=== PATIENT | male | born 1935 | race Caucasian/White ===

== ENCOUNTER 2016-04-24 09:15 | Inpatient (IN) | payer MEDICARE ==
[~2016-04-24] VITALS: Ht 180.3 cm; Wt 101.6 kg
[2016-04-24] VITALS (13 sets, daily range): BP systolic 121–146; BP diastolic 54–77
[2016-04-24] MEDS ORDERED: VENL150C PO (12:10)
[2016-04-24] MEDS ORDERED: CETI10TA22 PO (12:10)
[2016-04-24] MEDS ORDERED: FAMO-63 PO (12:10)
[2016-04-24] MEDS ORDERED: ASPI-482 PO (12:10)
[2016-04-24] MEDS ORDERED: LEVO25TA2 PO (12:10)
[2016-04-24] MEDS ORDERED: TAMS0.4C97 PO (12:10)
[2016-04-24] MEDS ORDERED: DOCU-27 PO (12:10)
[2016-04-24] MEDS ORDERED: CYAN10005 PO (12:10)
[2016-04-24] MEDS ORDERED: CHOL10003 PO (12:10)
[2016-04-24] MEDS ORDERED: ISOS30TA4 PO (12:10)
--- NOTE | 2016-04-24 13:08 | PDOC2 ---
JAIR WELLER INFORMATICS NURSE SPECIALIST 04/24/16 1308: CARDIAC CONSULT DATE OF CONSULT Date of Consult DATE: 04/24/16 TIME: 13:07 REASON FOR CONSULT Reason for Consult: CHF Hypertension REFERRING PHYSICIAN Referring Physician: Dr. Dotson SOURCE Source: Chart review, Patient HISTORY OF PRESENT ILLNESS HISTORY OF PRESENT ILLNESS This is a 80 yo male, with a history of CHF, COPD, and HTN, who initially presented to [facility] secondary to syncopal episode. Patient does not recall passing out. Per record review, patient resides at [facility], a snf house through the [place], and was last seen standing up drinking coffee. His roommate then found him collapsed on the floor and non-responsive. Patient noted to have CHF with NT Pro BNP 2840, CAYDEN with BUN 38 and Cr 2.8, and significant SOA. I and O reports 300cc UOP despite Bumex 2mg IV and Lasix 40mg IV.Patient transferred to [facility] for further care. Patient normally receives care at the [facility]- reports having an echocardiogram "awhile ago. " Appears to be somewhat of a poor historian. Does not know what medication he takes but reports he is given them several times a day. Denies any CP, palpitations, diaphoresis, or nausea/vomiting. No recent illness or fevers. Does not think he follows with shaft headman. 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 Reports chronic SOA "for the last 20 year" but recently worse. Also reports chronic LE edema and orthopnea. Possible h/o irregular heart rhythm but does not recall the term atrial fibrillation. Is not on a blood thinner to his knowledge. Mg 2.2, K 4.5, TSH 10.4. 10-beat NSVT noted at [facility] and was initiated on Amiodarone. PAST MEDICAL HISTORY Cardiovascular: AFIB (?), CHF, HTN Pulmonary: COPD CENTRAL NERVOUS SYSTEM: Dementia GI: No pertinent hx Heme/Onc: No pertinent hx Hepatobiliary: No pertinent hx Psych: Depression Musculoskeletal: Osteoarthritis Renal/: Chronic renal insuff Endocrine: Hypothyroidism PAST SURGICAL HISTORY Past Surgical History left arm sx FAMILY HISTORY Family History: Heart Disease SOCIAL HISTORY Lives: Roommate (resides at [facility] in [place]) ALLERGIES ALLERGIES: Coded Allergies: piroxicam (Verified Allergy, Intermediate, Rash, 04/24/16) Takes asa at home ROS Review of System 14 point ROS conducted with pertinent positives noted above in HPI. PHYSICAL EXAM General: Alert, Oriented X3, Cooperative, mild distress HEENT: Atraumatic, Mucous membr. moist/pink Lungs: Other (diffuse expiratory wheezes) Heart: Other (IRR, tele: AFIB) Abdomen: Other (distended abdomen) Extremities: Other (significant LE edema up to level of thigh. ) Skin: No significant lesion, Other (bilateral LE erythema ) Neuro: Normal speech, Sensation intact Psych/Mental Status: Mental status NL, Other (flat affect ) MUSCULOSKELETAL: Osteoarthritic changes both hands VITALS VITALS Vital Signs Date Time Temp Pulse Resp B/P Pulse Ox O2 Delivery O2 Flow Rate FiO2 04/24/16 12:00 99 23 140/70 98 Nasal Cannula 5.0 04/24/16 11:00 98.1 98.1 ASSESSMENT/PLAN ASSESSMENT/PLAN 1. Acute on chronic heart failure 2. Acute on chronic respiratory failure with AE COPD secondary to above. 3. CAYDEN wiht CKD 4. Atrial Fibrillation; onset unknown 5. NSVT 6. Hypertension 7. Anemia 8. Hypothyroidism - TSH 10.4 9. Anemia Recommendation Check echo to assess LV function No ZEKE/ ARB with CAYDEN Will need diuresis with close monitoring of renal function. BMP in am Renal optimization per nephrology. Rate intermittently elevated. Add CCB for rate control No BB secondary to wheezing. Pulmonary consulted. [id number] score 4 correlating with a 4.8% risk for stroke. Continue ASA for now. ? candidate for OAC. Thyroid replacement per primary care. Problems: JESS BURT MD 04/25/16 0043: CARDIAC CONSULT ALLERGIES ALLERGIES: Coded Allergies: piroxicam (Verified Allergy, Intermediate, Rash, 04/24/16) Takes asa at home ASSESSMENT/PLAN ASSESSMENT/PLAN Pt. seen and examined. Agree with above AFFIRMATIVE ACTION SPECIALIST note. 80 y.o presenting with acute on chronic heart failure - etiology unclear. On exam he has anasarca Reviewed case with Nephrology. Continue lasix gtt. will obtain echo and further cardiac evaluation likely after renal optimization or on outpt basis. Will follow. Problems: JAIR WELLER APRN Apr 24, 2016 13:08 JESS BURT MD Apr 25, 2016 00:43
[2016-04-24] MEDS ORDERED: FUROSEMIDE 20 MG/2 ML VIAL IVP ONE (14:00)
[2016-04-24] MEDS: ASPIRIN ENTERIC COATED 81 MG TABLET.DR. PO SCH (14:28)
[2016-04-24] MEDS: ISOSORBIDE MONONITRATE ER 30 MG TAB.ER.24H PO SCH (14:29)
--- NOTE | 2016-04-24 16:17 | PDOC2 ---
CONSULT Date of Consult Date of Consult DATE: 04/24/16 TIME: 16:14 Past Medical History Cardiovascular: AFIB (?), CHF, HTN Pulmonary: COPD CENTRAL NERVOUS SYSTEM: Dementia GI: No pertinent hx Heme/Onc: No pertinent hx Hepatobiliary: No pertinent hx Psych: Depression Musculoskeletal: Osteoarthritis Renal/: Chronic renal insuff Endocrine: Hypothyroidism Family History Family History: Heart Disease Social History Lives: Roommate (resides at [facility] in [place]) Current Medications Current Medications Current Medications Aspirin (Ecotrin) 81 mg DAILY PO Last administered on 04/24/16at 14:28; Start 04/24/16 at 14:00 Isosorbide Mononitrate (Imdur) 30 mg DAILY PO Last administered on 04/24/16at 14:29; Start 04/24/16 at 14:00 Furosemide (Lasix) 60 mg 1X ONCE IVP Last administered on 04/24/16at 14:28; Start 04/24/16 at 14:00; Stop 04/24/16 at 14:01; Status DC Active Scripts Active Reported Effexor Xr (Venlafaxine Hcl) 150 Mg Cap.er.24h 1 Cap PO DAILY Flomax (Tamsulosin Hcl) 0.4 Mg Cap.er.24h 1 Cap PO HS Synthroid (Levothyroxine Sodium) 25 Mcg Tablet 1 Tab PO DAILY Isosorbide Mononitrate Er (Isosorbide Mononitrate) 30 Mg Tab.er.24h 1 Tab PO DAILY Pepcid (Famotidine) 20 Mg Tablet 20 Mg PO HS Colace (Docusate Sodium) 100 Mg Capsule 1 Cap PO DAILY Vitamin B-12 (Cyanocobalamin (Vitamin B-12)) 1,000 Mcg Tablet 1 Tab PO DAILY Vitamin D3 (Cholecalciferol (Vitamin D3)) 1,000 Unit Tablet 2 Tab PO DAILY Zyrtec (Cetirizine Hcl) 10 Mg Tablet 1 Tab PO DAILY Aspir 81 (Aspirin) 81 Mg Tablet.dr 1 Tab PO DAILY Allergies Allergies: Coded Allergies: piroxicam (Verified Allergy, Intermediate, Rash, 04/24/16) Takes asa at home Vitals VITALS Vital Signs Date Time Temp Pulse Resp B/P Pulse Ox O2 Delivery O2 Flow Rate FiO2 04/24/16 16:00 Nasal Cannula 5.0 04/24/16 15:00 76 32 140/64 94 04/24/16 11:00 98.1 98.1 Assessment/Plan Assessment/Plan RENAL CONSULT / FELICIA Consult dictated. ARF/CKD CHF EDEMA Diurse Labs STage IV CKD per pt h/o Follows at [place]. Thank you. ISACC DUARTE MD Apr 24, 2016 16:17
[2016-04-24] MEDS: FUROSEMIDE INJ 100 MG in IV NORMAL SALINE 100ML 100 ML IV PRN (17:12)
[2016-04-24] MEDS ORDERED: PROCHLORPERAZINE 10 MG/2 ML VIAL. IV PRN (17:45)
[2016-04-24] MEDS ORDERED: ONDANSETRON PF 4 MG/2 ML VIAL. IV PRN (17:45)
[2016-04-24] MEDS ORDERED: ACETAMINOPHEN 325 MG TABLET. PO PRN (17:45)
--- NOTE | 2016-04-24 18:25 | PDOC1 ---
History and Physical Date of Admission Date of Admission DATE: 04/24/16 TIME: 18:15 Identification/Chief Complaint Chief Complaint transferred from [place] fir further diuresis with nephro on board Source Source: Caregiver, Chart review, Patient History of Present Illness History of Present Illness 80 y.io male, rather poor historian, transferred from [place] after being admitted there on 04/23 for bradycardia and possible syncope. HE carries a dx of CHF, has chronic leg swelling, on lasix at [facility] and CKD per [place] documentation, HE follwos with outside cads but seems to have poor ff up. He was being trated for CHF there, being diuresed in icu but creatinine numbers are inc but pt still soa hence advised tertiary transfer wher cards and nephro are available, Pt up inchair, legs wrapped, have plus 3 pitting edema, on NC (supposed to be on home O2 too). eating dinner, Claims he is not SOA as long as he is sitting still,. Seen by nephro already, started on lasix gtt, No CP. Past Medical History Cardiovascular: AFIB (?), CHF, HTN Pulmonary: COPD CENTRAL NERVOUS SYSTEM: Dementia GI: No pertinent hx Heme/Onc: No pertinent hx Hepatobiliary: No pertinent hx Psych: Depression Musculoskeletal: Osteoarthritis Renal/: Chronic renal insuff Endocrine: Hypothyroidism Past Surgical History Past Surgical History: Other Family History Family History: Heart Disease, Family History Unknown Social History Smoke: No ALCOHOL: none Drugs: None Current Medications Current Medications Current Medications Aspirin (Ecotrin) 81 mg DAILY PO Last administered on 04/24/16at 14:28; Start 04/24/16 at 14:00 Isosorbide Mononitrate (Imdur) 30 mg DAILY PO Last administered on 04/24/16at 14:29; Start 04/24/16 at 14:00 Furosemide 60 mg 60 mg 1X ONCE IVP Last administered on 04/24/16at 14:28; Start 04/24/16 at 14:00; Stop 04/24/16 at 14:01; Status DC Furosemide/Sodium Chloride (Lasix Drip/Iv Sodium Chloride 0.9% 100ml) 100 ml @ 0 mls/hr CONT PRN IV SEE I/O RECORD Last administered on 04/24/16at 17:12; Start 04/24/16 at 16:30 Acetaminophen (Tylenol) 650 mg PRN Q6HRS PRN PO MILD PAIN / TEMP; Start at 17:45 Ondansetron HCl (Zofran) 4 mg PRN Q6HRS PRN IV NAUSEA/VOMITING; Start at 17:45 Diphenhydramine HCl (Benadryl) 25 mg PRN QHS PRN PO INSOMNIA; Start 04/24/16 at 17:45 Prochlorperazine Edisylate (Compazine) 10 mg PRN Q6HRS PRN IV NAUSEA/VOMITING; Start 04/24/16 at 17:45 Famotidine (Pepcid) 20 mg QHS PO ; Start 04/24/16 at 21:00 Cetirizine HCl (Zyrtec) 10 mg DAILY PO ; Start 04/25/16 at 09:00 Vitamin D (Vitamin D3) 1,000 unit DAILY PO ; Start 04/25/16 at 09:00 Cyanocobalamin (Vitamin B-12) 1,000 mcg DAILY PO ; Start 04/25/16 at 09:00 Docusate Sodium (Colace) 100 mg DAILY PO ; Start 04/25/16 at 09:00 Levothyroxine Sodium (Synthroid) 25 mcg DAILY06 PO ; Start 04/25/16 at 06:00 Tamsulosin HCl (Flomax) 0.4 mg HS PO ; Start 04/24/16 at 21:00 Venlafaxine HCl (Effexor) 50 mg TID PO ; Start 04/25/16 at 09:00 Active Scripts Active Reported Effexor Xr (Venlafaxine Hcl) 150 Mg Cap.er.24h 1 Cap PO DAILY Flomax (Tamsulosin Hcl) 0.4 Mg Cap.er.24h 1 Cap PO HS Synthroid (Levothyroxine Sodium) 25 Mcg Tablet 1 Tab PO DAILY Isosorbide Mononitrate Er (Isosorbide Mononitrate) 30 Mg Tab.er.24h 1 Tab PO DAILY Pepcid (Famotidine) 20 Mg Tablet 20 Mg PO HS Colace (Docusate Sodium) 100 Mg Capsule 1 Cap PO DAILY Vitamin B-12 (Cyanocobalamin (Vitamin B-12)) 1,000 Mcg Tablet 1 Tab PO DAILY Vitamin D3 (Cholecalciferol (Vitamin D3)) 1,000 Unit Tablet 2 Tab PO DAILY Zyrtec (Cetirizine Hcl) 10 Mg Tablet 1 Tab PO DAILY Aspir 81 (Aspirin) 81 Mg Tablet. 1 Tab PO DAILY Allergies Allergies: Coded Allergies: piroxicam (Verified Allergy, Intermediate, Rash, 04/24/16) Takes asa at home ROS Review of System limited poor historian Physical Exam General: Alert, Oriented X3, Cooperative HEENT: Atraumatic, PERRLA Lungs: Normal air movement, Other (apr) Heart: S1S2, RRR, no thrills, no rubs, no gallops, no murmurs Cardiovascular: S1, S2 Breasts: Normal Abdomen: Soft Male Genitals Exam: normal genitalia Rectal Exam: mass PELVIC: Nml ext vulva Extremities: Other (plus 3 pitting edema) Neuro: Normal gait, Normal speech, Strength at 5/5 X4 ext, Normal tone, Sensation intact, Cranial nerves 3-12 NL, Reflexes 2+ Psych/Mental Status: Mental status NL, Mood NL Vitals Vitals Vital Signs Date Time Temp Pulse Resp B/P Pulse Ox O2 Delivery O2 Flow Rate FiO2 04/24/16 18:00 92 30 140/70 94 Nasal Cannula 5.0 04/24/16 11:00 98.1 98.1 VTE Prophylaxis Ordered VTE Prophylaxis Devices: Yes VTE Pharmacological Prophylaxi: Yes Assessment/Plan Assessment/Plan 1. Acute on chronic respi failure 2, Acute decompensated CHF 3. Acute on CKD 4. Cognitive Impairment 5. Bilateral pitting edema 6. Mild to mod pCM 7. Overweight 8. HX chronic atrial fib 9. Hypothryoidism 10. Depression NOS 11. Diffuse anasarca PLAn: ICU admit Lasix gtt BMP daily PT/OT Ot for lymphedema Cards, nephro and pulmop consults Supprotive meds Dw CERTIFIED PESTICIDE APPLICATOR and KAR Lange MD Apr 24, 2016 18:25
[2016-04-24] MEDS: TAMSULOSIN 0.4 MG CAP.ER.24H. PO SCH (20:44)
[2016-04-24] MEDS: FAMOTIDINE 20 MG TABLET. PO SCH (20:45)
--- NOTE | 2016-04-24 21:38 | PDOC2 ---
Pulmonary Consultation Re: COPD HPI: Mr Silva is an 80 yo male who [facility]. He was transferred from [place] for continued dsyspnea after being admitted for bradycardia and possible syncope. He has a long hx of COPD, chronic O2 requirement, CHF, CKD, w/ chronic lymph edema. He was initially admitted to [facility] following a syncopal episode. He was started on Lasix gtt, and reports that he is feeling better. He has a 2 lpm O2 requirement at baseline - HTN, Dementia, and hx of ETOH abuse. currently residing in [place]. Denies chest pain, pressure, nor palpitations. Reports 2-3 ppd since the age of 18, and quit several years ago. Problems: Medical History COPD, Chronic Hypoxemic resp failure, HTN, ckd, chf, dementia, CAD. Surgical History non-contributory Medications Current Medications Aspirin (Ecotrin) 81 mg DAILY PO Last administered on 04/24/16at 14:28; Start 04/24/16 at 14:00 Isosorbide Mononitrate (Imdur) 30 mg DAILY PO Last administered on 04/24/16at 14:29; Start 04/24/16 at 14:00 Furosemide 60 mg 60 mg 1X ONCE IVP Last administered on 04/24/16at 14:28; Start 04/24/16 at 14:00; Stop 04/24/16 at 14:01; Status DC Furosemide/Sodium Chloride (Lasix Drip/Iv Sodium Chloride 0.9% 100ml) 100 ml @ 0 mls/hr CONT PRN IV SEE I/O RECORD Last administered on 04/24/16at 17:12; Start 04/24/16 at 16:30 Acetaminophen (Tylenol) 650 mg PRN Q6HRS PRN PO MILD PAIN / TEMP; Start at 17:45 Ondansetron HCl (Zofran) 4 mg PRN Q6HRS PRN IV NAUSEA/VOMITING; Start at 17:45 Diphenhydramine HCl (Benadryl) 25 mg PRN QHS PRN PO INSOMNIA; Start 04/24/16 at 17:45 Prochlorperazine Edisylate (Compazine) 10 mg PRN Q6HRS PRN IV NAUSEA/VOMITING; Start 04/24/16 at 17:45 Famotidine (Pepcid) 20 mg QHS PO Last administered on 04/24/16at 20:45; Start 04/24/16 at 21:00 Cetirizine HCl (Zyrtec) 10 mg DAILY PO ; Start 04/25/16 at 09:00 Vitamin D (Vitamin D3) 1,000 unit DAILY PO ; Start 04/25/16 at 09:00 Cyanocobalamin (Vitamin B-12) 1,000 mcg DAILY PO ; Start 04/25/16 at 09:00 Docusate Sodium (Colace) 100 mg DAILY PO ; Start 04/25/16 at 09:00 Levothyroxine Sodium (Synthroid) 25 mcg DAILY06 PO ; Start 04/25/16 at 06:00 Tamsulosin HCl (Flomax) 0.4 mg HS PO Last administered on 04/24/16at 20:44; Start 04/24/16 at 21:00 Venlafaxine HCl (Effexor) 50 mg TID PO ; Start 04/25/16 at 09:00 Active Scripts Active Reported Effexor Xr (Venlafaxine Hcl) 150 Mg Cap.er.24h 1 Cap PO DAILY Flomax (Tamsulosin Hcl) 0.4 Mg Cap.er.24h 1 Cap PO HS Synthroid (Levothyroxine Sodium) 25 Mcg Tablet 1 Tab PO DAILY Isosorbide Mononitrate Er (Isosorbide Mononitrate) 30 Mg Tab.er.24h 1 Tab PO DAILY Pepcid (Famotidine) 20 Mg Tablet 20 Mg PO HS Colace (Docusate Sodium) 100 Mg Capsule 1 Cap PO DAILY Vitamin B-12 (Cyanocobalamin (Vitamin B-12)) 1,000 Mcg Tablet 1 Tab PO DAILY Vitamin D3 (Cholecalciferol (Vitamin D3)) 1,000 Unit Tablet 2 Tab PO DAILY Zyrtec (Cetirizine Hcl) 10 Mg Tablet 1 Tab PO DAILY Aspir 81 (Aspirin) 81 Mg Tablet. 1 Tab PO DAILY Allergies Allergies Coded Allergies Type Severity Reaction Last Updated Verified piroxicam Allergy Intermediate Rash 04/24/16 Yes Social History Hx of tobacco use - 2-3 ppd for 50+ yrs, hx of etoh dependency, no recreational drugs. Family History Non-contributory System Review + cough, dyspnea, shortness of breath, denies chest pain, pressure, nor palpitation. denies fevers, chills, N, V, D. remainder of ROS negative Vital Signs Vital Signs Date Time Temp Pulse Resp B/P Pulse Ox O2 Delivery O2 Flow Rate FiO2 04/24/16 21:00 64 19 121/70 96 Nasal Cannula 5.0 04/24/16 20:00 98.4 98.4 Exam Comments Constitutional: Well developed, well nourished, no acute distress, non-toxic appearance. HENT: Normocephalic, atraumatic, nose normal. Eyes: PERRLA, EOMI, conjunctiva normal, no discharge. Neck: Normal range of motion, no tenderness, supple, no stridor. Cardiovascular:Heart rate regular rhythm, 2/6SEM murmur Lungs & Thorax: Bilateral breath sounds clear to auscultation Abdomen: Bowel sounds normal, soft, no tenderness, no masses, no pulsatile masses. Skin: Warm, dry, no erythema, no rash. Extremities: No tenderness, no cyanosis, no clubbing, ROM intact,3+ edema. Neurologic: Alert and oriented X 3, normal motor function, normal sensory function, no focal deficits noted Psychologic: Affect normal, judgement normal, mood normal. Assessment 1. Acute on Chronic combined Systolic/Diastolic Heart Failure 2. CAYDEN on CKD 3. Acute on chronic hypoxemic/hypercapnic respiratory failure 4. COPD - severity not quantified 5. Obesity with hypoventilation 6. Syncope per report 7. Lymphedema/ Venous Stasis 8. HTN 9. Hypothyroidism 10. Dementia Plan 1. Continue diuresis per Nephrology 2. Echocardiogram 3. Follow recommendations Cardiology 4. Wean O2 as able 5. Bronchodilator therapy 6. No need for steroids at this time DARLENE WATSON MD Apr 24, 2016 21:38
--- NOTE | 2016-04-24 23:26 | CONS ---
DATE OF CONSULTATION: REASON FOR CONSULTATION: Acute on chronic kidney failure. HISTORY OF PRESENT ILLNESS: The patient is an 80-year-old gentleman. Normally follows with CORINNA Pardo. Initially went to [facility] and then transferred here for further care. He was found unresponsive at home. No clear idea how long he was down. Found to have heart rate in the 40a\s at one point. He a very poor historian, gives a very variable account of what has been happening. He follows with a kidney doctor over at ____ who has told him that his kidney functions were down to 25%. Dialysis has not been discussed. He was seen by the kidney doctor about a week ago and by his lung doctor 2 weeks ago. He denied any obvious chest pains. He has not been eating and drinking well for some days. He lives at ____ [facility]. Denies any vomiting or diarrhea. No palpitations. No diaphoresis. No other acute issues were reported. History is very inconsistent. So far it appears that he has got severe edema. He has been diuresed somewhat. He does not recall what his cardiac status is. He was started on amiodarone for atrial fibrillation over at [facility]. PAST MEDICAL HISTORY: 1. Significant for hypertension. 2. Congestive heart failure, probably both diastolic and systolic. 3. Obesity with hypoventilation. 4. Chronic leg edema, which appears all the way up to his mid thighs and with significant venous stasis and dermatitis. 5. Cellulitis, lower extremities ____due to venous stasis. 6. Recent syncope. 7. 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 8. Hypothyroidism. 9. DJD. 10. Mood disorder. 11. Mild dementia. PAST SURGICAL HISTORY: Significant for left arm surgery. SOCIAL HISTORY: No alcohol or recreational drugs. Quit smoking by estimated about 40 pack years of smoking. No recreational drugs. REVIEW OF SYSTEMS: As above, otherwise negative on a 10-point scale. FAMILY HISTORY: Noncontributory due to age. MEDICATIONS AND ALLERGIES: Reviewed. PHYSICAL EXAMINATION: GENERAL: Middle-aged to elderly gentleman in no distress. VITAL SIGNS: Stable. He is afebrile. HEENT: Pupils reactive. Tongue midline. No facial asymmetry. NECK: Supple. I did not appreciate jugular venous distention. LUNGS: Decreased bases. Few rhonchi. CARDIOVASCULAR: Regular rate and rhythm, no rub, distant heart sounds. ABDOMEN: Portly, soft, nontender, no rebound or masses. Bowel sounds active. No obvious hepatosplenomegaly. EXTREMITIES: 3+ edema with venous stasis and dermatitis and cellulitis. NEUROLOGIC: Otherwise nonfocal. LABORATORY DATA: Only from [facility] were reviewed. Pertinent ones show a white count of 6.5, hemoglobin 9.3, hematocrit 28. Platelets 212. Sodium 139, potassium 5, chloride 102, bicarbonate 32, BUN of 38, creatinine of 2.8, lactic acid 2.4, magnesium 2.2. Liver enzymes unremarkable. Urinalysis shows specific gravity 1.015 with 20 mg/dL of protein but no evidence of blood. IMPRESSION: 1. Acute and chronic renal failure. 2. Syncope. 3. Congestive heart failure and leg edema. 4. Hypertension with chronic kidney disease. PLAN: At this point, we would continue to diuresis. Monitor intake and output. May start him on a Lasix drip. Follow labs. Potassium is elevated, would monitor that. Should improve with diuresis. Discussed with the patient. ISACC DUARTE MD DR: BHARAT/jess JOB#: [id number] / [id number]
[2016-04-25] VITALS (18 sets, daily range): BP systolic 109–156; BP diastolic 58–85
[2016-04-25] MEDS: LEVOTHYROXINE 25 MCG TABLET. PO SCH (05:27)
[2016-04-25] MEDS: FUROSEMIDE INJ 100 MG in IV NORMAL SALINE 100ML 100 ML IV PRN (05:36)
[2016-04-25 07:45] LABS: ALBUMIN 2.9 g/dL (3.4-5.0); ALBUMIN/GLOBULIN RATIO 0.6 (1.0-1.7); CALCIUM 8.3 mg/dL (8.5-10.1); CREATININE 2.9 mg/dL (0.7-1.3); PHOSPHORUS 4.8 mg/dL (2.6-4.7); POTASSIUM 4.2 mmol/L (3.5-5.1); TOTAL BILIRUBIN 0.4 mg/dL (0.2-1.0)
[2016-04-25] MEDS: CYANOCOBALAMIN (VITAMIN B-12) 1,000 MCG TABLET. PO SCH (08:21)
[2016-04-25] MEDS: ASPIRIN ENTERIC COATED 81 MG TABLET.DR. PO SCH (08:21)
[2016-04-25] MEDS: CHOLECALCIFEROL (VITAMIN D3) 1,000 UNIT TABLET PO SCH (08:21)
[2016-04-25] MEDS: DOCUSATE SODIUM 100 MG CAPSULE PO SCH (08:21)
[2016-04-25] MEDS: VENLAFAXINE 50 MG TABLET. PO SCH ×3 (08:21→21:26)
[2016-04-25] MEDS: CETIRIZINE HCL 10 MG TABLET PO SCH (08:22)
[2016-04-25] MEDS: ISOSORBIDE MONONITRATE ER 30 MG TAB.ER.24H PO SCH (08:22)
--- NOTE | 2016-04-25 10:24 | PDOC ---
PULMONARY PROGRESS NOTES Subjective Feeling beter this Am, continues on lasix gtt. diuresing well. No complaints of chest pain, pressure, nor palpitations. SOB improved. Vitals Vital Signs Date Time Temp Pulse Resp B/P Pulse Ox O2 Delivery O2 Flow Rate FiO2 04/25/16 09:00 73 28 149/66 92 Nasal Cannula 5.0 04/25/16 08:00 98.4 98.4 General: Alert, Oriented X4, No acute distress Lungs: Clear Cardiovascular: S1, S2 Abdomen: Soft, Non-tender Neuro Exam: Alert, Oriented Extremities: Other (3+ edema ) Skin: Warm, Dry Labs Laboratory Tests Test 04/24/16 10:50 04/25/16 05:00 Nasal Screen MRSA (PCR) Positive (Negative) Sodium Level 143mmol/L (136-145) Potassium Level 4.2mmol/L (3.5-5.1) Chloride Level 101mmol/L (98-107) Carbon Dioxide Level 32mmol/L (21-32) Anion Gap 10 (6-14) Blood Urea Nitrogen 37mg/dL (8-26) Creatinine 2.9mg/dL (0.7-1.3) Estimated GFR (Cockcroft-Gault) 21.0 BUN/Creatinine Ratio 13 (6-20) Glucose Level 82mg/dL (70-99) Calcium Level 8.3mg/dL (8.5-10.1) Phosphorus Level 4.8mg/dL (2.6-4.7) Magnesium Level 2.2mg/dL (1.8-2.4) Total Bilirubin 0.4mg/dL (0.2-1.0) Aspartate Amino Transf (AST/SGOT) 29U/L (15-37) Alanine Aminotransferase (ALT/SGPT) 22U/L (16-63) Alkaline Phosphatase 94U/L (46-116) Total Protein 8.0g/dL (6.4-8.2) Albumin 2.9g/dL (3.4-5.0) Albumin/Globulin Ratio 0.6 (1.0-1.7) Laboratory Tests Test 04/24/16 10:50 04/25/16 05:00 Nasal Screen MRSA (PCR) Positive (Negative) Sodium Level 143mmol/L (136-145) Potassium Level 4.2mmol/L (3.5-5.1) Chloride Level 101mmol/L (98-107) Carbon Dioxide Level 32mmol/L (21-32) Anion Gap 10 (6-14) Blood Urea Nitrogen 37mg/dL (8-26) Creatinine 2.9mg/dL (0.7-1.3) Estimated GFR (Cockcroft-Gault) 21.0 BUN/Creatinine Ratio 13 (6-20) Glucose Level 82mg/dL (70-99) Calcium Level 8.3mg/dL (8.5-10.1) Phosphorus Level 4.8mg/dL (2.6-4.7) Magnesium Level 2.2mg/dL (1.8-2.4) Total Bilirubin 0.4mg/dL (0.2-1.0) Aspartate Amino Transf (AST/SGOT) 29U/L (15-37) Alanine Aminotransferase (ALT/SGPT) 22U/L (16-63) Alkaline Phosphatase 94U/L (46-116) Total Protein 8.0g/dL (6.4-8.2) Albumin 2.9g/dL (3.4-5.0) Albumin/Globulin Ratio 0.6 (1.0-1.7) Medications Active Scripts Medications Dose Route/Sig Days Date Category Effexor Xr (Venlafaxine Hcl) 150 Mg Cap.er.24h 1 Cap PO DAILY 04/24/16 Reported Flomax (Tamsulosin Hcl) 0.4 Mg Cap.er.24h 1 Cap PO HS 04/24/16 Reported Synthroid (Levothyroxine Sodium) 25 Mcg Tablet 1 Tab PO DAILY 04/24/16 Reported Isosorbide Mononitrate Er (Isosorbide Mononitrate) 30 Mg Tab.er.24h 1 Tab PO DAILY 04/24/16 Reported Pepcid (Famotidine) 20 Mg Tablet 20 Mg PO HS 04/24/16 Reported Colace (Docusate Sodium) 100 Mg Capsule 1 Cap PO DAILY 04/24/16 Reported Vitamin B-12 (Cyanocobalamin (Vitamin B-12)) 1,000 Mcg Tablet 1 Tab PO DAILY 04/24/16 Reported Vitamin D3 (Cholecalciferol (Vitamin D3)) 1,000 Unit Tablet 2 Tab PO DAILY 04/24/16 Reported Zyrtec (Cetirizine Hcl) 10 Mg Tablet 1 Tab PO DAILY 04/24/16 Reported Aspir 81 (Aspirin) 81 Mg Tablet.dr 1 Tab PO DAILY 04/24/16 Reported Impression . Assessment 1. Acute on Chronic combined Systolic/Diastolic Heart Failure 2. CAYDEN on CKD 3. Acute on chronic hypoxemic/hypercapnic respiratory failure 4. COPD - severity not quantified 5. Obesity with hypoventilation 6. Syncope per report 7. Lymphedema/ Venous Stasis 8. HTN 9. Hypothyroidism 10. Dementia Plan . Plan 1. Continue diuresis per Nephrology 2. Follow recommendations Cardiology 3. Wean O2 as able 4. Bronchodilator therapy 5. No need for steroids at this time DARLENE WATSON MD Apr 25, 2016 10:24
[2016-04-25] MEDS: IPRATRPIUM/ALBUTEROL 0.5/2.5MG 3 ML NEBU. NEB SCH ×3 (12:34→19:36)
[2016-04-25] MEDS: BUDESONIDE 0.5 MG/2 ML NEBU NEB SCH ×2 (12:35→19:36)
--- NOTE | 2016-04-25 13:03 | PDOC ---
PROGRESS NOTES Chief Complaint Chief Complaint 1. Acute on Chronic renal failure 2, Acute decompensated CHF 3. Acute on chronic respiratory failure 4. Symptomatic bradycardia 5. Cognitive Impairment 6. Bilateral pitting edema 7. 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 Overweight 9. 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 Depression 12. Diffuse anasarca 13. Hyperkalemia History of Present Illness History of Present Illness Pt is a 80 y/o male sitting in his chair preparing to have blood drawn. Pt states he is doing "ok". Pt was transferred here from [place] where he was admitted for symptomatic bradycardia. Pt was transferred here for cardiology and nephrology input. Plan to continue to diurese and discuss the possibility of dialysis with family - per nephrology. Vitals Vitals Vital Signs Date Time Temp Pulse Resp B/P Pulse Ox O2 Delivery O2 Flow Rate FiO2 04/25/16 12:00 Nasal Cannula 5.0 04/25/16 12:00 98.8 76 18 152/78 98 98.8 Physical Exam General: Alert, Cooperative, mild distress Heart: Regular rate, Normal S1, Normal S2, Other (IRR, tele: AFIB) Lungs: Crackles (diffuse crackles b/l) Abdomen: Normal bowel sounds, Soft, No masses Extremities: No cyanosis, Normal pulses, Other (plus 3 pitting edema) Skin: No significant lesion, Other (bilateral LE erythema ) Labs LABS Laboratory Tests Test 04/25/16 05:00 Sodium Level 143mmol/L (136-145) Potassium Level 4.2mmol/L (3.5-5.1) Chloride Level 101mmol/L (98-107) Carbon Dioxide Level 32mmol/L (21-32) Anion Gap 10 (6-14) Blood Urea Nitrogen 37mg/dL (8-26) Creatinine 2.9mg/dL (0.7-1.3) Estimated GFR (Cockcroft-Gault) 21.0 BUN/Creatinine Ratio 13 (6-20) Glucose Level 82mg/dL (70-99) Calcium Level 8.3mg/dL (8.5-10.1) Phosphorus Level 4.8mg/dL (2.6-4.7) Magnesium Level 2.2mg/dL (1.8-2.4) Total Bilirubin 0.4mg/dL (0.2-1.0) Aspartate Amino Transf (AST/SGOT) 29U/L (15-37) Alanine Aminotransferase (ALT/SGPT) 22U/L (16-63) Alkaline Phosphatase 94U/L (46-116) Total Protein 8.0g/dL (6.4-8.2) Albumin 2.9g/dL (3.4-5.0) Albumin/Globulin Ratio 0.6 (1.0-1.7) Review of Systems Review of Systems Pt is sitting in his chair stating that he is hungry. Assessment and Plan Assessmemt and Plan ASSESSMENT 1. Acute on Chronic renal failure: creatinine 2.9 on 04/25 2, Acute decompensated CHF 3. Acute on chronic respiratory failure 4. Symptomatic bradycardia 5. Cognitive Impairment 6. Bilateral pitting edema 7. 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 Overweight 9. 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 Depression 12. Diffuse anasarca 13. Hyperkalemia PLAN 1. ICU monitoring 2. Continue to diurese - per nephrology 3. Continue to monitor creatinine 4. Daily labs 5. Continue to monitor LE edema 6. Appreciates specialty input Problems: Comment Review of Relevant I have reviewed the following items randee (where applicable) has been applied. Labs Laboratory Tests Test 04/24/16 10:50 04/25/16 05:00 Nasal Screen MRSA (PCR) Positive (Negative) Sodium Level 143mmol/L (136-145) Potassium Level 4.2mmol/L (3.5-5.1) Chloride Level 101mmol/L (98-107) Carbon Dioxide Level 32mmol/L (21-32) Anion Gap 10 (6-14) Blood Urea Nitrogen 37mg/dL (8-26) Creatinine 2.9mg/dL (0.7-1.3) Estimated GFR (Cockcroft-Gault) 21.0 BUN/Creatinine Ratio 13 (6-20) Glucose Level 82mg/dL (70-99) Calcium Level 8.3mg/dL (8.5-10.1) Phosphorus Level 4.8mg/dL (2.6-4.7) Magnesium Level 2.2mg/dL (1.8-2.4) Total Bilirubin 0.4mg/dL (0.2-1.0) Aspartate Amino Transf (AST/SGOT) 29U/L (15-37) Alanine Aminotransferase (ALT/SGPT) 22U/L (16-63) Alkaline Phosphatase 94U/L (46-116) Total Protein 8.0g/dL (6.4-8.2) Albumin 2.9g/dL (3.4-5.0) Albumin/Globulin Ratio 0.6 (1.0-1.7) Laboratory Tests Test 04/25/16 05:00 Sodium Level 143mmol/L (136-145) Potassium Level 4.2mmol/L (3.5-5.1) Chloride Level 101mmol/L (98-107) Carbon Dioxide Level 32mmol/L (21-32) Anion Gap 10 (6-14) Blood Urea Nitrogen 37mg/dL (8-26) Creatinine 2.9mg/dL (0.7-1.3) Estimated GFR (Cockcroft-Gault) 21.0 BUN/Creatinine Ratio 13 (6-20) Glucose Level 82mg/dL (70-99) Calcium Level 8.3mg/dL (8.5-10.1) Phosphorus Level 4.8mg/dL (2.6-4.7) Magnesium Level 2.2mg/dL (1.8-2.4) Total Bilirubin 0.4mg/dL (0.2-1.0) Aspartate Amino Transf (AST/SGOT) 29U/L (15-37) Alanine Aminotransferase (ALT/SGPT) 22U/L (16-63) Alkaline Phosphatase 94U/L (46-116) Total Protein 8.0g/dL (6.4-8.2) Albumin 2.9g/dL (3.4-5.0) Albumin/Globulin Ratio 0.6 (1.0-1.7) Medications Current Medications Aspirin (Ecotrin) 81 mg DAILY PO Last administered on 04/25/16at 08:21; Start 04/24/16 at 14:00 Isosorbide Mononitrate (Imdur) 30 mg DAILY PO Last administered on 04/25/16at 08:22; Start 04/24/16 at 14:00 Furosemide 60 mg 60 mg 1X ONCE IVP Last administered on 04/24/16at 14:28; Start 04/24/16 at 14:00; Stop 04/24/16 at 14:01; Status DC Furosemide/Sodium Chloride (Lasix Drip/Iv Sodium Chloride 0.9% 100ml) 100 ml @ 0 mls/hr CONT PRN IV SEE I/O RECORD Last administered on 04/25/16at 05:36; Start 04/24/16 at 16:30 Acetaminophen (Tylenol) 650 mg PRN Q6HRS PRN PO MILD PAIN / TEMP; Start at 17:45 Ondansetron HCl (Zofran) 4 mg PRN Q6HRS PRN IV NAUSEA/VOMITING; Start at 17:45 Diphenhydramine HCl (Benadryl) 25 mg PRN QHS PRN PO INSOMNIA; Start 04/24/16 at 17:45 Prochlorperazine Edisylate (Compazine) 10 mg PRN Q6HRS PRN IV NAUSEA/VOMITING; Start 04/24/16 at 17:45 Famotidine (Pepcid) 20 mg QHS PO Last administered on 04/24/16at 20:45; Start 04/24/16 at 21:00 Cetirizine HCl (Zyrtec) 10 mg DAILY PO Last administered on 04/25/16at 08:22; Start 04/25/16 at 09:00 Vitamin D (Vitamin D3) 1,000 unit DAILY PO Last administered on 04/25/16at 08: 21; Start 04/25/16 at 09:00 Cyanocobalamin (Vitamin B-12) 1,000 mcg DAILY PO Last administered on at 08:21; Start 04/25/16 at 09:00 Docusate Sodium (Colace) 100 mg DAILY PO Last administered on 04/25/16at 08:21 ; Start 04/25/16 at 09:00 Levothyroxine Sodium (Synthroid) 25 mcg DAILY06 PO Last administered on at 05:27; Start 04/25/16 at 06:00 Tamsulosin HCl (Flomax) 0.4 mg HS PO Last administered on 04/24/16at 20:44; Start 04/24/16 at 21:00 Venlafaxine HCl (Effexor) 50 mg TID PO Last administered on 04/25/16at 08:21; Start 04/25/16 at 09:00 Budesonide (Pulmicort) 0.5 mg RTBID NEB Last administered on 04/25/16at 12:35; Start 04/25/16 at 10:30 Albuterol/ Ipratropium (Duoneb) 3 ml RTQID NEB Last administered on 04/25/16at 12:34; Start 04/25/16 at 12:00 Active Scripts Active Reported Effexor Xr (Venlafaxine Hcl) 150 Mg Cap.er.24h 1 Cap PO DAILY Flomax (Tamsulosin Hcl) 0.4 Mg Cap.er.24h 1 Cap PO HS Synthroid (Levothyroxine Sodium) 25 Mcg Tablet 1 Tab PO DAILY Isosorbide Mononitrate Er (Isosorbide Mononitrate) 30 Mg Tab.er.24h 1 Tab PO DAILY Pepcid (Famotidine) 20 Mg Tablet 20 Mg PO HS Colace (Docusate Sodium) 100 Mg Capsule 1 Cap PO DAILY Vitamin B-12 (Cyanocobalamin (Vitamin B-12)) 1,000 Mcg Tablet 1 Tab PO DAILY Vitamin D3 (Cholecalciferol (Vitamin D3)) 1,000 Unit Tablet 2 Tab PO DAILY Zyrtec (Cetirizine Hcl) 10 Mg Tablet 1 Tab PO DAILY Aspir 81 (Aspirin) 81 Mg Tablet. 1 Tab PO DAILY Vitals/I & O Vital Sign - Last 24 Hours 04/24/16 04/24/16 04/24/16 04/24/16 13:00 14:00 14:29 15:00 Pulse 90 66 77 76 Resp 32 30 32 B/P 128/64 122/54 122/54 140/64 Pulse Ox 97 93 94 O2 Delivery Nasal Cannula Nasal Cannula Nasal Cannula O2 Flow Rate 5.0 5.0 5.0 04/24/16 04/24/16 04/24/16 04/24/16 16:00 16:00 17:00 18:00 Pulse 81 71 92 Resp 33 30 B/P 143/64 137/64 140/70 Pulse Ox 97 97 94 O2 Delivery Nasal Cannula Nasal Cannula Nasal Cannula Nasal Cannula O2 Flow Rate 5.0 5.0 5.0 5.0 04/24/16 04/24/16 04/24/16 04/24/16 19:00 20:00 20:00 20:00 Temp 98.4 98.4 Pulse 72 72 72 Resp 25 18 18 B/P 127/65 144/72 144/72 Pulse Ox 95 96 96 O2 Delivery Nasal Cannula Nasal Cannula Nasal Cannula Nasal Cannula O2 Flow Rate 5.0 5.0 5.0 5.0 04/24/16 04/24/16 04/24/16 04/24/16 21:00 22:00 23:00 23:59 Pulse 64 74 82 Resp 19 18 16 B/P 121/70 142/70 140/64 Pulse Ox 96 97 97 O2 Delivery Nasal Cannula Nasal Cannula Nasal Cannula Nasal Cannula O2 Flow Rate 5.0 5.0 5.0 5.0 04/25/16 04/25/16 04/25/16 04/25/16 00:00 01:04 02:05 03:00 Temp 97.9 97.8 98.6 97.5 97.9 97.8 98.6 97.5 Pulse 68 71 73 69 Resp 21 16 17 16 B/P 140/67 139/69 137/72 128/61 Pulse Ox 98 98 97 97 O2 Delivery Nasal Cannula Nasal Cannula Nasal Cannula Nasal Cannula O2 Flow Rate 5.0 5.0 5.0 5.0 04/25/16 04/25/16 04/25/16 04/25/16 04:01 04:11 05:00 06:04 Temp 97.6 97.9 97.9 97.6 97.9 97.9 Pulse 73 63 67 Resp 21 15 26 B/P 149/72 145/70 136/63 Pulse Ox 92 98 98 O2 Delivery Nasal Cannula Nasal Cannula Nasal Cannula Nasal Cannula O2 Flow Rate 5.0 5.0 5.0 5.0 04/25/16 04/25/16 04/25/16 04/25/16 07:00 08:00 08:00 08:22 Temp 98.4 98.4 Pulse 79 82 74 Resp 28 15 B/P 140/71 146/67 146/74 Pulse Ox 98 99 O2 Delivery Nasal Cannula Nasal Cannula Nasal Cannula O2 Flow Rate 5.0 5.0 5.0 04/25/16 04/25/16 04/25/16 04/25/16 09:00 10:00 11:00 12:00 Temp 98.8 98.8 Pulse 73 71 73 76 Resp 28 24 22 18 B/P 149/66 131/62 128/59 152/78 Pulse Ox 92 97 98 98 O2 Delivery Nasal Cannula Nasal Cannula Room Air Nasal Cannula O2 Flow Rate 5.0 5.0 5.0 5.0 04/25/16 12:00 O2 Delivery Nasal Cannula O2 Flow Rate 5.0 Intake and Output 04/24/16 04/24/16 04/25/16 15:00 23:00 07:00 Intake Total 50 ml 300 ml 300 ml Output Total 200 ml 1600 ml 2625 ml Balance -150 ml -1300 ml -2325 ml REZA WALTON III DO Apr 25, 2016 13:03
--- NOTE | 2016-04-25 15:15 | PDOC ---
CARDIOLOGY PROGRESS NOTE SUBJECTIVE: Reports less dyspnea today. No chest pain. Sitting in chair. OBJECTIVE: Vital SIgns: Vital Signs Date Time Temp Pulse Resp B/P Pulse Ox O2 Delivery O2 Flow Rate FiO2 04/25/16 14:00 81 31 140/64 96 Nasal Cannula 5.0 04/25/16 12:00 98.8 98.8 I & O Negative 3.7 L. Objective: Gen: Mild confusion about current state Significant 3+ pitting edema. Bilateral chronic venous stasis changes Lungs with rales at the bases. RRR. CURRENT MEDICATIONS: Current Medications Medications (Trade) Dose Ordered Sig/Lenny Start Time Stop Time Status Last Admin Dose Admin Acetaminophen (Tylenol) 650 mg PRN Q6HRS PRN 04/24/16 17:45 Albuterol/ Ipratropium (Duoneb) 3 ml RTQID 04/25/16 12:00 04/25/16 12:34 3 ML Aspirin (Ecotrin) 81 mg DAILY 04/24/16 14:00 04/25/16 08:21 81 MG Budesonide (Pulmicort) 0.5 mg RTBID 04/25/16 10:30 04/25/16 12:35 0.5 MG Cetirizine HCl (Zyrtec) 10 mg DAILY 04/25/16 09:00 04/25/16 08:22 10 MG Cyanocobalamin (Vitamin B-12) 1,000 mcg DAILY 04/25/16 09:00 04/25/16 08:21 1,000 MCG Diphenhydramine HCl (Benadryl) 25 mg PRN QHS PRN 04/24/16 17:45 Docusate Sodium (Colace) 100 mg DAILY 04/25/16 09:00 04/25/16 08:21 100 MG Famotidine (Pepcid) 20 mg QHS 04/24/16 21:00 04/24/16 20:45 20 MG Furosemide 60 mg 60 mg 1X ONCE 04/24/16 14:00 04/24/16 14:01 DC 04/24/16 14:28 60 MG Furosemide/Sodium Chloride (Lasix Drip/Iv Sodium Chloride 0.9% 100ml) 100 ml @ 0 mls/hr CONT PRN 04/24/16 16:30 04/25/16 05:36 5 MLS/HR Isosorbide Mononitrate (Imdur) 30 mg DAILY 04/24/16 14:00 04/25/16 08:22 30 MG Levothyroxine Sodium (Synthroid) 25 mcg DAILY06 04/25/16 06:00 04/25/16 05:27 25 MCG Ondansetron HCl (Zofran) 4 mg PRN Q6HRS PRN 04/24/16 17:45 Prochlorperazine Edisylate (Compazine) 10 mg PRN Q6HRS PRN 04/24/16 17:45 Tamsulosin HCl (Flomax) 0.4 mg HS 04/24/16 21:00 04/24/16 20:44 0.4 MG Venlafaxine HCl (Effexor) 50 mg TID 04/25/16 09:00 04/25/16 08:21 50 MG Vitamin D (Vitamin D3) 1,000 unit DAILY 04/25/16 09:00 04/25/16 08:21 1,000 UNIT ASSESSMENT: 1. Acute on chronic heart failure. 2. CKD Problems: PLAN: 1. Will review echo and add meds as needed. 2. IV lost, so lasix gtt stopped. 3. Negative 4L. Can likely do lasix 80mg IVP bid, will await renal input. Will follow. May ultimately need cath depending on echo results. JESS BURT MD Apr 25, 2016 15:15
--- NOTE | 2016-04-25 17:34 | PDOC ---
Provider Note Provider Note RENAL F/U : FELICIA S : No new c/o O : VSS Afebrile No distress. No new issues. Neck : Supple Lungs : Non labored. CVS : RRR Abd : Benign looking. No distention. Ext : 2+ edema Neuro : No new issues Labs reviewed. 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 EDEMA SYNCOPE. Watch Cr, I/Os Diurese. IV got bad. CPM. Isacc Duarte M.D. ISACC DUARTE MD Apr 25, 2016 17:34
[2016-04-25] MEDS ORDERED: FUROSEMIDE 40 MG/4 ML VIAL IVP ONE (20:00)
[2016-04-25] MEDS: FAMOTIDINE 20 MG TABLET. PO SCH (21:26)
[2016-04-25] MEDS: TAMSULOSIN 0.4 MG CAP.ER.24H. PO SCH (21:26)
[2016-04-26] VITALS (7 sets, daily range): BP systolic 121–153; BP diastolic 60–85
[2016-04-26] MEDS ORDERED: ALBUTEROL SULFATE 2.5 MG/3 ML NEBU. NEB PRN (04:15)
[2016-04-26] MEDS: LEVOTHYROXINE 25 MCG TABLET. PO SCH (05:50)
[2016-04-26 07:01] LABS: BASO # 0.1 x10^3/uL (0.0-0.2); BASO % 1 % (0-3); EOS % 3 % (0-3); HEMATOCRIT 29.5 % (39.0-53.0); HEMOGLOBIN 9.4 g/dL (13.0-17.5); LYMPH # 0.9 x10^3/uL (1.0-4.8); LYMPH % 16 % (24-48); MEAN CORPUSCULAR HEMOGLOBIN 26 pg (25-35); MEAN CORPUSCULAR HGB CONC 32 g/dL (31-37); MEAN CORPUSCULAR VOLUME 83 fL (79-100); MONO % 16 % (0-9); NEUT % 64 % (31-73); PLATELET COUNT 211 x10^3/uL (140-400); RED BLOOD COUNT 3.54 x10^6/uL (4.30-5.70); RED CELL DISTRIBUTION WIDTH 15.4 % (11.5-14.5); WHITE BLOOD COUNT 5.5 x10^3/uL (4.0-11.0)
[2016-04-26 07:16] LABS: CALCIUM 8.1 mg/dL (8.5-10.1); CREATININE 2.9 mg/dL (0.7-1.3); POTASSIUM 3.9 mmol/L (3.5-5.1)
[2016-04-26] MEDS: CETIRIZINE HCL 10 MG TABLET PO SCH (08:25)
[2016-04-26] MEDS: CYANOCOBALAMIN (VITAMIN B-12) 1,000 MCG TABLET. PO SCH (08:25)
[2016-04-26] MEDS: VENLAFAXINE 50 MG TABLET. PO SCH ×3 (08:25→20:10)
[2016-04-26] MEDS: ISOSORBIDE MONONITRATE ER 30 MG TAB.ER.24H PO SCH (08:25)
[2016-04-26] MEDS: CHOLECALCIFEROL (VITAMIN D3) 1,000 UNIT TABLET PO SCH (08:25)
[2016-04-26] MEDS: DOCUSATE SODIUM 100 MG CAPSULE PO SCH (08:25)
[2016-04-26] MEDS: ASPIRIN ENTERIC COATED 81 MG TABLET.DR. PO SCH (08:26)
[2016-04-26] MEDS: IPRATRPIUM/ALBUTEROL 0.5/2.5MG 3 ML NEBU. NEB SCH ×4 (08:31→21:13)
[2016-04-26] MEDS: BUDESONIDE 0.5 MG/2 ML NEBU NEB SCH ×2 (08:31→21:13)
--- NOTE | 2016-04-26 11:05 | CARD ---
APPROVED REPORT EXAM: Two-dimensional and M-mode echocardiogram with Doppler and color Doppler. Other Information Quality : Technically Limited Rhythm : Atrial FibrillationTechnically limited study due to positioning. INDICATION Congestive Heart Failure 2D DIMENSIONS RVDd3.1 (2.9-3.5cm)Left Atrium(2D)4.4 (1.6-4.0cm) IVSd1.4 (0.7-1.1cm)Aortic Root(2D)3.6 (2.0-3.7cm) LVDd5.4 (3.9-5.9cm)LVOT Diameter2.3 (1.8-2.4cm) PWd1.4 (0.7-1.1cm)LVDs3.6 (2.5-4.0cm) FS (%) 30.1 %SV88.8 ml LVEF(%)60.5 (>50%) Aortic Valve AoV Peak Kris.115.8cm/sAoV VTI25.9cm AO Peak GR.5.4mmHgLVOT VTI 16.07cm AO Mean GR.3mmHgAVA (VTI)2.57cm2 AI P 1/2 [id number] Mitral Valve MV E Fhdgnapy631.2cm/sMV E Peak Gr.9mmHg MV DECEL [id number] E Mean Gr.2mmHg MV [id number] (PHT)3.33cm2 TDI Lateral E' P. V15.30cm/sMedial E' P. V13.03cm/s E/Lateral E'8.2E/Medial E'9.6 Tricuspid Valve TR P. [id number]/sRAP [id number] TR Peak Gr.[id number] LEFT VENTRICLE The left ventricle is normal size. There is mild concentric left ventricular hypertrophy. Left ventri fernando systolic function is normal. The Ejection Fraction is 55-60%. There is normal LV segmental wall m otion. Tissue Doppler imaging reveals moderate left ventricular diastolic dysfunction. RIGHT VENTRICLE The right ventricle is mildly to moderately dilated. The right ventricular systolic function is boni l. ATRIA The left atrium is borderline dilated. The right atrium is moderately dilated. The interatrial septum is intact with no evidence for an atrial septal defect or patent foramen ovale as noted on 2-D or Do ppler imaging. AORTIC VALVE The aortic valve is normal in structure and function. The aortic valve is trileaflet. Doppler and Col or Flow revealed trace to mild aortic regurgitation. There is no significant aortic valvular stenosis . MITRAL VALVE The mitral valve is normal in structure and function. There is no mitral valve stenosis. Doppler and Color Flow revealed mild mitral regurgitation. TRICUSPID VALVE The tricuspid valve is normal in structure and function. Doppler and Color Flow revealed trace to mil d tricuspid regurgitation. The PA pressure was estimated at 21 mmHg. There is no tricuspid valve sten osis. PULMONIC VALVE Doppler and Color Flow revealed no pulmonic valvular regurgitation. There is no pulmonic valvular pj nosis. GREAT VESSELS The aortic root is normal in size. Pulmonary veins not recorded. The IVC is normal in size and collap ses >50% with inspiration. PERICARDIAL EFFUSION There is no evidence of significant pericardial effusion. Critical Notification Critical Value: No <Conclusion> Left ventricle systolic function is normal. The Ejection Fraction is 55-60%. There is normal LV segmental wall motion. Tissue Doppler imaging reveals moderate left ventricular diastolic dysfunction. The right ventricle is mildly to moderately dilated.
--- NOTE | 2016-04-26 11:10 | PDOC ---
JAIR WELLER HAND STAPLER 04/26/16 1110: CARDIO Progress Notes Date and Time Date of Service 04/26/16 Time of Evaluation 1010 Subjective Subjective: No Chest Pain, No Palpitations, No Dizziness, Other (dyspnea improved. LE swelling better. transferring upstairs. ) Vitals Vitals Vital Signs Date Time Temp Pulse Resp B/P Pulse Ox O2 Delivery O2 Flow Rate FiO2 04/26/16 09:11 Nasal Cannula 5.0 04/26/16 08:33 95 04/26/16 08:25 88 152/67 04/26/16 08:00 24 04/26/16 04:00 98.7 98.7 Weight Weight [ ] Input and Output Intake and Output Intake and Output 04/26/16 07:00 Intake Total 790 ml Output Total 2900 ml Balance -2110 ml Intake Oral 790 ml Output Urine Total 2900 ml Laboratory Labs Laboratory Tests Test 04/26/16 06:25 White Blood Count 5.5x10^3/uL (4.0-11.0) Red Blood Count 3.54x10^6/uL (4.30-5.70) Hemoglobin 9.4g/dL (13.0-17.5) Hematocrit 29.5% (39.0-53.0) Mean Corpuscular Volume 83fL (79-100) Mean Corpuscular Hemoglobin 26pg (25-35) Mean Corpuscular Hemoglobin Concent 32g/dL (31-37) Red Cell Distribution Width 15.4% (11.5-14.5) Platelet Count 211x10^3/uL (140-400) Neutrophils (%) (Auto) 64% (31-73) Lymphocytes (%) (Auto) 16% (24-48) Monocytes (%) (Auto) 16% (0-9) Eosinophils (%) (Auto) 3% (0-3) Basophils (%) (Auto) 1% (0-3) Neutrophils # (Auto) 3.5x10^3uL (1.8-7.7) Lymphocytes # (Auto) 0.9x10^3/uL (1.0-4.8) Monocytes # (Auto) 0.9x10^3/uL (0.0-1.1) Eosinophils # (Auto) 0.1x10^3/uL (0.0-0.7) Basophils # (Auto) 0.1x10^3/uL (0.0-0.2) Sodium Level 143mmol/L (136-145) Potassium Level 3.9mmol/L (3.5-5.1) Chloride Level 102mmol/L (98-107) Carbon Dioxide Level 35mmol/L (21-32) Anion Gap 6 (6-14) Blood Urea Nitrogen 37mg/dL (8-26) Creatinine 2.9mg/dL (0.7-1.3) Estimated GFR (Cockcroft-Gault) 21.0 Glucose Level 117mg/dL (70-99) Calcium Level 8.1mg/dL (8.5-10.1) Physical Exam HEENT: Neck Supple W Full Motion Chest: Symmetric LUNGS: Other (coarse throughout ) Heart: S1S2, irregularly irregular Abdomen: Soft N/T, Other (obese ) Extremities: Other (2-3+ bilateral LE edema. Chronic venous stasis changes bilaterally. ) Neurology: alert, follow commands, other (flat affect ) Assessment Assessment 1. Acute on chronic diastolic heart failure 2. Acute on chronic respiratory failure with AE COPD secondary to above. 3. CAYDEN with CKD 4. Atrial Fibrillation 5. Hypertension 6. Anemia 7. Hypothyroidism 8. Anemia Recommendations Continue with IV Lasix 80mg BID with monitoring of renal function. LVEF 55-60 with no WMA. No cardiac cath warranted at this time. Renal optimization per nephrology. JESS BURT MD 04/26/168: CARDIO Progress Notes Plan Plan Pt. seen and examined. Agree with above ACQUISITION LEAD note. No acute events overnight. Continues to slowly improve. Exam notable for improvement in strength. Ambulating with walker. LE edema persistent. Labs reviewed. Echo with normal wall motion. Continue supportive care and diuresis. Needs placement. Will follow JAIR WELLER APRN Apr 26, 2016 11:10 JESS BURT MD Apr 26, 2016 21:38
--- NOTE | 2016-04-26 12:56 | PDOC ---
Renal-Progress Notes Vitals Vitals Vital Signs Date Time Temp Pulse Resp B/P Pulse Ox O2 Delivery O2 Flow Rate FiO2 04/26/16 12:33 Nasal Cannula 4.0 04/26/16 11:56 98.2 77 18 136/71 95 98.2 Weight Weight [ ] I.O. Intake and Output Intake and Output 04/26/16 07:00 Intake Total 790 ml Output Total 2900 ml Balance -2110 ml Intake Oral 790 ml Output Urine Total 2900 ml Labs Labs Laboratory Tests Test 04/26/16 06:25 White Blood Count 5.5x10^3/uL (4.0-11.0) Red Blood Count 3.54x10^6/uL (4.30-5.70) Hemoglobin 9.4g/dL (13.0-17.5) Hematocrit 29.5% (39.0-53.0) Mean Corpuscular Volume 83fL (79-100) Mean Corpuscular Hemoglobin 26pg (25-35) Mean Corpuscular Hemoglobin Concent 32g/dL (31-37) Red Cell Distribution Width 15.4% (11.5-14.5) Platelet Count 211x10^3/uL (140-400) Neutrophils (%) (Auto) 64% (31-73) Lymphocytes (%) (Auto) 16% (24-48) Monocytes (%) (Auto) 16% (0-9) Eosinophils (%) (Auto) 3% (0-3) Basophils (%) (Auto) 1% (0-3) Neutrophils # (Auto) 3.5x10^3uL (1.8-7.7) Lymphocytes # (Auto) 0.9x10^3/uL (1.0-4.8) Monocytes # (Auto) 0.9x10^3/uL (0.0-1.1) Eosinophils # (Auto) 0.1x10^3/uL (0.0-0.7) Basophils # (Auto) 0.1x10^3/uL (0.0-0.2) Sodium Level 143mmol/L (136-145) Potassium Level 3.9mmol/L (3.5-5.1) Chloride Level 102mmol/L (98-107) Carbon Dioxide Level 35mmol/L (21-32) Anion Gap 6 (6-14) Blood Urea Nitrogen 37mg/dL (8-26) Creatinine 2.9mg/dL (0.7-1.3) Estimated GFR (Cockcroft-Gault) 21.0 Glucose Level 117mg/dL (70-99) Calcium Level 8.1mg/dL (8.5-10.1) Review of Systems Constitutional: yes: alert, oriented Ears/Nose/Throat: Yes: no symptom reported Eyes: Yes: no symptom reported Cardiovascular: Yes no symptom reported Skin: Yes no symptom reported Physical Exam General Appearance: no apparent distress Skin: warm Respiratory: decreased breath sounds Heart: S1S2, RRR Abdomen: soft Neurology: alert Musculoskeletal: Osteoarthritis Assessment Assessment IMP CKD STAGE 4 WITH CR OF 2.9 AND STABLE ANEMIA - STABLE WITH HGB OF 9.4 RESP FAILURE AECOPD PLAN CONT WITH LASIX GTT GOOD NEG FLUID BALANCE WITH STABLE RENAL FXN AT THIS TIME LY ROGERS MD Apr 26, 2016 12:56
--- NOTE | 2016-04-26 14:11 | PDOC ---
PROGRESS NOTES Chief Complaint Chief Complaint 1. Acute on Chronic renal failure 4, vasomotor 2, Acute decompensated diastolic CHF 3. Acute on chronic respiratory failure 4. Symptomatic bradycardia 5. Cognitive Impairment 6. Bilateral pitting edema 7. mod PCM 8. Overweight 9. 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 Depression 12. Diffuse anasarca 13. Hyperkalemia plan: 1. fu with renal and card 2. cont lasix 80mg iv bid monitor in and out, BMP daily 3. cont NC to keep sat >90% echo done dvt ppx History of Present Illness History of Present Illness Pt is a 80 y/o male sitting in his chair preparing to have blood drawn. Pt states he is doing "ok". Pt was transferred here from [place] where he was admitted for symptomatic bradycardia. Pt was transferred here for cardiology and nephrology input. Plan to continue to diurese and discuss the possibility of dialysis with family - per nephrology. Vitals Vitals Vital Signs Date Time Temp Pulse Resp B/P Pulse Ox O2 Delivery O2 Flow Rate FiO2 04/26/16 12:33 Nasal Cannula 4.0 04/26/16 11:56 98.2 77 18 136/71 95 98.2 Physical Exam General: Alert, Cooperative, mild distress Heart: Regular rate, Normal S1, Normal S2, Other (IRR, tele: AFIB) Lungs: Clear Abdomen: Normal bowel sounds, Soft, No masses Extremities: No cyanosis, Normal pulses, Other (plus 3 pitting edema) Skin: No significant lesion, Other (bilateral LE erythema ) Labs LABS Laboratory Tests Test 04/26/16 06:25 White Blood Count 5.5x10^3/uL (4.0-11.0) Red Blood Count 3.54x10^6/uL (4.30-5.70) Hemoglobin 9.4g/dL (13.0-17.5) Hematocrit 29.5% (39.0-53.0) Mean Corpuscular Volume 83fL (79-100) Mean Corpuscular Hemoglobin 26pg (25-35) Mean Corpuscular Hemoglobin Concent 32g/dL (31-37) Red Cell Distribution Width 15.4% (11.5-14.5) Platelet Count 211x10^3/uL (140-400) Neutrophils (%) (Auto) 64% (31-73) Lymphocytes (%) (Auto) 16% (24-48) Monocytes (%) (Auto) 16% (0-9) Eosinophils (%) (Auto) 3% (0-3) Basophils (%) (Auto) 1% (0-3) Neutrophils # (Auto) 3.5x10^3uL (1.8-7.7) Lymphocytes # (Auto) 0.9x10^3/uL (1.0-4.8) Monocytes # (Auto) 0.9x10^3/uL (0.0-1.1) Eosinophils # (Auto) 0.1x10^3/uL (0.0-0.7) Basophils # (Auto) 0.1x10^3/uL (0.0-0.2) Sodium Level 143mmol/L (136-145) Potassium Level 3.9mmol/L (3.5-5.1) Chloride Level 102mmol/L (98-107) Carbon Dioxide Level 35mmol/L (21-32) Anion Gap 6 (6-14) Blood Urea Nitrogen 37mg/dL (8-26) Creatinine 2.9mg/dL (0.7-1.3) Estimated GFR (Cockcroft-Gault) 21.0 Glucose Level 117mg/dL (70-99) Calcium Level 8.1mg/dL (8.5-10.1) Review of Systems Review of Systems no fever, chills, chest pain Comment Review of Relevant I have reviewed the following items randee (where applicable) has been applied. Labs Laboratory Tests Test 04/25/16 05:00 04/26/16 06:25 Sodium Level 143mmol/L (136-145) 143mmol/L (136-145) Potassium Level 4.2mmol/L (3.5-5.1) 3.9mmol/L (3.5-5.1) Chloride Level 101mmol/L (98-107) 102mmol/L (98-107) Carbon Dioxide Level 32mmol/L (21-32) 35mmol/L (21-32) Anion Gap 10 (6-14) 6 (6-14) Blood Urea Nitrogen 37mg/dL (8-26) 37mg/dL (8-26) Creatinine 2.9mg/dL (0.7-1.3) 2.9mg/dL (0.7-1.3) Estimated GFR (Cockcroft-Gault) 21.0 21.0 BUN/Creatinine Ratio 13 (6-20) Glucose Level 82mg/dL (70-99) 117mg/dL (70-99) Calcium Level 8.3mg/dL (8.5-10.1) 8.1mg/dL (8.5-10.1) Phosphorus Level 4.8mg/dL (2.6-4.7) Magnesium Level 2.2mg/dL (1.8-2.4) Total Bilirubin 0.4mg/dL (0.2-1.0) Aspartate Amino Transf (AST/SGOT) 29U/L (15-37) Alanine Aminotransferase (ALT/SGPT) 22U/L (16-63) Alkaline Phosphatase 94U/L (46-116) Total Protein 8.0g/dL (6.4-8.2) Albumin 2.9g/dL (3.4-5.0) Albumin/Globulin Ratio 0.6 (1.0-1.7) White Blood Count 5.5x10^3/uL (4.0-11.0) Red Blood Count 3.54x10^6/uL (4.30-5.70) Hemoglobin 9.4g/dL (13.0-17.5) Hematocrit 29.5% (39.0-53.0) Mean Corpuscular Volume 83fL (79-100) Mean Corpuscular Hemoglobin 26pg (25-35) Mean Corpuscular Hemoglobin Concent 32g/dL (31-37) Red Cell Distribution Width 15.4% (11.5-14.5) Platelet Count 211x10^3/uL (140-400) Neutrophils (%) (Auto) 64% (31-73) Lymphocytes (%) (Auto) 16% (24-48) Monocytes (%) (Auto) 16% (0-9) Eosinophils (%) (Auto) 3% (0-3) Basophils (%) (Auto) 1% (0-3) Neutrophils # (Auto) 3.5x10^3uL (1.8-7.7) Lymphocytes # (Auto) 0.9x10^3/uL (1.0-4.8) Monocytes # (Auto) 0.9x10^3/uL (0.0-1.1) Eosinophils # (Auto) 0.1x10^3/uL (0.0-0.7) Basophils # (Auto) 0.1x10^3/uL (0.0-0.2) Laboratory Tests Test 04/26/16 06:25 White Blood Count 5.5x10^3/uL (4.0-11.0) Red Blood Count 3.54x10^6/uL (4.30-5.70) Hemoglobin 9.4g/dL (13.0-17.5) Hematocrit 29.5% (39.0-53.0) Mean Corpuscular Volume 83fL (79-100) Mean Corpuscular Hemoglobin 26pg (25-35) Mean Corpuscular Hemoglobin Concent 32g/dL (31-37) Red Cell Distribution Width 15.4% (11.5-14.5) Platelet Count 211x10^3/uL (140-400) Neutrophils (%) (Auto) 64% (31-73) Lymphocytes (%) (Auto) 16% (24-48) Monocytes (%) (Auto) 16% (0-9) Eosinophils (%) (Auto) 3% (0-3) Basophils (%) (Auto) 1% (0-3) Neutrophils # (Auto) 3.5x10^3uL (1.8-7.7) Lymphocytes # (Auto) 0.9x10^3/uL (1.0-4.8) Monocytes # (Auto) 0.9x10^3/uL (0.0-1.1) Eosinophils # (Auto) 0.1x10^3/uL (0.0-0.7) Basophils # (Auto) 0.1x10^3/uL (0.0-0.2) Sodium Level 143mmol/L (136-145) Potassium Level 3.9mmol/L (3.5-5.1) Chloride Level 102mmol/L (98-107) Carbon Dioxide Level 35mmol/L (21-32) Anion Gap 6 (6-14) Blood Urea Nitrogen 37mg/dL (8-26) Creatinine 2.9mg/dL (0.7-1.3) Estimated GFR (Cockcroft-Gault) 21.0 Glucose Level 117mg/dL (70-99) Calcium Level 8.1mg/dL (8.5-10.1) Medications Current Medications Aspirin (Ecotrin) 81 mg DAILY PO Last administered on 04/26/16at 08:26; Start 04/24/16 at 14:00 Isosorbide Mononitrate (Imdur) 30 mg DAILY PO Last administered on 04/26/16at 08:25; Start 04/24/16 at 14:00 Furosemide 60 mg 60 mg 1X ONCE IVP Last administered on 04/24/16at 14:28; Start 04/24/16 at 14:00; Stop 04/24/16 at 14:01; Status DC Furosemide/Sodium Chloride (Lasix Drip/Iv Sodium Chloride 0.9% 100ml) 100 ml @ 0 mls/hr CONT PRN IV SEE I/O RECORD Last administered on 04/25/16at 05:36; Start 04/24/16 at 16:30 Acetaminophen (Tylenol) 650 mg PRN Q6HRS PRN PO MILD PAIN / TEMP; Start at 17:45 Ondansetron HCl (Zofran) 4 mg PRN Q6HRS PRN IV NAUSEA/VOMITING, 1st choice; Start 04/24/16 at 17:45 Diphenhydramine HCl (Benadryl) 25 mg PRN QHS PRN PO INSOMNIA; Start 04/24/16 at 17:45 Prochlorperazine Edisylate (Compazine) 10 mg PRN Q6HRS PRN IV NAUSEA/VOMITING, 2nd choice; Start 04/24/16 at 17:45 Famotidine (Pepcid) 20 mg QHS PO Last administered on 04/25/16at 21:26; Start 04/24/16 at 21:00 Cetirizine HCl (Zyrtec) 10 mg DAILY PO Last administered on 04/26/16at 08:25; Start 04/25/16 at 09:00 Vitamin D (Vitamin D3) 1,000 unit DAILY PO Last administered on 04/26/16at 08: 25; Start 04/25/16 at 09:00 Cyanocobalamin (Vitamin B-12) 1,000 mcg DAILY PO Last administered on at 08:25; Start 04/25/16 at 09:00 Docusate Sodium (Colace) 100 mg DAILY PO Last administered on 04/26/16at 08:25 ; Start 04/25/16 at 09:00 Levothyroxine Sodium (Synthroid) 25 mcg DAILY06 PO Last administered on at 05:50; Start 04/25/16 at 06:00 Tamsulosin HCl (Flomax) 0.4 mg HS PO Last administered on 04/25/16at 21:26; Start 04/24/16 at 21:00 Venlafaxine HCl (Effexor) 50 mg TID PO Last administered on 04/26/16at 13:57; Start 04/25/16 at 09:00 Budesonide (Pulmicort) 0.5 mg RTBID NEB Last administered on 04/26/16at 08:31; Start 04/25/16 at 10:30 Albuterol/ Ipratropium (Duoneb) 3 ml RTQID NEB Last administered on 04/26/16at 12:33; Start 04/25/16 at 12:00 Furosemide (Lasix) 40 mg 1X ONCE IVP Last administered on 04/25/16at 21:27; Start 04/25/16 at 20:00; Stop 04/25/16 at 20:01; Status DC Furosemide (Lasix) 80 mg BID IVP ; Start 04/26/16 at 21:00 Albuterol Sulfate (Ventolin Neb Soln) 2.5 mg PRN Q6HRS PRN NEB SHORTNESS OF BREATH Last administered on 04/26/16at 04:21; Start 04/26/16 at 04:15 Active Scripts Active Reported Effexor Xr (Venlafaxine Hcl) 150 Mg Cap.er.24h 1 Cap PO DAILY Flomax (Tamsulosin Hcl) 0.4 Mg Cap.er.24h 1 Cap PO HS Synthroid (Levothyroxine Sodium) 25 Mcg Tablet 1 Tab PO DAILY Isosorbide Mononitrate Er (Isosorbide Mononitrate) 30 Mg Tab.er.24h 1 Tab PO DAILY Pepcid (Famotidine) 20 Mg Tablet 20 Mg PO HS Colace (Docusate Sodium) 100 Mg Capsule 1 Cap PO DAILY Vitamin B-12 (Cyanocobalamin (Vitamin B-12)) 1,000 Mcg Tablet 1 Tab PO DAILY Vitamin D3 (Cholecalciferol (Vitamin D3)) 1,000 Unit Tablet 2 Tab PO DAILY Zyrtec (Cetirizine Hcl) 10 Mg Tablet 1 Tab PO DAILY Aspir 81 (Aspirin) 81 Mg Tablet. 1 Tab PO DAILY Vitals/I & O Vital Sign - Last 24 Hours 04/25/16 04/25/16 04/25/16 04/25/16 15:00 15:48 16:00 16:00 Temp 98.7 98.7 Pulse 83 85 Resp 38 32 B/P 128/68 156/68 Pulse Ox 95 95 96 O2 Delivery Nasal Cannula Nasal Cannula Nasal Cannula Nasal Cannula O2 Flow Rate 5.0 4.0 5.0 5.0 04/25/16 04/25/16 04/25/16 04/25/16 19:37 19:38 20:00 20:00 Temp 98.5 98.5 Pulse 74 Resp 24 B/P 109/58 Pulse Ox 95 95 95 O2 Delivery Nasal Cannula Nasal Cannula Nasal Cannula Nasal Cannula O2 Flow Rate 4.0 4.0 4.0 5.0 04/26/16 04/26/16 04/26/16 04/26/16 00:00 04:00 04:20 08:00 Temp 98.7 98.7 98.7 98.7 Pulse 95 91 87 Resp 20 20 24 B/P 140/62 152/69 121/60 Pulse Ox 95 95 95 96 O2 Delivery Nasal Cannula Nasal Cannula Nasal Cannula Nasal Cannula O2 Flow Rate 5.0 5.0 4.0 5.0 04/26/16 04/26/16 04/26/16 04/26/16 08:25 08:33 09:11 11:56 Temp 98.2 98.2 Pulse 88 77 Resp 18 B/P 152/67 136/71 Pulse Ox 95 95 O2 Delivery Nasal Cannula Nasal Cannula Room Air O2 Flow Rate 4.0 5.0 04/26/16 12:33 O2 Delivery Nasal Cannula O2 Flow Rate 4.0 Intake and Output 04/25/16 04/25/16 04/26/16 15:00 23:00 07:00 Intake Total 620 ml 170 ml 0 ml Output Total 1500 ml 300 ml 1100 ml Balance -880 ml -130 ml -1100 ml KAELYN ABERNATHY MD Apr 26, 2016 14:11
--- NOTE | 2016-04-26 17:56 | PDOC ---
PULMONARY PROGRESS NOTES Subjective Feeling beter this Am, continues on lasix gtt. diuresing well. No complaints of chest pain, pressure, nor palpitations. SOB improved. Vitals Vital Signs Date Time Temp Pulse Resp B/P Pulse Ox O2 Delivery O2 Flow Rate FiO2 04/26/16 17:38 98 Nasal Cannula 4.0 04/26/16 14:50 98.4 86 22 131/85 98.4 General: Alert, Oriented X4, No acute distress Lungs: Clear Cardiovascular: S1, S2 Abdomen: Soft, Non-tender Neuro Exam: Alert, Oriented Extremities: Other (3+ edema ) Skin: Warm, Dry Labs Laboratory Tests Test 04/25/16 05:00 04/26/16 06:25 Sodium Level 143mmol/L (136-145) 143mmol/L (136-145) Potassium Level 4.2mmol/L (3.5-5.1) 3.9mmol/L (3.5-5.1) Chloride Level 101mmol/L (98-107) 102mmol/L (98-107) Carbon Dioxide Level 32mmol/L (21-32) 35mmol/L (21-32) Anion Gap 10 (6-14) 6 (6-14) Blood Urea Nitrogen 37mg/dL (8-26) 37mg/dL (8-26) Creatinine 2.9mg/dL (0.7-1.3) 2.9mg/dL (0.7-1.3) Estimated GFR (Cockcroft-Gault) 21.0 21.0 BUN/Creatinine Ratio 13 (6-20) Glucose Level 82mg/dL (70-99) 117mg/dL (70-99) Calcium Level 8.3mg/dL (8.5-10.1) 8.1mg/dL (8.5-10.1) Phosphorus Level 4.8mg/dL (2.6-4.7) Magnesium Level 2.2mg/dL (1.8-2.4) Total Bilirubin 0.4mg/dL (0.2-1.0) Aspartate Amino Transf (AST/SGOT) 29U/L (15-37) Alanine Aminotransferase (ALT/SGPT) 22U/L (16-63) Alkaline Phosphatase 94U/L (46-116) Total Protein 8.0g/dL (6.4-8.2) Albumin 2.9g/dL (3.4-5.0) Albumin/Globulin Ratio 0.6 (1.0-1.7) White Blood Count 5.5x10^3/uL (4.0-11.0) Red Blood Count 3.54x10^6/uL (4.30-5.70) Hemoglobin 9.4g/dL (13.0-17.5) Hematocrit 29.5% (39.0-53.0) Mean Corpuscular Volume 83fL (79-100) Mean Corpuscular Hemoglobin 26pg (25-35) Mean Corpuscular Hemoglobin Concent 32g/dL (31-37) Red Cell Distribution Width 15.4% (11.5-14.5) Platelet Count 211x10^3/uL (140-400) Neutrophils (%) (Auto) 64% (31-73) Lymphocytes (%) (Auto) 16% (24-48) Monocytes (%) (Auto) 16% (0-9) Eosinophils (%) (Auto) 3% (0-3) Basophils (%) (Auto) 1% (0-3) Neutrophils # (Auto) 3.5x10^3uL (1.8-7.7) Lymphocytes # (Auto) 0.9x10^3/uL (1.0-4.8) Monocytes # (Auto) 0.9x10^3/uL (0.0-1.1) Eosinophils # (Auto) 0.1x10^3/uL (0.0-0.7) Basophils # (Auto) 0.1x10^3/uL (0.0-0.2) Laboratory Tests Test 04/26/16 06:25 White Blood Count 5.5x10^3/uL (4.0-11.0) Red Blood Count 3.54x10^6/uL (4.30-5.70) Hemoglobin 9.4g/dL (13.0-17.5) Hematocrit 29.5% (39.0-53.0) Mean Corpuscular Volume 83fL (79-100) Mean Corpuscular Hemoglobin 26pg (25-35) Mean Corpuscular Hemoglobin Concent 32g/dL (31-37) Red Cell Distribution Width 15.4% (11.5-14.5) Platelet Count 211x10^3/uL (140-400) Neutrophils (%) (Auto) 64% (31-73) Lymphocytes (%) (Auto) 16% (24-48) Monocytes (%) (Auto) 16% (0-9) Eosinophils (%) (Auto) 3% (0-3) Basophils (%) (Auto) 1% (0-3) Neutrophils # (Auto) 3.5x10^3uL (1.8-7.7) Lymphocytes # (Auto) 0.9x10^3/uL (1.0-4.8) Monocytes # (Auto) 0.9x10^3/uL (0.0-1.1) Eosinophils # (Auto) 0.1x10^3/uL (0.0-0.7) Basophils # (Auto) 0.1x10^3/uL (0.0-0.2) Sodium Level 143mmol/L (136-145) Potassium Level 3.9mmol/L (3.5-5.1) Chloride Level 102mmol/L (98-107) Carbon Dioxide Level 35mmol/L (21-32) Anion Gap 6 (6-14) Blood Urea Nitrogen 37mg/dL (8-26) Creatinine 2.9mg/dL (0.7-1.3) Estimated GFR (Cockcroft-Gault) 21.0 Glucose Level 117mg/dL (70-99) Calcium Level 8.1mg/dL (8.5-10.1) Medications Active Scripts Medications Dose Route/Sig Days Date Category Effexor Xr (Venlafaxine Hcl) 150 Mg Cap.er.24h 1 Cap PO DAILY 04/24/16 Reported Flomax (Tamsulosin Hcl) 0.4 Mg Cap.er.24h 1 Cap PO HS 04/24/16 Reported Synthroid (Levothyroxine Sodium) 25 Mcg Tablet 1 Tab PO DAILY 04/24/16 Reported Isosorbide Mononitrate Er (Isosorbide Mononitrate) 30 Mg Tab.er.24h 1 Tab PO DAILY 04/24/16 Reported Pepcid (Famotidine) 20 Mg Tablet 20 Mg PO HS 04/24/16 Reported Colace (Docusate Sodium) 100 Mg Capsule 1 Cap PO DAILY 04/24/16 Reported Vitamin B-12 (Cyanocobalamin (Vitamin B-12)) 1,000 Mcg Tablet 1 Tab PO DAILY 04/24/16 Reported Vitamin D3 (Cholecalciferol (Vitamin D3)) 1,000 Unit Tablet 2 Tab PO DAILY 04/24/16 Reported Zyrtec (Cetirizine Hcl) 10 Mg Tablet 1 Tab PO DAILY 04/24/16 Reported Aspir 81 (Aspirin) 81 Mg Tablet.dr 1 Tab PO DAILY 04/24/16 Reported Impression . Assessment 1. Acute on Chronic Diastolic Heart Failure/ Less likely pneumonia 2. CAYDEN on CKD 3. Acute on chronic hypoxemic/hypercapnic respiratory failure 4. COPD - severity not quantified 5. Obesity with hypoventilation 6. Syncope per report 7. Lymphedema/ Venous Stasis 8. HTN 9. Hypothyroidism 10. Dementia 11. Echo with moderate diastolic dysfunction/ EF 55% Plan . Plan 1. Continue diuresis per Nephrology 2. Follow recommendations Cardiology 3. Wean O2 as able 4. Bronchodilator therapy 5. repeat CXR in STEPHANIE Preston MD Apr 26, 2016 17:55
[2016-04-26] MEDS: FUROSEMIDE 40 MG/4 ML VIAL IVP SCH (20:10)
[2016-04-26] MEDS: TAMSULOSIN 0.4 MG CAP.ER.24H. PO SCH (20:10)
[2016-04-26] MEDS: FAMOTIDINE 20 MG TABLET. PO SCH (20:10)
[2016-04-26] MEDS: HEPARIN PF for SUB-Q USE 5,000 UNIT/0.5 ML VIAL. SQ SCH (22:12)
[2016-04-27 03:49] VITALS: BP 152/76
[2016-04-27 03:49] LABS: BASO # 0.1 x10^3/uL (0.0-0.2); BASO % 1 % (0-3); EOS % 4 % (0-3); HEMATOCRIT 29.2 % (39.0-53.0); HEMOGLOBIN 9.4 g/dL (13.0-17.5); LYMPH # 0.8 x10^3/uL (1.0-4.8); LYMPH % 14 % (24-48); MEAN CORPUSCULAR HEMOGLOBIN 27 pg (25-35); MEAN CORPUSCULAR HGB CONC 32 g/dL (31-37); MEAN CORPUSCULAR VOLUME 83 fL (79-100); MONO % 17 % (0-9); NEUT % 64 % (31-73); PLATELET COUNT 221 x10^3/uL (140-400); RED CELL DISTRIBUTION WIDTH 15.7 % (11.5-14.5); WHITE BLOOD COUNT 5.8 x10^3/uL (4.0-11.0)
[2016-04-27 04:14] LABS: CALCIUM 8.3 mg/dL (8.5-10.1); CREATININE 2.8 mg/dL (0.7-1.3); GFR 21.9
[2016-04-27] MEDS: LEVOTHYROXINE 25 MCG TABLET. PO SCH (05:49)
[2016-04-27] MEDS: HEPARIN PF for SUB-Q USE 5,000 UNIT/0.5 ML VIAL. SQ SCH ×3 (05:52→21:16)
[2016-04-27 07:00] VITALS: BP 145/76
[2016-04-27] MEDS: BUDESONIDE 0.5 MG/2 ML NEBU NEB SCH ×2 (07:17→20:12)
[2016-04-27] MEDS: IPRATRPIUM/ALBUTEROL 0.5/2.5MG 3 ML NEBU. NEB SCH ×4 (07:18→20:12)
[2016-04-27] MEDS: FUROSEMIDE 40 MG/4 ML VIAL IVP SCH ×2 (08:04→21:08)
[2016-04-27] MEDS: VENLAFAXINE 50 MG TABLET. PO SCH ×3 (08:04→21:08)
[2016-04-27] MEDS: DOCUSATE SODIUM 100 MG CAPSULE PO SCH (08:04)
[2016-04-27] MEDS: ASPIRIN ENTERIC COATED 81 MG TABLET.DR. PO SCH (08:04)
[2016-04-27] MEDS: ISOSORBIDE MONONITRATE ER 30 MG TAB.ER.24H PO SCH (08:04)
[2016-04-27] MEDS: CHOLECALCIFEROL (VITAMIN D3) 1,000 UNIT TABLET PO SCH (08:04)
[2016-04-27] MEDS: CYANOCOBALAMIN (VITAMIN B-12) 1,000 MCG TABLET. PO SCH (08:04)
[2016-04-27] MEDS: CETIRIZINE HCL 10 MG TABLET PO SCH (08:04)
--- NOTE | 2016-04-27 10:46 | PDOC ---
CARDIO Progress Notes Date and Time Date of Service 04/27/2016 Time of Evaluation 1045 Subjective Subjective: No Chest Pain, No Palpitations, No Dizziness, Other (dyspnea with exertion ) Vitals Vitals Vital Signs Date Time Temp Pulse Resp B/P Pulse Ox O2 Delivery O2 Flow Rate FiO2 04/27/16 08:04 79 145/76 04/27/16 07:53 Room Air 4.0 04/27/16 07:00 97.9 20 98 97.9 Weight Weight [ ] Input and Output Intake and Output Intake and Output 04/27/16 07:00 Intake Total 460 ml Output Total 3850 ml Balance -3390 ml Intake Oral 460 ml Output Urine Total 3850 ml Laboratory Labs Laboratory Tests Test 04/27/16 03:17 White Blood Count 5.8x10^3/uL (4.0-11.0) Red Blood Count 3.50x10^6/uL (4.30-5.70) Hemoglobin 9.4g/dL (13.0-17.5) Hematocrit 29.2% (39.0-53.0) Mean Corpuscular Volume 83fL (79-100) Mean Corpuscular Hemoglobin 27pg (25-35) Mean Corpuscular Hemoglobin Concent 32g/dL (31-37) Red Cell Distribution Width 15.7% (11.5-14.5) Platelet Count 221x10^3/uL (140-400) Neutrophils (%) (Auto) 64% (31-73) Lymphocytes (%) (Auto) 14% (24-48) Monocytes (%) (Auto) 17% (0-9) Eosinophils (%) (Auto) 4% (0-3) Basophils (%) (Auto) 1% (0-3) Neutrophils # (Auto) 3.7x10^3uL (1.8-7.7) Lymphocytes # (Auto) 0.8x10^3/uL (1.0-4.8) Monocytes # (Auto) 1.0x10^3/uL (0.0-1.1) Eosinophils # (Auto) 0.2x10^3/uL (0.0-0.7) Basophils # (Auto) 0.1x10^3/uL (0.0-0.2) Sodium Level 141mmol/L (136-145) Potassium Level 4.0mmol/L (3.5-5.1) Chloride Level 100mmol/L (98-107) Carbon Dioxide Level 34mmol/L (21-32) Anion Gap 7 (6-14) Blood Urea Nitrogen 35mg/dL (8-26) Creatinine 2.8mg/dL (0.7-1.3) Estimated GFR (Cockcroft-Gault) 21.9 Glucose Level 152mg/dL (70-99) Calcium Level 8.3mg/dL (8.5-10.1) Magnesium Level 2.1mg/dL (1.8-2.4) Physical Exam HEENT: Neck Supple W Full Motion Chest: Symmetric LUNGS: Other (exp wheezing posteriorly) Heart: S1S2, no murmurs, irregularly irregular, other (tele: atrial fib with controlled ventricular rate) Abdomen: Soft N/T, Other (obese ) Extremities: Other (2+ bilateral LE edema; compression hose in use) Neurology: alert, follow commands, other Assessment Assessment 1. Acute on chronic diastolic heart failure continue IV diuretics SBP is not well controlled - will treat 2. Acute on chronic respiratory failure/AECOPD per pulmonary 3. CAYDEN with CKD - III per nephrology no ACEI or ARB 4. Atrial Fibrillation rate controlled without meds 5. Hypertension not well controlled SBP 145-157 no BB due to wheezing no ACEI/ARB due to CAYDEN on CKD no CCB due to chronic LE edema continue long acting nitrates hydralazine BID to start 6. Anemia of chronic disease 7. Hypothyroidism on replacement therapy CRISTOPHER CHRISTINE APRN Apr 27, 2016 10:46
[2016-04-27 11:00] VITALS: BP 143/81
--- NOTE | 2016-04-27 11:54 | PDOC ---
PULMONARY PROGRESS NOTES Vitals Vital Signs Date Time Temp Pulse Resp B/P Pulse Ox O2 Delivery O2 Flow Rate FiO2 04/27/16 11:00 97.9 67 20 143/81 95 Nasal Cannula 4.0 97.9 General: Alert, Oriented X4, No acute distress Lungs: Clear Cardiovascular: S1, S2 Abdomen: Soft, Non-tender Neuro Exam: Alert, Oriented Extremities: Other (3+ edema ) Skin: Warm, Dry Labs Laboratory Tests Test 04/26/16 06:25 04/27/16 03:17 White Blood Count 5.5x10^3/uL (4.0-11.0) 5.8x10^3/uL (4.0-11.0) Red Blood Count 3.54x10^6/uL (4.30-5.70) 3.50x10^6/uL (4.30-5.70) Hemoglobin 9.4g/dL (13.0-17.5) 9.4g/dL (13.0-17.5) Hematocrit 29.5% (39.0-53.0) 29.2% (39.0-53.0) Mean Corpuscular Volume 83fL (79-100) 83fL (79-100) Mean Corpuscular Hemoglobin 26pg (25-35) 27pg (25-35) Mean Corpuscular Hemoglobin Concent 32g/dL (31-37) 32g/dL (31-37) Red Cell Distribution Width 15.4% (11.5-14.5) 15.7% (11.5-14.5) Platelet Count 211x10^3/uL (140-400) 221x10^3/uL (140-400) Neutrophils (%) (Auto) 64% (31-73) 64% (31-73) Lymphocytes (%) (Auto) 16% (24-48) 14% (24-48) Monocytes (%) (Auto) 16% (0-9) 17% (0-9) Eosinophils (%) (Auto) 3% (0-3) 4% (0-3) Basophils (%) (Auto) 1% (0-3) 1% (0-3) Neutrophils # (Auto) 3.5x10^3uL (1.8-7.7) 3.7x10^3uL (1.8-7.7) Lymphocytes # (Auto) 0.9x10^3/uL (1.0-4.8) 0.8x10^3/uL (1.0-4.8) Monocytes # (Auto) 0.9x10^3/uL (0.0-1.1) 1.0x10^3/uL (0.0-1.1) Eosinophils # (Auto) 0.1x10^3/uL (0.0-0.7) 0.2x10^3/uL (0.0-0.7) Basophils # (Auto) 0.1x10^3/uL (0.0-0.2) 0.1x10^3/uL (0.0-0.2) Sodium Level 143mmol/L (136-145) 141mmol/L (136-145) Potassium Level 3.9mmol/L (3.5-5.1) 4.0mmol/L (3.5-5.1) Chloride Level 102mmol/L (98-107) 100mmol/L (98-107) Carbon Dioxide Level 35mmol/L (21-32) 34mmol/L (21-32) Anion Gap 6 (6-14) 7 (6-14) Blood Urea Nitrogen 37mg/dL (8-26) 35mg/dL (8-26) Creatinine 2.9mg/dL (0.7-1.3) 2.8mg/dL (0.7-1.3) Estimated GFR (Cockcroft-Gault) 21.0 21.9 Glucose Level 117mg/dL (70-99) 152mg/dL (70-99) Calcium Level 8.1mg/dL (8.5-10.1) 8.3mg/dL (8.5-10.1) Magnesium Level 2.1mg/dL (1.8-2.4) Laboratory Tests Test 04/27/16 03:17 White Blood Count 5.8x10^3/uL (4.0-11.0) Red Blood Count 3.50x10^6/uL (4.30-5.70) Hemoglobin 9.4g/dL (13.0-17.5) Hematocrit 29.2% (39.0-53.0) Mean Corpuscular Volume 83fL (79-100) Mean Corpuscular Hemoglobin 27pg (25-35) Mean Corpuscular Hemoglobin Concent 32g/dL (31-37) Red Cell Distribution Width 15.7% (11.5-14.5) Platelet Count 221x10^3/uL (140-400) Neutrophils (%) (Auto) 64% (31-73) Lymphocytes (%) (Auto) 14% (24-48) Monocytes (%) (Auto) 17% (0-9) Eosinophils (%) (Auto) 4% (0-3) Basophils (%) (Auto) 1% (0-3) Neutrophils # (Auto) 3.7x10^3uL (1.8-7.7) Lymphocytes # (Auto) 0.8x10^3/uL (1.0-4.8) Monocytes # (Auto) 1.0x10^3/uL (0.0-1.1) Eosinophils # (Auto) 0.2x10^3/uL (0.0-0.7) Basophils # (Auto) 0.1x10^3/uL (0.0-0.2) Sodium Level 141mmol/L (136-145) Potassium Level 4.0mmol/L (3.5-5.1) Chloride Level 100mmol/L (98-107) Carbon Dioxide Level 34mmol/L (21-32) Anion Gap 7 (6-14) Blood Urea Nitrogen 35mg/dL (8-26) Creatinine 2.8mg/dL (0.7-1.3) Estimated GFR (Cockcroft-Gault) 21.9 Glucose Level 152mg/dL (70-99) Calcium Level 8.3mg/dL (8.5-10.1) Magnesium Level 2.1mg/dL (1.8-2.4) Medications Active Scripts Medications Dose Route/Sig Days Date Category Effexor Xr (Venlafaxine Hcl) 150 Mg Cap.er.24h 1 Cap PO DAILY 04/24/16 Reported Flomax (Tamsulosin Hcl) 0.4 Mg Cap.er.24h 1 Cap PO HS 04/24/16 Reported Synthroid (Levothyroxine Sodium) 25 Mcg Tablet 1 Tab PO DAILY 04/24/16 Reported Isosorbide Mononitrate Er (Isosorbide Mononitrate) 30 Mg Tab.er.24h 1 Tab PO DAILY 04/24/16 Reported Pepcid (Famotidine) 20 Mg Tablet 20 Mg PO HS 04/24/16 Reported Colace (Docusate Sodium) 100 Mg Capsule 1 Cap PO DAILY 04/24/16 Reported Vitamin B-12 (Cyanocobalamin (Vitamin B-12)) 1,000 Mcg Tablet 1 Tab PO DAILY 04/24/16 Reported Vitamin D3 (Cholecalciferol (Vitamin D3)) 1,000 Unit Tablet 2 Tab PO DAILY 04/24/16 Reported Zyrtec (Cetirizine Hcl) 10 Mg Tablet 1 Tab PO DAILY 04/24/16 Reported Aspir 81 (Aspirin) 81 Mg Tablet.dr 1 Tab PO DAILY 04/24/16 Reported Impression . Assessment 1. Acute on Chronic Diastolic Heart Failure/ Less likely pneumonia 2. CAYDEN on CKD 3. Acute on chronic hypoxemic/hypercapnic respiratory failure 4. COPD - severity not quantified 5. Obesity with hypoventilation 6. Syncope per report 7. Lymphedema/ Venous Stasis 8. HTN 9. Hypothyroidism 10. Dementia 11. Echo with moderate diastolic dysfunction/ EF 55% LAI KIM MD Apr 27, 2016 11:54
--- NOTE | 2016-04-27 11:58 | RAD ---
Exam performed: One view chest. History: Follow-up CHF. Date of service: 04/27/16. Comparison: 03/06/10. Single AP upright portable view chest findings: Moderate cardiomegaly and central vascular congestion. Diffuse bilateral airspace opacities seen in both lung bases and right upper lobe. There is pleural plaquing in the medial right midlung along the right diaphragmatic surface. There may be tiny bilateral pleural effusions or chronic pleural thickening. Impression: Bibasal are airspace infiltrates. Diffuse calcified pleural plaquing probably related to previous asbestos exposure. Correlate clinically
--- NOTE | 2016-04-27 12:49 | PDOC ---
Renal-Progress Notes Subjective Notes Notes FEELING BETTER History of Present Illness Hx of present illness NO CHANGE Vitals Vitals Vital Signs Date Time Temp Pulse Resp B/P Pulse Ox O2 Delivery O2 Flow Rate FiO2 04/27/16 11:58 95 Nasal Cannula 4.0 04/27/16 11:00 97.9 67 20 143/81 97.9 Weight Weight [ ] I.O. Intake and Output Intake and Output 04/27/16 07:00 Intake Total 460 ml Output Total 3850 ml Balance -3390 ml Intake Oral 460 ml Output Urine Total 3850 ml Labs Labs Laboratory Tests Test 04/27/16 03:17 White Blood Count 5.8x10^3/uL (4.0-11.0) Red Blood Count 3.50x10^6/uL (4.30-5.70) Hemoglobin 9.4g/dL (13.0-17.5) Hematocrit 29.2% (39.0-53.0) Mean Corpuscular Volume 83fL (79-100) Mean Corpuscular Hemoglobin 27pg (25-35) Mean Corpuscular Hemoglobin Concent 32g/dL (31-37) Red Cell Distribution Width 15.7% (11.5-14.5) Platelet Count 221x10^3/uL (140-400) Neutrophils (%) (Auto) 64% (31-73) Lymphocytes (%) (Auto) 14% (24-48) Monocytes (%) (Auto) 17% (0-9) Eosinophils (%) (Auto) 4% (0-3) Basophils (%) (Auto) 1% (0-3) Neutrophils # (Auto) 3.7x10^3uL (1.8-7.7) Lymphocytes # (Auto) 0.8x10^3/uL (1.0-4.8) Monocytes # (Auto) 1.0x10^3/uL (0.0-1.1) Eosinophils # (Auto) 0.2x10^3/uL (0.0-0.7) Basophils # (Auto) 0.1x10^3/uL (0.0-0.2) Sodium Level 141mmol/L (136-145) Potassium Level 4.0mmol/L (3.5-5.1) Chloride Level 100mmol/L (98-107) Carbon Dioxide Level 34mmol/L (21-32) Anion Gap 7 (6-14) Blood Urea Nitrogen 35mg/dL (8-26) Creatinine 2.8mg/dL (0.7-1.3) Estimated GFR (Cockcroft-Gault) 21.9 Glucose Level 152mg/dL (70-99) Calcium Level 8.3mg/dL (8.5-10.1) Magnesium Level 2.1mg/dL (1.8-2.4) Physical Exam General Appearance: no apparent distress Skin: warm Respiratory: decreased breath sounds Heart: S1S2, RRR Abdomen: soft Neurology: alert, follow commands, other Musculoskeletal: Osteoarthritis Assessment Assessment IMP CKD STAGE 4 WITH CR OF 2.9 AND STABLE ANEMIA - STABLE WITH HGB OF 9.4 RESP FAILURE AECOPD SEVERE LE EDEMA-BETTER BUT PERSISTENT MALNUTRITION PLAN CONT WITH LASIX IV-INCREASE TO Q 8 HRS DUE TO SEVERITY OF EDEMA GOOD NEG FLUID BALANCE WITH STABLE RENAL FXN AT THIS TIME WILL CHECK 24 HR URINE STUDY MAY NEED DIALYSIS IF CR CL ENDS UP BEING LOW AND WE CANT ADEQUATELY DIURESE HIM LY ROGERS MD Apr 27, 2016 12:49
--- NOTE | 2016-04-27 14:07 | PDOC ---
PROGRESS NOTES Chief Complaint Chief Complaint 1. Acute on CKD4 2, Acute diastolic CHF 3. Acute on chronic respiratory failure 4. Cognitive Impairment 5. Bilateral pitting edema 6. mod PCM 7. Obesity, BMI 35 8. Hypothryoidism History of Present Illness History of Present Illness renal following, lasix 80mg iv bid monitor in and out, BMP daily Vitals Vitals Vital Signs Date Time Temp Pulse Resp B/P Pulse Ox O2 Delivery O2 Flow Rate FiO2 04/27/16 11:58 95 Nasal Cannula 4.0 04/27/16 11:00 97.9 67 20 143/81 97.9 Physical Exam General: Alert, Cooperative, mild distress Heart: Regular rate, Normal S1, Normal S2, Other (IRR, tele: AFIB) Lungs: Clear Abdomen: Normal bowel sounds, Soft, No masses Extremities: No cyanosis, Normal pulses, Other (plus 3 pitting edema) Skin: No significant lesion, Other (bilateral LE erythema ) Labs LABS Laboratory Tests Test 04/27/16 03:17 White Blood Count 5.8x10^3/uL (4.0-11.0) Red Blood Count 3.50x10^6/uL (4.30-5.70) Hemoglobin 9.4g/dL (13.0-17.5) Hematocrit 29.2% (39.0-53.0) Mean Corpuscular Volume 83fL (79-100) Mean Corpuscular Hemoglobin 27pg (25-35) Mean Corpuscular Hemoglobin Concent 32g/dL (31-37) Red Cell Distribution Width 15.7% (11.5-14.5) Platelet Count 221x10^3/uL (140-400) Neutrophils (%) (Auto) 64% (31-73) Lymphocytes (%) (Auto) 14% (24-48) Monocytes (%) (Auto) 17% (0-9) Eosinophils (%) (Auto) 4% (0-3) Basophils (%) (Auto) 1% (0-3) Neutrophils # (Auto) 3.7x10^3uL (1.8-7.7) Lymphocytes # (Auto) 0.8x10^3/uL (1.0-4.8) Monocytes # (Auto) 1.0x10^3/uL (0.0-1.1) Eosinophils # (Auto) 0.2x10^3/uL (0.0-0.7) Basophils # (Auto) 0.1x10^3/uL (0.0-0.2) Sodium Level 141mmol/L (136-145) Potassium Level 4.0mmol/L (3.5-5.1) Chloride Level 100mmol/L (98-107) Carbon Dioxide Level 34mmol/L (21-32) Anion Gap 7 (6-14) Blood Urea Nitrogen 35mg/dL (8-26) Creatinine 2.8mg/dL (0.7-1.3) Estimated GFR (Cockcroft-Gault) 21.9 Glucose Level 152mg/dL (70-99) Calcium Level 8.3mg/dL (8.5-10.1) Magnesium Level 2.1mg/dL (1.8-2.4) Review of Systems Review of Systems no n/v/d Assessment and Plan Assessmemt and Plan pt and ot eval for improvement Problems: Comment Review of Relevant I have reviewed the following items randee (where applicable) has been applied. Labs Laboratory Tests Test 04/26/16 06:25 04/27/16 03:17 White Blood Count 5.5x10^3/uL (4.0-11.0) 5.8x10^3/uL (4.0-11.0) Red Blood Count 3.54x10^6/uL (4.30-5.70) 3.50x10^6/uL (4.30-5.70) Hemoglobin 9.4g/dL (13.0-17.5) 9.4g/dL (13.0-17.5) Hematocrit 29.5% (39.0-53.0) 29.2% (39.0-53.0) Mean Corpuscular Volume 83fL (79-100) 83fL (79-100) Mean Corpuscular Hemoglobin 26pg (25-35) 27pg (25-35) Mean Corpuscular Hemoglobin Concent 32g/dL (31-37) 32g/dL (31-37) Red Cell Distribution Width 15.4% (11.5-14.5) 15.7% (11.5-14.5) Platelet Count 211x10^3/uL (140-400) 221x10^3/uL (140-400) Neutrophils (%) (Auto) 64% (31-73) 64% (31-73) Lymphocytes (%) (Auto) 16% (24-48) 14% (24-48) Monocytes (%) (Auto) 16% (0-9) 17% (0-9) Eosinophils (%) (Auto) 3% (0-3) 4% (0-3) Basophils (%) (Auto) 1% (0-3) 1% (0-3) Neutrophils # (Auto) 3.5x10^3uL (1.8-7.7) 3.7x10^3uL (1.8-7.7) Lymphocytes # (Auto) 0.9x10^3/uL (1.0-4.8) 0.8x10^3/uL (1.0-4.8) Monocytes # (Auto) 0.9x10^3/uL (0.0-1.1) 1.0x10^3/uL (0.0-1.1) Eosinophils # (Auto) 0.1x10^3/uL (0.0-0.7) 0.2x10^3/uL (0.0-0.7) Basophils # (Auto) 0.1x10^3/uL (0.0-0.2) 0.1x10^3/uL (0.0-0.2) Sodium Level 143mmol/L (136-145) 141mmol/L (136-145) Potassium Level 3.9mmol/L (3.5-5.1) 4.0mmol/L (3.5-5.1) Chloride Level 102mmol/L (98-107) 100mmol/L (98-107) Carbon Dioxide Level 35mmol/L (21-32) 34mmol/L (21-32) Anion Gap 6 (6-14) 7 (6-14) Blood Urea Nitrogen 37mg/dL (8-26) 35mg/dL (8-26) Creatinine 2.9mg/dL (0.7-1.3) 2.8mg/dL (0.7-1.3) Estimated GFR (Cockcroft-Gault) 21.0 21.9 Glucose Level 117mg/dL (70-99) 152mg/dL (70-99) Calcium Level 8.1mg/dL (8.5-10.1) 8.3mg/dL (8.5-10.1) Magnesium Level 2.1mg/dL (1.8-2.4) Laboratory Tests Test 04/27/16 03:17 White Blood Count 5.8x10^3/uL (4.0-11.0) Red Blood Count 3.50x10^6/uL (4.30-5.70) Hemoglobin 9.4g/dL (13.0-17.5) Hematocrit 29.2% (39.0-53.0) Mean Corpuscular Volume 83fL (79-100) Mean Corpuscular Hemoglobin 27pg (25-35) Mean Corpuscular Hemoglobin Concent 32g/dL (31-37) Red Cell Distribution Width 15.7% (11.5-14.5) Platelet Count 221x10^3/uL (140-400) Neutrophils (%) (Auto) 64% (31-73) Lymphocytes (%) (Auto) 14% (24-48) Monocytes (%) (Auto) 17% (0-9) Eosinophils (%) (Auto) 4% (0-3) Basophils (%) (Auto) 1% (0-3) Neutrophils # (Auto) 3.7x10^3uL (1.8-7.7) Lymphocytes # (Auto) 0.8x10^3/uL (1.0-4.8) Monocytes # (Auto) 1.0x10^3/uL (0.0-1.1) Eosinophils # (Auto) 0.2x10^3/uL (0.0-0.7) Basophils # (Auto) 0.1x10^3/uL (0.0-0.2) Sodium Level 141mmol/L (136-145) Potassium Level 4.0mmol/L (3.5-5.1) Chloride Level 100mmol/L (98-107) Carbon Dioxide Level 34mmol/L (21-32) Anion Gap 7 (6-14) Blood Urea Nitrogen 35mg/dL (8-26) Creatinine 2.8mg/dL (0.7-1.3) Estimated GFR (Cockcroft-Gault) 21.9 Glucose Level 152mg/dL (70-99) Calcium Level 8.3mg/dL (8.5-10.1) Magnesium Level 2.1mg/dL (1.8-2.4) Medications Current Medications Aspirin (Ecotrin) 81 mg DAILY PO Last administered on 04/27/16at 08:04; Start 04/24/16 at 14:00 Isosorbide Mononitrate (Imdur) 30 mg DAILY PO Last administered on 04/27/16at 08:04; Start 04/24/16 at 14:00 Furosemide 60 mg 60 mg 1X ONCE IVP Last administered on 04/24/16at 14:28; Start 04/24/16 at 14:00; Stop 04/24/16 at 14:01; Status DC Furosemide/Sodium Chloride (Lasix Drip/Iv Sodium Chloride 0.9% 100ml) 100 ml @ 0 mls/hr CONT PRN IV SEE I/O RECORD Last administered on 04/25/16at 05:36; Start 04/24/16 at 16:30; Stop 04/27/16 at 12:01; Status DC Acetaminophen (Tylenol) 650 mg PRN Q6HRS PRN PO MILD PAIN / TEMP; Start at 17:45 Ondansetron HCl (Zofran) 4 mg PRN Q6HRS PRN IV NAUSEA/VOMITING, 1st choice; Start 04/24/16 at 17:45 Diphenhydramine HCl (Benadryl) 25 mg PRN QHS PRN PO INSOMNIA; Start 04/24/16 at 17:45 Prochlorperazine Edisylate (Compazine) 10 mg PRN Q6HRS PRN IV NAUSEA/VOMITING, 2nd choice; Start 04/24/16 at 17:45 Famotidine (Pepcid) 20 mg QHS PO Last administered on 04/26/16at 20:10; Start 04/24/16 at 21:00 Cetirizine HCl (Zyrtec) 10 mg DAILY PO Last administered on 04/27/16at 08:04; Start 04/25/16 at 09:00 Vitamin D (Vitamin D3) 1,000 unit DAILY PO Last administered on 04/27/16at 08: 04; Start 04/25/16 at 09:00 Cyanocobalamin (Vitamin B-12) 1,000 mcg DAILY PO Last administered on 08:04; Start 04/25/16 at 09:00 Docusate Sodium (Colace) 100 mg DAILY PO Last administered on 04/27/16at 08:04 ; Start 04/25/16 at 09:00 Levothyroxine Sodium (Synthroid) 25 mcg DAILY06 PO Last administered on at 05:49; Start 04/25/16 at 06:00 Tamsulosin HCl (Flomax) 0.4 mg HS PO Last administered on 04/26/16at 20:10; Start 04/24/16 at 21:00 Venlafaxine HCl (Effexor) 50 mg TID PO Last administered on 04/27/16at 08:04; Start 04/25/16 at 09:00 Budesonide (Pulmicort) 0.5 mg RTBID NEB Last administered on 04/27/16at 07:17; Start 04/25/16 at 10:30 Albuterol/ Ipratropium (Duoneb) 3 ml RTQID NEB Last administered on 04/27/16at 11:58; Start 04/25/16 at 12:00 Furosemide (Lasix) 40 mg 1X ONCE IVP Last administered on 04/25/16at 21:27; Start 04/25/16 at 20:00; Stop 04/25/16 at 20:01; Status DC Furosemide (Lasix) 80 mg BID IVP Last administered on 04/27/16at 08:04; Start 04/26/16 at 21:00 Albuterol Sulfate (Ventolin Neb Soln) 2.5 mg PRN Q6HRS PRN NEB SHORTNESS OF BREATH Last administered on 04/26/16at 04:21; Start 04/26/16 at 04:15 Heparin Sodium (Porcine) 5,000 unit Q8HRS SQ Last administered on 04/27/16at 05 :52; Start 04/26/16 at 22:00 Hydralazine HCl (Apresoline) 25 mg BID PO ; Start 04/27/16 at 12:30 Active Scripts Active Reported Effexor Xr (Venlafaxine Hcl) 150 Mg Cap.er.24h 1 Cap PO DAILY Flomax (Tamsulosin Hcl) 0.4 Mg Cap.er.24h 1 Cap PO HS Synthroid (Levothyroxine Sodium) 25 Mcg Tablet 1 Tab PO DAILY Isosorbide Mononitrate Er (Isosorbide Mononitrate) 30 Mg Tab.er.24h 1 Tab PO DAILY Pepcid (Famotidine) 20 Mg Tablet 20 Mg PO HS Colace (Docusate Sodium) 100 Mg Capsule 1 Cap PO DAILY Vitamin B-12 (Cyanocobalamin (Vitamin B-12)) 1,000 Mcg Tablet 1 Tab PO DAILY Vitamin D3 (Cholecalciferol (Vitamin D3)) 1,000 Unit Tablet 2 Tab PO DAILY Zyrtec (Cetirizine Hcl) 10 Mg Tablet 1 Tab PO DAILY Aspir 81 (Aspirin) 81 Mg Tablet. 1 Tab PO DAILY Vitals/I & O Vital Sign - Last 24 Hours 04/26/16 04/26/16 04/26/16 04/26/16 14:50 17:38 19:00 20:15 Temp 98.4 98.1 98.4 98.1 Pulse 86 71 Resp 22 22 B/P 131/85 139/71 Pulse Ox 92 98 96 O2 Delivery Nasal Cannula Nasal Cannula Nasal Cannula Nasal Cannula O2 Flow Rate 4.5 4.0 4.0 4.0 04/26/16 04/26/16 04/26/16 04/27/16 21:14 21:16 23:16 03:49 Temp 98.5 98.2 98.5 98.2 Pulse 67 56 Resp 22 22 B/P 153/78 152/76 Pulse Ox 97 97 99 96 O2 Delivery Nasal Cannula Nasal Cannula Nasal Cannula Nasal Cannula O2 Flow Rate 4.0 4.0 4.0 4.0 04/27/16 04/27/16 04/27/16 04/27/16 07:00 07:18 07:53 08:04 Temp 97.9 97.9 Pulse 79 79 Resp 20 B/P 145/76 145/76 Pulse Ox 98 O2 Delivery Nasal Cannula Nasal Cannula Room Air O2 Flow Rate 4.0 4.0 4.0 04/27/16 04/27/16 11:00 11:58 Temp 97.9 97.9 Pulse 67 Resp 20 B/P 143/81 Pulse Ox 95 95 O2 Delivery Nasal Cannula Nasal Cannula O2 Flow Rate 4.0 4.0 Intake and Output 04/26/16 04/26/16 04/27/16 15:00 23:00 07:00 Intake Total 460 ml Output Total 250 ml 650 ml 2950 ml Balance 210 ml -650 ml -2950 ml GRACIE MINER MD Apr 27, 2016 14:07
[2016-04-27] MEDS: HYDRALAZINE 25 MG TABLET PO SCH ×2 (14:11→21:08)
[2016-04-27 15:00] VITALS: BP 149/74
[2016-04-27 19:00] VITALS: BP 146/71
[2016-04-27] MEDS: TAMSULOSIN 0.4 MG CAP.ER.24H. PO SCH (21:08)
[2016-04-27] MEDS: FAMOTIDINE 20 MG TABLET. PO SCH (21:08)
[2016-04-27 23:00] VITALS: BP 140/71
[2016-04-28 03:00] VITALS: BP 145/79
[2016-04-28] MEDS: LEVOTHYROXINE 25 MCG TABLET. PO SCH (06:20)
[2016-04-28] MEDS: HEPARIN PF for SUB-Q USE 5,000 UNIT/0.5 ML VIAL. SQ SCH ×3 (06:24→21:59)
[2016-04-28 07:33] VITALS: BP 136/80
[2016-04-28] MEDS: BUDESONIDE 0.5 MG/2 ML NEBU NEB SCH ×2 (08:15→20:48)
[2016-04-28] MEDS: IPRATRPIUM/ALBUTEROL 0.5/2.5MG 3 ML NEBU. NEB SCH ×4 (08:15→20:48)
[2016-04-28] MEDS: CHOLECALCIFEROL (VITAMIN D3) 1,000 UNIT TABLET PO SCH (08:55)
[2016-04-28] MEDS: VENLAFAXINE 50 MG TABLET. PO SCH ×3 (08:55→21:48)
[2016-04-28] MEDS: CYANOCOBALAMIN (VITAMIN B-12) 1,000 MCG TABLET. PO SCH (08:55)
[2016-04-28] MEDS: ISOSORBIDE MONONITRATE ER 30 MG TAB.ER.24H PO SCH (08:56)
[2016-04-28] MEDS: FUROSEMIDE 40 MG/4 ML VIAL IVP SCH (08:57)
[2016-04-28] MEDS: DOCUSATE SODIUM 100 MG CAPSULE PO SCH (08:57)
[2016-04-28] MEDS: HYDRALAZINE 25 MG TABLET PO SCH ×2 (08:57→21:49)
[2016-04-28] MEDS: ASPIRIN ENTERIC COATED 81 MG TABLET.DR. PO SCH (08:57)
[2016-04-28] MEDS: CETIRIZINE HCL 10 MG TABLET PO SCH (08:57)
[2016-04-28 09:07] LABS: BASO # 0.1 x10^3/uL (0.0-0.2); BASO % 1 % (0-3); EOS % 5 % (0-3); HEMATOCRIT 33.4 % (39.0-53.0); HEMOGLOBIN 10.7 g/dL (13.0-17.5); LYMPH # 1.2 x10^3/uL (1.0-4.8); LYMPH % 21 % (24-48); MEAN CORPUSCULAR HEMOGLOBIN 26 pg (25-35); MEAN CORPUSCULAR HGB CONC 32 g/dL (31-37); MEAN CORPUSCULAR VOLUME 82 fL (79-100); MONO % 15 % (0-9); NEUT % 58 % (31-73); PLATELET COUNT 254 x10^3/uL (140-400); RED BLOOD COUNT 4.07 x10^6/uL (4.30-5.70); RED CELL DISTRIBUTION WIDTH 15.6 % (11.5-14.5); WHITE BLOOD COUNT 5.6 x10^3/uL (4.0-11.0)
[2016-04-28 09:23] LABS: CALCIUM 8.5 mg/dL (8.5-10.1); CREATININE 3.1 mg/dL (0.7-1.3); GFR 19.5; POTASSIUM 4.2 mmol/L (3.5-5.1)
--- NOTE | 2016-04-28 09:32 | PDOC ---
PULMONARY PROGRESS NOTES Subjective pt still soa and coughing Vitals Vital Signs Date Time Temp Pulse Resp B/P Pulse Ox O2 Delivery O2 Flow Rate FiO2 04/28/16 08:57 78 136/80 04/28/16 08:17 91 Room Air 04/28/16 08:00 2.0 04/28/16 07:33 97.9 20 97.9 General: Alert, No acute distress Lungs: Crackles Cardiovascular: S1, S2 Abdomen: Soft, Non-tender Neuro Exam: Alert, Oriented Skin: Warm, Dry Labs Laboratory Tests Test 04/27/16 03:17 04/28/16 08:40 White Blood Count 5.8x10^3/uL (4.0-11.0) 5.6x10^3/uL (4.0-11.0) Red Blood Count 3.50x10^6/uL (4.30-5.70) 4.07x10^6/uL (4.30-5.70) Hemoglobin 9.4g/dL (13.0-17.5) 10.7g/dL (13.0-17.5) Hematocrit 29.2% (39.0-53.0) 33.4% (39.0-53.0) Mean Corpuscular Volume 83fL (79-100) 82fL (79-100) Mean Corpuscular Hemoglobin 27pg (25-35) 26pg (25-35) Mean Corpuscular Hemoglobin Concent 32g/dL (31-37) 32g/dL (31-37) Red Cell Distribution Width 15.7% (11.5-14.5) 15.6% (11.5-14.5) Platelet Count 221x10^3/uL (140-400) 254x10^3/uL (140-400) Neutrophils (%) (Auto) 64% (31-73) 58% (31-73) Lymphocytes (%) (Auto) 14% (24-48) 21% (24-48) Monocytes (%) (Auto) 17% (0-9) 15% (0-9) Eosinophils (%) (Auto) 4% (0-3) 5% (0-3) Basophils (%) (Auto) 1% (0-3) 1% (0-3) Neutrophils # (Auto) 3.7x10^3uL (1.8-7.7) 3.2x10^3uL (1.8-7.7) Lymphocytes # (Auto) 0.8x10^3/uL (1.0-4.8) 1.2x10^3/uL (1.0-4.8) Monocytes # (Auto) 1.0x10^3/uL (0.0-1.1) 0.8x10^3/uL (0.0-1.1) Eosinophils # (Auto) 0.2x10^3/uL (0.0-0.7) 0.3x10^3/uL (0.0-0.7) Basophils # (Auto) 0.1x10^3/uL (0.0-0.2) 0.1x10^3/uL (0.0-0.2) Sodium Level 141mmol/L (136-145) 141mmol/L (136-145) Potassium Level 4.0mmol/L (3.5-5.1) 4.2mmol/L (3.5-5.1) Chloride Level 100mmol/L (98-107) 98mmol/L (98-107) Carbon Dioxide Level 34mmol/L (21-32) 38mmol/L (21-32) Anion Gap 7 (6-14) 5 (6-14) Blood Urea Nitrogen 35mg/dL (8-26) 37mg/dL (8-26) Creatinine 2.8mg/dL (0.7-1.3) 3.1mg/dL (0.7-1.3) Estimated GFR (Cockcroft-Gault) 21.9 19.5 Glucose Level 152mg/dL (70-99) 108mg/dL (70-99) Calcium Level 8.3mg/dL (8.5-10.1) 8.5mg/dL (8.5-10.1) Magnesium Level 2.1mg/dL (1.8-2.4) 2.1mg/dL (1.8-2.4) Laboratory Tests Test 04/28/16 08:40 White Blood Count 5.6x10^3/uL (4.0-11.0) Red Blood Count 4.07x10^6/uL (4.30-5.70) Hemoglobin 10.7g/dL (13.0-17.5) Hematocrit 33.4% (39.0-53.0) Mean Corpuscular Volume 82fL (79-100) Mean Corpuscular Hemoglobin 26pg (25-35) Mean Corpuscular Hemoglobin Concent 32g/dL (31-37) Red Cell Distribution Width 15.6% (11.5-14.5) Platelet Count 254x10^3/uL (140-400) Neutrophils (%) (Auto) 58% (31-73) Lymphocytes (%) (Auto) 21% (24-48) Monocytes (%) (Auto) 15% (0-9) Eosinophils (%) (Auto) 5% (0-3) Basophils (%) (Auto) 1% (0-3) Neutrophils # (Auto) 3.2x10^3uL (1.8-7.7) Lymphocytes # (Auto) 1.2x10^3/uL (1.0-4.8) Monocytes # (Auto) 0.8x10^3/uL (0.0-1.1) Eosinophils # (Auto) 0.3x10^3/uL (0.0-0.7) Basophils # (Auto) 0.1x10^3/uL (0.0-0.2) Sodium Level 141mmol/L (136-145) Potassium Level 4.2mmol/L (3.5-5.1) Chloride Level 98mmol/L (98-107) Carbon Dioxide Level 38mmol/L (21-32) Anion Gap 5 (6-14) Blood Urea Nitrogen 37mg/dL (8-26) Creatinine 3.1mg/dL (0.7-1.3) Estimated GFR (Cockcroft-Gault) 19.5 Glucose Level 108mg/dL (70-99) Calcium Level 8.5mg/dL (8.5-10.1) Magnesium Level 2.1mg/dL (1.8-2.4) Medications Active Scripts Medications Dose Route/Sig Days Date Category Effexor Xr (Venlafaxine Hcl) 150 Mg Cap.er.24h 1 Cap PO DAILY 04/24/16 Reported Flomax (Tamsulosin Hcl) 0.4 Mg Cap.er.24h 1 Cap PO HS 04/24/16 Reported Synthroid (Levothyroxine Sodium) 25 Mcg Tablet 1 Tab PO DAILY 04/24/16 Reported Isosorbide Mononitrate Er (Isosorbide Mononitrate) 30 Mg Tab.er.24h 1 Tab PO DAILY 04/24/16 Reported Pepcid (Famotidine) 20 Mg Tablet 20 Mg PO HS 04/24/16 Reported Colace (Docusate Sodium) 100 Mg Capsule 1 Cap PO DAILY 04/24/16 Reported Vitamin B-12 (Cyanocobalamin (Vitamin B-12)) 1,000 Mcg Tablet 1 Tab PO DAILY 04/24/16 Reported Vitamin D3 (Cholecalciferol (Vitamin D3)) 1,000 Unit Tablet 2 Tab PO DAILY 04/24/16 Reported Zyrtec (Cetirizine Hcl) 10 Mg Tablet 1 Tab PO DAILY 04/24/16 Reported Aspir 81 (Aspirin) 81 Mg Tablet.dr 1 Tab PO DAILY 04/24/16 Reported Impression . 1. Acute on Chronic Diastolic Heart Failure/ Less likely pneumonia 2. CAYDEN on CKD 3. Acute on chronic hypoxemic/hypercapnic respiratory failure 4. COPD - severity not quantified 5. Obesity with hypoventilation 6. Syncope per report 7. Lymphedema/ Venous Stasis 8. HTN 9. Hypothyroidism 10. Dementia 11. Echo with moderate diastolic dysfunction/ EF 55% Plan . pt slowly improving may need HD continue the same for now LAI KIM MD Apr 28, 2016 09:32
--- NOTE | 2016-04-28 10:48 | PDOC ---
PROGRESS NOTES Chief Complaint Chief Complaint 1. 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 2, Acute diastolic CHF 3. Acute on chronic respiratory failure 4. Cognitive Impairment 5. Bilateral pitting edema 6. mod PCM 7. Obesity, BMI 35 8. Hypothryoidism 9. Weakness and debility History of Present Illness History of Present Illness renal following, continue lasix 80mg iv monitor in and out, BMP daily Mr. Silva wanted the landa out, try to ambulate more will likely need subacute rehab Vitals Vitals Vital Signs Date Time Temp Pulse Resp B/P Pulse Ox O2 Delivery O2 Flow Rate FiO2 04/28/16 08:57 78 136/80 04/28/16 08:17 91 Room Air 04/28/16 08:00 2.0 04/28/16 07:33 97.9 20 97.9 Physical Exam General: Alert, Cooperative, mild distress Heart: Regular rate, Normal S1, Normal S2, Other (IRR, tele: AFIB) Lungs: Clear Abdomen: Normal bowel sounds, Soft, No masses Extremities: No cyanosis, Normal pulses, Other (plus 3 pitting edema) Skin: No significant lesion, Other (bilateral LE erythema ) Labs LABS Laboratory Tests Test 04/28/16 08:40 White Blood Count 5.6x10^3/uL (4.0-11.0) Red Blood Count 4.07x10^6/uL (4.30-5.70) Hemoglobin 10.7g/dL (13.0-17.5) Hematocrit 33.4% (39.0-53.0) Mean Corpuscular Volume 82fL (79-100) Mean Corpuscular Hemoglobin 26pg (25-35) Mean Corpuscular Hemoglobin Concent 32g/dL (31-37) Red Cell Distribution Width 15.6% (11.5-14.5) Platelet Count 254x10^3/uL (140-400) Neutrophils (%) (Auto) 58% (31-73) Lymphocytes (%) (Auto) 21% (24-48) Monocytes (%) (Auto) 15% (0-9) Eosinophils (%) (Auto) 5% (0-3) Basophils (%) (Auto) 1% (0-3) Neutrophils # (Auto) 3.2x10^3uL (1.8-7.7) Lymphocytes # (Auto) 1.2x10^3/uL (1.0-4.8) Monocytes # (Auto) 0.8x10^3/uL (0.0-1.1) Eosinophils # (Auto) 0.3x10^3/uL (0.0-0.7) Basophils # (Auto) 0.1x10^3/uL (0.0-0.2) Sodium Level 141mmol/L (136-145) Potassium Level 4.2mmol/L (3.5-5.1) Chloride Level 98mmol/L (98-107) Carbon Dioxide Level 38mmol/L (21-32) Anion Gap 5 (6-14) Blood Urea Nitrogen 37mg/dL (8-26) Creatinine 3.1mg/dL (0.7-1.3) Estimated GFR (Cockcroft-Gault) 19.5 Glucose Level 108mg/dL (70-99) Calcium Level 8.5mg/dL (8.5-10.1) Magnesium Level 2.1mg/dL (1.8-2.4) Review of Systems Review of Systems no n.v.d Assessment and Plan Assessmemt and Plan he is motivated to get home. Lives in [place], would benefit from 10 days at [place]. Pt eval yesterday rec. [facility] renal wants 24 hour urine, consider Dialysis for fluid management, risk of morbidity with ongoing LE edema and CHF, Problems: Comment Review of Relevant I have reviewed the following items randee (where applicable) has been applied. Labs Laboratory Tests Test 04/27/16 03:17 04/28/16 08:40 White Blood Count 5.8x10^3/uL (4.0-11.0) 5.6x10^3/uL (4.0-11.0) Red Blood Count 3.50x10^6/uL (4.30-5.70) 4.07x10^6/uL (4.30-5.70) Hemoglobin 9.4g/dL (13.0-17.5) 10.7g/dL (13.0-17.5) Hematocrit 29.2% (39.0-53.0) 33.4% (39.0-53.0) Mean Corpuscular Volume 83fL (79-100) 82fL (79-100) Mean Corpuscular Hemoglobin 27pg (25-35) 26pg (25-35) Mean Corpuscular Hemoglobin Concent 32g/dL (31-37) 32g/dL (31-37) Red Cell Distribution Width 15.7% (11.5-14.5) 15.6% (11.5-14.5) Platelet Count 221x10^3/uL (140-400) 254x10^3/uL (140-400) Neutrophils (%) (Auto) 64% (31-73) 58% (31-73) Lymphocytes (%) (Auto) 14% (24-48) 21% (24-48) Monocytes (%) (Auto) 17% (0-9) 15% (0-9) Eosinophils (%) (Auto) 4% (0-3) 5% (0-3) Basophils (%) (Auto) 1% (0-3) 1% (0-3) Neutrophils # (Auto) 3.7x10^3uL (1.8-7.7) 3.2x10^3uL (1.8-7.7) Lymphocytes # (Auto) 0.8x10^3/uL (1.0-4.8) 1.2x10^3/uL (1.0-4.8) Monocytes # (Auto) 1.0x10^3/uL (0.0-1.1) 0.8x10^3/uL (0.0-1.1) Eosinophils # (Auto) 0.2x10^3/uL (0.0-0.7) 0.3x10^3/uL (0.0-0.7) Basophils # (Auto) 0.1x10^3/uL (0.0-0.2) 0.1x10^3/uL (0.0-0.2) Sodium Level 141mmol/L (136-145) 141mmol/L (136-145) Potassium Level 4.0mmol/L (3.5-5.1) 4.2mmol/L (3.5-5.1) Chloride Level 100mmol/L (98-107) 98mmol/L (98-107) Carbon Dioxide Level 34mmol/L (21-32) 38mmol/L (21-32) Anion Gap 7 (6-14) 5 (6-14) Blood Urea Nitrogen 35mg/dL (8-26) 37mg/dL (8-26) Creatinine 2.8mg/dL (0.7-1.3) 3.1mg/dL (0.7-1.3) Estimated GFR (Cockcroft-Gault) 21.9 19.5 Glucose Level 152mg/dL (70-99) 108mg/dL (70-99) Calcium Level 8.3mg/dL (8.5-10.1) 8.5mg/dL (8.5-10.1) Magnesium Level 2.1mg/dL (1.8-2.4) 2.1mg/dL (1.8-2.4) Laboratory Tests Test 04/28/16 08:40 White Blood Count 5.6x10^3/uL (4.0-11.0) Red Blood Count 4.07x10^6/uL (4.30-5.70) Hemoglobin 10.7g/dL (13.0-17.5) Hematocrit 33.4% (39.0-53.0) Mean Corpuscular Volume 82fL (79-100) Mean Corpuscular Hemoglobin 26pg (25-35) Mean Corpuscular Hemoglobin Concent 32g/dL (31-37) Red Cell Distribution Width 15.6% (11.5-14.5) Platelet Count 254x10^3/uL (140-400) Neutrophils (%) (Auto) 58% (31-73) Lymphocytes (%) (Auto) 21% (24-48) Monocytes (%) (Auto) 15% (0-9) Eosinophils (%) (Auto) 5% (0-3) Basophils (%) (Auto) 1% (0-3) Neutrophils # (Auto) 3.2x10^3uL (1.8-7.7) Lymphocytes # (Auto) 1.2x10^3/uL (1.0-4.8) Monocytes # (Auto) 0.8x10^3/uL (0.0-1.1) Eosinophils # (Auto) 0.3x10^3/uL (0.0-0.7) Basophils # (Auto) 0.1x10^3/uL (0.0-0.2) Sodium Level 141mmol/L (136-145) Potassium Level 4.2mmol/L (3.5-5.1) Chloride Level 98mmol/L (98-107) Carbon Dioxide Level 38mmol/L (21-32) Anion Gap 5 (6-14) Blood Urea Nitrogen 37mg/dL (8-26) Creatinine 3.1mg/dL (0.7-1.3) Estimated GFR (Cockcroft-Gault) 19.5 Glucose Level 108mg/dL (70-99) Calcium Level 8.5mg/dL (8.5-10.1) Magnesium Level 2.1mg/dL (1.8-2.4) Medications Current Medications Aspirin (Ecotrin) 81 mg DAILY PO Last administered on 04/28/16at 08:57; Start 04/24/16 at 14:00 Isosorbide Mononitrate (Imdur) 30 mg DAILY PO Last administered on 04/28/16at 08:56; Start 04/24/16 at 14:00 Furosemide 60 mg 60 mg 1X ONCE IVP Last administered on 04/24/16at 14:28; Start 04/24/16 at 14:00; Stop 04/24/16 at 14:01; Status DC Furosemide/Sodium Chloride (Lasix Drip/Iv Sodium Chloride 0.9% 100ml) 100 ml @ 0 mls/hr CONT PRN IV SEE I/O RECORD Last administered on 04/25/16at 05:36; Start 04/24/16 at 16:30; Stop 04/27/16 at 12:01; Status DC Acetaminophen (Tylenol) 650 mg PRN Q6HRS PRN PO MILD PAIN / TEMP; Start at 17:45 Ondansetron HCl (Zofran) 4 mg PRN Q6HRS PRN IV NAUSEA/VOMITING, 1st choice; Start 04/24/16 at 17:45 Diphenhydramine HCl (Benadryl) 25 mg PRN QHS PRN PO INSOMNIA; Start 04/24/16 at 17:45 Prochlorperazine Edisylate (Compazine) 10 mg PRN Q6HRS PRN IV NAUSEA/VOMITING, 2nd choice; Start 04/24/16 at 17:45 Famotidine (Pepcid) 20 mg QHS PO Last administered on 04/27/16 21:08; Start 04/24/16 at 21:00 Cetirizine HCl (Zyrtec) 10 mg DAILY PO Last administered on 04/28/16at 08:57; Start 04/25/16 at 09:00 Vitamin D (Vitamin D3) 1,000 unit DAILY PO Last administered on 04/28/16at 08: 55; Start 04/25/16 at 09:00 Cyanocobalamin (Vitamin B-12) 1,000 mcg DAILY PO Last administered on at 08:55; Start 04/25/16 at 09:00 Docusate Sodium (Colace) 100 mg DAILY PO Last administered on 04/28/16 08:57 ; Start 04/25/16 at 09:00 Levothyroxine Sodium (Synthroid) 25 mcg DAILY06 PO Last administered on at 06:20; Start 04/25/16 at 06:00 Tamsulosin HCl (Flomax) 0.4 mg HS PO Last administered on 04/27/16at 21:08; Start 04/24/16 at 21:00 Venlafaxine HCl (Effexor) 50 mg TID PO Last administered on 04/28/16 08:55; Start 04/25/16 at 09:00 Budesonide (Pulmicort) 0.5 mg RTBID NEB Last administered on 04/28/16at 08:15; Start 04/25/16 at 10:30 Albuterol/ Ipratropium (Duoneb) 3 ml RTQID NEB Last administered on 04/28/16at 08:15; Start 04/25/16 at 12:00 Furosemide (Lasix) 40 mg 1X ONCE IVP Last administered on 04/25/16at 21:27; Start 04/25/16 at 20:00; Stop 04/25/16 at 20:01; Status DC Furosemide (Lasix) 80 mg BID IVP Last administered on 04/28/16at 08:57; Start 04/26/16 at 21:00 Albuterol Sulfate (Ventolin Neb Soln) 2.5 mg PRN Q6HRS PRN NEB SHORTNESS OF BREATH Last administered on 04/26/16at 04:21; Start 04/26/16 at 04:15 Heparin Sodium (Porcine) 5,000 unit Q8HRS SQ Last administered on 04/28/16at 06 :24; Start 04/26/16 at 22:00 Hydralazine HCl (Apresoline) 25 mg BID PO Last administered on 04/28/16at 08:57 ; Start 04/27/16 at 12:30 Active Scripts Active Reported Effexor Xr (Venlafaxine Hcl) 150 Mg Cap.er.24h 1 Cap PO DAILY Flomax (Tamsulosin Hcl) 0.4 Mg Cap.er.24h 1 Cap PO HS Synthroid (Levothyroxine Sodium) 25 Mcg Tablet 1 Tab PO DAILY Isosorbide Mononitrate Er (Isosorbide Mononitrate) 30 Mg Tab.er.24h 1 Tab PO DAILY Pepcid (Famotidine) 20 Mg Tablet 20 Mg PO HS Colace (Docusate Sodium) 100 Mg Capsule 1 Cap PO DAILY Vitamin B-12 (Cyanocobalamin (Vitamin B-12)) 1,000 Mcg Tablet 1 Tab PO DAILY Vitamin D3 (Cholecalciferol (Vitamin D3)) 1,000 Unit Tablet 2 Tab PO DAILY Zyrtec (Cetirizine Hcl) 10 Mg Tablet 1 Tab PO DAILY Aspir 81 (Aspirin) 81 Mg Tablet. 1 Tab PO DAILY Vitals/I & O Vital Sign - Last 24 Hours 04/27/16 04/27/16 04/27/16 04/27/16 11:00 11:58 14:11 15:00 Temp 97.9 98.6 97.9 98.6 Pulse 67 67 90 Resp 20 20 B/P 143/81 143/81 149/74 Pulse Ox 95 95 94 O2 Delivery Nasal Cannula Nasal Cannula Nasal Cannula O2 Flow Rate 4.0 4.0 4.0 04/27/16 04/27/16 04/27/16 04/27/16 16:46 19:00 20:11 20:20 Temp 99.0 99.0 Pulse 71 Resp 21 B/P 146/71 Pulse Ox 96 96 O2 Delivery Nasal Cannula Nasal Cannula Nasal Cannula Nasal Cannula O2 Flow Rate 4.0 4.0 4.0 4.0 04/27/16 04/27/16 04/28/16 04/28/16 21:08 23:00 03:00 07:33 Temp 98.9 98.9 97.9 98.9 98.9 97.9 Pulse 71 70 75 78 Resp 20 20 20 B/P 146/71 140/71 145/79 136/80 Pulse Ox 96 96 97 O2 Delivery Nasal Cannula Nasal Cannula Nasal Cannula O2 Flow Rate 4.0 4.0 2.0 04/28/16 04/28/16 04/28/16 04/28/16 08:00 08:17 08:56 08:57 Pulse 78 78 B/P 136/80 136/80 Pulse Ox 91 O2 Delivery Nasal Cannula Room Air O2 Flow Rate 2.0 Intake and Output 04/27/16 04/27/16 04/28/16 15:00 23:00 07:00 Intake Total 300 ml 200 ml Output Total 3200 ml 1600 ml Balance -2900 ml -1400 ml GRACIE MINER MD Apr 28, 2016 10:49
--- NOTE | 2016-04-28 11:15 | PDOC ---
Renal-Progress Notes Subjective Notes Notes STILL HAS SOME SOB AND LOTS OF EDEMA History of Present Illness Hx of present illness OVERALL BETTER Vitals Vitals Vital Signs Date Time Temp Pulse Resp B/P Pulse Ox O2 Delivery O2 Flow Rate FiO2 04/28/16 08:57 78 136/80 04/28/16 08:17 91 Room Air 04/28/16 08:00 2.0 04/28/16 07:33 97.9 20 97.9 Weight Weight [ ] I.O. Intake and Output Intake and Output 04/28/16 06:59 Intake Total 500 ml Output Total 4800 ml Balance -4300 ml Intake Oral 500 ml Output Urine Total 4800 ml Labs Labs Laboratory Tests Test 04/28/16 08:40 White Blood Count 5.6x10^3/uL (4.0-11.0) Red Blood Count 4.07x10^6/uL (4.30-5.70) Hemoglobin 10.7g/dL (13.0-17.5) Hematocrit 33.4% (39.0-53.0) Mean Corpuscular Volume 82fL (79-100) Mean Corpuscular Hemoglobin 26pg (25-35) Mean Corpuscular Hemoglobin Concent 32g/dL (31-37) Red Cell Distribution Width 15.6% (11.5-14.5) Platelet Count 254x10^3/uL (140-400) Neutrophils (%) (Auto) 58% (31-73) Lymphocytes (%) (Auto) 21% (24-48) Monocytes (%) (Auto) 15% (0-9) Eosinophils (%) (Auto) 5% (0-3) Basophils (%) (Auto) 1% (0-3) Neutrophils # (Auto) 3.2x10^3uL (1.8-7.7) Lymphocytes # (Auto) 1.2x10^3/uL (1.0-4.8) Monocytes # (Auto) 0.8x10^3/uL (0.0-1.1) Eosinophils # (Auto) 0.3x10^3/uL (0.0-0.7) Basophils # (Auto) 0.1x10^3/uL (0.0-0.2) Sodium Level 141mmol/L (136-145) Potassium Level 4.2mmol/L (3.5-5.1) Chloride Level 98mmol/L (98-107) Carbon Dioxide Level 38mmol/L (21-32) Anion Gap 5 (6-14) Blood Urea Nitrogen 37mg/dL (8-26) Creatinine 3.1mg/dL (0.7-1.3) Estimated GFR (Cockcroft-Gault) 19.5 Glucose Level 108mg/dL (70-99) Calcium Level 8.5mg/dL (8.5-10.1) Magnesium Level 2.1mg/dL (1.8-2.4) Physical Exam General Appearance: no apparent distress Skin: warm Respiratory: decreased breath sounds Heart: S1S2, RRR Abdomen: soft Neurology: alert, follow commands, other Musculoskeletal: Osteoarthritis Assessment Assessment IMP CKD STAGE 4 WITH CR OF 2.9 AND STABLE ANEMIA - STABLE WITH HGB OF 9.4 RESP FAILURE AECOPD SEVERE LE EDEMA-BETTER BUT PERSISTENT MALNUTRITION PLAN CONT WITH LASIX IV-INCREASE TO Q 8 HRS DUE TO SEVERITY OF EDEMA GOOD NEG FLUID BALANCE WITH STABLE RENAL FXN AT THIS TIME WILL CHECK 24 HR URINE STUDY MAY NEED DIALYSIS IF CR CL ENDS UP BEING LOW AND WE CANT ADEQUATELY DIURESE HIM D/W PT - WILL CONSIDER INITIATING HD TOMORROW D/W ATTENDING LY ROGERS MD Apr 28, 2016 11:15
[2016-04-28 11:32] VITALS: BP 130/82
[2016-04-28] MEDS: FUROSEMIDE 100 MG/10 ML VIAL IVP SCH ×2 (14:13→21:48)
[2016-04-28 15:00] VITALS: BP 120/53
--- NOTE | 2016-04-28 15:23 | PDOC ---
CARDIO Progress Notes Date and Time Date of Service 04/28/16 Time of Evaluation 1120 Subjective Subjective: No Chest Pain, No Palpitations, No Dizziness, Other (SOA at baseline, thinking about dialysis ) Vitals Vitals Vital Signs Date Time Temp Pulse Resp B/P Pulse Ox O2 Delivery O2 Flow Rate FiO2 04/28/16 12:02 Nasal Cannula 2.0 04/28/16 11:32 98.0 71 20 130/82 95 98.0 Weight Weight [ ] Input and Output Intake and Output Intake and Output 04/28/16 06:59 Intake Total 500 ml Output Total 4800 ml Balance -4300 ml Intake Oral 500 ml Output Urine Total 4800 ml Laboratory Labs Laboratory Tests Test 04/28/16 08:40 White Blood Count 5.6x10^3/uL (4.0-11.0) Red Blood Count 4.07x10^6/uL (4.30-5.70) Hemoglobin 10.7g/dL (13.0-17.5) Hematocrit 33.4% (39.0-53.0) Mean Corpuscular Volume 82fL (79-100) Mean Corpuscular Hemoglobin 26pg (25-35) Mean Corpuscular Hemoglobin Concent 32g/dL (31-37) Red Cell Distribution Width 15.6% (11.5-14.5) Platelet Count 254x10^3/uL (140-400) Neutrophils (%) (Auto) 58% (31-73) Lymphocytes (%) (Auto) 21% (24-48) Monocytes (%) (Auto) 15% (0-9) Eosinophils (%) (Auto) 5% (0-3) Basophils (%) (Auto) 1% (0-3) Neutrophils # (Auto) 3.2x10^3uL (1.8-7.7) Lymphocytes # (Auto) 1.2x10^3/uL (1.0-4.8) Monocytes # (Auto) 0.8x10^3/uL (0.0-1.1) Eosinophils # (Auto) 0.3x10^3/uL (0.0-0.7) Basophils # (Auto) 0.1x10^3/uL (0.0-0.2) Sodium Level 141mmol/L (136-145) Potassium Level 4.2mmol/L (3.5-5.1) Chloride Level 98mmol/L (98-107) Carbon Dioxide Level 38mmol/L (21-32) Anion Gap 5 (6-14) Blood Urea Nitrogen 37mg/dL (8-26) Creatinine 3.1mg/dL (0.7-1.3) Estimated GFR (Cockcroft-Gault) 19.5 Glucose Level 108mg/dL (70-99) Calcium Level 8.5mg/dL (8.5-10.1) Magnesium Level 2.1mg/dL (1.8-2.4) Physical Exam HEENT: Neck Supple W Full Motion Chest: Symmetric LUNGS: Other (fine exp wheezes. Bases diminished ) Heart: S1S2, no murmurs, irregularly irregular, other (tele: atrial fib with controlled ventricular rate) Abdomen: Soft N/T, Other (obese ) Extremities: Other (2+ bilateral LE edema up to level of thigh; bilateral LE compression hose in use) Neurology: alert, follow commands, other Assessment Assessment 1. Acute on chronic diastolic heart failure 2. Acute on chronic respiratory failure with AE COPD secondary to above. 3. CAYDEN with CKD 4. Chronic Atrial Fibrillation 5. Hypertension 6. Anemia 7. Hypothyroidism 8. Anemia Recommendations Continue to have significant LE edema. Lasix increased to 80mg IV q8 per nephrology. Consideration for dialysis. 24 urine in progress. BP better controlled with addition of hydralazine. Continue with current therapy. HR controlled. ASA for stroke prevention. Renal optimization per nephrology. JAIR WELLER APRN Apr 28, 2016 15:23
[2016-04-28 19:00] VITALS: BP 138/65
[2016-04-28] MEDS: FAMOTIDINE 20 MG TABLET. PO SCH (21:48)
[2016-04-28] MEDS: TAMSULOSIN 0.4 MG CAP.ER.24H. PO SCH (21:48)
[2016-04-28 23:00] VITALS: BP 121/60
[2016-04-29] VITALS (7 sets, daily range): BP systolic 125–158; BP diastolic 62–77
[2016-04-29 05:01] LABS: BASO # 0.1 x10^3/uL (0.0-0.2); BASO % 1 % (0-3); EOS % 5 % (0-3); HEMATOCRIT 32.2 % (39.0-53.0); HEMOGLOBIN 10.3 g/dL (13.0-17.5); LYMPH # 1.3 x10^3/uL (1.0-4.8); LYMPH % 21 % (24-48); MEAN CORPUSCULAR HEMOGLOBIN 27 pg (25-35); MEAN CORPUSCULAR HGB CONC 32 g/dL (31-37); MEAN CORPUSCULAR VOLUME 83 fL (79-100); MONO % 18 % (0-9); NEUT % 54 % (31-73); PLATELET COUNT 262 x10^3/uL (140-400); RED BLOOD COUNT 3.87 x10^6/uL (4.30-5.70); RED CELL DISTRIBUTION WIDTH 15.7 % (11.5-14.5); WHITE BLOOD COUNT 6.2 x10^3/uL (4.0-11.0)
[2016-04-29 05:20] LABS: CALCIUM 8.9 mg/dL (8.5-10.1); CREATININE 3.2 mg/dL (0.7-1.3); GFR 18.8; POTASSIUM 4.2 mmol/L (3.5-5.1)
[2016-04-29] MEDS: FUROSEMIDE 100 MG/10 ML VIAL IVP SCH ×3 (06:05→21:07)
[2016-04-29] MEDS: LEVOTHYROXINE 25 MCG TABLET. PO SCH (06:05)
[2016-04-29] MEDS: HEPARIN PF for SUB-Q USE 5,000 UNIT/0.5 ML VIAL. SQ SCH ×3 (06:10→21:16)
[2016-04-29 07:06] LABS: % BASOS 4 % (0-3); ANISOCYTOSIS SLIGHT; PLT ESTIMATE ADEQUATE (ADEQUATE); POIKILOCYTOSIS PRESENT
[2016-04-29 07:07] LABS: OVALOCYTES MOD
[2016-04-29] MEDS: BUDESONIDE 0.5 MG/2 ML NEBU NEB SCH ×2 (07:20→19:56)
[2016-04-29] MEDS: IPRATRPIUM/ALBUTEROL 0.5/2.5MG 3 ML NEBU. NEB SCH ×4 (07:20→19:56)
[2016-04-29] MEDS: ISOSORBIDE MONONITRATE ER 30 MG TAB.ER.24H PO SCH (08:29)
[2016-04-29] MEDS: ASPIRIN ENTERIC COATED 81 MG TABLET.DR. PO SCH (08:29)
[2016-04-29] MEDS: HYDRALAZINE 25 MG TABLET PO SCH ×2 (08:29→21:06)
[2016-04-29] MEDS: CHOLECALCIFEROL (VITAMIN D3) 1,000 UNIT TABLET PO SCH (08:29)
[2016-04-29] MEDS: CETIRIZINE HCL 10 MG TABLET PO SCH (08:29)
[2016-04-29] MEDS: VENLAFAXINE 50 MG TABLET. PO SCH ×3 (08:29→21:05)
[2016-04-29] MEDS: CYANOCOBALAMIN (VITAMIN B-12) 1,000 MCG TABLET. PO SCH (08:29)
[2016-04-29] MEDS: DOCUSATE SODIUM 100 MG CAPSULE PO SCH (09:00)
--- NOTE | 2016-04-29 09:24 | PDOC ---
PULMONARY PROGRESS NOTES Subjective pt feels better Vitals Vital Signs Date Time Temp Pulse Resp B/P Pulse Ox O2 Delivery O2 Flow Rate FiO2 04/29/16 08:29 81 138/67 04/29/16 07:24 98 Nasal Cannula 2.0 04/29/16 07:00 97.3 20 97.3 General: Alert, No acute distress Lungs: Crackles (bases) Cardiovascular: S1, S2 Abdomen: Soft, Non-tender Neuro Exam: Alert, Oriented Extremities: Other Skin: Warm, Dry Labs Laboratory Tests Test 04/28/16 08:40 04/29/16 04:25 04/29/16 04:40 White Blood Count 5.6x10^3/uL (4.0-11.0) 6.2x10^3/uL (4.0-11.0) Red Blood Count 4.07x10^6/uL (4.30-5.70) 3.87x10^6/uL (4.30-5.70) Hemoglobin 10.7g/dL (13.0-17.5) 10.3g/dL (13.0-17.5) Hematocrit 33.4% (39.0-53.0) 32.2% (39.0-53.0) Mean Corpuscular Volume 82fL (79-100) 83fL (79-100) Mean Corpuscular Hemoglobin 26pg (25-35) 27pg (25-35) Mean Corpuscular Hemoglobin Concent 32g/dL (31-37) 32g/dL (31-37) Red Cell Distribution Width 15.6% (11.5-14.5) 15.7% (11.5-14.5) Platelet Count 254x10^3/uL (140-400) 262x10^3/uL (140-400) Neutrophils (%) (Auto) 58% (31-73) 54% (31-73) Lymphocytes (%) (Auto) 21% (24-48) 21% (24-48) Monocytes (%) (Auto) 15% (0-9) 18% (0-9) Eosinophils (%) (Auto) 5% (0-3) 5% (0-3) Basophils (%) (Auto) 1% (0-3) 1% (0-3) Neutrophils # (Auto) 3.2x10^3uL (1.8-7.7) 3.4x10^3uL (1.8-7.7) Lymphocytes # (Auto) 1.2x10^3/uL (1.0-4.8) 1.3x10^3/uL (1.0-4.8) Monocytes # (Auto) 0.8x10^3/uL (0.0-1.1) 1.1x10^3/uL (0.0-1.1) Eosinophils # (Auto) 0.3x10^3/uL (0.0-0.7) 0.3x10^3/uL (0.0-0.7) Basophils # (Auto) 0.1x10^3/uL (0.0-0.2) 0.1x10^3/uL (0.0-0.2) Sodium Level 141mmol/L (136-145) 142mmol/L (136-145) Potassium Level 4.2mmol/L (3.5-5.1) 4.2mmol/L (3.5-5.1) Chloride Level 98mmol/L (98-107) 97mmol/L (98-107) Carbon Dioxide Level 38mmol/L (21-32) 38mmol/L (21-32) Anion Gap 5 (6-14) 7 (6-14) Blood Urea Nitrogen 37mg/dL (8-26) 43mg/dL (8-26) Creatinine 3.1mg/dL (0.7-1.3) 3.2mg/dL (0.7-1.3) Estimated GFR (Cockcroft-Gault) 19.5 18.8 Glucose Level 108mg/dL (70-99) 138mg/dL (70-99) Calcium Level 8.5mg/dL (8.5-10.1) 8.9mg/dL (8.5-10.1) Magnesium Level 2.1mg/dL (1.8-2.4) Segmented Neutrophils % 60% (35-66) Band Neutrophils % 2% (0-9) Lymphocytes % 16% (24-48) Monocytes % 18% (0-10) Basophils % 4% (0-3) Platelet Estimate Adequate (ADEQUATE) Poikilocytosis Present Anisocytosis Slight Ovalocytes Mod Laboratory Tests Test 04/29/16 04:25 04/29/16 04:40 Sodium Level 142mmol/L (136-145) Potassium Level 4.2mmol/L (3.5-5.1) Chloride Level 97mmol/L (98-107) Carbon Dioxide Level 38mmol/L (21-32) Anion Gap 7 (6-14) Blood Urea Nitrogen 43mg/dL (8-26) Creatinine 3.2mg/dL (0.7-1.3) Estimated GFR (Cockcroft-Gault) 18.8 Glucose Level 138mg/dL (70-99) Calcium Level 8.9mg/dL (8.5-10.1) White Blood Count 6.2x10^3/uL (4.0-11.0) Red Blood Count 3.87x10^6/uL (4.30-5.70) Hemoglobin 10.3g/dL (13.0-17.5) Hematocrit 32.2% (39.0-53.0) Mean Corpuscular Volume 83fL (79-100) Mean Corpuscular Hemoglobin 27pg (25-35) Mean Corpuscular Hemoglobin Concent 32g/dL (31-37) Red Cell Distribution Width 15.7% (11.5-14.5) Platelet Count 262x10^3/uL (140-400) Neutrophils (%) (Auto) 54% (31-73) Lymphocytes (%) (Auto) 21% (24-48) Monocytes (%) (Auto) 18% (0-9) Eosinophils (%) (Auto) 5% (0-3) Basophils (%) (Auto) 1% (0-3) Neutrophils # (Auto) 3.4x10^3uL (1.8-7.7) Lymphocytes # (Auto) 1.3x10^3/uL (1.0-4.8) Monocytes # (Auto) 1.1x10^3/uL (0.0-1.1) Eosinophils # (Auto) 0.3x10^3/uL (0.0-0.7) Basophils # (Auto) 0.1x10^3/uL (0.0-0.2) Segmented Neutrophils % 60% (35-66) Band Neutrophils % 2% (0-9) Lymphocytes % 16% (24-48) Monocytes % 18% (0-10) Basophils % 4% (0-3) Platelet Estimate Adequate (ADEQUATE) Poikilocytosis Present Anisocytosis Slight Ovalocytes Mod Medications Active Scripts Medications Dose Route/Sig Days Date Category Effexor Xr (Venlafaxine Hcl) 150 Mg Cap.er.24h 1 Cap PO DAILY 04/24/16 Reported Flomax (Tamsulosin Hcl) 0.4 Mg Cap.er.24h 1 Cap PO HS 04/24/16 Reported Synthroid (Levothyroxine Sodium) 25 Mcg Tablet 1 Tab PO DAILY 04/24/16 Reported Isosorbide Mononitrate Er (Isosorbide Mononitrate) 30 Mg Tab.er.24h 1 Tab PO DAILY 04/24/16 Reported Pepcid (Famotidine) 20 Mg Tablet 20 Mg PO HS 04/24/16 Reported Colace (Docusate Sodium) 100 Mg Capsule 1 Cap PO DAILY 04/24/16 Reported Vitamin B-12 (Cyanocobalamin (Vitamin B-12)) 1,000 Mcg Tablet 1 Tab PO DAILY 04/24/16 Reported Vitamin D3 (Cholecalciferol (Vitamin D3)) 1,000 Unit Tablet 2 Tab PO DAILY 04/24/16 Reported Zyrtec (Cetirizine Hcl) 10 Mg Tablet 1 Tab PO DAILY 04/24/16 Reported Aspir 81 (Aspirin) 81 Mg Tablet.dr 1 Tab PO DAILY 04/24/16 Reported Impression . 1. Acute on Chronic Diastolic Heart Failure/ Less likely pneumonia 2. CAYDEN on CKD 3. Acute on chronic hypoxemic/hypercapnic respiratory failure 4. COPD - severity not quantified 5. Obesity with hypoventilation 6. Syncope per report 7. Lymphedema/ Venous Stasis 8. HTN 9. Hypothyroidism 10. Dementia 11. Echo with moderate diastolic dysfunction/ EF 55% Plan . pt slowly improving worsening renal function reduce lasix dose may need HD continue the same for now STEPHANIE VELÁZQUEZ MD Apr 29, 2016 09:24
--- NOTE | 2016-04-29 10:54 | PDOC ---
Renal-Progress Notes Subjective Notes Notes STILL HAS SOME SOB BUT BETTER Vitals Vitals Vital Signs Date Time Temp Pulse Resp B/P Pulse Ox O2 Delivery O2 Flow Rate FiO2 04/29/16 08:29 81 138/67 04/29/16 08:00 Nasal Cannula 4.0 04/29/16 07:24 98 04/29/16 07:00 97.3 20 97.3 Weight Weight [ ] I.O. Intake and Output Intake and Output 04/29/16 06:59 Intake Total 300 ml Output Total 3075 ml Balance -2775 ml Intake Oral 300 ml Output Urine Total 3075 ml Labs Labs Laboratory Tests Test 04/29/16 04:25 04/29/16 04:40 Sodium Level 142mmol/L (136-145) Potassium Level 4.2mmol/L (3.5-5.1) Chloride Level 97mmol/L (98-107) Carbon Dioxide Level 38mmol/L (21-32) Anion Gap 7 (6-14) Blood Urea Nitrogen 43mg/dL (8-26) Creatinine 3.2mg/dL (0.7-1.3) Estimated GFR (Cockcroft-Gault) 18.8 Glucose Level 138mg/dL (70-99) Calcium Level 8.9mg/dL (8.5-10.1) White Blood Count 6.2x10^3/uL (4.0-11.0) Red Blood Count 3.87x10^6/uL (4.30-5.70) Hemoglobin 10.3g/dL (13.0-17.5) Hematocrit 32.2% (39.0-53.0) Mean Corpuscular Volume 83fL (79-100) Mean Corpuscular Hemoglobin 27pg (25-35) Mean Corpuscular Hemoglobin Concent 32g/dL (31-37) Red Cell Distribution Width 15.7% (11.5-14.5) Platelet Count 262x10^3/uL (140-400) Neutrophils (%) (Auto) 54% (31-73) Lymphocytes (%) (Auto) 21% (24-48) Monocytes (%) (Auto) 18% (0-9) Eosinophils (%) (Auto) 5% (0-3) Basophils (%) (Auto) 1% (0-3) Neutrophils # (Auto) 3.4x10^3uL (1.8-7.7) Lymphocytes # (Auto) 1.3x10^3/uL (1.0-4.8) Monocytes # (Auto) 1.1x10^3/uL (0.0-1.1) Eosinophils # (Auto) 0.3x10^3/uL (0.0-0.7) Basophils # (Auto) 0.1x10^3/uL (0.0-0.2) Segmented Neutrophils % 60% (35-66) Band Neutrophils % 2% (0-9) Lymphocytes % 16% (24-48) Monocytes % 18% (0-10) Basophils % 4% (0-3) Platelet Estimate Adequate (ADEQUATE) Poikilocytosis Present Anisocytosis Slight Ovalocytes Mod Physical Exam General Appearance: no apparent distress Skin: warm Respiratory: decreased breath sounds Heart: S1S2, RRR Abdomen: soft Neurology: alert, follow commands, other Musculoskeletal: Osteoarthritis Assessment Assessment IMP CKD STAGE 4 WITH CR OF 2.9 AND STABLE CAYDEN WITH CR UP TO 3.1 ANEMIA - STABLE WITH HGB OF 9.4 RESP FAILURE AECOPD SEVERE LE EDEMA-BETTER BUT PERSISTENT MALNUTRITION PLAN CONT WITH LASIX IV 24 HR URINE STUDY ONGOING BELIEVE HE HAS ESRD DUE TO REQUIREMENTS OF LARGE DOSES OF DIURETIC AND HE STILL HAS EDEMA WILL HAVE IR PLACE A TUNNELED HD CATHETER TODAY AND START HD TOMORROW CM WILL NEED TO SET UP OP HD IN [place] WILL FOLLOW LY ROGERS MD Apr 29, 2016 10:54
--- NOTE | 2016-04-29 11:03 | PDOC ---
CARDIO Progress Notes Date and Time Date of Service 04/29/2016 Time of Evaluation 1100 Subjective Subjective: No Chest Pain, No Palpitations, No Dizziness Vitals Vitals Vital Signs Date Time Temp Pulse Resp B/P Pulse Ox O2 Delivery O2 Flow Rate FiO2 04/29/16 08:29 81 138/67 04/29/16 08:00 Nasal Cannula 4.0 04/29/16 07:24 98 04/29/16 07:00 97.3 20 97.3 Weight Weight [ ] Input and Output Intake and Output Intake and Output 04/29/16 06:59 Intake Total 300 ml Output Total 3075 ml Balance -2775 ml Intake Oral 300 ml Output Urine Total 3075 ml Laboratory Labs Laboratory Tests Test 04/29/16 04:25 04/29/16 04:40 Sodium Level 142mmol/L (136-145) Potassium Level 4.2mmol/L (3.5-5.1) Chloride Level 97mmol/L (98-107) Carbon Dioxide Level 38mmol/L (21-32) Anion Gap 7 (6-14) Blood Urea Nitrogen 43mg/dL (8-26) Creatinine 3.2mg/dL (0.7-1.3) Estimated GFR (Cockcroft-Gault) 18.8 Glucose Level 138mg/dL (70-99) Calcium Level 8.9mg/dL (8.5-10.1) White Blood Count 6.2x10^3/uL (4.0-11.0) Red Blood Count 3.87x10^6/uL (4.30-5.70) Hemoglobin 10.3g/dL (13.0-17.5) Hematocrit 32.2% (39.0-53.0) Mean Corpuscular Volume 83fL (79-100) Mean Corpuscular Hemoglobin 27pg (25-35) Mean Corpuscular Hemoglobin Concent 32g/dL (31-37) Red Cell Distribution Width 15.7% (11.5-14.5) Platelet Count 262x10^3/uL (140-400) Neutrophils (%) (Auto) 54% (31-73) Lymphocytes (%) (Auto) 21% (24-48) Monocytes (%) (Auto) 18% (0-9) Eosinophils (%) (Auto) 5% (0-3) Basophils (%) (Auto) 1% (0-3) Neutrophils # (Auto) 3.4x10^3uL (1.8-7.7) Lymphocytes # (Auto) 1.3x10^3/uL (1.0-4.8) Monocytes # (Auto) 1.1x10^3/uL (0.0-1.1) Eosinophils # (Auto) 0.3x10^3/uL (0.0-0.7) Basophils # (Auto) 0.1x10^3/uL (0.0-0.2) Segmented Neutrophils % 60% (35-66) Band Neutrophils % 2% (0-9) Lymphocytes % 16% (24-48) Monocytes % 18% (0-10) Basophils % 4% (0-3) Platelet Estimate Adequate (ADEQUATE) Poikilocytosis Present Anisocytosis Slight Ovalocytes Mod Physical Exam HEENT: Neck Supple W Full Motion Chest: Symmetric LUNGS: Other (diminished throughout; scattered expiratory wheezing) Heart: S1S2, no murmurs, irregularly irregular Abdomen: Soft N/T, Other (obese ) Extremities: Other (2+ bilateral LE edema up to level of thigh; bilateral LE compression hose in use) Neurology: alert, follow commands, other Assessment Assessment 1. Acute on chronic diastolic heart failure continue IV diuretics SBP is not well controlled - will treat 2. Acute on chronic respiratory failure/AECOPD per pulmonary 3. 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 starting dialysis per pt no ACEI or ARB 4. Atrial Fibrillation rate controlled without meds 5. Hypertension improved control continue long acting nitrates hydralazine BID to start 6. Anemia of chronic disease 7. Hypothyroidism on replacement therapy CRISTOPHER CHRISTINE APRN Apr 29, 2016 11:03
[2016-04-29] MEDS ORDERED: LIDOCAINE 1%/EPI 1:100,000 20 ML VIAL. ONE (12:35)
[2016-04-29] MEDS ORDERED: HEPARIN for IV BOLUS 10,000 UNIT/10 ML VIAL. ONE (12:35)
[2016-04-29] MEDS ORDERED: MIDAZOLAM HCL/PF 5 MG/5 ML VIAL ONE (13:40)
[2016-04-29] MEDS ORDERED: CEFAZOLIN 1GM IVPB FOR OMNI 50 ML IV ONE ×2 (13:40→14:30)
[2016-04-29] MEDS ORDERED: FENTANYL PF 250 MCG/5 ML VIAL. ONE (13:40)
[2016-04-29] MEDS ORDERED: MIDAZOLAM HCL/PF 5 MG/5 ML VIAL IV ONE (14:00)
[2016-04-29] MEDS ORDERED: LIDOCAINE 1%/EPI 1:100,000 20 ML VIAL. IJ ONE (14:00)
[2016-04-29] MEDS ORDERED: FENTANYL PF 250 MCG/5 ML VIAL. IV ONE (14:00)
--- NOTE | 2016-04-29 14:14 | PDOC ---
MODERATE SEDATION ASSESSMENT RISKS/ALTERNATIVES Risks/Alternatives Risks and alternatives of this type of sedation and procedure discussed with: RISK/ALTERNATIVES: Patient H & P ON CHART H & P H & P on chart and reviewed for co-morbid conditions and appropriate labs. H&P ON CHART: Yes STATUS PREG STATUS ASSESSED: N/A MEDS/ALLERGIES REVIEWED Meds/Allergies Reviewed Medications and Allergies including time and route of recently administered narcotics and sedatives. MEDS/ALLERGIES REVIEWED: Yes ASA RATING ASA RATING: III AIRWAY ASSESSMENT Airway Assessment Airway patency, oral function limitations, presence of caps, crowns, dentures, partials, and ability to extend neck assessed. AIRWAY ASSESSMENT: Yes MALLAMPATI SCORE MALLAMPATI SCORE: III PRE-SEDATION ASSESSMENT PRE-SEDATION ASSESSMENT: Yes POOANM GILMORE MD Apr 29, 2016 14:14
--- NOTE | 2016-04-29 14:17 | PDOC ---
Exam Payable Manager Payable Manager Jay Mask Inspector Mask Inspector Sanchez Alex Pre-Procedure Diagnosis Pre-Procedure Diagnosis 80 YO male with CAYDEN on CKD. Severe edema. Resp failure. Needs HD. Tunneled HDC requested by Renal. Post-Procedure Diagnosis Post-Procedure Diagnosis Same Procedure Performed Procedure Performed Sono/fluoro guided tunneled HDC insertion Type of Anesthesia Type of Anesthesia Local + Mod sedation Estimated Blood Loss EBL: Minimal Drain/Tubes Drains/Tubes 15.5F 28cm DuraMax rt IJ tunneled HDC Condition of Patient Condition of Patient Stable. No apparent complication. Disposition Disposition From to [facility]. OK to use tunneled HDC. F/u with Renal. Full report to follow. POONAM GILMORE MD Apr 29, 2016 14:17
--- NOTE | 2016-04-29 16:04 | RAD ---
Ultrasound and fluoro guided placement of right IJ tunneled hemodialysis catheter Indication: Acute kidney injury on chronic kidney disease. Severe edema. Respiratory failure. Hemodialysis needed. Tunneled dialysis catheter insertion requested by renal. Fluoro time: 1.8 minutes Kerma-Area Product: 11 Gycm2 Moderate sedation: 18 minutes moderate sedation was provided utilizing a total of 3 mg Versed and 125 mcg fentanyl, IV. The patient was appropriately monitored by a qualified independent observer throughout the time of moderate sedation. Antibiotic: A single dose of Ancef was administered within 1 hour of the procedure start time. Sterility: All elements of maximal sterile barrier technique, including the use of a cap, mask, sterile gown, sterile gloves, large sterile sheet, appropriate hand hygiene, and 2% chlorhexidine for cutaneous antisepsis (or acceptable alternative antiseptic per current guidelines) were utilized. He Procedure: Informed consent was obtained from the patient. She was placed supine on the angiography table. Preliminary ultrasound examination of right neck revealed wide patency of right internal jugular vein, which was documented with a hard copy ultrasound image. Right neck and upper chest were then prepped and draped in the usual sterile fashion, utilizing all elements of maximal sterile barrier technique, as described above. Moderate sedation was provided with IV Versed and Fentanyl. 1 gram Ancef was given IV, prophylactically. Using aseptic technique and local anesthesia, a small skin incision was made lateral to right internal jugular vein, just above clavicle. Using aseptic technique, local anesthesia, and direct ultrasound guidance, a micropuncture needle was successfully introduced into right internal jugular vein. The micropuncture needle was then exchanged over a microguidewire for a micropuncture sheath, through which an Amplatz wire was advanced into IVC, under fluoroscopic control. A second small skin incision was then made along upper anterior aspect of right chest. A subcutaneous tunnel was then fashioned between the right chest and supraclavicular incisions. A 15.5 F 28 cm Dura Max dialysis catheter was pulled through the subcutaneous tunnel from inferior to superior, utilizing the tunneling device provided. The right IJ venostomy tract was then sequentially dilated and the 15.5 Stateless dialysis catheter was easily advanced centrally through a 16 Stateless peel-away sheath, and was positioned with its tip at the level of upper right atrium utilizing fluoroscopic guidance. This catheter was demonstrated to flush and aspirate normally, was packed, and was secured at the right chest exit site utilizing 2-0 Prolene and sterile dressing. The small supraclavicular incision was closed with 4-0 Vicryl, Steri-Strips, and sterile dressing. Patient tolerated the procedure well without apparent complication. Satisfactory position of the dialysis catheter was confirmed with a single fluoroscopic spot image. Impression: Successful, uneventful ultrasound and fluoro guided placement of right IJ 15.5 F 28 cm Dura Max tunneled hemodialysis catheter, as described.
--- NOTE | 2016-04-29 19:04 | PDOC ---
PROGRESS NOTES Chief Complaint Chief Complaint cc: renal failure A/P 1. 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 2, Acute diastolic CHF 3. Acute on chronic respiratory failure 4. Cognitive Impairment 5. Bilateral pitting edema 6. Mod PCM 7. Obesity, BMI 35 8. Hypothyroidism 9. Weakness and debility Plan continue diuretics, limit as renal functions getting worse HD Tunneled catheter placement today. labs reviwed, supplemental oxygen supportive care HD tomorrow sw to arrange for out pt HD. History of Present Illness History of Present Illness HD CATH TODAY NO FEVER NO CHEST PAIN Vitals Vitals Vital Signs Date Time Temp Pulse Resp B/P Pulse Ox O2 Delivery O2 Flow Rate FiO2 04/29/16 16:49 97 Nasal Cannula 2.0 04/29/16 14:44 95 16 139/67 04/29/16 11:00 98.8 98.8 Physical Exam General: Alert, Cooperative, mild distress Heart: Regular rate, Normal S1, Normal S2, Other (IRR, tele: AFIB) Lungs: Crackles (bases) Abdomen: Normal bowel sounds, Soft, No masses Extremities: No cyanosis, Normal pulses, Other (plus 3 pitting edema) Skin: No significant lesion, Other (bilateral LE erythema ) Labs LABS Laboratory Tests Test 04/29/16 04:25 04/29/16 04:40 04/29/16 11:20 Sodium Level 142mmol/L (136-145) Potassium Level 4.2mmol/L (3.5-5.1) Chloride Level 97mmol/L (98-107) Carbon Dioxide Level 38mmol/L (21-32) Anion Gap 7 (6-14) Blood Urea Nitrogen 43mg/dL (8-26) Creatinine 3.2mg/dL (0.7-1.3) Estimated GFR (Cockcroft-Gault) 18.8 Glucose Level 138mg/dL (70-99) Calcium Level 8.9mg/dL (8.5-10.1) White Blood Count 6.2x10^3/uL (4.0-11.0) Red Blood Count 3.87x10^6/uL (4.30-5.70) Hemoglobin 10.3g/dL (13.0-17.5) Hematocrit 32.2% (39.0-53.0) Mean Corpuscular Volume 83fL (79-100) Mean Corpuscular Hemoglobin 27pg (25-35) Mean Corpuscular Hemoglobin Concent 32g/dL (31-37) Red Cell Distribution Width 15.7% (11.5-14.5) Platelet Count 262x10^3/uL (140-400) Neutrophils (%) (Auto) 54% (31-73) Lymphocytes (%) (Auto) 21% (24-48) Monocytes (%) (Auto) 18% (0-9) Eosinophils (%) (Auto) 5% (0-3) Basophils (%) (Auto) 1% (0-3) Neutrophils # (Auto) 3.4x10^3uL (1.8-7.7) Lymphocytes # (Auto) 1.3x10^3/uL (1.0-4.8) Monocytes # (Auto) 1.1x10^3/uL (0.0-1.1) Eosinophils # (Auto) 0.3x10^3/uL (0.0-0.7) Basophils # (Auto) 0.1x10^3/uL (0.0-0.2) Segmented Neutrophils % 60% (35-66) Band Neutrophils % 2% (0-9) Lymphocytes % 16% (24-48) Monocytes % 18% (0-10) Basophils % 4% (0-3) Platelet Estimate Adequate (ADEQUATE) Poikilocytosis Present Anisocytosis Slight Ovalocytes Mod Prothrombin Time 13.0SEC (11.7-14.0) Prothromb Time International Ratio 1.0 (0.8-1.1) Comment Review of Relevant I have reviewed the following items randee (where applicable) has been applied. Labs Laboratory Tests Test 04/28/16 08:40 04/29/16 04:25 04/29/16 04:40 04/29/16 11:20 White Blood Count 5.6x10^3/uL (4.0-11.0) 6.2x10^3/uL (4.0-11.0) Red Blood Count 4.07x10^6/uL (4.30-5.70) 3.87x10^6/uL (4.30-5.70) Hemoglobin 10.7g/dL (13.0-17.5) 10.3g/dL (13.0-17.5) Hematocrit 33.4% (39.0-53.0) 32.2% (39.0-53.0) Mean Corpuscular Volume 82fL (79-100) 83fL (79-100) Mean Corpuscular Hemoglobin 26pg (25-35) 27pg (25-35) Mean Corpuscular Hemoglobin Concent 32g/dL (31-37) 32g/dL (31-37) Red Cell Distribution Width 15.6% (11.5-14.5) 15.7% (11.5-14.5) Platelet Count 254x10^3/uL (140-400) 262x10^3/uL (140-400) Neutrophils (%) (Auto) 58% (31-73) 54% (31-73) Lymphocytes (%) (Auto) 21% (24-48) 21% (24-48) Monocytes (%) (Auto) 15% (0-9) 18% (0-9) Eosinophils (%) (Auto) 5% (0-3) 5% (0-3) Basophils (%) (Auto) 1% (0-3) 1% (0-3) Neutrophils # (Auto) 3.2x10^3uL (1.8-7.7) 3.4x10^3uL (1.8-7.7) Lymphocytes # (Auto) 1.2x10^3/uL (1.0-4.8) 1.3x10^3/uL (1.0-4.8) Monocytes # (Auto) 0.8x10^3/uL (0.0-1.1) 1.1x10^3/uL (0.0-1.1) Eosinophils # (Auto) 0.3x10^3/uL (0.0-0.7) 0.3x10^3/uL (0.0-0.7) Basophils # (Auto) 0.1x10^3/uL (0.0-0.2) 0.1x10^3/uL (0.0-0.2) Sodium Level 141mmol/L (136-145) 142mmol/L (136-145) Potassium Level 4.2mmol/L (3.5-5.1) 4.2mmol/L (3.5-5.1) Chloride Level 98mmol/L (98-107) 97mmol/L (98-107) Carbon Dioxide Level 38mmol/L (21-32) 38mmol/L (21-32) Anion Gap 5 (6-14) 7 (6-14) Blood Urea Nitrogen 37mg/dL (8-26) 43mg/dL (8-26) Creatinine 3.1mg/dL (0.7-1.3) 3.2mg/dL (0.7-1.3) Estimated GFR (Cockcroft-Gault) 19.5 18.8 Glucose Level 108mg/dL (70-99) 138mg/dL (70-99) Calcium Level 8.5mg/dL (8.5-10.1) 8.9mg/dL (8.5-10.1) Magnesium Level 2.1mg/dL (1.8-2.4) Segmented Neutrophils % 60% (35-66) Band Neutrophils % 2% (0-9) Lymphocytes % 16% (24-48) Monocytes % 18% (0-10) Basophils % 4% (0-3) Platelet Estimate Adequate (ADEQUATE) Poikilocytosis Present Anisocytosis Slight Ovalocytes Mod Prothrombin Time 13.0SEC (11.7-14.0) Prothromb Time International Ratio 1.0 (0.8-1.1) Laboratory Tests Test 04/29/16 04:25 04/29/16 04:40 04/29/16 11:20 Sodium Level 142mmol/L (136-145) Potassium Level 4.2mmol/L (3.5-5.1) Chloride Level 97mmol/L (98-107) Carbon Dioxide Level 38mmol/L (21-32) Anion Gap 7 (6-14) Blood Urea Nitrogen 43mg/dL (8-26) Creatinine 3.2mg/dL (0.7-1.3) Estimated GFR (Cockcroft-Gault) 18.8 Glucose Level 138mg/dL (70-99) Calcium Level 8.9mg/dL (8.5-10.1) White Blood Count 6.2x10^3/uL (4.0-11.0) Red Blood Count 3.87x10^6/uL (4.30-5.70) Hemoglobin 10.3g/dL (13.0-17.5) Hematocrit 32.2% (39.0-53.0) Mean Corpuscular Volume 83fL (79-100) Mean Corpuscular Hemoglobin 27pg (25-35) Mean Corpuscular Hemoglobin Concent 32g/dL (31-37) Red Cell Distribution Width 15.7% (11.5-14.5) Platelet Count 262x10^3/uL (140-400) Neutrophils (%) (Auto) 54% (31-73) Lymphocytes (%) (Auto) 21% (24-48) Monocytes (%) (Auto) 18% (0-9) Eosinophils (%) (Auto) 5% (0-3) Basophils (%) (Auto) 1% (0-3) Neutrophils # (Auto) 3.4x10^3uL (1.8-7.7) Lymphocytes # (Auto) 1.3x10^3/uL (1.0-4.8) Monocytes # (Auto) 1.1x10^3/uL (0.0-1.1) Eosinophils # (Auto) 0.3x10^3/uL (0.0-0.7) Basophils # (Auto) 0.1x10^3/uL (0.0-0.2) Segmented Neutrophils % 60% (35-66) Band Neutrophils % 2% (0-9) Lymphocytes % 16% (24-48) Monocytes % 18% (0-10) Basophils % 4% (0-3) Platelet Estimate Adequate (ADEQUATE) Poikilocytosis Present Anisocytosis Slight Ovalocytes Mod Prothrombin Time 13.0SEC (11.7-14.0) Prothromb Time International Ratio 1.0 (0.8-1.1) Medications Current Medications Aspirin (Ecotrin) 81 mg DAILY PO Last administered on 04/29/16at 08:29; Start 04/24/16 at 14:00 Isosorbide Mononitrate (Imdur) 30 mg DAILY PO Last administered on 04/29/16at 08:29; Start 04/24/16 at 14:00 Furosemide 60 mg 60 mg 1X ONCE IVP Last administered on 04/24/16at 14:28; Start 04/24/16 at 14:00; Stop 04/24/16 at 14:01; Status DC Furosemide/Sodium Chloride (Lasix Drip/Iv Sodium Chloride 0.9% 100ml) 100 ml @ 0 mls/hr CONT PRN IV SEE I/O RECORD Last administered on 04/25/16at 05:36; Start 04/24/16 at 16:30; Stop 04/27/16 at 12:01; Status DC Acetaminophen (Tylenol) 650 mg PRN Q6HRS PRN PO MILD PAIN / TEMP; Start at 17:45 Ondansetron HCl (Zofran) 4 mg PRN Q6HRS PRN IV NAUSEA/VOMITING, 1st choice; Start 04/24/16 at 17:45 Diphenhydramine HCl (Benadryl) 25 mg PRN QHS PRN PO INSOMNIA; Start 04/24/16 at 17:45 Prochlorperazine Edisylate (Compazine) 10 mg PRN Q6HRS PRN IV NAUSEA/VOMITING, 2nd choice; Start 04/24/16 at 17:45 Famotidine (Pepcid) 20 mg QHS PO Last administered on 04/28/16at 21:48; Start 04/24/16 at 21:00 Cetirizine HCl (Zyrtec) 10 mg DAILY PO Last administered on 04/29/16at 08:29; Start 04/25/16 at 09:00 Vitamin D (Vitamin D3) 1,000 unit DAILY PO Last administered on 04/29/16at 08: 29; Start 04/25/16 at 09:00 Cyanocobalamin (Vitamin B-12) 1,000 mcg DAILY PO Last administered on at 08:29; Start 04/25/16 at 09:00 Docusate Sodium (Colace) 100 mg DAILY PO Last administered on 04/29/16at 09:00 ; Start 04/25/16 at 09:00 Levothyroxine Sodium (Synthroid) 25 mcg DAILY06 PO Last administered on at 06:05; Start 04/25/16 at 06:00 Tamsulosin HCl (Flomax) 0.4 mg HS PO Last administered on 04/28/16at 21:48; Start 04/24/16 at 21:00 Venlafaxine HCl (Effexor) 50 mg TID PO Last administered on 04/29/16at 15:33; Start 04/25/16 at 09:00 Budesonide (Pulmicort) 0.5 mg RTBID NEB Last administered on 04/29/16at 07:20; Start 04/25/16 at 10:30 Albuterol/ Ipratropium (Duoneb) 3 ml RTQID NEB Last administered on 04/29/16at 16:48; Start 04/25/16 at 12:00 Furosemide (Lasix) 40 mg 1X ONCE IVP Last administered on 04/25/16at 21:27; Start 04/25/16 at 20:00; Stop 04/25/16 at 20:01; Status DC Furosemide (Lasix) 80 mg BID IVP Last administered on 04/28/16at 08:57; Start 04/26/16 at 21:00; Stop 04/28/16 at 11:17; Status DC Albuterol Sulfate (Ventolin Neb Soln) 2.5 mg PRN Q6HRS PRN NEB SHORTNESS OF BREATH Last administered on 04/26/16at 04:21; Start 04/26/16 at 04:15 Heparin Sodium (Porcine) 5,000 unit Q8HRS SQ Last administered on 04/29/16at 06 :10; Start 04/26/16 at 22:00 Hydralazine HCl (Apresoline) 25 mg BID PO Last administered on 04/29/16at 08:29 ; Start 04/27/16 at 12:30 Furosemide (Lasix) 80 mg Q8HRS IVP Last administered on 04/29/16at 15:34; Start 04/28/16 at 14:00 Heparin Sodium (Porcine) 10,000 unit STK-MED ONCE .ROUTE ; Start 04/29/16 at 12 :35; Stop 04/29/16 at 12:36; Status DC Lidocaine/ Epinephrine 20 ml 20 ml STK-MED ONCE .ROUTE ; Start 04/29/16 at 12: 35; Stop 04/29/16 at 12:36; Status DC Heparin Sodium/ Sodium Chloride 500 ml @ As Directed STK-MED ONCE .ROUTE ; Start 04/29/16 at 12:36; Stop 04/29/16 at 12:37; Status DC Midazolam HCl (Versed) 5 mg STK-MED ONCE .ROUTE ; Start 04/29/16 at 13:40; Stop 04/29/16 at 13:41; Status DC Fentanyl Citrate 250 mcg 250 mcg STK-MED ONCE .ROUTE ; Start 04/29/16 at 13:40 ; Stop 04/29/16 at 13:41; Status DC Cefazolin Sodium (Ancef 1gm Ivpb For Omni) 50 ml @ As Directed STK-MED ONCE IV ; Start 04/29/16 at 13:40; Stop 04/29/16 at 13:41; Status DC Heparin Sodium/ Sodium Chloride 1,000 unit 1X ONCE IART Last administered on 04/29/16at 14:00; Start 04/29/16 at 14:00; Stop 04/29/16 at 14:10; Status DC Midazolam HCl (Versed) 5 mg 1X ONCE IV Last administered on 04/29/16at 14:00; Start 04/29/16 at 14:00; Stop 04/29/16 at 14:10; Status DC Fentanyl Citrate (Fentanyl 5ml Vial) 250 mcg 1X ONCE IV Last administered on 04/29/16at 14:00; Start 04/29/16 at 14:00; Stop 04/29/16 at 14:10; Status DC Lidocaine/ Epinephrine (Xylocaine 1%-Epi 1:100,000) 20 ml 1X ONCE IJ Last administered on 04/29/16at 14:00; Start 04/29/16 at 14:00; Stop 04/29/16 at 14 :10; Status DC Heparin Sodium (Porcine) 2600 unit 2,600 unit 1X ONCE INT CAT Last administered on 04/29/16at 14:00; Start 04/29/16 at 14:00; Stop 04/29/16 at 14 :10; Status DC Cefazolin Sodium (Ancef 1gm Ivpb For Omni) 50 ml @ 0 mls/hr 1X ONCE IV Last administered on 04/29/16at 14:19; Start 04/29/16 at 14:30; Stop 04/29/16 at 14 :31; Status DC Active Scripts Active Reported Effexor Xr (Venlafaxine Hcl) 150 Mg Cap.er.24h 1 Cap PO DAILY Flomax (Tamsulosin Hcl) 0.4 Mg Cap.er.24h 1 Cap PO HS Synthroid (Levothyroxine Sodium) 25 Mcg Tablet 1 Tab PO DAILY Isosorbide Mononitrate Er (Isosorbide Mononitrate) 30 Mg Tab.er.24h 1 Tab PO DAILY Pepcid (Famotidine) 20 Mg Tablet 20 Mg PO HS Colace (Docusate Sodium) 100 Mg Capsule 1 Cap PO DAILY Vitamin B-12 (Cyanocobalamin (Vitamin B-12)) 1,000 Mcg Tablet 1 Tab PO DAILY Vitamin D3 (Cholecalciferol (Vitamin D3)) 1,000 Unit Tablet 2 Tab PO DAILY Zyrtec (Cetirizine Hcl) 10 Mg Tablet 1 Tab PO DAILY Aspir 81 (Aspirin) 81 Mg Tablet. 1 Tab PO DAILY Vitals/I & O Vital Sign - Last 24 Hours 04/28/16 04/28/16 04/28/16 04/28/16 20:00 20:49 20:52 21:49 Pulse 87 B/P 138/65 O2 Delivery Nasal Cannula Nasal Cannula Nasal Cannula O2 Flow Rate 4.0 2.0 2.0 04/28/16 04/29/16 04/29/16 04/29/16 23:00 03:00 07:00 07:21 Temp 99.0 97.4 97.3 99.0 97.4 97.3 Pulse 90 77 81 Resp 20 21 20 B/P 121/60 132/73 138/67 Pulse Ox 94 94 95 98 O2 Delivery Nasal Cannula Nasal Cannula Nasal Cannula Nasal Cannula O2 Flow Rate 4.0 4.0 4.0 2.0 04/29/16 04/29/16 04/29/16 04/29/16 07:24 08:00 08:29 08:29 Pulse 81 81 B/P 138/67 138/67 Pulse Ox 98 O2 Delivery Nasal Cannula Nasal Cannula O2 Flow Rate 2.0 4.0 04/29/16 04/29/16 04/29/16 04/29/16 11:00 11:50 14:00 14:13 Temp 98.8 98.8 Pulse 91 88 Resp 20 16 16 B/P 125/62 Pulse Ox 94 100 98 O2 Delivery Nasal Cannula Nasal Cannula Nasal Cannula O2 Flow Rate 4.0 2.0 2.0 04/29/16 04/29/16 14:44 16:49 Pulse 95 Resp 16 B/P 139/67 Pulse Ox 95 97 O2 Delivery Nasal Cannula O2 Flow Rate 4.0 2.0 Intake and Output 12/21/16 12/21/16 12/22/16 14:59 22:59 06:59 Intake Total 300 ml Output Total 1575 ml 1500 ml Balance -1275 ml -1500 ml CECELIA GOODE MD Apr 29, 2016 19:04
[2016-04-29 20:13] LABS: HEP B SURFACE ABDY Non Reactive (.)
[2016-04-29] MEDS: FAMOTIDINE 20 MG TABLET. PO SCH (21:06)
[2016-04-29] MEDS: TAMSULOSIN 0.4 MG CAP.ER.24H. PO SCH (21:06)
[2016-04-30 03:50] VITALS: BP 131/73
[2016-04-30 05:40] LABS: BASO # 0.1 x10^3/uL (0.0-0.2); BASO % 1 % (0-3); EOS % 5 % (0-3); HEMOGLOBIN 10.5 g/dL (13.0-17.5); LYMPH # 1.2 x10^3/uL (1.0-4.8); LYMPH % 20 % (24-48); MEAN CORPUSCULAR HEMOGLOBIN 26 pg (25-35); MEAN CORPUSCULAR HGB CONC 32 g/dL (31-37); MEAN CORPUSCULAR VOLUME 83 fL (79-100); MONO % 17 % (0-9); NEUT % 57 % (31-73); PLATELET COUNT 267 x10^3/uL (140-400); RED CELL DISTRIBUTION WIDTH 15.5 % (11.5-14.5); WHITE BLOOD COUNT 6.2 x10^3/uL (4.0-11.0)
[2016-04-30 05:56] LABS: CALCIUM 8.8 mg/dL (8.5-10.1); CREATININE 3.4 mg/dL (0.7-1.3); GFR 17.5; POTASSIUM 3.6 mmol/L (3.5-5.1)
[2016-04-30] MEDS: LEVOTHYROXINE 25 MCG TABLET. PO SCH (06:06)
[2016-04-30] MEDS: FUROSEMIDE 100 MG/10 ML VIAL IVP SCH ×3 (06:06→20:50)
[2016-04-30] MEDS: HEPARIN PF for SUB-Q USE 5,000 UNIT/0.5 ML VIAL. SQ SCH ×3 (06:14→21:25)
[2016-04-30 07:00] VITALS: BP 131/73
[2016-04-30] MEDS: IPRATRPIUM/ALBUTEROL 0.5/2.5MG 3 ML NEBU. NEB SCH ×4 (08:09→19:39)
[2016-04-30] MEDS: BUDESONIDE 0.5 MG/2 ML NEBU NEB SCH ×2 (08:09→19:39)
--- NOTE | 2016-04-30 10:11 | PDOC ---
PROGRESS NOTES Chief Complaint Chief Complaint cc: renal failure A/P 1. 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 2, Acute diastolic CHF 3. Acute on chronic respiratory failure 4. Cognitive Impairment 5. Bilateral pitting edema 6. Mod PCM 7. Obesity, BMI 35 8. Hypothyroidism 9. Weakness and debility Plan continue diuretics, HD Today labs reviwed, supplemental oxygen supportive care s/p HD catheter placement. out pt HD. History of Present Illness History of Present Illness s/p HD CATH NO FEVER NO CHEST PAIN Vitals Vitals Vital Signs Date Time Temp Pulse Resp B/P Pulse Ox O2 Delivery O2 Flow Rate FiO2 04/30/16 08:14 96 Nasal Cannula 2.0 04/30/16 07:00 97.7 85 16 131/73 97.7 Physical Exam General: Alert, Oriented X3, Cooperative, mild distress Heart: Regular rate, Normal S1, Normal S2, Other (IRR, tele: AFIB) Lungs: Crackles (bases) Abdomen: Normal bowel sounds, Soft, No masses Extremities: No cyanosis, Normal pulses, Other Skin: No significant lesion, Other (bilateral LE erythema ) Labs LABS Laboratory Tests Test 04/29/16 11:20 04/30/16 03:30 Prothrombin Time 13.0SEC (11.7-14.0) Prothromb Time International Ratio 1.0 (0.8-1.1) Hepatitis B Surface Antigen Negative (Negative) Hepatitis B Surface Antibody Non reactive (.) Hepatitis B Core Total Antibody Negative (Negative) White Blood Count 6.2x10^3/uL (4.0-11.0) Red Blood Count 4.00x10^6/uL (4.30-5.70) Hemoglobin 10.5g/dL (13.0-17.5) Hematocrit 33.0% (39.0-53.0) Mean Corpuscular Volume 83fL (79-100) Mean Corpuscular Hemoglobin 26pg (25-35) Mean Corpuscular Hemoglobin Concent 32g/dL (31-37) Red Cell Distribution Width 15.5% (11.5-14.5) Platelet Count 267x10^3/uL (140-400) Neutrophils (%) (Auto) 57% (31-73) Lymphocytes (%) (Auto) 20% (24-48) Monocytes (%) (Auto) 17% (0-9) Eosinophils (%) (Auto) 5% (0-3) Basophils (%) (Auto) 1% (0-3) Neutrophils # (Auto) 3.5x10^3uL (1.8-7.7) Lymphocytes # (Auto) 1.2x10^3/uL (1.0-4.8) Monocytes # (Auto) 1.1x10^3/uL (0.0-1.1) Eosinophils # (Auto) 0.3x10^3/uL (0.0-0.7) Basophils # (Auto) 0.1x10^3/uL (0.0-0.2) Sodium Level 137mmol/L (136-145) Potassium Level 3.6mmol/L (3.5-5.1) Chloride Level 95mmol/L (98-107) Carbon Dioxide Level 37mmol/L (21-32) Anion Gap 5 (6-14) Blood Urea Nitrogen 43mg/dL (8-26) Creatinine 3.4mg/dL (0.7-1.3) Estimated GFR (Cockcroft-Gault) 17.5 Glucose Level 108mg/dL (70-99) Calcium Level 8.8mg/dL (8.5-10.1) Magnesium Level 2.1mg/dL (1.8-2.4) Comment Review of Relevant I have reviewed the following items randee (where applicable) has been applied. Labs Laboratory Tests Test 04/29/16 04:25 04/29/16 04:40 04/29/16 11:20 04/30/16 03:30 Sodium Level 142mmol/L (136-145) 137mmol/L (136-145) Potassium Level 4.2mmol/L (3.5-5.1) 3.6mmol/L (3.5-5.1) Chloride Level 97mmol/L (98-107) 95mmol/L (98-107) Carbon Dioxide Level 38mmol/L (21-32) 37mmol/L (21-32) Anion Gap 7 (6-14) 5 (6-14) Blood Urea Nitrogen 43mg/dL (8-26) 43mg/dL (8-26) Creatinine 3.2mg/dL (0.7-1.3) 3.4mg/dL (0.7-1.3) Estimated GFR (Cockcroft-Gault) 18.8 17.5 Glucose Level 138mg/dL (70-99) 108mg/dL (70-99) Calcium Level 8.9mg/dL (8.5-10.1) 8.8mg/dL (8.5-10.1) White Blood Count 6.2x10^3/uL (4.0-11.0) 6.2x10^3/uL (4.0-11.0) Red Blood Count 3.87x10^6/uL (4.30-5.70) 4.00x10^6/uL (4.30-5.70) Hemoglobin 10.3g/dL (13.0-17.5) 10.5g/dL (13.0-17.5) Hematocrit 32.2% (39.0-53.0) 33.0% (39.0-53.0) Mean Corpuscular Volume 83fL (79-100) 83fL (79-100) Mean Corpuscular Hemoglobin 27pg (25-35) 26pg (25-35) Mean Corpuscular Hemoglobin Concent 32g/dL (31-37) 32g/dL (31-37) Red Cell Distribution Width 15.7% (11.5-14.5) 15.5% (11.5-14.5) Platelet Count 262x10^3/uL (140-400) 267x10^3/uL (140-400) Neutrophils (%) (Auto) 54% (31-73) 57% (31-73) Lymphocytes (%) (Auto) 21% (24-48) 20% (24-48) Monocytes (%) (Auto) 18% (0-9) 17% (0-9) Eosinophils (%) (Auto) 5% (0-3) 5% (0-3) Basophils (%) (Auto) 1% (0-3) 1% (0-3) Neutrophils # (Auto) 3.4x10^3uL (1.8-7.7) 3.5x10^3uL (1.8-7.7) Lymphocytes # (Auto) 1.3x10^3/uL (1.0-4.8) 1.2x10^3/uL (1.0-4.8) Monocytes # (Auto) 1.1x10^3/uL (0.0-1.1) 1.1x10^3/uL (0.0-1.1) Eosinophils # (Auto) 0.3x10^3/uL (0.0-0.7) 0.3x10^3/uL (0.0-0.7) Basophils # (Auto) 0.1x10^3/uL (0.0-0.2) 0.1x10^3/uL (0.0-0.2) Segmented Neutrophils % 60% (35-66) Band Neutrophils % 2% (0-9) Lymphocytes % 16% (24-48) Monocytes % 18% (0-10) Basophils % 4% (0-3) Platelet Estimate Adequate (ADEQUATE) Poikilocytosis Present Anisocytosis Slight Ovalocytes Mod Prothrombin Time 13.0SEC (11.7-14.0) Prothromb Time International Ratio 1.0 (0.8-1.1) Hepatitis B Surface Antigen Negative (Negative) Hepatitis B Surface Antibody Non reactive (.) Hepatitis B Core Total Antibody Negative (Negative) Magnesium Level 2.1mg/dL (1.8-2.4) Laboratory Tests Test 04/29/16 11:20 04/30/16 03:30 Prothrombin Time 13.0SEC (11.7-14.0) Prothromb Time International Ratio 1.0 (0.8-1.1) Hepatitis B Surface Antigen Negative (Negative) Hepatitis B Surface Antibody Non reactive (.) Hepatitis B Core Total Antibody Negative (Negative) White Blood Count 6.2x10^3/uL (4.0-11.0) Red Blood Count 4.00x10^6/uL (4.30-5.70) Hemoglobin 10.5g/dL (13.0-17.5) Hematocrit 33.0% (39.0-53.0) Mean Corpuscular Volume 83fL (79-100) Mean Corpuscular Hemoglobin 26pg (25-35) Mean Corpuscular Hemoglobin Concent 32g/dL (31-37) Red Cell Distribution Width 15.5% (11.5-14.5) Platelet Count 267x10^3/uL (140-400) Neutrophils (%) (Auto) 57% (31-73) Lymphocytes (%) (Auto) 20% (24-48) Monocytes (%) (Auto) 17% (0-9) Eosinophils (%) (Auto) 5% (0-3) Basophils (%) (Auto) 1% (0-3) Neutrophils # (Auto) 3.5x10^3uL (1.8-7.7) Lymphocytes # (Auto) 1.2x10^3/uL (1.0-4.8) Monocytes # (Auto) 1.1x10^3/uL (0.0-1.1) Eosinophils # (Auto) 0.3x10^3/uL (0.0-0.7) Basophils # (Auto) 0.1x10^3/uL (0.0-0.2) Sodium Level 137mmol/L (136-145) Potassium Level 3.6mmol/L (3.5-5.1) Chloride Level 95mmol/L (98-107) Carbon Dioxide Level 37mmol/L (21-32) Anion Gap 5 (6-14) Blood Urea Nitrogen 43mg/dL (8-26) Creatinine 3.4mg/dL (0.7-1.3) Estimated GFR (Cockcroft-Gault) 17.5 Glucose Level 108mg/dL (70-99) Calcium Level 8.8mg/dL (8.5-10.1) Magnesium Level 2.1mg/dL (1.8-2.4) Medications Current Medications Aspirin (Ecotrin) 81 mg DAILY PO Last administered on 04/29/16at 08:29; Start 04/24/16 at 14:00 Isosorbide Mononitrate (Imdur) 30 mg DAILY PO Last administered on 04/29/16at 08:29; Start 04/24/16 at 14:00 Furosemide 60 mg 60 mg 1X ONCE IVP Last administered on 04/24/16at 14:28; Start 04/24/16 at 14:00; Stop 04/24/16 at 14:01; Status DC Furosemide/Sodium Chloride (Lasix Drip/Iv Sodium Chloride 0.9% 100ml) 100 ml @ 0 mls/hr CONT PRN IV SEE I/O RECORD Last administered on 04/25/16at 05:36; Start 04/24/16 at 16:30; Stop 04/27/16 at 12:01; Status DC Acetaminophen (Tylenol) 650 mg PRN Q6HRS PRN PO MILD PAIN / TEMP; Start at 17:45 Ondansetron HCl (Zofran) 4 mg PRN Q6HRS PRN IV NAUSEA/VOMITING, 1st choice; Start 04/24/16 at 17:45 Diphenhydramine HCl (Benadryl) 25 mg PRN QHS PRN PO INSOMNIA; Start 04/24/16 at 17:45 Prochlorperazine Edisylate (Compazine) 10 mg PRN Q6HRS PRN IV NAUSEA/VOMITING, 2nd choice; Start 04/24/16 at 17:45 Famotidine (Pepcid) 20 mg QHS PO Last administered on 04/29/16at 21:06; Start 04/24/16 at 21:00 Cetirizine HCl (Zyrtec) 10 mg DAILY PO Last administered on 04/29/16at 08:29; Start 04/25/16 at 09:00 Vitamin D (Vitamin D3) 1,000 unit DAILY PO Last administered on 04/29/16at 08: 29; Start 04/25/16 at 09:00 Cyanocobalamin (Vitamin B-12) 1,000 mcg DAILY PO Last administered on at 08:29; Start 04/25/16 at 09:00 Docusate Sodium (Colace) 100 mg DAILY PO Last administered on 04/29/16at 09:00 ; Start 04/25/16 at 09:00 Levothyroxine Sodium (Synthroid) 25 mcg DAILY06 PO Last administered on at 06:06; Start 04/25/16 at 06:00 Tamsulosin HCl (Flomax) 0.4 mg HS PO Last administered on 04/29/16at 21:06; Start 04/24/16 at 21:00 Venlafaxine HCl (Effexor) 50 mg TID PO Last administered on 04/29/16at 21:05; Start 04/25/16 at 09:00 Budesonide (Pulmicort) 0.5 mg RTBID NEB Last administered on 04/30/16at 08:09; Start 04/25/16 at 10:30 Albuterol/ Ipratropium (Duoneb) 3 ml RTQID NEB Last administered on 04/30/16at 08:09; Start 04/25/16 at 12:00 Furosemide (Lasix) 40 mg 1X ONCE IVP Last administered on 04/25/16at 21:27; Start 04/25/16 at 20:00; Stop 04/25/16 at 20:01; Status DC Furosemide (Lasix) 80 mg BID IVP Last administered on 04/28/16at 08:57; Start 04/26/16 at 21:00; Stop 04/28/16 at 11:17; Status DC Albuterol Sulfate (Ventolin Neb Soln) 2.5 mg PRN Q6HRS PRN NEB SHORTNESS OF BREATH Last administered on 04/26/16at 04:21; Start 04/26/16 at 04:15 Heparin Sodium (Porcine) 5,000 unit Q8HRS SQ Last administered on 04/30/16at 06 :14; Start 04/26/16 at 22:00 Hydralazine HCl (Apresoline) 25 mg BID PO Last administered on 04/29/16at 21:06 ; Start 04/27/16 at 12:30 Furosemide (Lasix) 80 mg Q8HRS IVP Last administered on 04/30/16at 06:06; Start 04/28/16 at 14:00 Heparin Sodium (Porcine) 10,000 unit STK-MED ONCE .ROUTE ; Start 04/29/16 at 12 :35; Stop 04/29/16 at 12:36; Status DC Lidocaine/ Epinephrine 20 ml 20 ml STK-MED ONCE .ROUTE ; Start 04/29/16 at 12: 35; Stop 04/29/16 at 12:36; Status DC Heparin Sodium/ Sodium Chloride 500 ml @ As Directed STK-MED ONCE .ROUTE ; Start 04/29/16 at 12:36; Stop 04/29/16 at 12:37; Status DC Midazolam HCl (Versed) 5 mg STK-MED ONCE .ROUTE ; Start 04/29/16 at 13:40; Stop 04/29/16 at 13:41; Status DC Fentanyl Citrate 250 mcg 250 mcg STK-MED ONCE .ROUTE ; Start 04/29/16 at 13:40 ; Stop 04/29/16 at 13:41; Status DC Cefazolin Sodium (Ancef 1gm Ivpb For Omni) 50 ml @ As Directed STK-MED ONCE IV ; Start 04/29/16 at 13:40; Stop 04/29/16 at 13:41; Status DC Heparin Sodium/ Sodium Chloride 1,000 unit 1X ONCE IART Last administered on 04/29/16at 14:00; Start 04/29/16 at 14:00; Stop 04/29/16 at 14:10; Status DC Midazolam HCl (Versed) 5 mg 1X ONCE IV Last administered on 04/29/16at 14:00; Start 04/29/16 at 14:00; Stop 04/29/16 at 14:10; Status DC Fentanyl Citrate (Fentanyl 5ml Vial) 250 mcg 1X ONCE IV Last administered on 04/29/16at 14:00; Start 04/29/16 at 14:00; Stop 04/29/16 at 14:10; Status DC Lidocaine/ Epinephrine (Xylocaine 1%-Epi 1:100,000) 20 ml 1X ONCE IJ Last administered on 04/29/16at 14:00; Start 04/29/16 at 14:00; Stop 04/29/16 at 14 :10; Status DC Heparin Sodium (Porcine) 2600 unit 2,600 unit 1X ONCE INT CAT Last administered on 04/29/16at 14:00; Start 04/29/16 at 14:00; Stop 04/29/16 at 14 :10; Status DC Cefazolin Sodium (Ancef 1gm Ivpb For Omni) 50 ml @ 0 mls/hr 1X ONCE IV Last administered on 04/29/16at 14:19; Start 04/29/16 at 14:30; Stop 04/29/16 at 14 :31; Status DC Active Scripts Active Reported Effexor Xr (Venlafaxine Hcl) 150 Mg Cap.er.24h 1 Cap PO DAILY Flomax (Tamsulosin Hcl) 0.4 Mg Cap.er.24h 1 Cap PO HS Synthroid (Levothyroxine Sodium) 25 Mcg Tablet 1 Tab PO DAILY Isosorbide Mononitrate Er (Isosorbide Mononitrate) 30 Mg Tab.er.24h 1 Tab PO DAILY Pepcid (Famotidine) 20 Mg Tablet 20 Mg PO HS Colace (Docusate Sodium) 100 Mg Capsule 1 Cap PO DAILY Vitamin B-12 (Cyanocobalamin (Vitamin B-12)) 1,000 Mcg Tablet 1 Tab PO DAILY Vitamin D3 (Cholecalciferol (Vitamin D3)) 1,000 Unit Tablet 2 Tab PO DAILY Zyrtec (Cetirizine Hcl) 10 Mg Tablet 1 Tab PO DAILY Aspir 81 (Aspirin) 81 Mg Tablet. 1 Tab PO DAILY Vitals/I & O Vital Sign - Last 24 Hours 04/29/16 04/29/16 04/29/16 04/29/16 11:00 11:50 14:00 14:13 Temp 98.8 98.8 Pulse 91 88 Resp 20 16 16 B/P 125/62 Pulse Ox 94 100 98 O2 Delivery Nasal Cannula Nasal Cannula Nasal Cannula O2 Flow Rate 4.0 2.0 2.0 04/29/16 04/29/16 04/29/16 04/29/16 14:44 16:49 19:56 19:59 Temp 96.6 96.6 Pulse 95 91 Resp 16 20 B/P 139/67 132/70 Pulse Ox 95 97 96 95 O2 Delivery Nasal Cannula Nasal Cannula Nasal Cannula O2 Flow Rate 4.0 2.0 2.0 2.0 04/29/16 04/29/16 04/29/16 04/30/16 20:00 21:06 23:58 03:50 Temp 98.1 97.7 98.1 97.7 Pulse 91 88 85 Resp 16 16 B/P 132/70 128/69 131/73 Pulse Ox 95 94 O2 Delivery Nasal Cannula Nasal Cannula Nasal Cannula O2 Flow Rate 2.0 2.0 2.0 04/30/16 04/30/16 04/30/16 07:00 08:11 08:14 Temp 97.7 97.7 Pulse 85 Resp 16 B/P 131/73 Pulse Ox 94 96 96 O2 Delivery Nasal Cannula Nasal Cannula Nasal Cannula O2 Flow Rate 2.0 2.0 2.0 Intake and Output 04/29/16 04/29/16 04/30/16 14:59 22:59 06:59 Intake Total 1140 ml 420 ml Output Total 250 ml 1050 ml 1000 ml Balance -250 ml 90 ml -580 ml CECELIA GOODE MD Apr 30, 2016 10:11
[2016-04-30] MEDS: CETIRIZINE HCL 10 MG TABLET PO SCH (10:17)
[2016-04-30] MEDS: DOCUSATE SODIUM 100 MG CAPSULE PO SCH (10:17)
[2016-04-30] MEDS: ASPIRIN ENTERIC COATED 81 MG TABLET.DR. PO SCH (10:17)
[2016-04-30] MEDS: VENLAFAXINE 50 MG TABLET. PO SCH ×3 (10:18→20:49)
[2016-04-30] MEDS: CHOLECALCIFEROL (VITAMIN D3) 1,000 UNIT TABLET PO SCH (10:18)
[2016-04-30] MEDS: ISOSORBIDE MONONITRATE ER 30 MG TAB.ER.24H PO SCH (10:18)
[2016-04-30] MEDS: CYANOCOBALAMIN (VITAMIN B-12) 1,000 MCG TABLET. PO SCH (10:19)
[2016-04-30] MEDS: HYDRALAZINE 25 MG TABLET PO SCH ×2 (10:19→20:50)
[2016-04-30 11:46] VITALS: BP 119/62
--- NOTE | 2016-04-30 11:52 | PDOC ---
Renal-Progress Notes Subjective Notes Notes NO NEW COMPLAINTS History of Present Illness Hx of present illness STABLE Vitals Vitals Vital Signs Date Time Temp Pulse Resp B/P Pulse Ox O2 Delivery O2 Flow Rate FiO2 04/30/16 11:46 97.9 82 18 119/62 92 Nasal Cannula 2.0 97.9 Weight Weight [ ] I.O. Intake and Output Intake and Output 04/30/16 06:59 Intake Total 1560 ml Output Total 2300 ml Balance -740 ml Intake Oral 1560 ml Output Urine Total 2300 ml Labs Labs Laboratory Tests Test 04/30/16 03:30 White Blood Count 6.2x10^3/uL (4.0-11.0) Red Blood Count 4.00x10^6/uL (4.30-5.70) Hemoglobin 10.5g/dL (13.0-17.5) Hematocrit 33.0% (39.0-53.0) Mean Corpuscular Volume 83fL (79-100) Mean Corpuscular Hemoglobin 26pg (25-35) Mean Corpuscular Hemoglobin Concent 32g/dL (31-37) Red Cell Distribution Width 15.5% (11.5-14.5) Platelet Count 267x10^3/uL (140-400) Neutrophils (%) (Auto) 57% (31-73) Lymphocytes (%) (Auto) 20% (24-48) Monocytes (%) (Auto) 17% (0-9) Eosinophils (%) (Auto) 5% (0-3) Basophils (%) (Auto) 1% (0-3) Neutrophils # (Auto) 3.5x10^3uL (1.8-7.7) Lymphocytes # (Auto) 1.2x10^3/uL (1.0-4.8) Monocytes # (Auto) 1.1x10^3/uL (0.0-1.1) Eosinophils # (Auto) 0.3x10^3/uL (0.0-0.7) Basophils # (Auto) 0.1x10^3/uL (0.0-0.2) Sodium Level 137mmol/L (136-145) Potassium Level 3.6mmol/L (3.5-5.1) Chloride Level 95mmol/L (98-107) Carbon Dioxide Level 37mmol/L (21-32) Anion Gap 5 (6-14) Blood Urea Nitrogen 43mg/dL (8-26) Creatinine 3.4mg/dL (0.7-1.3) Estimated GFR (Cockcroft-Gault) 17.5 Glucose Level 108mg/dL (70-99) Calcium Level 8.8mg/dL (8.5-10.1) Magnesium Level 2.1mg/dL (1.8-2.4) Physical Exam General Appearance: no apparent distress Skin: warm Respiratory: decreased breath sounds Heart: S1S2, RRR Abdomen: soft Neurology: alert, follow commands, other Musculoskeletal: Osteoarthritis Assessment Assessment IMP NEW ESRD ANEMIA - STABLE RESP FAILURE AECOPD SEVERE LE EDEMA-BETTER BUT PERSISTENT MALNUTRITION PLAN CHANGE LASIX TO PO 24 HR URINE STUDY RESULTS PENDING BELIEVE HE HAS ESRD DUE TO REQUIREMENTS OF LARGE DOSES OF DIURETIC AND HE STILL HAS EDEMA 1ST HD TODAY UF TO 3 LITERS TOLERATED CM WILL NEED TO SET UP OP HD IN [place] WILL FOLLOW LY ROGERS MD Apr 30, 2016 11:52
[2016-04-30 12:14] LABS: PROTEIN 24 HR UR 663.8 mg/24 hr (30.0-150.0); TOTAL SERUM CREATININE 2.74 mg/dL (0.76-1.27); TOTAL URINE CREATININE 27.7 mg/dL (Not Estab.)
--- NOTE | 2016-04-30 12:14 | PDOC ---
PULMONARY PROGRESS NOTES Subjective pt feels better Vitals Vital Signs Date Time Temp Pulse Resp B/P Pulse Ox O2 Delivery O2 Flow Rate FiO2 04/30/16 11:46 97.9 82 18 119/62 92 Nasal Cannula 2.0 97.9 General: Alert, No acute distress Lungs: Other (decrease bs) Cardiovascular: S1, S2 Abdomen: Soft, Non-tender Neuro Exam: Alert, Oriented Extremities: Other (2+edema) Skin: Warm, Dry Labs Laboratory Tests Test 04/29/16 04:25 04/29/16 04:40 04/29/16 11:20 04/30/16 03:30 Sodium Level 142mmol/L (136-145) 137mmol/L (136-145) Potassium Level 4.2mmol/L (3.5-5.1) 3.6mmol/L (3.5-5.1) Chloride Level 97mmol/L (98-107) 95mmol/L (98-107) Carbon Dioxide Level 38mmol/L (21-32) 37mmol/L (21-32) Anion Gap 7 (6-14) 5 (6-14) Blood Urea Nitrogen 43mg/dL (8-26) 43mg/dL (8-26) Creatinine 3.2mg/dL (0.7-1.3) 3.4mg/dL (0.7-1.3) Estimated GFR (Cockcroft-Gault) 18.8 17.5 Glucose Level 138mg/dL (70-99) 108mg/dL (70-99) Calcium Level 8.9mg/dL (8.5-10.1) 8.8mg/dL (8.5-10.1) White Blood Count 6.2x10^3/uL (4.0-11.0) 6.2x10^3/uL (4.0-11.0) Red Blood Count 3.87x10^6/uL (4.30-5.70) 4.00x10^6/uL (4.30-5.70) Hemoglobin 10.3g/dL (13.0-17.5) 10.5g/dL (13.0-17.5) Hematocrit 32.2% (39.0-53.0) 33.0% (39.0-53.0) Mean Corpuscular Volume 83fL (79-100) 83fL (79-100) Mean Corpuscular Hemoglobin 27pg (25-35) 26pg (25-35) Mean Corpuscular Hemoglobin Concent 32g/dL (31-37) 32g/dL (31-37) Red Cell Distribution Width 15.7% (11.5-14.5) 15.5% (11.5-14.5) Platelet Count 262x10^3/uL (140-400) 267x10^3/uL (140-400) Neutrophils (%) (Auto) 54% (31-73) 57% (31-73) Lymphocytes (%) (Auto) 21% (24-48) 20% (24-48) Monocytes (%) (Auto) 18% (0-9) 17% (0-9) Eosinophils (%) (Auto) 5% (0-3) 5% (0-3) Basophils (%) (Auto) 1% (0-3) 1% (0-3) Neutrophils # (Auto) 3.4x10^3uL (1.8-7.7) 3.5x10^3uL (1.8-7.7) Lymphocytes # (Auto) 1.3x10^3/uL (1.0-4.8) 1.2x10^3/uL (1.0-4.8) Monocytes # (Auto) 1.1x10^3/uL (0.0-1.1) 1.1x10^3/uL (0.0-1.1) Eosinophils # (Auto) 0.3x10^3/uL (0.0-0.7) 0.3x10^3/uL (0.0-0.7) Basophils # (Auto) 0.1x10^3/uL (0.0-0.2) 0.1x10^3/uL (0.0-0.2) Segmented Neutrophils % 60% (35-66) Band Neutrophils % 2% (0-9) Lymphocytes % 16% (24-48) Monocytes % 18% (0-10) Basophils % 4% (0-3) Platelet Estimate Adequate (ADEQUATE) Poikilocytosis Present Anisocytosis Slight Ovalocytes Mod Prothrombin Time 13.0SEC (11.7-14.0) Prothromb Time International Ratio 1.0 (0.8-1.1) Hepatitis B Surface Antigen Negative (Negative) Hepatitis B Surface Antibody Non reactive (.) Hepatitis B Core Total Antibody Negative (Negative) Magnesium Level 2.1mg/dL (1.8-2.4) Laboratory Tests Test 04/30/16 03:30 White Blood Count 6.2x10^3/uL (4.0-11.0) Red Blood Count 4.00x10^6/uL (4.30-5.70) Hemoglobin 10.5g/dL (13.0-17.5) Hematocrit 33.0% (39.0-53.0) Mean Corpuscular Volume 83fL (79-100) Mean Corpuscular Hemoglobin 26pg (25-35) Mean Corpuscular Hemoglobin Concent 32g/dL (31-37) Red Cell Distribution Width 15.5% (11.5-14.5) Platelet Count 267x10^3/uL (140-400) Neutrophils (%) (Auto) 57% (31-73) Lymphocytes (%) (Auto) 20% (24-48) Monocytes (%) (Auto) 17% (0-9) Eosinophils (%) (Auto) 5% (0-3) Basophils (%) (Auto) 1% (0-3) Neutrophils # (Auto) 3.5x10^3uL (1.8-7.7) Lymphocytes # (Auto) 1.2x10^3/uL (1.0-4.8) Monocytes # (Auto) 1.1x10^3/uL (0.0-1.1) Eosinophils # (Auto) 0.3x10^3/uL (0.0-0.7) Basophils # (Auto) 0.1x10^3/uL (0.0-0.2) Sodium Level 137mmol/L (136-145) Potassium Level 3.6mmol/L (3.5-5.1) Chloride Level 95mmol/L (98-107) Carbon Dioxide Level 37mmol/L (21-32) Anion Gap 5 (6-14) Blood Urea Nitrogen 43mg/dL (8-26) Creatinine 3.4mg/dL (0.7-1.3) Estimated GFR (Cockcroft-Gault) 17.5 Glucose Level 108mg/dL (70-99) Calcium Level 8.8mg/dL (8.5-10.1) Magnesium Level 2.1mg/dL (1.8-2.4) Medications Active Scripts Medications Dose Route/Sig Days Date Category Effexor Xr (Venlafaxine Hcl) 150 Mg Cap.er.24h 1 Cap PO DAILY 04/24/16 Reported Flomax (Tamsulosin Hcl) 0.4 Mg Cap.er.24h 1 Cap PO HS 04/24/16 Reported Synthroid (Levothyroxine Sodium) 25 Mcg Tablet 1 Tab PO DAILY 04/24/16 Reported Isosorbide Mononitrate Er (Isosorbide Mononitrate) 30 Mg Tab.er.24h 1 Tab PO DAILY 04/24/16 Reported Pepcid (Famotidine) 20 Mg Tablet 20 Mg PO HS 04/24/16 Reported Colace (Docusate Sodium) 100 Mg Capsule 1 Cap PO DAILY 04/24/16 Reported Vitamin B-12 (Cyanocobalamin (Vitamin B-12)) 1,000 Mcg Tablet 1 Tab PO DAILY 04/24/16 Reported Vitamin D3 (Cholecalciferol (Vitamin D3)) 1,000 Unit Tablet 2 Tab PO DAILY 04/24/16 Reported Zyrtec (Cetirizine Hcl) 10 Mg Tablet 1 Tab PO DAILY 04/24/16 Reported Aspir 81 (Aspirin) 81 Mg Tablet.dr 1 Tab PO DAILY 04/24/16 Reported Impression . 1. Acute on Chronic Diastolic Heart Failure/ Less likely pneumonia 2. CAYDEN on CKD 3. Acute on chronic hypoxemic/hypercapnic respiratory failure 4. COPD - severity not quantified 5. Obesity with hypoventilation 6. Syncope per report 7. Lymphedema/ Venous Stasis 8. HTN 9. Hypothyroidism 10. Dementia 11. Echo with moderate diastolic dysfunction/ EF 55% Plan . clinically improved. Monitor renal function HD today continue the same for now 02 follow renal recommendations stable pulmonary burgess for d/c STEPHANIE VELÁZQUEZ MD Apr 30, 2016 12:14
[2016-04-30] MEDS ORDERED: LABETALOL 20 MG/4 ML DISP.SYRIN. IVP PRN (15:00)
[2016-04-30] MEDS ORDERED: IV NORMAL SALINE 1000ML BAG 1,000 ML IV PRN ×2 (15:00)
[2016-04-30] MEDS ORDERED: 0.9 % SODIUM CHLORIDE 10 ML DISP.SYRIN. IV PRN ×2 (15:00)
[2016-04-30] MEDS ORDERED: DIALYSIS PATIENT. MC PRN (15:00)
[2016-04-30] MEDS ORDERED: DIPHENHYDRAMINE 50 MG/ML VIAL IV PRN ×2 (15:00)
[2016-04-30 19:41] VITALS: BP 125/82
[2016-04-30] MEDS: FAMOTIDINE 20 MG TABLET. PO SCH (20:49)
[2016-04-30] MEDS: DIPHENHYDRAMINE HCL 25 MG CAPSULE PO PRN (20:49)
[2016-04-30] MEDS: TAMSULOSIN 0.4 MG CAP.ER.24H. PO SCH (20:50)
[2016-04-30 23:24] VITALS: BP 141/71
[2016-05-01 03:30] VITALS: BP 125/73
[2016-05-01 04:37] LABS: BASO # 0.1 x10^3/uL (0.0-0.2); BASO % 1 % (0-3); EOS % 5 % (0-3); HEMATOCRIT 33.8 % (39.0-53.0); HEMOGLOBIN 10.9 g/dL (13.0-17.5); LYMPH # 1.3 x10^3/uL (1.0-4.8); LYMPH % 20 % (24-48); MEAN CORPUSCULAR HEMOGLOBIN 27 pg (25-35); MEAN CORPUSCULAR HGB CONC 32 g/dL (31-37); MEAN CORPUSCULAR VOLUME 83 fL (79-100); MONO % 16 % (0-9); NEUT % 58 % (31-73); PLATELET COUNT 263 x10^3/uL (140-400); RED BLOOD COUNT 4.05 x10^6/uL (4.30-5.70); RED CELL DISTRIBUTION WIDTH 15.9 % (11.5-14.5); WHITE BLOOD COUNT 6.6 x10^3/uL (4.0-11.0)
[2016-05-01 04:50] LABS: CALCIUM 9.1 mg/dL (8.5-10.1); CREATININE 3.1 mg/dL (0.7-1.3); GFR 19.5; POTASSIUM 4.2 mmol/L (3.5-5.1)
[2016-05-01] MEDS: BUDESONIDE 0.5 MG/2 ML NEBU NEB SCH ×2 (05:43→19:18)
[2016-05-01] MEDS: IPRATRPIUM/ALBUTEROL 0.5/2.5MG 3 ML NEBU. NEB SCH ×4 (05:43→19:18)
[2016-05-01] MEDS: LEVOTHYROXINE 25 MCG TABLET. PO SCH (06:32)
[2016-05-01] MEDS: FUROSEMIDE 100 MG/10 ML VIAL IVP SCH ×2 (06:33→14:27)
[2016-05-01] MEDS: HEPARIN PF for SUB-Q USE 5,000 UNIT/0.5 ML VIAL. SQ SCH ×3 (06:36→21:14)
[2016-05-01] MEDS ORDERED: DIALYSIS PATIENT. MC PRN ×2 (08:00)
[2016-05-01] MEDS: ASPIRIN ENTERIC COATED 81 MG TABLET.DR. PO SCH (09:00)
[2016-05-01] MEDS: VENLAFAXINE 50 MG TABLET. PO SCH ×3 (09:00→21:08)
[2016-05-01] MEDS: CETIRIZINE HCL 10 MG TABLET PO SCH (09:00)
[2016-05-01] MEDS: HYDRALAZINE 25 MG TABLET PO SCH ×2 (09:00→21:09)
[2016-05-01] MEDS: ISOSORBIDE MONONITRATE ER 30 MG TAB.ER.24H PO SCH (09:00)
[2016-05-01] MEDS: CYANOCOBALAMIN (VITAMIN B-12) 1,000 MCG TABLET. PO SCH (09:00)
[2016-05-01] MEDS: DOCUSATE SODIUM 100 MG CAPSULE PO SCH (09:00)
[2016-05-01] MEDS: CHOLECALCIFEROL (VITAMIN D3) 1,000 UNIT TABLET PO SCH (09:00)
--- NOTE | 2016-05-01 11:03 | PDOC ---
Renal-Progress Notes Subjective Notes Notes FEELING BETTER History of Present Illness Hx of present illness IMPROVED Vitals Vitals Vital Signs Date Time Temp Pulse Resp B/P Pulse Ox O2 Delivery O2 Flow Rate FiO2 05/01/16 05:43 92 Nasal Cannula 3.0 05/01/16 03:30 97.5 91 20 125/73 97.5 Weight Weight [ ] I.O. Intake and Output Intake and Output 05/01/16 06:59 Intake Total 1000 ml Output Total 1400 ml Balance -400 ml Intake Oral 1000 ml Output Urine Total 1400 ml Labs Labs Laboratory Tests Test 05/01/16 04:00 White Blood Count 6.6x10^3/uL (4.0-11.0) Red Blood Count 4.05x10^6/uL (4.30-5.70) Hemoglobin 10.9g/dL (13.0-17.5) Hematocrit 33.8% (39.0-53.0) Mean Corpuscular Volume 83fL (79-100) Mean Corpuscular Hemoglobin 27pg (25-35) Mean Corpuscular Hemoglobin Concent 32g/dL (31-37) Red Cell Distribution Width 15.9% (11.5-14.5) Platelet Count 263x10^3/uL (140-400) Neutrophils (%) (Auto) 58% (31-73) Lymphocytes (%) (Auto) 20% (24-48) Monocytes (%) (Auto) 16% (0-9) Eosinophils (%) (Auto) 5% (0-3) Basophils (%) (Auto) 1% (0-3) Neutrophils # (Auto) 3.8x10^3uL (1.8-7.7) Lymphocytes # (Auto) 1.3x10^3/uL (1.0-4.8) Monocytes # (Auto) 1.1x10^3/uL (0.0-1.1) Eosinophils # (Auto) 0.3x10^3/uL (0.0-0.7) Basophils # (Auto) 0.1x10^3/uL (0.0-0.2) Sodium Level 136mmol/L (136-145) Potassium Level 4.2mmol/L (3.5-5.1) Chloride Level 97mmol/L (98-107) Carbon Dioxide Level 30mmol/L (21-32) Anion Gap 9 (6-14) Blood Urea Nitrogen 29mg/dL (8-26) Creatinine 3.1mg/dL (0.7-1.3) Estimated GFR (Cockcroft-Gault) 19.5 Glucose Level 115mg/dL (70-99) Calcium Level 9.1mg/dL (8.5-10.1) Physical Exam General Appearance: no apparent distress Skin: warm Respiratory: decreased breath sounds Heart: S1S2, RRR Abdomen: soft Neurology: alert, follow commands, other Musculoskeletal: Osteoarthritis Assessment Assessment IMP NEW ESRD ANEMIA - STABLE RESP FAILURE AECOPD SEVERE LE EDEMA-BETTER BUT PERSISTENT MALNUTRITION PLAN HD AGAIN TODAY UF ABOUT 3 LITERS IF TOLERATED OP HD HAS BEEN SET UP OK TO D/C SUGGEST D/C ON LASIX 80 MG BID D/W ATTENDING AND LY TOBIN MD May 01, 2016 11:03
--- NOTE | 2016-05-01 11:20 | PDOC ---
PROGRESS NOTES Chief Complaint Chief Complaint cc: renal failure A/P 1. 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 2, Acute diastolic CHF 3. Acute on chronic respiratory failure 4. Cognitive Impairment 5. Bilateral pitting edema 6. Mod PCM 7. Obesity, BMI 35 8. Hypothyroidism 9. Weakness and debility Plan continue PO diuretics, HD Today , D/W armida Bhatt to DC, D/W CASE MANGER, OUT PT HD CONFIRMATION PENDING, ANTICIPATED DC TODAY. IF NOT TUESDAY. labs reviwed, supplemental oxygen supportive care s/p HD catheter placement. D/W managed care provider, History of Present Illness History of Present Illness s/p HD CATH NO FEVER NO CHEST PAIN Vitals Vitals Vital Signs Date Time Temp Pulse Resp B/P Pulse Ox O2 Delivery O2 Flow Rate FiO2 05/01/16 05:43 92 Nasal Cannula 3.0 05/01/16 03:30 97.5 91 20 125/73 97.5 Physical Exam General: Alert, Oriented X3, Cooperative, mild distress Heart: Regular rate, Normal S1, Normal S2, Other (IRR, tele: AFIB) Lungs: Other (decrease bs) Abdomen: Normal bowel sounds, Soft, No masses Extremities: No cyanosis, Normal pulses, Other Skin: No significant lesion, Other (bilateral LE erythema ) Labs LABS Laboratory Tests Test 05/01/16 04:00 White Blood Count 6.6x10^3/uL (4.0-11.0) Red Blood Count 4.05x10^6/uL (4.30-5.70) Hemoglobin 10.9g/dL (13.0-17.5) Hematocrit 33.8% (39.0-53.0) Mean Corpuscular Volume 83fL (79-100) Mean Corpuscular Hemoglobin 27pg (25-35) Mean Corpuscular Hemoglobin Concent 32g/dL (31-37) Red Cell Distribution Width 15.9% (11.5-14.5) Platelet Count 263x10^3/uL (140-400) Neutrophils (%) (Auto) 58% (31-73) Lymphocytes (%) (Auto) 20% (24-48) Monocytes (%) (Auto) 16% (0-9) Eosinophils (%) (Auto) 5% (0-3) Basophils (%) (Auto) 1% (0-3) Neutrophils # (Auto) 3.8x10^3uL (1.8-7.7) Lymphocytes # (Auto) 1.3x10^3/uL (1.0-4.8) Monocytes # (Auto) 1.1x10^3/uL (0.0-1.1) Eosinophils # (Auto) 0.3x10^3/uL (0.0-0.7) Basophils # (Auto) 0.1x10^3/uL (0.0-0.2) Sodium Level 136mmol/L (136-145) Potassium Level 4.2mmol/L (3.5-5.1) Chloride Level 97mmol/L (98-107) Carbon Dioxide Level 30mmol/L (21-32) Anion Gap 9 (6-14) Blood Urea Nitrogen 29mg/dL (8-26) Creatinine 3.1mg/dL (0.7-1.3) Estimated GFR (Cockcroft-Gault) 19.5 Glucose Level 115mg/dL (70-99) Calcium Level 9.1mg/dL (8.5-10.1) Assessment and Plan Assessmemt and Plan Problems Medical Problems: (1) CAYDEN (acute kidney injury) Status: Acute Problems: Comment Review of Relevant I have reviewed the following items randee (where applicable) has been applied. Labs Laboratory Tests Test 04/29/16 16:00 04/30/16 03:30 05/01/16 04:00 Urine Protein 16.7mg/dL (Not Estab.) Urine Creatinine 24 Hour 1101mg/24 hr (2593-2725) Creatinine Clearance 24 Hour 28mL/min (97-137) Urine Protein 24 Hr Calculated 663.8mg/24 hr (30.0-150.0) Creatinine 2.74mg/dL (0.76-1.27) 3.4mg/dL (0.7-1.3) 3.1mg/dL (0.7-1.3) Estimated GFR (Non- 21 (>59) EGFR 24 (>59) White Blood Count 6.2x10^3/uL (4.0-11.0) 6.6x10^3/uL (4.0-11.0) Red Blood Count 4.00x10^6/uL (4.30-5.70) 4.05x10^6/uL (4.30-5.70) Hemoglobin 10.5g/dL (13.0-17.5) 10.9g/dL (13.0-17.5) Hematocrit 33.0% (39.0-53.0) 33.8% (39.0-53.0) Mean Corpuscular Volume 83fL (79-100) 83fL (79-100) Mean Corpuscular Hemoglobin 26pg (25-35) 27pg (25-35) Mean Corpuscular Hemoglobin Concent 32g/dL (31-37) 32g/dL (31-37) Red Cell Distribution Width 15.5% (11.5-14.5) 15.9% (11.5-14.5) Platelet Count 267x10^3/uL (140-400) 263x10^3/uL (140-400) Neutrophils (%) (Auto) 57% (31-73) 58% (31-73) Lymphocytes (%) (Auto) 20% (24-48) 20% (24-48) Monocytes (%) (Auto) 17% (0-9) 16% (0-9) Eosinophils (%) (Auto) 5% (0-3) 5% (0-3) Basophils (%) (Auto) 1% (0-3) 1% (0-3) Neutrophils # (Auto) 3.5x10^3uL (1.8-7.7) 3.8x10^3uL (1.8-7.7) Lymphocytes # (Auto) 1.2x10^3/uL (1.0-4.8) 1.3x10^3/uL (1.0-4.8) Monocytes # (Auto) 1.1x10^3/uL (0.0-1.1) 1.1x10^3/uL (0.0-1.1) Eosinophils # (Auto) 0.3x10^3/uL (0.0-0.7) 0.3x10^3/uL (0.0-0.7) Basophils # (Auto) 0.1x10^3/uL (0.0-0.2) 0.1x10^3/uL (0.0-0.2) Sodium Level 137mmol/L (136-145) 136mmol/L (136-145) Potassium Level 3.6mmol/L (3.5-5.1) 4.2mmol/L (3.5-5.1) Chloride Level 95mmol/L (98-107) 97mmol/L (98-107) Carbon Dioxide Level 37mmol/L (21-32) 30mmol/L (21-32) Anion Gap 5 (6-14) 9 (6-14) Blood Urea Nitrogen 43mg/dL (8-26) 29mg/dL (8-26) Estimated GFR (Cockcroft-Gault) 17.5 19.5 Glucose Level 108mg/dL (70-99) 115mg/dL (70-99) Calcium Level 8.8mg/dL (8.5-10.1) 9.1mg/dL (8.5-10.1) Magnesium Level 2.1mg/dL (1.8-2.4) Laboratory Tests Test 05/01/16 04:00 White Blood Count 6.6x10^3/uL (4.0-11.0) Red Blood Count 4.05x10^6/uL (4.30-5.70) Hemoglobin 10.9g/dL (13.0-17.5) Hematocrit 33.8% (39.0-53.0) Mean Corpuscular Volume 83fL (79-100) Mean Corpuscular Hemoglobin 27pg (25-35) Mean Corpuscular Hemoglobin Concent 32g/dL (31-37) Red Cell Distribution Width 15.9% (11.5-14.5) Platelet Count 263x10^3/uL (140-400) Neutrophils (%) (Auto) 58% (31-73) Lymphocytes (%) (Auto) 20% (24-48) Monocytes (%) (Auto) 16% (0-9) Eosinophils (%) (Auto) 5% (0-3) Basophils (%) (Auto) 1% (0-3) Neutrophils # (Auto) 3.8x10^3uL (1.8-7.7) Lymphocytes # (Auto) 1.3x10^3/uL (1.0-4.8) Monocytes # (Auto) 1.1x10^3/uL (0.0-1.1) Eosinophils # (Auto) 0.3x10^3/uL (0.0-0.7) Basophils # (Auto) 0.1x10^3/uL (0.0-0.2) Sodium Level 136mmol/L (136-145) Potassium Level 4.2mmol/L (3.5-5.1) Chloride Level 97mmol/L (98-107) Carbon Dioxide Level 30mmol/L (21-32) Anion Gap 9 (6-14) Blood Urea Nitrogen 29mg/dL (8-26) Creatinine 3.1mg/dL (0.7-1.3) Estimated GFR (Cockcroft-Gault) 19.5 Glucose Level 115mg/dL (70-99) Calcium Level 9.1mg/dL (8.5-10.1) Medications Current Medications Aspirin (Ecotrin) 81 mg DAILY PO Last administered on 04/30/16at 10:17; Start 04/24/16 at 14:00 Isosorbide Mononitrate (Imdur) 30 mg DAILY PO Last administered on 04/30/16at 10:18; Start 04/24/16 at 14:00 Furosemide 60 mg 60 mg 1X ONCE IVP Last administered on 04/24/16at 14:28; Start 04/24/16 at 14:00; Stop 04/24/16 at 14:01; Status DC Furosemide/Sodium Chloride (Lasix Drip/Iv Sodium Chloride 0.9% 100ml) 100 ml @ 0 mls/hr CONT PRN IV SEE I/O RECORD Last administered on 04/25/16at 05:36; Start 04/24/16 at 16:30; Stop 04/27/16 at 12:01; Status DC Acetaminophen (Tylenol) 650 mg PRN Q6HRS PRN PO MILD PAIN / TEMP; Start at 17:45 Ondansetron HCl (Zofran) 4 mg PRN Q6HRS PRN IV NAUSEA/VOMITING, 1st choice; Start 04/24/16 at 17:45 Diphenhydramine HCl (Benadryl) 25 mg PRN QHS PRN PO INSOMNIA Last administered on 04/30/16at 20:49; Start 04/24/16 at 17:45 Prochlorperazine Edisylate (Compazine) 10 mg PRN Q6HRS PRN IV NAUSEA/VOMITING, 2nd choice; Start 04/24/16 at 17:45 Famotidine (Pepcid) 20 mg QHS PO Last administered on 04/30/16at 20:49; Start 04/24/16 at 21:00 Cetirizine HCl (Zyrtec) 10 mg DAILY PO Last administered on 04/30/16 10:17; Start 04/25/16 at 09:00 Vitamin D (Vitamin D3) 1,000 unit DAILY PO Last administered on 04/30/16 10: 18; Start 04/25/16 at 09:00 Cyanocobalamin (Vitamin B-12) 1,000 mcg DAILY PO Last administered on 10:19; Start 04/25/16 at 09:00 Docusate Sodium (Colace) 100 mg DAILY PO Last administered on 04/30/16 10:17 ; Start 04/25/16 at 09:00 Levothyroxine Sodium (Synthroid) 25 mcg DAILY06 PO Last administered on 06:32; Start 04/25/16 at 06:00 Tamsulosin HCl (Flomax) 0.4 mg HS PO Last administered on 04/30/16 20:50; Start 04/24/16 at 21:00 Venlafaxine HCl (Effexor) 50 mg TID PO Last administered on 04/30/16 20:49; Start 04/25/16 at 09:00 Budesonide (Pulmicort) 0.5 mg RTBID NEB Last administered on 05/01/16at 05:43; Start 04/25/16 at 10:30 Albuterol/ Ipratropium (Duoneb) 3 ml RTQID NEB Last administered on 05/01/16 05:43; Start 04/25/16 at 12:00 Furosemide (Lasix) 40 mg 1X ONCE IVP Last administered on 04/25/16at 21:27; Start 04/25/16 at 20:00; Stop 04/25/16 at 20:01; Status DC Furosemide (Lasix) 80 mg BID IVP Last administered on 04/28/16at 08:57; Start 04/26/16 at 21:00; Stop 04/28/16 at 11:17; Status DC Albuterol Sulfate (Ventolin Neb Soln) 2.5 mg PRN Q6HRS PRN NEB SHORTNESS OF BREATH Last administered on 04/26/16at 04:21; Start 04/26/16 at 04:15 Heparin Sodium (Porcine) 5,000 unit Q8HRS SQ Last administered on 05/01/16at 06 :36; Start 04/26/16 at 22:00 Hydralazine HCl (Apresoline) 25 mg BID PO Last administered on 04/30/16at 20:50 ; Start 04/27/16 at 12:30 Furosemide (Lasix) 80 mg Q8HRS IVP Last administered on 05/01/16at 06:33; Start 04/28/16 at 14:00 Heparin Sodium (Porcine) 10,000 unit STK-MED ONCE .ROUTE ; Start 04/29/16 at 12 :35; Stop 04/29/16 at 12:36; Status DC Lidocaine/ Epinephrine 20 ml 20 ml STK-MED ONCE .ROUTE ; Start 04/29/16 at 12: 35; Stop 04/29/16 at 12:36; Status DC Heparin Sodium/ Sodium Chloride 500 ml @ As Directed STK-MED ONCE .ROUTE ; Start 04/29/16 at 12:36; Stop 04/29/16 at 12:37; Status DC Midazolam HCl (Versed) 5 mg STK-MED ONCE .ROUTE ; Start 04/29/16 at 13:40; Stop 04/29/16 at 13:41; Status DC Fentanyl Citrate 250 mcg 250 mcg STK-MED ONCE .ROUTE ; Start 04/29/16 at 13:40 ; Stop 04/29/16 at 13:41; Status DC Cefazolin Sodium (Ancef 1gm Ivpb For Omni) 50 ml @ As Directed STK-MED ONCE IV ; Start 04/29/16 at 13:40; Stop 04/29/16 at 13:41; Status DC Heparin Sodium/ Sodium Chloride 1,000 unit 1X ONCE IART Last administered on 04/29/16at 14:00; Start 04/29/16 at 14:00; Stop 04/29/16 at 14:10; Status DC Midazolam HCl (Versed) 5 mg 1X ONCE IV Last administered on 04/29/16at 14:00; Start 04/29/16 at 14:00; Stop 04/29/16 at 14:10; Status DC Fentanyl Citrate (Fentanyl 5ml Vial) 250 mcg 1X ONCE IV Last administered on 04/29/16at 14:00; Start 04/29/16 at 14:00; Stop 04/29/16 at 14:10; Status DC Lidocaine/ Epinephrine (Xylocaine 1%-Epi 1:100,000) 20 ml 1X ONCE IJ Last administered on 04/29/16at 14:00; Start 04/29/16 at 14:00; Stop 04/29/16 at 14 :10; Status DC Heparin Sodium (Porcine) 2600 unit 2,600 unit 1X ONCE INT CAT Last administered on 04/29/16at 14:00; Start 04/29/16 at 14:00; Stop 04/29/16 at 14 :10; Status DC Cefazolin Sodium 50 ml @ 0 mls/hr 1X ONCE IV Last administered on 04/29/16at 14:19; Start 04/29/16 at 14:30; Stop 04/29/16 at 14:31; Status DC Sodium Chloride (Iv Sodium Chloride 0.9% 1000ml Bag) 1,000 ml @ 1,000 mls/hr Q1H PRN IV hypotension; Start 04/30/16 at 15:00; Stop 04/30/16 at 20:59; Status DC Diphenhydramine HCl (Benadryl) 25 mg 1X PRN PRN IV ITCHING; Start 04/30/16 at 15:00; Stop 05/01/16 at 14:59 Diphenhydramine HCl (Benadryl) 25 mg 1X PRN PRN IV ITCHING; Start 04/30/16 at 15:00; Stop 05/01/16 at 14:59 Sodium Chloride (Normal Saline Flush) 10 ml 1X PRN PRN IV AP catheter pack; Start 04/30/16 at 15:00; Stop 05/01/16 at 14:59 Sodium Chloride (Normal Saline Flush) 10 ml 1X PRN PRN IV C[employer]ER SERVICE ASSISTANT catheter pack; Start 04/30/16 at 15:00; Stop 05/01/16 at 14:59 Labetalol HCl 10 mg 10 mg PRN Q1HR PRN IVP SBP > 180; Start 04/30/16 at 15:00 ; Stop 05/01/16 at 14:59 Sodium Chloride (Iv Sodium Chloride 0.9% 1000ml Bag) 1,000 ml @ 400 mls/hr Q2H30M PRN IV PATENCY; Start 04/30/16 at 15:00; Stop 05/01/16 at 02:59; Status DC Info (PHARMACY MONITORING -- do not chart) 1 each PRN DAILY PRN MC SEE COMMENTS ; Start 04/30/16 at 15:00 Info (PHARMACY MONITORING -- do not chart) 1 each PRN DAILY PRN MC SEE COMMENTS ; Start 05/01/16 at 08:00; Status UNV Info (PHARMACY MONITORING -- do not chart) 1 each PRN DAILY PRN MC SEE COMMENTS ; Start 05/01/16 at 08:00; Status UNV Active Scripts Active Reported Effexor Xr (Venlafaxine Hcl) 150 Mg Cap.er.24h 1 Cap PO DAILY Flomax (Tamsulosin Hcl) 0.4 Mg Cap.er.24h 1 Cap PO HS Synthroid (Levothyroxine Sodium) 25 Mcg Tablet 1 Tab PO DAILY Isosorbide Mononitrate Er (Isosorbide Mononitrate) 30 Mg Tab.er.24h 1 Tab PO DAILY Pepcid (Famotidine) 20 Mg Tablet 20 Mg PO HS Colace (Docusate Sodium) 100 Mg Capsule 1 Cap PO DAILY Vitamin B-12 (Cyanocobalamin (Vitamin B-12)) 1,000 Mcg Tablet 1 Tab PO DAILY Vitamin D3 (Cholecalciferol (Vitamin D3)) 1,000 Unit Tablet 2 Tab PO DAILY Zyrtec (Cetirizine Hcl) 10 Mg Tablet 1 Tab PO DAILY Aspir 81 (Aspirin) 81 Mg Tablet. 1 Tab PO DAILY Vitals/I & O Vital Sign - Last 24 Hours 04/30/16 04/30/16 04/30/16 04/30/16 11:46 12:52 16:58 19:40 Temp 97.9 97.9 Pulse 82 Resp 18 B/P 119/62 Pulse Ox 92 O2 Delivery Nasal Cannula Nasal Cannula Nasal Cannula Nasal Cannula O2 Flow Rate 2.0 2.0 2.0 3.0 04/30/16 04/30/16 04/30/16 04/30/16 19:40 19:41 20:00 20:50 Temp 98.5 98.5 Pulse 87 82 Resp 20 B/P 125/82 122/68 Pulse Ox 95 O2 Delivery Nasal Cannula Nasal Cannula Nasal Cannula O2 Flow Rate 3.0 2.0 2.0 04/30/16 05/01/16 05/01/16 23:24 03:30 05:43 Temp 98.6 97.5 98.6 97.5 Pulse 90 91 Resp 20 20 B/P 141/71 125/73 Pulse Ox 95 96 92 O2 Delivery Nasal Cannula Nasal Cannula Nasal Cannula O2 Flow Rate 2.0 2.0 3.0 Intake and Output 04/30/16 04/30/16 05/01/16 14:59 22:59 06:59 Intake Total 300 ml 500 ml 200 ml Output Total 800 ml 600 ml Balance 300 ml -300 ml -400 ml CECELIA GOODE MD May 01, 2016 11:20
[2016-05-01] MEDS ORDERED: FURO80TA72 PO (11:23)
[2016-05-01 14:46] VITALS: BP 118/79
[2016-05-01 19:00] VITALS: BP 118/70
[2016-05-01] MEDS: TAMSULOSIN 0.4 MG CAP.ER.24H. PO SCH (21:07)
[2016-05-01] MEDS: FUROSEMIDE 80 MG TABLET PO SCH (21:08)
[2016-05-01] MEDS: FAMOTIDINE 20 MG TABLET. PO SCH (21:08)
[2016-05-02 04:45] LABS: BASO # 0.1 x10^3/uL (0.0-0.2); BASO % 1 % (0-3); EOS % 5 % (0-3); HEMATOCRIT 34.6 % (39.0-53.0); LYMPH # 1.3 x10^3/uL (1.0-4.8); LYMPH % 19 % (24-48); MEAN CORPUSCULAR HEMOGLOBIN 27 pg (25-35); MEAN CORPUSCULAR HGB CONC 32 g/dL (31-37); MEAN CORPUSCULAR VOLUME 84 fL (79-100); MONO % 18 % (0-9); NEUT % 57 % (31-73); PLATELET COUNT 240 x10^3/uL (140-400); RED BLOOD COUNT 4.14 x10^6/uL (4.30-5.70); RED CELL DISTRIBUTION WIDTH 15.6 % (11.5-14.5); WHITE BLOOD COUNT 6.9 x10^3/uL (4.0-11.0)
[2016-05-02 05:05] LABS: CALCIUM 9.1 mg/dL (8.5-10.1); CREATININE 4.2 mg/dL (0.7-1.3); GFR 13.7; POTASSIUM 4.1 mmol/L (3.5-5.1)
[2016-05-02] MEDS: LEVOTHYROXINE 25 MCG TABLET. PO SCH (06:00)
[2016-05-02] MEDS: HEPARIN PF for SUB-Q USE 5,000 UNIT/0.5 ML VIAL. SQ SCH ×3 (06:09→21:25)
[2016-05-02 07:00] VITALS: BP 111/70
[2016-05-02] MEDS: IPRATRPIUM/ALBUTEROL 0.5/2.5MG 3 ML NEBU. NEB SCH ×4 (07:42→19:01)
[2016-05-02] MEDS: BUDESONIDE 0.5 MG/2 ML NEBU NEB SCH ×2 (07:42→19:01)
[2016-05-02 08:19] VITALS: BP 111/70
[2016-05-02] MEDS: ISOSORBIDE MONONITRATE ER 30 MG TAB.ER.24H PO SCH (10:06)
[2016-05-02] MEDS: VENLAFAXINE 50 MG TABLET. PO SCH ×3 (10:07→21:14)
[2016-05-02] MEDS: HYDRALAZINE 25 MG TABLET PO SCH ×2 (10:07→21:14)
[2016-05-02] MEDS: FUROSEMIDE 80 MG TABLET PO SCH ×2 (10:07→21:14)
[2016-05-02] MEDS: CETIRIZINE HCL 10 MG TABLET PO SCH (10:07)
[2016-05-02] MEDS: DOCUSATE SODIUM 100 MG CAPSULE PO SCH (10:07)
[2016-05-02] MEDS: CHOLECALCIFEROL (VITAMIN D3) 1,000 UNIT TABLET PO SCH (10:07)
[2016-05-02] MEDS: CYANOCOBALAMIN (VITAMIN B-12) 1,000 MCG TABLET. PO SCH (10:08)
[2016-05-02] MEDS: ASPIRIN ENTERIC COATED 81 MG TABLET.DR. PO SCH (10:08)
--- NOTE | 2016-05-02 10:16 | PDOC ---
Renal-Progress Notes Subjective Notes Notes NONE History of Present Illness Hx of present illness BETTER Vitals Vitals Vital Signs Date Time Temp Pulse Resp B/P Pulse Ox O2 Delivery O2 Flow Rate FiO2 05/02/16 10:07 82 111/70 05/02/16 07:42 Nasal Cannula 3.0 05/02/16 07:00 97.7 97 97.7 05/01/16 19:00 20 Weight Weight [ ] I.O. Intake and Output Intake and Output 05/02/16 06:59 Intake Total 500 ml Balance 500 ml Intake Oral 500 ml Labs Labs Laboratory Tests Test 05/02/16 03:45 White Blood Count 6.9x10^3/uL (4.0-11.0) Red Blood Count 4.14x10^6/uL (4.30-5.70) Hemoglobin 11.0g/dL (13.0-17.5) Hematocrit 34.6% (39.0-53.0) Mean Corpuscular Volume 84fL (79-100) Mean Corpuscular Hemoglobin 27pg (25-35) Mean Corpuscular Hemoglobin Concent 32g/dL (31-37) Red Cell Distribution Width 15.6% (11.5-14.5) Platelet Count 240x10^3/uL (140-400) Neutrophils (%) (Auto) 57% (31-73) Lymphocytes (%) (Auto) 19% (24-48) Monocytes (%) (Auto) 18% (0-9) Eosinophils (%) (Auto) 5% (0-3) Basophils (%) (Auto) 1% (0-3) Neutrophils # (Auto) 3.9x10^3uL (1.8-7.7) Lymphocytes # (Auto) 1.3x10^3/uL (1.0-4.8) Monocytes # (Auto) 1.2x10^3/uL (0.0-1.1) Eosinophils # (Auto) 0.3x10^3/uL (0.0-0.7) Basophils # (Auto) 0.1x10^3/uL (0.0-0.2) Sodium Level 135mmol/L (136-145) Potassium Level 4.1mmol/L (3.5-5.1) Chloride Level 96mmol/L (98-107) Carbon Dioxide Level 29mmol/L (21-32) Anion Gap 10 (6-14) Blood Urea Nitrogen 34mg/dL (8-26) Creatinine 4.2mg/dL (0.7-1.3) Estimated GFR (Cockcroft-Gault) 13.7 Glucose Level 116mg/dL (70-99) Calcium Level 9.1mg/dL (8.5-10.1) Physical Exam General Appearance: no apparent distress Skin: warm Respiratory: decreased breath sounds Heart: S1S2, RRR Abdomen: soft Neurology: alert, follow commands, other Musculoskeletal: Osteoarthritis Assessment Assessment IMP NEW ESRD ANEMIA - STABLE RESP FAILURE AECOPD SEVERE LE EDEMA-BETTER BUT PERSISTENT MALNUTRITION PLAN HD TOMORROW WILL NEED AV ACCESS OP D/C WHEN OP HD AND TRANSPORT HAS BEEN SET UP D/W ATTENDING LY ROGERS MD May 02, 2016 10:16
[2016-05-02] MEDS ORDERED: DIPHENHYDRAMINE HCL 25 MG CAPSULE PO PRN (10:30)
[2016-05-02 11:16] VITALS: BP 122/68
--- NOTE | 2016-05-02 11:32 | PDOC ---
PROGRESS NOTES Chief Complaint Chief Complaint cc: renal failure A/P 1. 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 2, Acute diastolic CHF 3. Acute on chronic respiratory failure 4. Cognitive Impairment 5. Bilateral pitting edema 6. Mod PCM 7. Obesity, BMI 35 8. Hypothyroidism 9. Weakness and debility Plan continue PO diuretics, HD need to set up as out pt, Possible DC on Tuesday once SW sets it up. supplemental oxygen supportive care s/p HD catheter placement. D/W pulmonary care nurse, History of Present Illness History of Present Illness s/p HD CATH NO FEVER NO CHEST PAIN Vitals Vitals Vital Signs Date Time Temp Pulse Resp B/P Pulse Ox O2 Delivery O2 Flow Rate FiO2 05/02/16 11:16 95.4 86 122/68 97 95.4 05/02/16 07:42 Nasal Cannula 3.0 05/01/16 19:00 20 Physical Exam General: Alert, Oriented X3, Cooperative, mild distress Heart: Regular rate, Normal S1, Normal S2, Other (IRR, tele: AFIB) Lungs: Other (decrease bs) Abdomen: Normal bowel sounds, Soft, No masses Extremities: No cyanosis, Normal pulses, Other Skin: No significant lesion, Other (bilateral LE erythema ) Labs LABS Laboratory Tests Test 05/02/16 03:45 White Blood Count 6.9x10^3/uL (4.0-11.0) Red Blood Count 4.14x10^6/uL (4.30-5.70) Hemoglobin 11.0g/dL (13.0-17.5) Hematocrit 34.6% (39.0-53.0) Mean Corpuscular Volume 84fL (79-100) Mean Corpuscular Hemoglobin 27pg (25-35) Mean Corpuscular Hemoglobin Concent 32g/dL (31-37) Red Cell Distribution Width 15.6% (11.5-14.5) Platelet Count 240x10^3/uL (140-400) Neutrophils (%) (Auto) 57% (31-73) Lymphocytes (%) (Auto) 19% (24-48) Monocytes (%) (Auto) 18% (0-9) Eosinophils (%) (Auto) 5% (0-3) Basophils (%) (Auto) 1% (0-3) Neutrophils # (Auto) 3.9x10^3uL (1.8-7.7) Lymphocytes # (Auto) 1.3x10^3/uL (1.0-4.8) Monocytes # (Auto) 1.2x10^3/uL (0.0-1.1) Eosinophils # (Auto) 0.3x10^3/uL (0.0-0.7) Basophils # (Auto) 0.1x10^3/uL (0.0-0.2) Sodium Level 135mmol/L (136-145) Potassium Level 4.1mmol/L (3.5-5.1) Chloride Level 96mmol/L (98-107) Carbon Dioxide Level 29mmol/L (21-32) Anion Gap 10 (6-14) Blood Urea Nitrogen 34mg/dL (8-26) Creatinine 4.2mg/dL (0.7-1.3) Estimated GFR (Cockcroft-Gault) 13.7 Glucose Level 116mg/dL (70-99) Calcium Level 9.1mg/dL (8.5-10.1) Assessment and Plan Assessmemt and Plan Problems Medical Problems: (1) CAYDEN (acute kidney injury) Status: Acute Problems: Comment Review of Relevant I have reviewed the following items randee (where applicable) has been applied. Labs Laboratory Tests Test 05/01/16 04:00 05/02/16 03:45 White Blood Count 6.6x10^3/uL (4.0-11.0) 6.9x10^3/uL (4.0-11.0) Red Blood Count 4.05x10^6/uL (4.30-5.70) 4.14x10^6/uL (4.30-5.70) Hemoglobin 10.9g/dL (13.0-17.5) 11.0g/dL (13.0-17.5) Hematocrit 33.8% (39.0-53.0) 34.6% (39.0-53.0) Mean Corpuscular Volume 83fL (79-100) 84fL (79-100) Mean Corpuscular Hemoglobin 27pg (25-35) 27pg (25-35) Mean Corpuscular Hemoglobin Concent 32g/dL (31-37) 32g/dL (31-37) Red Cell Distribution Width 15.9% (11.5-14.5) 15.6% (11.5-14.5) Platelet Count 263x10^3/uL (140-400) 240x10^3/uL (140-400) Neutrophils (%) (Auto) 58% (31-73) 57% (31-73) Lymphocytes (%) (Auto) 20% (24-48) 19% (24-48) Monocytes (%) (Auto) 16% (0-9) 18% (0-9) Eosinophils (%) (Auto) 5% (0-3) 5% (0-3) Basophils (%) (Auto) 1% (0-3) 1% (0-3) Neutrophils # (Auto) 3.8x10^3uL (1.8-7.7) 3.9x10^3uL (1.8-7.7) Lymphocytes # (Auto) 1.3x10^3/uL (1.0-4.8) 1.3x10^3/uL (1.0-4.8) Monocytes # (Auto) 1.1x10^3/uL (0.0-1.1) 1.2x10^3/uL (0.0-1.1) Eosinophils # (Auto) 0.3x10^3/uL (0.0-0.7) 0.3x10^3/uL (0.0-0.7) Basophils # (Auto) 0.1x10^3/uL (0.0-0.2) 0.1x10^3/uL (0.0-0.2) Sodium Level 136mmol/L (136-145) 135mmol/L (136-145) Potassium Level 4.2mmol/L (3.5-5.1) 4.1mmol/L (3.5-5.1) Chloride Level 97mmol/L (98-107) 96mmol/L (98-107) Carbon Dioxide Level 30mmol/L (21-32) 29mmol/L (21-32) Anion Gap 9 (6-14) 10 (6-14) Blood Urea Nitrogen 29mg/dL (8-26) 34mg/dL (8-26) Creatinine 3.1mg/dL (0.7-1.3) 4.2mg/dL (0.7-1.3) Estimated GFR (Cockcroft-Gault) 19.5 13.7 Glucose Level 115mg/dL (70-99) 116mg/dL (70-99) Calcium Level 9.1mg/dL (8.5-10.1) 9.1mg/dL (8.5-10.1) Laboratory Tests Test 05/02/16 03:45 White Blood Count 6.9x10^3/uL (4.0-11.0) Red Blood Count 4.14x10^6/uL (4.30-5.70) Hemoglobin 11.0g/dL (13.0-17.5) Hematocrit 34.6% (39.0-53.0) Mean Corpuscular Volume 84fL (79-100) Mean Corpuscular Hemoglobin 27pg (25-35) Mean Corpuscular Hemoglobin Concent 32g/dL (31-37) Red Cell Distribution Width 15.6% (11.5-14.5) Platelet Count 240x10^3/uL (140-400) Neutrophils (%) (Auto) 57% (31-73) Lymphocytes (%) (Auto) 19% (24-48) Monocytes (%) (Auto) 18% (0-9) Eosinophils (%) (Auto) 5% (0-3) Basophils (%) (Auto) 1% (0-3) Neutrophils # (Auto) 3.9x10^3uL (1.8-7.7) Lymphocytes # (Auto) 1.3x10^3/uL (1.0-4.8) Monocytes # (Auto) 1.2x10^3/uL (0.0-1.1) Eosinophils # (Auto) 0.3x10^3/uL (0.0-0.7) Basophils # (Auto) 0.1x10^3/uL (0.0-0.2) Sodium Level 135mmol/L (136-145) Potassium Level 4.1mmol/L (3.5-5.1) Chloride Level 96mmol/L (98-107) Carbon Dioxide Level 29mmol/L (21-32) Anion Gap 10 (6-14) Blood Urea Nitrogen 34mg/dL (8-26) Creatinine 4.2mg/dL (0.7-1.3) Estimated GFR (Cockcroft-Gault) 13.7 Glucose Level 116mg/dL (70-99) Calcium Level 9.1mg/dL (8.5-10.1) Medications Current Medications Aspirin (Ecotrin) 81 mg DAILY PO Last administered on 05/02/16 10:08; Start 04/24/16 at 14:00 Isosorbide Mononitrate (Imdur) 30 mg DAILY PO Last administered on 05/02/16 10:06; Start 04/24/16 at 14:00 Furosemide 60 mg 60 mg 1X ONCE IVP Last administered on 04/24/16at 14:28; Start 04/24/16 at 14:00; Stop 04/24/16 at 14:01; Status DC Furosemide/Sodium Chloride (Lasix Drip/Iv Sodium Chloride 0.9% 100ml) 100 ml @ 0 mls/hr CONT PRN IV SEE I/O RECORD Last administered on 04/25/16at 05:36; Start 04/24/16 at 16:30; Stop 04/27/16 at 12:01; Status DC Acetaminophen (Tylenol) 650 mg PRN Q6HRS PRN PO MILD PAIN / TEMP; Start at 17:45 Ondansetron HCl (Zofran) 4 mg PRN Q6HRS PRN IV NAUSEA/VOMITING, 1st choice; Start 04/24/16 at 17:45 Diphenhydramine HCl (Benadryl) 25 mg PRN QHS PRN PO INSOMNIA Last administered on 04/30/16at 20:49; Start 04/24/16 at 17:45 Prochlorperazine Edisylate (Compazine) 10 mg PRN Q6HRS PRN IV NAUSEA/VOMITING, 2nd choice; Start 04/24/16 at 17:45 Famotidine (Pepcid) 20 mg QHS PO Last administered on 05/01/16at 21:08; Start 04/24/16 at 21:00 Cetirizine HCl (Zyrtec) 10 mg DAILY PO Last administered on 05/02/16 10:07; Start 04/25/16 at 09:00 Vitamin D (Vitamin D3) 1,000 unit DAILY PO Last administered on 05/02/16 10: 07; Start 04/25/16 at 09:00 Cyanocobalamin (Vitamin B-12) 1,000 mcg DAILY PO Last administered on 10:08; Start 04/25/16 at 09:00 Docusate Sodium (Colace) 100 mg DAILY PO Last administered on 05/02/16 10:07 ; Start 04/25/16 at 09:00 Levothyroxine Sodium (Synthroid) 25 mcg DAILY06 PO Last administered on 06:00; Start 04/25/16 at 06:00 Tamsulosin HCl (Flomax) 0.4 mg HS PO Last administered on 05/01/16 21:07; Start 04/24/16 at 21:00 Venlafaxine HCl (Effexor) 50 mg TID PO Last administered on 05/02/16 10:07; Start 04/25/16 at 09:00 Budesonide (Pulmicort) 0.5 mg RTBID NEB Last administered on 05/02/16 07:42; Start 04/25/16 at 10:30 Albuterol/ Ipratropium (Duoneb) 3 ml RTQID NEB Last administered on 05/02/16 07:42; Start 04/25/16 at 12:00 Furosemide (Lasix) 40 mg 1X ONCE IVP Last administered on 04/25/16 21:27; Start 04/25/16 at 20:00; Stop 04/25/16 at 20:01; Status DC Furosemide (Lasix) 80 mg BID IVP Last administered on 04/28/16at 08:57; Start 04/26/16 at 21:00; Stop 04/28/16 at 11:17; Status DC Albuterol Sulfate (Ventolin Neb Soln) 2.5 mg PRN Q6HRS PRN NEB SHORTNESS OF BREATH Last administered on 04/26/16 04:21; Start 04/26/16 at 04:15 Heparin Sodium (Porcine) 5,000 unit Q8HRS SQ Last administered on 05/02/16 06 :09; Start 04/26/16 at 22:00 Hydralazine HCl (Apresoline) 25 mg BID PO Last administered on 05/02/16 10:07 ; Start 04/27/16 at 12:30 Furosemide (Lasix) 80 mg Q8HRS IVP Last administered on 05/01/16at 14:27; Start 04/28/16 at 14:00; Stop 05/01/16 at 15:19; Status DC Heparin Sodium (Porcine) 10,000 unit STK-MED ONCE .ROUTE ; Start 04/29/16 at 12 :35; Stop 04/29/16 at 12:36; Status DC Lidocaine/ Epinephrine 20 ml 20 ml STK-MED ONCE .ROUTE ; Start 04/29/16 at 12: 35; Stop 04/29/16 at 12:36; Status DC Heparin Sodium/ Sodium Chloride 500 ml @ As Directed STK-MED ONCE .ROUTE ; Start 04/29/16 at 12:36; Stop 04/29/16 at 12:37; Status DC Midazolam HCl (Versed) 5 mg STK-MED ONCE .ROUTE ; Start 04/29/16 at 13:40; Stop 04/29/16 at 13:41; Status DC Fentanyl Citrate 250 mcg 250 mcg STK-MED ONCE .ROUTE ; Start 04/29/16 at 13:40 ; Stop 04/29/16 at 13:41; Status DC Cefazolin Sodium (Ancef 1gm Ivpb For Omni) 50 ml @ As Directed STK-MED ONCE IV ; Start 04/29/16 at 13:40; Stop 04/29/16 at 13:41; Status DC Heparin Sodium/ Sodium Chloride 1,000 unit 1X ONCE IART Last administered on 04/29/16at 14:00; Start 04/29/16 at 14:00; Stop 04/29/16 at 14:10; Status DC Midazolam HCl (Versed) 5 mg 1X ONCE IV Last administered on 04/29/16at 14:00; Start 04/29/16 at 14:00; Stop 04/29/16 at 14:10; Status DC Fentanyl Citrate (Fentanyl 5ml Vial) 250 mcg 1X ONCE IV Last administered on 04/29/16at 14:00; Start 04/29/16 at 14:00; Stop 04/29/16 at 14:10; Status DC Lidocaine/ Epinephrine (Xylocaine 1%-Epi 1:100,000) 20 ml 1X ONCE IJ Last administered on 04/29/16at 14:00; Start 04/29/16 at 14:00; Stop 04/29/16 at 14 :10; Status DC Heparin Sodium (Porcine) 2600 unit 2,600 unit 1X ONCE INT CAT Last administered on 04/29/16at 14:00; Start 04/29/16 at 14:00; Stop 04/29/16 at 14 :10; Status DC Cefazolin Sodium 50 ml @ 0 mls/hr 1X ONCE IV Last administered on 04/29/16at 14:19; Start 04/29/16 at 14:30; Stop 04/29/16 at 14:31; Status DC Sodium Chloride (Iv Sodium Chloride 0.9% 1000ml Bag) 1,000 ml @ 1,000 mls/hr Q1H PRN IV hypotension; Start 04/30/16 at 15:00; Stop 04/30/16 at 20:59; Status DC Diphenhydramine HCl (Benadryl) 25 mg 1X PRN PRN IV ITCHING Last administered on 05/01/16at 12:29; Start 04/30/16 at 15:00; Stop 05/01/16 at 14:59; Status DC Diphenhydramine HCl (Benadryl) 25 mg 1X PRN PRN IV ITCHING; Start 04/30/16 at 15:00; Stop 05/01/16 at 14:59; Status DC Sodium Chloride (Normal Saline Flush) 10 ml 1X PRN PRN IV AP catheter pack; Start 04/30/16 at 15:00; Stop 05/01/16 at 14:59; Status DC Sodium Chloride (Normal Saline Flush) 10 ml 1X PRN PRN IV TOWBOAT PILOT catheter pack; Start 04/30/16 at 15:00; Stop 05/01/16 at 14:59; Status DC Labetalol HCl 10 mg 10 mg PRN Q1HR PRN IVP SBP > 180; Start 04/30/16 at 15:00 ; Stop 05/01/16 at 14:59; Status DC Sodium Chloride (Iv Sodium Chloride 0.9% 1000ml Bag) 1,000 ml @ 400 mls/hr Q2H30M PRN IV PATENCY; Start 04/30/16 at 15:00; Stop 05/01/16 at 02:59; Status DC Info (PHARMACY MONITORING -- do not chart) 1 each PRN DAILY PRN MC SEE COMMENTS ; Start 04/30/16 at 15:00 Info (PHARMACY MONITORING -- do not chart) 1 each PRN DAILY PRN MC SEE COMMENTS ; Start 05/01/16 at 08:00; Status UNV Info (PHARMACY MONITORING -- do not chart) 1 each PRN DAILY PRN MC SEE COMMENTS ; Start 05/01/16 at 08:00; Status UNV Furosemide (Lasix) 80 mg BID PO Last administered on 05/02/16at 10:07; Start 05/01/16 at 21:00 Diphenhydramine HCl (Benadryl) 25 mg PRN TID PRN PO ITCHING; Start 05/02/16 at 10:30; Stop 05/04/16 at 15:00 Active Scripts Active Lasix (Furosemide) 80 Mg Tablet 80 Mg PO BID Reported Effexor Xr (Venlafaxine Hcl) 150 Mg Cap.er.24h 1 Cap PO DAILY Flomax (Tamsulosin Hcl) 0.4 Mg Cap.er.24h 1 Cap PO HS Synthroid (Levothyroxine Sodium) 25 Mcg Tablet 1 Tab PO DAILY Isosorbide Mononitrate Er (Isosorbide Mononitrate) 30 Mg Tab.er.24h 1 Tab PO DAILY Pepcid (Famotidine) 20 Mg Tablet 20 Mg PO HS Colace (Docusate Sodium) 100 Mg Capsule 1 Cap PO DAILY Vitamin B-12 (Cyanocobalamin (Vitamin B-12)) 1,000 Mcg Tablet 1 Tab PO DAILY Vitamin D3 (Cholecalciferol (Vitamin D3)) 1,000 Unit Tablet 2 Tab PO DAILY Zyrtec (Cetirizine Hcl) 10 Mg Tablet 1 Tab PO DAILY Aspir 81 (Aspirin) 81 Mg Tablet. 1 Tab PO DAILY Vitals/I & O Vital Sign - Last 24 Hours 05/01/16 05/01/16 05/01/16 05/01/16 12:08 14:46 16:03 19:00 Temp 98.5 99.7 98.5 99.7 Pulse 105 101 Resp 18 20 B/P 118/79 118/70 Pulse Ox 92 94 90 O2 Delivery Nasal Cannula Nasal Cannula Room Air O2 Flow Rate 3.0 3.0 05/01/16 05/01/16 05/01/16 05/01/16 19:19 19:20 20:00 21:09 Pulse 101 B/P 118/70 Pulse Ox 93 93 O2 Delivery Nasal Cannula Nasal Cannula Nasal Cannula O2 Flow Rate 3.0 3.0 2.0 05/01/16 05/02/16 05/02/16 05/02/16 23:00 03:00 07:00 07:42 Temp 97.7 97.7 Pulse 82 B/P 111/70 Pulse Ox 97 O2 Delivery Room Air Room Air Nasal Cannula O2 Flow Rate 3.0 05/02/16 05/02/16 05/02/16 10:06 10:07 11:16 Temp 95.4 95.4 Pulse 82 82 86 B/P 111/70 111/70 122/68 Pulse Ox 97 Intake and Output 05/01/16 05/01/16 05/02/16 14:59 22:59 06:59 Intake Total 500 ml 0 ml Balance 500 ml 0 ml CECELIA GOODE MD May 02, 2016 11:32
[2016-05-02 15:10] VITALS: BP 112/64
[2016-05-02] MEDS: DIPHENHYDRAMINE HCL 25 MG CAPSULE PO PRN (15:25)
[2016-05-02 19:30] VITALS: BP 114/64
[2016-05-02] MEDS: TAMSULOSIN 0.4 MG CAP.ER.24H. PO SCH (21:13)
[2016-05-02] MEDS: FAMOTIDINE 20 MG TABLET. PO SCH (21:14)
[2016-05-02 23:43] VITALS: BP 104/58
[2016-05-03] MEDS: LEVOTHYROXINE 25 MCG TABLET. PO SCH (06:08)
[2016-05-03] MEDS: HEPARIN PF for SUB-Q USE 5,000 UNIT/0.5 ML VIAL. SQ SCH ×3 (06:13→21:44)
[2016-05-03 07:00] VITALS: BP 120/60
[2016-05-03 07:15] LABS: CALCIUM 8.7 mg/dL (8.5-10.1); CREATININE 4.9 mg/dL (0.7-1.3); GFR 11.5; HEMATOCRIT 32.3 % (39.0-53.0); HEMOGLOBIN 10.4 g/dL (13.0-17.5); POTASSIUM 3.9 mmol/L (3.5-5.1); RED BLOOD COUNT 3.88 x10^6/uL (4.30-5.70); RED CELL DISTRIBUTION WIDTH 15.5 % (11.5-14.5); WHITE BLOOD COUNT 6.1 x10^3/uL (4.0-11.0)
[2016-05-03] MEDS: BUDESONIDE 0.5 MG/2 ML NEBU NEB SCH ×2 (07:59→19:20)
[2016-05-03] MEDS: IPRATRPIUM/ALBUTEROL 0.5/2.5MG 3 ML NEBU. NEB SCH ×4 (07:59→19:19)
--- NOTE | 2016-05-03 09:18 | PDOC ---
PULMONARY PROGRESS NOTES Subjective pt feels better Vitals Vital Signs Date Time Temp Pulse Resp B/P Pulse Ox O2 Delivery O2 Flow Rate FiO2 05/03/16 08:00 98 Nasal Cannula 3.0 05/03/16 07:00 98.1 85 16 120/60 98.1 General: Alert, No acute distress Lungs: Other (decrease bs) Cardiovascular: S1, S2 Abdomen: Soft, Non-tender Neuro Exam: Alert, Oriented Extremities: Other (2+edema) Skin: Warm, Dry Labs Laboratory Tests Test 05/02/16 03:45 05/03/16 06:31 White Blood Count 6.9x10^3/uL (4.0-11.0) 6.1x10^3/uL (4.0-11.0) Red Blood Count 4.14x10^6/uL (4.30-5.70) 3.88x10^6/uL (4.30-5.70) Hemoglobin 11.0g/dL (13.0-17.5) 10.4g/dL (13.0-17.5) Hematocrit 34.6% (39.0-53.0) 32.3% (39.0-53.0) Mean Corpuscular Volume 84fL (79-100) 83fL (79-100) Mean Corpuscular Hemoglobin 27pg (25-35) 27pg (25-35) Mean Corpuscular Hemoglobin Concent 32g/dL (31-37) 32g/dL (31-37) Red Cell Distribution Width 15.6% (11.5-14.5) 15.5% (11.5-14.5) Platelet Count 240x10^3/uL (140-400) 233x10^3/uL (140-400) Neutrophils (%) (Auto) 57% (31-73) Lymphocytes (%) (Auto) 19% (24-48) Monocytes (%) (Auto) 18% (0-9) Eosinophils (%) (Auto) 5% (0-3) Basophils (%) (Auto) 1% (0-3) Neutrophils # (Auto) 3.9x10^3uL (1.8-7.7) Lymphocytes # (Auto) 1.3x10^3/uL (1.0-4.8) Monocytes # (Auto) 1.2x10^3/uL (0.0-1.1) Eosinophils # (Auto) 0.3x10^3/uL (0.0-0.7) Basophils # (Auto) 0.1x10^3/uL (0.0-0.2) Sodium Level 135mmol/L (136-145) 138mmol/L (136-145) Potassium Level 4.1mmol/L (3.5-5.1) 3.9mmol/L (3.5-5.1) Chloride Level 96mmol/L (98-107) 98mmol/L (98-107) Carbon Dioxide Level 29mmol/L (21-32) 28mmol/L (21-32) Anion Gap 10 (6-14) 12 (6-14) Blood Urea Nitrogen 34mg/dL (8-26) 52mg/dL (8-26) Creatinine 4.2mg/dL (0.7-1.3) 4.9mg/dL (0.7-1.3) Estimated GFR (Cockcroft-Gault) 13.7 11.5 Glucose Level 116mg/dL (70-99) 136mg/dL (70-99) Calcium Level 9.1mg/dL (8.5-10.1) 8.7mg/dL (8.5-10.1) Laboratory Tests Test 05/03/16 06:31 White Blood Count 6.1x10^3/uL (4.0-11.0) Red Blood Count 3.88x10^6/uL (4.30-5.70) Hemoglobin 10.4g/dL (13.0-17.5) Hematocrit 32.3% (39.0-53.0) Mean Corpuscular Volume 83fL (79-100) Mean Corpuscular Hemoglobin 27pg (25-35) Mean Corpuscular Hemoglobin Concent 32g/dL (31-37) Red Cell Distribution Width 15.5% (11.5-14.5) Platelet Count 233x10^3/uL (140-400) Sodium Level 138mmol/L (136-145) Potassium Level 3.9mmol/L (3.5-5.1) Chloride Level 98mmol/L (98-107) Carbon Dioxide Level 28mmol/L (21-32) Anion Gap 12 (6-14) Blood Urea Nitrogen 52mg/dL (8-26) Creatinine 4.9mg/dL (0.7-1.3) Estimated GFR (Cockcroft-Gault) 11.5 Glucose Level 136mg/dL (70-99) Calcium Level 8.7mg/dL (8.5-10.1) Medications Active Scripts Medications Dose Route/Sig Days Date Category Effexor Xr (Venlafaxine Hcl) 150 Mg Cap.er.24h 1 Cap PO DAILY 04/24/16 Reported Flomax (Tamsulosin Hcl) 0.4 Mg Cap.er.24h 1 Cap PO HS 04/24/16 Reported Synthroid (Levothyroxine Sodium) 25 Mcg Tablet 1 Tab PO DAILY 04/24/16 Reported Isosorbide Mononitrate Er (Isosorbide Mononitrate) 30 Mg Tab.er.24h 1 Tab PO DAILY 04/24/16 Reported Pepcid (Famotidine) 20 Mg Tablet 20 Mg PO HS 04/24/16 Reported Colace (Docusate Sodium) 100 Mg Capsule 1 Cap PO DAILY 04/24/16 Reported Vitamin B-12 (Cyanocobalamin (Vitamin B-12)) 1,000 Mcg Tablet 1 Tab PO DAILY 04/24/16 Reported Vitamin D3 (Cholecalciferol (Vitamin D3)) 1,000 Unit Tablet 2 Tab PO DAILY 04/24/16 Reported Zyrtec (Cetirizine Hcl) 10 Mg Tablet 1 Tab PO DAILY 04/24/16 Reported Aspir 81 (Aspirin) 81 Mg Tablet.dr 1 Tab PO DAILY 04/24/16 Reported Impression . 1. Acute on Chronic Diastolic Heart Failure/ Less likely pneumonia 2. CAYDEN on CKD 3. Acute on chronic hypoxemic/hypercapnic respiratory failure 4. COPD - severity not quantified 5. Obesity with hypoventilation 7. Lymphedema/ Venous Stasis 8. HTN 9. Hypothyroidism 10. Dementia 11. Echo with moderate diastolic dysfunction/ EF 55% Plan . clinically improved. Monitor renal function HD continue the same for now 02 follow renal recommendations will f/u cxr today stable pulmonary burgess for d/c STEPHANIE VELÁZQUEZ MD May 03, 2016 09:18
[2016-05-03] MEDS: VENLAFAXINE 50 MG TABLET. PO SCH ×3 (09:36→21:39)
[2016-05-03] MEDS: HYDRALAZINE 25 MG TABLET PO SCH ×2 (09:36→21:39)
[2016-05-03] MEDS: ISOSORBIDE MONONITRATE ER 30 MG TAB.ER.24H PO SCH (09:36)
[2016-05-03] MEDS: ASPIRIN ENTERIC COATED 81 MG TABLET.DR. PO SCH (09:36)
[2016-05-03] MEDS: DOCUSATE SODIUM 100 MG CAPSULE PO SCH (09:36)
[2016-05-03] MEDS: CHOLECALCIFEROL (VITAMIN D3) 1,000 UNIT TABLET PO SCH (09:37)
[2016-05-03] MEDS: FUROSEMIDE 80 MG TABLET PO SCH ×2 (09:37→21:39)
[2016-05-03] MEDS: CYANOCOBALAMIN (VITAMIN B-12) 1,000 MCG TABLET. PO SCH (09:37)
[2016-05-03] MEDS: CETIRIZINE HCL 10 MG TABLET PO SCH (09:37)
--- NOTE | 2016-05-03 10:51 | PDOC ---
Renal-Progress Notes Subjective Notes Notes NONE History of Present Illness Hx of present illness STABLE Vitals Vitals Vital Signs Date Time Temp Pulse Resp B/P Pulse Ox O2 Delivery O2 Flow Rate FiO2 05/03/16 09:36 85 120/60 05/03/16 08:00 98 Nasal Cannula 3.0 05/03/16 07:00 98.1 16 98.1 Weight Weight [ ] I.O. Intake and Output Intake and Output 05/03/16 06:59 Intake Total 1120 ml Output Total 450 ml Balance 670 ml Intake Oral 1120 ml Output Urine Total 450 ml Labs Labs Laboratory Tests Test 05/03/16 06:31 White Blood Count 6.1x10^3/uL (4.0-11.0) Red Blood Count 3.88x10^6/uL (4.30-5.70) Hemoglobin 10.4g/dL (13.0-17.5) Hematocrit 32.3% (39.0-53.0) Mean Corpuscular Volume 83fL (79-100) Mean Corpuscular Hemoglobin 27pg (25-35) Mean Corpuscular Hemoglobin Concent 32g/dL (31-37) Red Cell Distribution Width 15.5% (11.5-14.5) Platelet Count 233x10^3/uL (140-400) Sodium Level 138mmol/L (136-145) Potassium Level 3.9mmol/L (3.5-5.1) Chloride Level 98mmol/L (98-107) Carbon Dioxide Level 28mmol/L (21-32) Anion Gap 12 (6-14) Blood Urea Nitrogen 52mg/dL (8-26) Creatinine 4.9mg/dL (0.7-1.3) Estimated GFR (Cockcroft-Gault) 11.5 Glucose Level 136mg/dL (70-99) Calcium Level 8.7mg/dL (8.5-10.1) Physical Exam General Appearance: no apparent distress Skin: warm Respiratory: decreased breath sounds Heart: S1S2, RRR Abdomen: soft Neurology: alert, follow commands, other Musculoskeletal: Osteoarthritis Assessment Assessment IMP NEW ESRD ANEMIA - STABLE RESP FAILURE AECOPD SEVERE LE EDEMA-BETTER BUT PERSISTENT MALNUTRITION PLAN HD TODAY UF TO DW WILL NEED AV ACCESS OP D/C WHEN OP HD AND TRANSPORT HAS BEEN SET UP LY ROGERS MD May 03, 2016 10:51
--- NOTE | 2016-05-03 11:12 | PDOC ---
PROGRESS NOTES Chief Complaint Chief Complaint 1. 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 2, Acute diastolic CHF 3. Acute on chronic respiratory failure 4. Cognitive Impairment 5. Bilateral pitting edema 6. Mod PCM 7. Obesity, BMI 35 8. Hypothyroidism 9. Weakness and debility History of Present Illness History of Present Illness 80 yo male pt seen in hospital today. Pt was admitted for respiratory failure, renal failure, and COPD. He is doing well today but SOB and wheezing persists. Pt is on 2L nasal cannula. Awaiting SW to set up outpt HD, then DC. Vitals Vitals Vital Signs Date Time Temp Pulse Resp B/P Pulse Ox O2 Delivery O2 Flow Rate FiO2 05/03/16 09:36 85 120/60 05/03/16 08:00 98 Nasal Cannula 3.0 05/03/16 07:00 98.1 16 98.1 Physical Exam General: Alert, Oriented X3, Cooperative, mild distress Heart: Regular rate, Normal S1, Normal S2, Other (IRR, tele: AFIB) Lungs: Wheezing, Other (Decreased breath sounds) Abdomen: Normal bowel sounds, Soft, No masses Extremities: No cyanosis, Normal pulses, Other Skin: No breakdown, No significant lesion, Other (b/l LE erythema) Labs LABS Laboratory Tests Test 05/03/16 06:31 White Blood Count 6.1x10^3/uL (4.0-11.0) Red Blood Count 3.88x10^6/uL (4.30-5.70) Hemoglobin 10.4g/dL (13.0-17.5) Hematocrit 32.3% (39.0-53.0) Mean Corpuscular Volume 83fL (79-100) Mean Corpuscular Hemoglobin 27pg (25-35) Mean Corpuscular Hemoglobin Concent 32g/dL (31-37) Red Cell Distribution Width 15.5% (11.5-14.5) Platelet Count 233x10^3/uL (140-400) Sodium Level 138mmol/L (136-145) Potassium Level 3.9mmol/L (3.5-5.1) Chloride Level 98mmol/L (98-107) Carbon Dioxide Level 28mmol/L (21-32) Anion Gap 12 (6-14) Blood Urea Nitrogen 52mg/dL (8-26) Creatinine 4.9mg/dL (0.7-1.3) Estimated GFR (Cockcroft-Gault) 11.5 Glucose Level 136mg/dL (70-99) Calcium Level 8.7mg/dL (8.5-10.1) Review of Systems Review of Systems Pt denies N/V Pt resting in bed comfortably. Assessment and Plan Assessmemt and Plan Assessment 1. 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 2, Acute diastolic CHF 3. Acute on chronic respiratory failure 4. Cognitive Impairment 5. Bilateral pitting edema 6. Mod PCM 7. Obesity, BMI 35 8. Hypothyroidism 9. Weakness and debility Plan 1. Continue PO diuretics, 2. Await SW to set up outpt HD with probable DC Tuesday 3. Cotninue supplemental oxygen, per nasal cannula 4. Appreciate subspecialty input 5. Supportive care 6. Discussed with RN 7. Pt refuses PT/OT 8. s/p HD catheter placement. 9. Wound care 10. Recheck labs and vitals Problems: Comment Review of Relevant I have reviewed the following items randee (where applicable) has been applied. Labs Laboratory Tests Test 05/02/16 03:45 05/03/16 06:31 White Blood Count 6.9x10^3/uL (4.0-11.0) 6.1x10^3/uL (4.0-11.0) Red Blood Count 4.14x10^6/uL (4.30-5.70) 3.88x10^6/uL (4.30-5.70) Hemoglobin 11.0g/dL (13.0-17.5) 10.4g/dL (13.0-17.5) Hematocrit 34.6% (39.0-53.0) 32.3% (39.0-53.0) Mean Corpuscular Volume 84fL (79-100) 83fL (79-100) Mean Corpuscular Hemoglobin 27pg (25-35) 27pg (25-35) Mean Corpuscular Hemoglobin Concent 32g/dL (31-37) 32g/dL (31-37) Red Cell Distribution Width 15.6% (11.5-14.5) 15.5% (11.5-14.5) Platelet Count 240x10^3/uL (140-400) 233x10^3/uL (140-400) Neutrophils (%) (Auto) 57% (31-73) Lymphocytes (%) (Auto) 19% (24-48) Monocytes (%) (Auto) 18% (0-9) Eosinophils (%) (Auto) 5% (0-3) Basophils (%) (Auto) 1% (0-3) Neutrophils # (Auto) 3.9x10^3uL (1.8-7.7) Lymphocytes # (Auto) 1.3x10^3/uL (1.0-4.8) Monocytes # (Auto) 1.2x10^3/uL (0.0-1.1) Eosinophils # (Auto) 0.3x10^3/uL (0.0-0.7) Basophils # (Auto) 0.1x10^3/uL (0.0-0.2) Sodium Level 135mmol/L (136-145) 138mmol/L (136-145) Potassium Level 4.1mmol/L (3.5-5.1) 3.9mmol/L (3.5-5.1) Chloride Level 96mmol/L (98-107) 98mmol/L (98-107) Carbon Dioxide Level 29mmol/L (21-32) 28mmol/L (21-32) Anion Gap 10 (6-14) 12 (6-14) Blood Urea Nitrogen 34mg/dL (8-26) 52mg/dL (8-26) Creatinine 4.2mg/dL (0.7-1.3) 4.9mg/dL (0.7-1.3) Estimated GFR (Cockcroft-Gault) 13.7 11.5 Glucose Level 116mg/dL (70-99) 136mg/dL (70-99) Calcium Level 9.1mg/dL (8.5-10.1) 8.7mg/dL (8.5-10.1) Laboratory Tests Test 05/03/16 06:31 White Blood Count 6.1x10^3/uL (4.0-11.0) Red Blood Count 3.88x10^6/uL (4.30-5.70) Hemoglobin 10.4g/dL (13.0-17.5) Hematocrit 32.3% (39.0-53.0) Mean Corpuscular Volume 83fL (79-100) Mean Corpuscular Hemoglobin 27pg (25-35) Mean Corpuscular Hemoglobin Concent 32g/dL (31-37) Red Cell Distribution Width 15.5% (11.5-14.5) Platelet Count 233x10^3/uL (140-400) Sodium Level 138mmol/L (136-145) Potassium Level 3.9mmol/L (3.5-5.1) Chloride Level 98mmol/L (98-107) Carbon Dioxide Level 28mmol/L (21-32) Anion Gap 12 (6-14) Blood Urea Nitrogen 52mg/dL (8-26) Creatinine 4.9mg/dL (0.7-1.3) Estimated GFR (Cockcroft-Gault) 11.5 Glucose Level 136mg/dL (70-99) Calcium Level 8.7mg/dL (8.5-10.1) Medications Current Medications Aspirin (Ecotrin) 81 mg DAILY PO Last administered on 05/03/16at 09:36; Start 04/24/16 at 14:00 Isosorbide Mononitrate (Imdur) 30 mg DAILY PO Last administered on 05/03/16at 09:36; Start 04/24/16 at 14:00 Furosemide 60 mg 60 mg 1X ONCE IVP Last administered on 04/24/16at 14:28; Start 04/24/16 at 14:00; Stop 04/24/16 at 14:01; Status DC Furosemide/Sodium Chloride (Lasix Drip/Iv Sodium Chloride 0.9% 100ml) 100 ml @ 0 mls/hr CONT PRN IV SEE I/O RECORD Last administered on 04/25/16at 05:36; Start 04/24/16 at 16:30; Stop 04/27/16 at 12:01; Status DC Acetaminophen (Tylenol) 650 mg PRN Q6HRS PRN PO MILD PAIN / TEMP; Start at 17:45 Ondansetron HCl (Zofran) 4 mg PRN Q6HRS PRN IV NAUSEA/VOMITING, 1st choice; Start 04/24/16 at 17:45 Diphenhydramine HCl (Benadryl) 25 mg PRN QHS PRN PO INSOMNIA Last administered on 05/02/16at 15:25; Start 04/24/16 at 17:45 Prochlorperazine Edisylate (Compazine) 10 mg PRN Q6HRS PRN IV NAUSEA/VOMITING, 2nd choice; Start 04/24/16 at 17:45 Famotidine (Pepcid) 20 mg QHS PO Last administered on 05/02/16 21:14; Start 04/24/16 at 21:00 Cetirizine HCl (Zyrtec) 10 mg DAILY PO Last administered on 05/03/16 09:37; Start 04/25/16 at 09:00 Vitamin D (Vitamin D3) 1,000 unit DAILY PO Last administered on 05/03/16 09: 37; Start 04/25/16 at 09:00 Cyanocobalamin (Vitamin B-12) 1,000 mcg DAILY PO Last administered on 09:37; Start 04/25/16 at 09:00 Docusate Sodium (Colace) 100 mg DAILY PO Last administered on 05/03/16 09:36 ; Start 04/25/16 at 09:00 Levothyroxine Sodium (Synthroid) 25 mcg DAILY06 PO Last administered on 06:08; Start 04/25/16 at 06:00 Tamsulosin HCl (Flomax) 0.4 mg HS PO Last administered on 05/02/16 21:13; Start 04/24/16 at 21:00 Venlafaxine HCl (Effexor) 50 mg TID PO Last administered on 05/03/16 09:36; Start 04/25/16 at 09:00 Budesonide (Pulmicort) 0.5 mg RTBID NEB Last administered on 05/03/16 07:59; Start 04/25/16 at 10:30 Albuterol/ Ipratropium (Duoneb) 3 ml RTQID NEB Last administered on 05/03/16 07:59; Start 04/25/16 at 12:00 Furosemide (Lasix) 40 mg 1X ONCE IVP Last administered on 04/25/16 21:27; Start 04/25/16 at 20:00; Stop 04/25/16 at 20:01; Status DC Furosemide (Lasix) 80 mg BID IVP Last administered on 12/21/16at 08:57; Start 04/26/16 at 21:00; Stop 04/28/16 at 11:17; Status DC Albuterol Sulfate (Ventolin Neb Soln) 2.5 mg PRN Q6HRS PRN NEB SHORTNESS OF BREATH Last administered on 04/26/16at 04:21; Start 04/26/16 at 04:15 Heparin Sodium (Porcine) 5,000 unit Q8HRS SQ Last administered on 05/03/16at 06 :13; Start 04/26/16 at 22:00 Hydralazine HCl (Apresoline) 25 mg BID PO Last administered on 05/03/16at 09:36 ; Start 04/27/16 at 12:30 Furosemide (Lasix) 80 mg Q8HRS IVP Last administered on 05/01/16at 14:27; Start 04/28/16 at 14:00; Stop 05/01/16 at 15:19; Status DC Heparin Sodium (Porcine) 10,000 unit STK-MED ONCE .ROUTE ; Start 04/29/16 at 12 :35; Stop 04/29/16 at 12:36; Status DC Lidocaine/ Epinephrine 20 ml 20 ml STK-MED ONCE .ROUTE ; Start 04/29/16 at 12: 35; Stop 04/29/16 at 12:36; Status DC Heparin Sodium/ Sodium Chloride 500 ml @ As Directed STK-MED ONCE .ROUTE ; Start 04/29/16 at 12:36; Stop 04/29/16 at 12:37; Status DC Midazolam HCl (Versed) 5 mg STK-MED ONCE .ROUTE ; Start 04/29/16 at 13:40; Stop 04/29/16 at 13:41; Status DC Fentanyl Citrate 250 mcg 250 mcg STK-MED ONCE .ROUTE ; Start 04/29/16 at 13:40 ; Stop 04/29/16 at 13:41; Status DC Cefazolin Sodium (Ancef 1gm Ivpb For Omni) 50 ml @ As Directed STK-MED ONCE IV ; Start 04/29/16 at 13:40; Stop 04/29/16 at 13:41; Status DC Heparin Sodium/ Sodium Chloride 1,000 unit 1X ONCE IART Last administered on 04/29/16at 14:00; Start 04/29/16 at 14:00; Stop 04/29/16 at 14:10; Status DC Midazolam HCl (Versed) 5 mg 1X ONCE IV Last administered on 04/29/16at 14:00; Start 04/29/16 at 14:00; Stop 04/29/16 at 14:10; Status DC Fentanyl Citrate (Fentanyl 5ml Vial) 250 mcg 1X ONCE IV Last administered on 04/29/16at 14:00; Start 04/29/16 at 14:00; Stop 04/29/16 at 14:10; Status DC Lidocaine/ Epinephrine (Xylocaine 1%-Epi 1:100,000) 20 ml 1X ONCE IJ Last administered on 04/29/16at 14:00; Start 04/29/16 at 14:00; Stop 04/29/16 at 14 :10; Status DC Heparin Sodium (Porcine) 2600 unit 2,600 unit 1X ONCE INT CAT Last administered on 04/29/16at 14:00; Start 04/29/16 at 14:00; Stop 04/29/16 at 14 :10; Status DC Cefazolin Sodium 50 ml @ 0 mls/hr 1X ONCE IV Last administered on 04/29/16at 14:19; Start 04/29/16 at 14:30; Stop 04/29/16 at 14:31; Status DC Sodium Chloride (Iv Sodium Chloride 0.9% 1000ml Bag) 1,000 ml @ 1,000 mls/hr Q1H PRN IV hypotension; Start 04/30/16 at 15:00; Stop 04/30/16 at 20:59; Status DC Diphenhydramine HCl (Benadryl) 25 mg 1X PRN PRN IV ITCHING Last administered on 05/01/16at 12:29; Start 04/30/16 at 15:00; Stop 05/01/16 at 14:59; Status DC Diphenhydramine HCl (Benadryl) 25 mg 1X PRN PRN IV ITCHING; Start 04/30/16 at 15:00; Stop 05/01/16 at 14:59; Status DC Sodium Chloride (Normal Saline Flush) 10 ml 1X PRN PRN IV AP catheter pack; Start 04/30/16 at 15:00; Stop 05/01/16 at 14:59; Status DC Sodium Chloride (Normal Saline Flush) 10 ml 1X PRN PRN IV CORD CUTTER catheter pack; Start 04/30/16 at 15:00; Stop 05/01/16 at 14:59; Status DC Labetalol HCl 10 mg 10 mg PRN Q1HR PRN IVP SBP > 180; Start 04/30/16 at 15:00 ; Stop 05/01/16 at 14:59; Status DC Sodium Chloride (Iv Sodium Chloride 0.9% 1000ml Bag) 1,000 ml @ 400 mls/hr Q2H30M PRN IV PATENCY; Start 04/30/16 at 15:00; Stop 05/01/16 at 02:59; Status DC Info (PHARMACY MONITORING -- do not chart) 1 each PRN DAILY PRN MC SEE COMMENTS ; Start 04/30/16 at 15:00 Info (PHARMACY MONITORING -- do not chart) 1 each PRN DAILY PRN MC SEE COMMENTS ; Start 05/01/16 at 08:00; Status UNV Info (PHARMACY MONITORING -- do not chart) 1 each PRN DAILY PRN MC SEE COMMENTS ; Start 05/01/16 at 08:00; Status UNV Furosemide (Lasix) 80 mg BID PO Last administered on 05/03/16at 09:37; Start 05/01/16 at 21:00 Diphenhydramine HCl (Benadryl) 25 mg PRN TID PRN PO ITCHING; Start 05/02/16 at 10:30; Stop 05/04/16 at 15:00 Active Scripts Active Lasix (Furosemide) 80 Mg Tablet 80 Mg PO BID Reported Effexor Xr (Venlafaxine Hcl) 150 Mg Cap.er.24h 1 Cap PO DAILY Flomax (Tamsulosin Hcl) 0.4 Mg Cap.er.24h 1 Cap PO HS Synthroid (Levothyroxine Sodium) 25 Mcg Tablet 1 Tab PO DAILY Isosorbide Mononitrate Er (Isosorbide Mononitrate) 30 Mg Tab.er.24h 1 Tab PO DAILY Pepcid (Famotidine) 20 Mg Tablet 20 Mg PO HS Colace (Docusate Sodium) 100 Mg Capsule 1 Cap PO DAILY Vitamin B-12 (Cyanocobalamin (Vitamin B-12)) 1,000 Mcg Tablet 1 Tab PO DAILY Vitamin D3 (Cholecalciferol (Vitamin D3)) 1,000 Unit Tablet 2 Tab PO DAILY Zyrtec (Cetirizine Hcl) 10 Mg Tablet 1 Tab PO DAILY Aspir 81 (Aspirin) 81 Mg Tablet.dr 1 Tab PO DAILY Vitals/I & O Vital Sign - Last 24 Hours 05/02/16 05/02/16 05/02/16 05/02/16 11:16 11:45 15:10 15:49 Temp 95.4 97.7 95.4 97.7 Pulse 86 80 B/P 122/68 112/64 Pulse Ox 97 96 O2 Delivery Nasal Cannula Nasal Cannula O2 Flow Rate 3.0 3.0 05/02/16 05/02/16 05/02/16 05/02/16 19:01 19:02 19:30 21:14 Temp 97.5 97.5 Pulse 92 92 Resp 16 B/P 114/64 114/64 Pulse Ox 92 92 95 O2 Delivery Nasal Cannula Nasal Cannula Nasal Cannula O2 Flow Rate 3.0 3.0 2.0 05/02/16 05/03/16 05/03/16 05/03/16 23:43 03:30 07:00 08:00 Temp 97.7 98.1 97.7 98.1 Pulse 102 85 Resp 16 16 B/P 104/58 120/60 Pulse Ox 90 97 98 O2 Delivery Nasal Cannula Room Air Nasal Cannula Nasal Cannula O2 Flow Rate 2.0 2.0 3.0 05/03/16 05/03/16 09:36 09:36 Pulse 85 85 B/P 120/60 120/60 Intake and Output 05/02/16 05/02/16 05/03/16 14:59 22:59 06:59 Intake Total 1020 ml 100 ml Output Total 150 ml 300 ml Balance 1020 ml -150 ml -200 ml REZA WALTON III DO May 03, 2016 11:12
--- NOTE | 2016-05-03 11:16 | RAD ---
Portable chest, 05/03/2016: History: Congestive heart failure Comparison is made to a study from 04/27/2016. A right jugular dialysis type catheter has been inserted extending to the level of the atriocaval junction. The heart is enlarged. The pulmonary vascularity remains congested. Extensive patchy opacities in the right chest are unchanged and are predominantly due to fibrocalcific pleural-parenchymal scarring. There are mild underlying interstitial opacities in both lungs probably due to fibrosis. A component of interstitial edema cannot be excluded. No pleural fluid is identified. There is no evidence of pneumothorax. No new abnormality is detected. IMPRESSION: 1. Interval insertion of a right jugular dialysis type catheter in satisfactory position. 2. Unchanged pleural/parenchymal opacities, right greater than left, suggesting mild congestive heart failure superimposed upon pleural/parenchymal scarring.
[2016-05-03 11:27] VITALS: BP 122/61
[2016-05-03] MEDS ORDERED: DIALYSIS PATIENT. MC PRN ×2 (12:30)
[2016-05-03] MEDS ORDERED: 0.9 % SODIUM CHLORIDE 10 ML DISP.SYRIN. IV PRN ×2 (12:30)
[2016-05-03 19:41] VITALS: BP 109/60
[2016-05-03] MEDS: TAMSULOSIN 0.4 MG CAP.ER.24H. PO SCH (21:39)
[2016-05-03 23:23] VITALS: BP 115/64
[2016-05-04 03:02] VITALS: BP 112/58
[2016-05-04] MEDS: LEVOTHYROXINE 25 MCG TABLET. PO SCH (05:23)
[2016-05-04] MEDS: HEPARIN PF for SUB-Q USE 5,000 UNIT/0.5 ML VIAL. SQ SCH ×3 (05:27→21:16)
[2016-05-04 06:19] LABS: BASO # 0.1 x10^3/uL (0.0-0.2); BASO % 1 % (0-3); EOS % 5 % (0-3); HEMATOCRIT 34.8 % (39.0-53.0); HEMOGLOBIN 11.3 g/dL (13.0-17.5); LYMPH # 1.6 x10^3/uL (1.0-4.8); LYMPH % 23 % (24-48); MEAN CORPUSCULAR HEMOGLOBIN 26 pg (25-35); MEAN CORPUSCULAR HGB CONC 32 g/dL (31-37); MEAN CORPUSCULAR VOLUME 82 fL (79-100); MONO % 18 % (0-9); NEUT % 53 % (31-73); PLATELET COUNT 237 x10^3/uL (140-400); RED BLOOD COUNT 4.27 x10^6/uL (4.30-5.70); RED CELL DISTRIBUTION WIDTH 15.3 % (11.5-14.5); WHITE BLOOD COUNT 6.8 x10^3/uL (4.0-11.0)
[2016-05-04 06:28] LABS: CREATININE 4.1 mg/dL (0.7-1.3); GFR 14.1; POTASSIUM 4.1 mmol/L (3.5-5.1)
[2016-05-04 07:33] VITALS: BP 114/62
[2016-05-04] MEDS: BUDESONIDE 0.5 MG/2 ML NEBU NEB SCH ×2 (08:00→19:25)
[2016-05-04] MEDS: IPRATRPIUM/ALBUTEROL 0.5/2.5MG 3 ML NEBU. NEB SCH ×4 (08:00→19:24)
--- NOTE | 2016-05-04 09:40 | PDOC ---
PROGRESS NOTES Chief Complaint Chief Complaint 1. 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 Acute diastolic CHF 3. Acute on chronic respiratory failure 4. Cognitive Impairment 5. Bilateral pitting edema 6. Mod PCM 7. Obesity, BMI 35 8. Hypothyroidism 9. Weakness and debility History of Present Illness History of Present Illness 80 y/o male pt seen in the hospital. He was originally admitted for respiratory failure, renal failure, and COPD. Pt continues to have SOB and wheezing but refused duoneb and pulmicort breathing tx. Pt no longer on supplemental oxygen. CXR showed unchanged pleural/parenchymal opacities, R greater than L, suggesting mild CHF. Awaiting SW to set up outpt HD, then probable DC. Vitals Vitals Vital Signs Date Time Temp Pulse Resp B/P Pulse Ox O2 Delivery O2 Flow Rate FiO2 05/04/16 07:33 97.5 76 18 114/62 93 Nasal Cannula 2.0 97.5 Physical Exam General: Alert, Oriented X3, Cooperative, mild distress Heart: Regular rate, Normal S1, Normal S2, Other (IRR, telemetry: atrial fibrillation) Lungs: Wheezing, Other (Decreased breath sounds b/l) Abdomen: Normal bowel sounds, Soft, No masses Extremities: No clubbing, No cyanosis, Normal pulses, Other Skin: No breakdown, No significant lesion, Other (b/l LE erythema) Labs LABS Laboratory Tests Test 05/03/16 12:48 05/04/16 05:40 Glucose (Fingerstick) 139mg/dL (70-99) White Blood Count 6.8x10^3/uL (4.0-11.0) Red Blood Count 4.27x10^6/uL (4.30-5.70) Hemoglobin 11.3g/dL (13.0-17.5) Hematocrit 34.8% (39.0-53.0) Mean Corpuscular Volume 82fL (79-100) Mean Corpuscular Hemoglobin 26pg (25-35) Mean Corpuscular Hemoglobin Concent 32g/dL (31-37) Red Cell Distribution Width 15.3% (11.5-14.5) Platelet Count 237x10^3/uL (140-400) Neutrophils (%) (Auto) 53% (31-73) Lymphocytes (%) (Auto) 23% (24-48) Monocytes (%) (Auto) 18% (0-9) Eosinophils (%) (Auto) 5% (0-3) Basophils (%) (Auto) 1% (0-3) Neutrophils # (Auto) 3.6x10^3uL (1.8-7.7) Lymphocytes # (Auto) 1.6x10^3/uL (1.0-4.8) Monocytes # (Auto) 1.2x10^3/uL (0.0-1.1) Eosinophils # (Auto) 0.3x10^3/uL (0.0-0.7) Basophils # (Auto) 0.1x10^3/uL (0.0-0.2) Sodium Level 138mmol/L (136-145) Potassium Level 4.1mmol/L (3.5-5.1) Chloride Level 98mmol/L (98-107) Carbon Dioxide Level 28mmol/L (21-32) Anion Gap 12 (6-14) Blood Urea Nitrogen 33mg/dL (8-26) Creatinine 4.1mg/dL (0.7-1.3) Estimated GFR (Cockcroft-Gault) 14.1 Glucose Level 113mg/dL (70-99) Calcium Level 9.0mg/dL (8.5-10.1) Review of Systems Review of Systems Denies N/V Resting in bed comfortably Assessment and Plan Assessmemt and Plan Assessment 1. 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 Acute diastolic CHF 3. Acute on chronic respiratory failure 4. Cognitive Impairment 5. Bilateral pitting edema 6. Mod PCM 7. Obesity, BMI 35 8. Hypothyroidism 9. Weakness and debility Plan 1. Continue PO diuretics, 2. Await SW to set up outpt HD with probable DC today 3. Continue supplemental oxygen, per nasal cannula 4. Appreciate subspecialty input 5. Supportive care 6. Discussed with RN 7. Pt refused PT/OT 8. Pt refused duoneb, pulmicort breathing tx 8. s/p HD catheter placement. 9. Wound care 10. Recheck labs and vitals Problems: Comment Review of Relevant I have reviewed the following items randee (where applicable) has been applied. Labs Laboratory Tests Test 05/03/16 06:31 05/03/16 12:48 05/04/16 05:40 White Blood Count 6.1x10^3/uL (4.0-11.0) 6.8x10^3/uL (4.0-11.0) Red Blood Count 3.88x10^6/uL (4.30-5.70) 4.27x10^6/uL (4.30-5.70) Hemoglobin 10.4g/dL (13.0-17.5) 11.3g/dL (13.0-17.5) Hematocrit 32.3% (39.0-53.0) 34.8% (39.0-53.0) Mean Corpuscular Volume 83fL (79-100) 82fL (79-100) Mean Corpuscular Hemoglobin 27pg (25-35) 26pg (25-35) Mean Corpuscular Hemoglobin Concent 32g/dL (31-37) 32g/dL (31-37) Red Cell Distribution Width 15.5% (11.5-14.5) 15.3% (11.5-14.5) Platelet Count 233x10^3/uL (140-400) 237x10^3/uL (140-400) Sodium Level 138mmol/L (136-145) 138mmol/L (136-145) Potassium Level 3.9mmol/L (3.5-5.1) 4.1mmol/L (3.5-5.1) Chloride Level 98mmol/L (98-107) 98mmol/L (98-107) Carbon Dioxide Level 28mmol/L (21-32) 28mmol/L (21-32) Anion Gap 12 (6-14) 12 (6-14) Blood Urea Nitrogen 52mg/dL (8-26) 33mg/dL (8-26) Creatinine 4.9mg/dL (0.7-1.3) 4.1mg/dL (0.7-1.3) Estimated GFR (Cockcroft-Gault) 11.5 14.1 Glucose Level 136mg/dL (70-99) 113mg/dL (70-99) Calcium Level 8.7mg/dL (8.5-10.1) 9.0mg/dL (8.5-10.1) Glucose (Fingerstick) 139mg/dL (70-99) Neutrophils (%) (Auto) 53% (31-73) Lymphocytes (%) (Auto) 23% (24-48) Monocytes (%) (Auto) 18% (0-9) Eosinophils (%) (Auto) 5% (0-3) Basophils (%) (Auto) 1% (0-3) Neutrophils # (Auto) 3.6x10^3uL (1.8-7.7) Lymphocytes # (Auto) 1.6x10^3/uL (1.0-4.8) Monocytes # (Auto) 1.2x10^3/uL (0.0-1.1) Eosinophils # (Auto) 0.3x10^3/uL (0.0-0.7) Basophils # (Auto) 0.1x10^3/uL (0.0-0.2) Laboratory Tests Test 05/03/16 12:48 05/04/16 05:40 Glucose (Fingerstick) 139mg/dL (70-99) White Blood Count 6.8x10^3/uL (4.0-11.0) Red Blood Count 4.27x10^6/uL (4.30-5.70) Hemoglobin 11.3g/dL (13.0-17.5) Hematocrit 34.8% (39.0-53.0) Mean Corpuscular Volume 82fL (79-100) Mean Corpuscular Hemoglobin 26pg (25-35) Mean Corpuscular Hemoglobin Concent 32g/dL (31-37) Red Cell Distribution Width 15.3% (11.5-14.5) Platelet Count 237x10^3/uL (140-400) Neutrophils (%) (Auto) 53% (31-73) Lymphocytes (%) (Auto) 23% (24-48) Monocytes (%) (Auto) 18% (0-9) Eosinophils (%) (Auto) 5% (0-3) Basophils (%) (Auto) 1% (0-3) Neutrophils # (Auto) 3.6x10^3uL (1.8-7.7) Lymphocytes # (Auto) 1.6x10^3/uL (1.0-4.8) Monocytes # (Auto) 1.2x10^3/uL (0.0-1.1) Eosinophils # (Auto) 0.3x10^3/uL (0.0-0.7) Basophils # (Auto) 0.1x10^3/uL (0.0-0.2) Sodium Level 138mmol/L (136-145) Potassium Level 4.1mmol/L (3.5-5.1) Chloride Level 98mmol/L (98-107) Carbon Dioxide Level 28mmol/L (21-32) Anion Gap 12 (6-14) Blood Urea Nitrogen 33mg/dL (8-26) Creatinine 4.1mg/dL (0.7-1.3) Estimated GFR (Cockcroft-Gault) 14.1 Glucose Level 113mg/dL (70-99) Calcium Level 9.0mg/dL (8.5-10.1) Medications Current Medications Aspirin (Ecotrin) 81 mg DAILY PO Last administered on 05/03/16at 09:36; Start 04/24/16 at 14:00 Isosorbide Mononitrate (Imdur) 30 mg DAILY PO Last administered on 05/03/16at 09:36; Start 04/24/16 at 14:00 Furosemide 60 mg 60 mg 1X ONCE IVP Last administered on 04/24/16at 14:28; Start 04/24/16 at 14:00; Stop 04/24/16 at 14:01; Status DC Furosemide/Sodium Chloride (Lasix Drip/Iv Sodium Chloride 0.9% 100ml) 100 ml @ 0 mls/hr CONT PRN IV SEE I/O RECORD Last administered on 04/25/16at 05:36; Start 04/24/16 at 16:30; Stop 04/27/16 at 12:01; Status DC Acetaminophen (Tylenol) 650 mg PRN Q6HRS PRN PO MILD PAIN / TEMP; Start at 17:45 Ondansetron HCl (Zofran) 4 mg PRN Q6HRS PRN IV NAUSEA/VOMITING, 1st choice; Start 04/24/16 at 17:45 Diphenhydramine HCl (Benadryl) 25 mg PRN QHS PRN PO INSOMNIA Last administered on 05/02/16at 15:25; Start 04/24/16 at 17:45 Prochlorperazine Edisylate (Compazine) 10 mg PRN Q6HRS PRN IV NAUSEA/VOMITING, 2nd choice; Start 04/24/16 at 17:45 Famotidine (Pepcid) 20 mg QHS PO Last administered on 05/02/16at 21:14; Start 04/24/16 at 21:00; Stop 05/03/16 at 13:59; Status DC Cetirizine HCl (Zyrtec) 10 mg DAILY PO Last administered on 05/03/16at 09:37; Start 04/25/16 at 09:00 Vitamin D (Vitamin D3) 1,000 unit DAILY PO Last administered on 05/03/16at 09: 37; Start 04/25/16 at 09:00 Cyanocobalamin (Vitamin B-12) 1,000 mcg DAILY PO Last administered on at 09:37; Start 04/25/16 at 09:00 Docusate Sodium (Colace) 100 mg DAILY PO Last administered on 05/03/16at 09:36 ; Start 04/25/16 at 09:00 Levothyroxine Sodium (Synthroid) 25 mcg DAILY06 PO Last administered on at 05:23; Start 04/25/16 at 06:00 Tamsulosin HCl (Flomax) 0.4 mg HS PO Last administered on 05/03/16at 21:39; Start 04/24/16 at 21:00 Venlafaxine HCl (Effexor) 50 mg TID PO Last administered on 05/03/16at 21:39; Start 04/25/16 at 09:00 Budesonide (Pulmicort) 0.5 mg RTBID NEB Last administered on 05/03/16at 07:59; Start 04/25/16 at 10:30 Albuterol/ Ipratropium (Duoneb) 3 ml RTQID NEB Last administered on 05/03/16at 16:29; Start 04/25/16 at 12:00 Furosemide (Lasix) 40 mg 1X ONCE IVP Last administered on 04/25/16at 21:27; Start 04/25/16 at 20:00; Stop 04/25/16 at 20:01; Status DC Furosemide (Lasix) 80 mg BID IVP Last administered on 04/28/16at 08:57; Start 04/26/16 at 21:00; Stop 04/28/16 at 11:17; Status DC Albuterol Sulfate (Ventolin Neb Soln) 2.5 mg PRN Q6HRS PRN NEB SHORTNESS OF BREATH Last administered on 04/26/16at 04:21; Start 04/26/16 at 04:15 Heparin Sodium (Porcine) 5,000 unit Q8HRS SQ Last administered on 05/04/16at 05 :27; Start 04/26/16 at 22:00 Hydralazine HCl (Apresoline) 25 mg BID PO Last administered on 05/03/16at 21:39 ; Start 04/27/16 at 12:30 Furosemide (Lasix) 80 mg Q8HRS IVP Last administered on 05/01/16at 14:27; Start 04/28/16 at 14:00; Stop 05/01/16 at 15:19; Status DC Heparin Sodium (Porcine) 10,000 unit STK-MED ONCE .ROUTE ; Start 04/29/16 at 12 :35; Stop 04/29/16 at 12:36; Status DC Lidocaine/ Epinephrine 20 ml 20 ml STK-MED ONCE .ROUTE ; Start 04/29/16 at 12: 35; Stop 04/29/16 at 12:36; Status DC Heparin Sodium/ Sodium Chloride 500 ml @ As Directed STK-MED ONCE .ROUTE ; Start 04/29/16 at 12:36; Stop 04/29/16 at 12:37; Status DC Midazolam HCl (Versed) 5 mg STK-MED ONCE .ROUTE ; Start 04/29/16 at 13:40; Stop 04/29/16 at 13:41; Status DC Fentanyl Citrate 250 mcg 250 mcg STK-MED ONCE .ROUTE ; Start 04/29/16 at 13:40 ; Stop 04/29/16 at 13:41; Status DC Cefazolin Sodium (Ancef 1gm Ivpb For Omni) 50 ml @ As Directed STK-MED ONCE IV ; Start 04/29/16 at 13:40; Stop 04/29/16 at 13:41; Status DC Heparin Sodium/ Sodium Chloride 1,000 unit 1X ONCE IART Last administered on 04/29/16at 14:00; Start 04/29/16 at 14:00; Stop 04/29/16 at 14:10; Status DC Midazolam HCl (Versed) 5 mg 1X ONCE IV Last administered on 04/29/16at 14:00; Start 04/29/16 at 14:00; Stop 04/29/16 at 14:10; Status DC Fentanyl Citrate (Fentanyl 5ml Vial) 250 mcg 1X ONCE IV Last administered on 04/29/16at 14:00; Start 04/29/16 at 14:00; Stop 04/29/16 at 14:10; Status DC Lidocaine/ Epinephrine (Xylocaine 1%-Epi 1:100,000) 20 ml 1X ONCE IJ Last administered on 04/29/16at 14:00; Start 04/29/16 at 14:00; Stop 04/29/16 at 14 :10; Status DC Heparin Sodium (Porcine) 2600 unit 2,600 unit 1X ONCE INT CAT Last administered on 04/29/16at 14:00; Start 04/29/16 at 14:00; Stop 04/29/16 at 14 :10; Status DC Cefazolin Sodium 50 ml @ 0 mls/hr 1X ONCE IV Last administered on 04/29/16at 14:19; Start 04/29/16 at 14:30; Stop 04/29/16 at 14:31; Status DC Sodium Chloride (Iv Sodium Chloride 0.9% 1000ml Bag) 1,000 ml @ 1,000 mls/hr Q1H PRN IV hypotension; Start 04/30/16 at 15:00; Stop 04/30/16 at 20:59; Status DC Diphenhydramine HCl (Benadryl) 25 mg 1X PRN PRN IV ITCHING Last administered on 05/01/16at 12:29; Start 04/30/16 at 15:00; Stop 05/01/16 at 14:59; Status DC Diphenhydramine HCl (Benadryl) 25 mg 1X PRN PRN IV ITCHING; Start 04/30/16 at 15:00; Stop 05/01/16 at 14:59; Status DC Sodium Chloride (Normal Saline Flush) 10 ml 1X PRN PRN IV AP catheter pack; Start 04/30/16 at 15:00; Stop 05/01/16 at 14:59; Status DC Sodium Chloride (Normal Saline Flush) 10 ml 1X PRN PRN IV [employer] catheter pack; Start 04/30/16 at 15:00; Stop 05/01/16 at 14:59; Status DC Labetalol HCl 10 mg 10 mg PRN Q1HR PRN IVP SBP > 180; Start 04/30/16 at 15:00 ; Stop 05/01/16 at 14:59; Status DC Sodium Chloride (Iv Sodium Chloride 0.9% 1000ml Bag) 1,000 ml @ 400 mls/hr Q2H30M PRN IV PATENCY; Start 04/30/16 at 15:00; Stop 05/01/16 at 02:59; Status DC Info (PHARMACY MONITORING -- do not chart) 1 each PRN DAILY PRN MC SEE COMMENTS ; Start 04/30/16 at 15:00 Info (PHARMACY MONITORING -- do not chart) 1 each PRN DAILY PRN MC SEE COMMENTS ; Start 05/01/16 at 08:00; Status UNV Info (PHARMACY MONITORING -- do not chart) 1 each PRN DAILY PRN MC SEE COMMENTS ; Start 05/01/16 at 08:00; Status UNV Furosemide (Lasix) 80 mg BID PO Last administered on 05/03/16at 21:39; Start 05/01/16 at 21:00 Diphenhydramine HCl (Benadryl) 25 mg PRN TID PRN PO ITCHING; Start 05/02/16 at 10:30; Stop 05/04/16 at 15:00 Sodium Chloride (Normal Saline Flush) 10 ml 1X PRN PRN IV AP catheter pack; Start 05/03/16 at 12:30; Stop 05/04/16 at 12:29 Sodium Chloride (Normal Saline Flush) 10 ml 1X PRN PRN IV [employer] catheter pack; Start 05/03/16 at 12:30; Stop 05/04/16 at 12:29 Info (PHARMACY MONITORING -- do not chart) 1 each PRN DAILY PRN MC SEE COMMENTS ; Start 05/03/16 at 12:30; Status UNV Info (PHARMACY MONITORING -- do not chart) 1 each PRN DAILY PRN MC SEE COMMENTS ; Start 05/03/16 at 12:30; Status UNV Famotidine (Pepcid) 20 mg Q48H PO ; Start 05/05/16 at 21:00 Active Scripts Active Lasix (Furosemide) 80 Mg Tablet 80 Mg PO BID Reported Effexor Xr (Venlafaxine Hcl) 150 Mg Cap.er.24h 1 Cap PO DAILY Flomax (Tamsulosin Hcl) 0.4 Mg Cap.er.24h 1 Cap PO HS Synthroid (Levothyroxine Sodium) 25 Mcg Tablet 1 Tab PO DAILY Isosorbide Mononitrate Er (Isosorbide Mononitrate) 30 Mg Tab.er.24h 1 Tab PO DAILY Pepcid (Famotidine) 20 Mg Tablet 20 Mg PO HS Colace (Docusate Sodium) 100 Mg Capsule 1 Cap PO DAILY Vitamin B-12 (Cyanocobalamin (Vitamin B-12)) 1,000 Mcg Tablet 1 Tab PO DAILY Vitamin D3 (Cholecalciferol (Vitamin D3)) 1,000 Unit Tablet 2 Tab PO DAILY Zyrtec (Cetirizine Hcl) 10 Mg Tablet 1 Tab PO DAILY Aspir 81 (Aspirin) 81 Mg Tablet.dr 1 Tab PO DAILY Vitals/I & O Vital Sign - Last 24 Hours 05/03/16 05/03/16 05/03/16 05/03/16 11:27 16:30 19:41 20:00 Temp 98.1 98.5 98.1 98.5 Pulse 110 88 Resp 16 16 B/P 122/61 109/60 Pulse Ox 92 91 O2 Delivery Nasal Cannula Nasal Cannula Nasal Cannula Nasal Cannula O2 Flow Rate 2.0 3.0 2.0 2.0 05/03/16 05/03/16 05/04/16 05/04/16 21:39 23:23 03:02 07:33 Temp 98.2 97.9 97.5 98.2 97.9 97.5 Pulse 88 82 80 76 Resp 18 18 18 B/P 109/60 115/64 112/58 114/62 Pulse Ox 93 95 93 O2 Delivery Nasal Cannula Nasal Cannula Nasal Cannula O2 Flow Rate 2.0 2.0 2.0 Intake and Output 05/03/16 05/03/16 05/04/16 14:59 22:59 06:59 Intake Total 360 ml 600 ml 300 ml Output Total 200 ml 400 ml 400 ml Balance 160 ml 200 ml -100 ml BIJAL WALTONL K III DO May 04, 2016 09:40
[2016-05-04 10:43] VITALS: BP 115/75
[2016-05-04] MEDS: FUROSEMIDE 80 MG TABLET PO SCH ×2 (10:43→21:10)
[2016-05-04] MEDS: HYDRALAZINE 25 MG TABLET PO SCH (10:43)
[2016-05-04] MEDS: CYANOCOBALAMIN (VITAMIN B-12) 1,000 MCG TABLET. PO SCH (10:43)
[2016-05-04] MEDS: CHOLECALCIFEROL (VITAMIN D3) 1,000 UNIT TABLET PO SCH (10:43)
[2016-05-04] MEDS: ASPIRIN ENTERIC COATED 81 MG TABLET.DR. PO SCH (10:43)
[2016-05-04] MEDS: DOCUSATE SODIUM 100 MG CAPSULE PO SCH (10:43)
[2016-05-04] MEDS: ISOSORBIDE MONONITRATE ER 30 MG TAB.ER.24H PO SCH (10:44)
[2016-05-04] MEDS: CETIRIZINE HCL 10 MG TABLET PO SCH (10:44)
[2016-05-04] MEDS: VENLAFAXINE 50 MG TABLET. PO SCH ×3 (10:49→21:10)
--- NOTE | 2016-05-04 11:48 | PDOC ---
PULMONARY PROGRESS NOTES Subjective pt feels better Vitals Vital Signs Date Time Temp Pulse Resp B/P Pulse Ox O2 Delivery O2 Flow Rate FiO2 05/04/16 10:44 114/62 05/04/16 10:43 97.6 110 18 92 Nasal Cannula 2.0 97.6 General: Alert, No acute distress Lungs: Wheezing, Other (Decreased breath sounds b/l) Cardiovascular: S1, S2 Abdomen: Soft, Non-tender Neuro Exam: Alert, Oriented Extremities: Other (2+edema) Skin: Warm, Dry Labs Laboratory Tests Test 05/03/16 06:31 05/03/16 12:48 05/04/16 05:40 White Blood Count 6.1x10^3/uL (4.0-11.0) 6.8x10^3/uL (4.0-11.0) Red Blood Count 3.88x10^6/uL (4.30-5.70) 4.27x10^6/uL (4.30-5.70) Hemoglobin 10.4g/dL (13.0-17.5) 11.3g/dL (13.0-17.5) Hematocrit 32.3% (39.0-53.0) 34.8% (39.0-53.0) Mean Corpuscular Volume 83fL (79-100) 82fL (79-100) Mean Corpuscular Hemoglobin 27pg (25-35) 26pg (25-35) Mean Corpuscular Hemoglobin Concent 32g/dL (31-37) 32g/dL (31-37) Red Cell Distribution Width 15.5% (11.5-14.5) 15.3% (11.5-14.5) Platelet Count 233x10^3/uL (140-400) 237x10^3/uL (140-400) Sodium Level 138mmol/L (136-145) 138mmol/L (136-145) Potassium Level 3.9mmol/L (3.5-5.1) 4.1mmol/L (3.5-5.1) Chloride Level 98mmol/L (98-107) 98mmol/L (98-107) Carbon Dioxide Level 28mmol/L (21-32) 28mmol/L (21-32) Anion Gap 12 (6-14) 12 (6-14) Blood Urea Nitrogen 52mg/dL (8-26) 33mg/dL (8-26) Creatinine 4.9mg/dL (0.7-1.3) 4.1mg/dL (0.7-1.3) Estimated GFR (Cockcroft-Gault) 11.5 14.1 Glucose Level 136mg/dL (70-99) 113mg/dL (70-99) Calcium Level 8.7mg/dL (8.5-10.1) 9.0mg/dL (8.5-10.1) Glucose (Fingerstick) 139mg/dL (70-99) Neutrophils (%) (Auto) 53% (31-73) Lymphocytes (%) (Auto) 23% (24-48) Monocytes (%) (Auto) 18% (0-9) Eosinophils (%) (Auto) 5% (0-3) Basophils (%) (Auto) 1% (0-3) Neutrophils # (Auto) 3.6x10^3uL (1.8-7.7) Lymphocytes # (Auto) 1.6x10^3/uL (1.0-4.8) Monocytes # (Auto) 1.2x10^3/uL (0.0-1.1) Eosinophils # (Auto) 0.3x10^3/uL (0.0-0.7) Basophils # (Auto) 0.1x10^3/uL (0.0-0.2) Laboratory Tests Test 05/03/16 12:48 05/04/16 05:40 Glucose (Fingerstick) 139mg/dL (70-99) White Blood Count 6.8x10^3/uL (4.0-11.0) Red Blood Count 4.27x10^6/uL (4.30-5.70) Hemoglobin 11.3g/dL (13.0-17.5) Hematocrit 34.8% (39.0-53.0) Mean Corpuscular Volume 82fL (79-100) Mean Corpuscular Hemoglobin 26pg (25-35) Mean Corpuscular Hemoglobin Concent 32g/dL (31-37) Red Cell Distribution Width 15.3% (11.5-14.5) Platelet Count 237x10^3/uL (140-400) Neutrophils (%) (Auto) 53% (31-73) Lymphocytes (%) (Auto) 23% (24-48) Monocytes (%) (Auto) 18% (0-9) Eosinophils (%) (Auto) 5% (0-3) Basophils (%) (Auto) 1% (0-3) Neutrophils # (Auto) 3.6x10^3uL (1.8-7.7) Lymphocytes # (Auto) 1.6x10^3/uL (1.0-4.8) Monocytes # (Auto) 1.2x10^3/uL (0.0-1.1) Eosinophils # (Auto) 0.3x10^3/uL (0.0-0.7) Basophils # (Auto) 0.1x10^3/uL (0.0-0.2) Sodium Level 138mmol/L (136-145) Potassium Level 4.1mmol/L (3.5-5.1) Chloride Level 98mmol/L (98-107) Carbon Dioxide Level 28mmol/L (21-32) Anion Gap 12 (6-14) Blood Urea Nitrogen 33mg/dL (8-26) Creatinine 4.1mg/dL (0.7-1.3) Estimated GFR (Cockcroft-Gault) 14.1 Glucose Level 113mg/dL (70-99) Calcium Level 9.0mg/dL (8.5-10.1) Medications Active Scripts Medications Dose Route/Sig Days Date Category Effexor Xr (Venlafaxine Hcl) 150 Mg Cap.er.24h 1 Cap PO DAILY 04/24/16 Reported Flomax (Tamsulosin Hcl) 0.4 Mg Cap.er.24h 1 Cap PO HS 04/24/16 Reported Synthroid (Levothyroxine Sodium) 25 Mcg Tablet 1 Tab PO DAILY 04/24/16 Reported Isosorbide Mononitrate Er (Isosorbide Mononitrate) 30 Mg Tab.er.24h 1 Tab PO DAILY 04/24/16 Reported Pepcid (Famotidine) 20 Mg Tablet 20 Mg PO HS 04/24/16 Reported Colace (Docusate Sodium) 100 Mg Capsule 1 Cap PO DAILY 04/24/16 Reported Vitamin B-12 (Cyanocobalamin (Vitamin B-12)) 1,000 Mcg Tablet 1 Tab PO DAILY 04/24/16 Reported Vitamin D3 (Cholecalciferol (Vitamin D3)) 1,000 Unit Tablet 2 Tab PO DAILY 04/24/16 Reported Zyrtec (Cetirizine Hcl) 10 Mg Tablet 1 Tab PO DAILY 04/24/16 Reported Aspir 81 (Aspirin) 81 Mg Tablet.dr 1 Tab PO DAILY 04/24/16 Reported Impression . 1. Acute on Chronic Diastolic Heart Failure/ Less likely pneumonia 2. CAYDEN on CKD 3. Acute on chronic hypoxemic/hypercapnic respiratory failure 4. COPD - severity not quantified 5. Obesity with hypoventilation 7. Lymphedema/ Venous Stasis 8. HTN 9. Hypothyroidism 10. Dementia 11. Echo with moderate diastolic dysfunction/ EF 55% Plan . clinically improved. Monitor renal function HD continue the same for now 02 follow renal recommendations will f/u cxr 05/03 WITH IMPROVING CHF stable pulmonary burgess for d/c STEPHANIE VELÁZQUEZ MD May 04, 2016 11:47
--- NOTE | 2016-05-04 12:54 | PDOC ---
[employer] 05/04/16 1254: CARDIO Progress Notes Date and Time Date of Service 05/04/2016 Time of Evaluation 1230 Subjective Subjective: No Chest Pain, No shortness of breath, No Palpitations, No Dizziness Vitals Vitals Vital Signs Date Time Temp Pulse Resp B/P Pulse Ox O2 Delivery O2 Flow Rate FiO2 05/04/16 10:44 114/62 05/04/16 10:43 97.6 110 18 92 Nasal Cannula 2.0 97.6 Weight Weight [ ] Input and Output Intake and Output Intake and Output 05/04/16 06:59 Intake Total 1260 ml Output Total 1000 ml Balance 260 ml Intake Oral 1260 ml Output Urine Total 1000 ml Laboratory Labs Laboratory Tests Test 05/03/16 12:48 05/04/16 05:40 Glucose (Fingerstick) 139mg/dL (70-99) White Blood Count 6.8x10^3/uL (4.0-11.0) Red Blood Count 4.27x10^6/uL (4.30-5.70) Hemoglobin 11.3g/dL (13.0-17.5) Hematocrit 34.8% (39.0-53.0) Mean Corpuscular Volume 82fL (79-100) Mean Corpuscular Hemoglobin 26pg (25-35) Mean Corpuscular Hemoglobin Concent 32g/dL (31-37) Red Cell Distribution Width 15.3% (11.5-14.5) Platelet Count 237x10^3/uL (140-400) Neutrophils (%) (Auto) 53% (31-73) Lymphocytes (%) (Auto) 23% (24-48) Monocytes (%) (Auto) 18% (0-9) Eosinophils (%) (Auto) 5% (0-3) Basophils (%) (Auto) 1% (0-3) Neutrophils # (Auto) 3.6x10^3uL (1.8-7.7) Lymphocytes # (Auto) 1.6x10^3/uL (1.0-4.8) Monocytes # (Auto) 1.2x10^3/uL (0.0-1.1) Eosinophils # (Auto) 0.3x10^3/uL (0.0-0.7) Basophils # (Auto) 0.1x10^3/uL (0.0-0.2) Sodium Level 138mmol/L (136-145) Potassium Level 4.1mmol/L (3.5-5.1) Chloride Level 98mmol/L (98-107) Carbon Dioxide Level 28mmol/L (21-32) Anion Gap 12 (6-14) Blood Urea Nitrogen 33mg/dL (8-26) Creatinine 4.1mg/dL (0.7-1.3) Estimated GFR (Cockcroft-Gault) 14.1 Glucose Level 113mg/dL (70-99) Calcium Level 9.0mg/dL (8.5-10.1) Physical Exam HEENT: Neck Supple W Full Motion Chest: Symmetric LUNGS: Clear to Auscultation Heart: S1S2 Abdomen: Soft N/T, Other (obese ) Extremities: No Calf Tenderness Neurology: alert, oriented, follow commands Assessment Assessment 1. Acute on chronic diastolic heart failure clinically compensated Fluid off loading via HD 2. Acute on chronic respiratory failure/AECOPD Stable. per pulmonary 3. New ESRD HD per nephrology 4. Atrial Fibrillation New paroxysmal episode? rate controlled without meds. No prior EKG and will obtain. No on tele monitor. Not on tele monitor. EKG today. Will place on low dose metoprolol for rate control diastolic dysfunction Continue with ASA for stroke prevention. Poor candidate for anticoagulation with multiple falls and dementia. Pt will follow up with [place] cardiology. Recommend event monitor to note afib burden. 5. Hypertension improved control Start on metoprolol, continue on low dose imdur 6. Anemia of chronic disease 7. Hypothyroidism on replacement therapy JESS BURT MD 05/04/16 [id number]: CARDIO Progress Notes Plan Plan Patient seen and examined. Agree with above nurse practitioner note. No significant events overnight. He is doing well after initiation of dialysis. On exam he has significantly reduced edema in his lower extremities. Heart tones are regular. Medications and laboratory studies reviewed. Continue supportive care from a cardiac perspective. Based on his symptoms on outpatient basis could titrate medical therapy as necessary and would follow up with [place] cardiology for repeat discussion regarding anticoagulation after stabilization of his acute issues. We will follow along peripherally. Okay to discharge from a cardiac perspective. HODAN RASCON APRN May 04, 2016 12:54 JESS BURT MD May 04, 2016 17:15
--- NOTE | 2016-05-04 13:21 | EKG ---
[facility] [address] [place] [address] Test Date: 2016-05-04 Test Time: 13:19:17 Pat Name: JENNY KERN Department: Room: [facility] Gender: M Tongue Binder: QUOC : 1935 Requested By: HODAN RASCON Order Number: [id number] Reading MD: Measurements Intervals [place] Rate: 88 P: MI: QRS: 31 QRSD: 82 T: 24 QT: 358 QTc: 437 Interpretive Statements IRREGULAR RHYTHM, NO P-WAVE FOUND NO SPECIFIC ECG ABNORMALITIES RI6.01 No previous ECG available for comparison
[2016-05-04 14:54] VITALS: BP 110/58
[2016-05-04] MEDS: METOPROLOL SUCC 24HR ER 25 MG TAB.ER.24H. PO SCH (16:03)
[2016-05-04 19:00] VITALS: BP 110/60
[2016-05-04] MEDS: TAMSULOSIN 0.4 MG CAP.ER.24H. PO SCH (21:10)
[2016-05-04 23:07] VITALS: BP 109/59
--- NOTE | 2016-05-04 23:50 | PDOC ---
Provider Note Provider Note RENAL F/U : FELICIA S : No new c/o reported. O : VSS Afebrile. Awake Fairly lethargic,. Weak and emaciated. Neck : Supple Lungs : Decreased bases. Non labored. CVS : RRR Abd : Benign in appearance. Ext : No CCE Labs reviewed. A/P : ESRD ANEMIA HTN Doing fair. HD in am. ISACC DUARTE MD May 04, 2016 23:50
[2016-05-05 03:07] VITALS: BP 105/61
[2016-05-05] MEDS: LEVOTHYROXINE 25 MCG TABLET. PO SCH (05:40)
[2016-05-05] MEDS: HEPARIN PF for SUB-Q USE 5,000 UNIT/0.5 ML VIAL. SQ SCH ×3 (05:43→21:23)
[2016-05-05 06:36] LABS: BASO # 0.1 x10^3/uL (0.0-0.2); BASO % 1 % (0-3); EOS % 5 % (0-3); HEMATOCRIT 34.1 % (39.0-53.0); HEMOGLOBIN 11.3 g/dL (13.0-17.5); LYMPH # 1.8 x10^3/uL (1.0-4.8); LYMPH % 26 % (24-48); MEAN CORPUSCULAR HEMOGLOBIN 27 pg (25-35); MEAN CORPUSCULAR HGB CONC 33 g/dL (31-37); MEAN CORPUSCULAR VOLUME 80 fL (79-100); MONO % 17 % (0-9); NEUT % 51 % (31-73); PLATELET COUNT 248 x10^3/uL (140-400); RED BLOOD COUNT 4.24 x10^6/uL (4.30-5.70); RED CELL DISTRIBUTION WIDTH 15.6 % (11.5-14.5); WHITE BLOOD COUNT 6.9 x10^3/uL (4.0-11.0)
[2016-05-05 06:52] LABS: CALCIUM 8.7 mg/dL (8.5-10.1); GFR 11.2; POTASSIUM 3.8 mmol/L (3.5-5.1)
[2016-05-05 07:00] VITALS: BP 100/61
[2016-05-05] MEDS: IPRATRPIUM/ALBUTEROL 0.5/2.5MG 3 ML NEBU. NEB SCH ×4 (08:00→19:53)
[2016-05-05] MEDS: BUDESONIDE 0.5 MG/2 ML NEBU NEB SCH ×2 (08:00→19:54)
[2016-05-05] MEDS: METOPROLOL SUCC 24HR ER 25 MG TAB.ER.24H. PO SCH (09:00)
[2016-05-05] MEDS: ISOSORBIDE MONONITRATE ER 30 MG TAB.ER.24H PO SCH (09:00)
--- NOTE | 2016-05-05 09:03 | PDOC ---
PULMONARY PROGRESS NOTES Subjective pt feels better Vitals Vital Signs Date Time Temp Pulse Resp B/P Pulse Ox O2 Delivery O2 Flow Rate FiO2 05/05/16 08:36 92 Room Air 05/05/16 07:00 97.5 70 16 100/61 2.0 97.5 General: Alert, No acute distress Lungs: Wheezing, Other (Decreased breath sounds b/l) Cardiovascular: S1, S2 Abdomen: Soft, Non-tender Neuro Exam: Alert, Oriented Extremities: Other (2+edema) Skin: Warm, Dry Labs Laboratory Tests Test 05/03/16 12:48 05/04/16 05:40 05/05/16 05:37 Glucose (Fingerstick) 139mg/dL (70-99) White Blood Count 6.8x10^3/uL (4.0-11.0) 6.9x10^3/uL (4.0-11.0) Red Blood Count 4.27x10^6/uL (4.30-5.70) 4.24x10^6/uL (4.30-5.70) Hemoglobin 11.3g/dL (13.0-17.5) 11.3g/dL (13.0-17.5) Hematocrit 34.8% (39.0-53.0) 34.1% (39.0-53.0) Mean Corpuscular Volume 82fL (79-100) 80fL (79-100) Mean Corpuscular Hemoglobin 26pg (25-35) 27pg (25-35) Mean Corpuscular Hemoglobin Concent 32g/dL (31-37) 33g/dL (31-37) Red Cell Distribution Width 15.3% (11.5-14.5) 15.6% (11.5-14.5) Platelet Count 237x10^3/uL (140-400) 248x10^3/uL (140-400) Neutrophils (%) (Auto) 53% (31-73) 51% (31-73) Lymphocytes (%) (Auto) 23% (24-48) 26% (24-48) Monocytes (%) (Auto) 18% (0-9) 17% (0-9) Eosinophils (%) (Auto) 5% (0-3) 5% (0-3) Basophils (%) (Auto) 1% (0-3) 1% (0-3) Neutrophils # (Auto) 3.6x10^3uL (1.8-7.7) 3.5x10^3uL (1.8-7.7) Lymphocytes # (Auto) 1.6x10^3/uL (1.0-4.8) 1.8x10^3/uL (1.0-4.8) Monocytes # (Auto) 1.2x10^3/uL (0.0-1.1) 1.1x10^3/uL (0.0-1.1) Eosinophils # (Auto) 0.3x10^3/uL (0.0-0.7) 0.4x10^3/uL (0.0-0.7) Basophils # (Auto) 0.1x10^3/uL (0.0-0.2) 0.1x10^3/uL (0.0-0.2) Sodium Level 138mmol/L (136-145) 134mmol/L (136-145) Potassium Level 4.1mmol/L (3.5-5.1) 3.8mmol/L (3.5-5.1) Chloride Level 98mmol/L (98-107) 97mmol/L (98-107) Carbon Dioxide Level 28mmol/L (21-32) 28mmol/L (21-32) Anion Gap 12 (6-14) 9 (6-14) Blood Urea Nitrogen 33mg/dL (8-26) 50mg/dL (8-26) Creatinine 4.1mg/dL (0.7-1.3) 5.0mg/dL (0.7-1.3) Estimated GFR (Cockcroft-Gault) 14.1 11.2 Glucose Level 113mg/dL (70-99) 104mg/dL (70-99) Calcium Level 9.0mg/dL (8.5-10.1) 8.7mg/dL (8.5-10.1) Laboratory Tests Test 05/05/16 05:37 White Blood Count 6.9x10^3/uL (4.0-11.0) Red Blood Count 4.24x10^6/uL (4.30-5.70) Hemoglobin 11.3g/dL (13.0-17.5) Hematocrit 34.1% (39.0-53.0) Mean Corpuscular Volume 80fL (79-100) Mean Corpuscular Hemoglobin 27pg (25-35) Mean Corpuscular Hemoglobin Concent 33g/dL (31-37) Red Cell Distribution Width 15.6% (11.5-14.5) Platelet Count 248x10^3/uL (140-400) Neutrophils (%) (Auto) 51% (31-73) Lymphocytes (%) (Auto) 26% (24-48) Monocytes (%) (Auto) 17% (0-9) Eosinophils (%) (Auto) 5% (0-3) Basophils (%) (Auto) 1% (0-3) Neutrophils # (Auto) 3.5x10^3uL (1.8-7.7) Lymphocytes # (Auto) 1.8x10^3/uL (1.0-4.8) Monocytes # (Auto) 1.1x10^3/uL (0.0-1.1) Eosinophils # (Auto) 0.4x10^3/uL (0.0-0.7) Basophils # (Auto) 0.1x10^3/uL (0.0-0.2) Sodium Level 134mmol/L (136-145) Potassium Level 3.8mmol/L (3.5-5.1) Chloride Level 97mmol/L (98-107) Carbon Dioxide Level 28mmol/L (21-32) Anion Gap 9 (6-14) Blood Urea Nitrogen 50mg/dL (8-26) Creatinine 5.0mg/dL (0.7-1.3) Estimated GFR (Cockcroft-Gault) 11.2 Glucose Level 104mg/dL (70-99) Calcium Level 8.7mg/dL (8.5-10.1) Medications Active Scripts Medications Dose Route/Sig Days Date Category Effexor Xr (Venlafaxine Hcl) 150 Mg Cap.er.24h 1 Cap PO DAILY 04/24/16 Reported Flomax (Tamsulosin Hcl) 0.4 Mg Cap.er.24h 1 Cap PO HS 04/24/16 Reported Synthroid (Levothyroxine Sodium) 25 Mcg Tablet 1 Tab PO DAILY 04/24/16 Reported Isosorbide Mononitrate Er (Isosorbide Mononitrate) 30 Mg Tab.er.24h 1 Tab PO DAILY 04/24/16 Reported Pepcid (Famotidine) 20 Mg Tablet 20 Mg PO HS 04/24/16 Reported Colace (Docusate Sodium) 100 Mg Capsule 1 Cap PO DAILY 04/24/16 Reported Vitamin B-12 (Cyanocobalamin (Vitamin B-12)) 1,000 Mcg Tablet 1 Tab PO DAILY 04/24/16 Reported Vitamin D3 (Cholecalciferol (Vitamin D3)) 1,000 Unit Tablet 2 Tab PO DAILY 04/24/16 Reported Zyrtec (Cetirizine Hcl) 10 Mg Tablet 1 Tab PO DAILY 04/24/16 Reported Aspir 81 (Aspirin) 81 Mg Tablet.dr 1 Tab PO DAILY 04/24/16 Reported Impression . 1. Acute on Chronic Diastolic Heart Failure/ Less likely pneumonia 2. CAYDEN on CKD 3. Acute on chronic hypoxemic/hypercapnic respiratory failure 4. COPD - severity not quantified 5. Obesity with hypoventilation 7. Lymphedema/ Venous Stasis 8. HTN 9. Hypothyroidism 10. Dementia 11. Echo with moderate diastolic dysfunction/ EF 55% Plan . clinically improved. Monitor renal function HD continue the same for now 02 follow renal recommendations will f/u cxr 05/03 WITH IMPROVING CHF stable pulmonary burgess for d/c LAI KIM MD May 05, 2016 09:03
[2016-05-05] MEDS: VENLAFAXINE 50 MG TABLET. PO SCH ×3 (09:34→21:22)
[2016-05-05] MEDS: CHOLECALCIFEROL (VITAMIN D3) 1,000 UNIT TABLET PO SCH (09:34)
[2016-05-05] MEDS: DOCUSATE SODIUM 100 MG CAPSULE PO SCH (09:34)
[2016-05-05] MEDS: CYANOCOBALAMIN (VITAMIN B-12) 1,000 MCG TABLET. PO SCH (09:34)
[2016-05-05] MEDS: CETIRIZINE HCL 10 MG TABLET PO SCH (09:35)
[2016-05-05] MEDS: ASPIRIN ENTERIC COATED 81 MG TABLET.DR. PO SCH (09:35)
[2016-05-05] MEDS: FUROSEMIDE 80 MG TABLET PO SCH ×2 (09:35→21:22)
[2016-05-05 11:00] VITALS: BP 125/77
--- NOTE | 2016-05-05 11:16 | PDOC ---
PROGRESS NOTES Chief Complaint Chief Complaint 1. 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 Acute diastolic CHF 3. Acute on chronic respiratory failure 4. Cognitive Impairment 5. Bilateral pitting edema 6. Mod PCM 7. Obesity, BMI 35 8. Hypothyroidism 9. Weakness and debility History of Present Illness History of Present Illness 80 y/o male pt seen in the hospital today. He was originally admitted for respiratory failure, renal failure, and COPD. Pt is on 2 L nasal cannula, refused breathing tx. CXR showed unchanged pleural/parenchymal opacities, R greater than L, suggesting mild CHF. Awaiting approval from [facility] for his out pt HD. Vitals Vitals Vital Signs Date Time Temp Pulse Resp B/P Pulse Ox O2 Delivery O2 Flow Rate FiO2 05/05/16 09:00 70 100/61 05/05/16 08:36 92 Room Air 05/05/16 07:00 97.5 16 2.0 97.5 Physical Exam General: Alert, Oriented X3, Cooperative, mild distress Heart: Regular rate, Normal S1, Normal S2, Other (IRR, telemetry: atrial fibrillation) Lungs: Wheezing, Other (Decreased breath sounds b/l) Abdomen: Normal bowel sounds, Soft, No masses, Other (dialysis cath intact) Extremities: No clubbing, No cyanosis, Normal pulses, Other Skin: No breakdown, No significant lesion, Other (b/l LE erythema) Labs LABS Laboratory Tests Test 05/05/16 05:37 White Blood Count 6.9x10^3/uL (4.0-11.0) Red Blood Count 4.24x10^6/uL (4.30-5.70) Hemoglobin 11.3g/dL (13.0-17.5) Hematocrit 34.1% (39.0-53.0) Mean Corpuscular Volume 80fL (79-100) Mean Corpuscular Hemoglobin 27pg (25-35) Mean Corpuscular Hemoglobin Concent 33g/dL (31-37) Red Cell Distribution Width 15.6% (11.5-14.5) Platelet Count 248x10^3/uL (140-400) Neutrophils (%) (Auto) 51% (31-73) Lymphocytes (%) (Auto) 26% (24-48) Monocytes (%) (Auto) 17% (0-9) Eosinophils (%) (Auto) 5% (0-3) Basophils (%) (Auto) 1% (0-3) Neutrophils # (Auto) 3.5x10^3uL (1.8-7.7) Lymphocytes # (Auto) 1.8x10^3/uL (1.0-4.8) Monocytes # (Auto) 1.1x10^3/uL (0.0-1.1) Eosinophils # (Auto) 0.4x10^3/uL (0.0-0.7) Basophils # (Auto) 0.1x10^3/uL (0.0-0.2) Sodium Level 134mmol/L (136-145) Potassium Level 3.8mmol/L (3.5-5.1) Chloride Level 97mmol/L (98-107) Carbon Dioxide Level 28mmol/L (21-32) Anion Gap 9 (6-14) Blood Urea Nitrogen 50mg/dL (8-26) Creatinine 5.0mg/dL (0.7-1.3) Estimated GFR (Cockcroft-Gault) 11.2 Glucose Level 104mg/dL (70-99) Calcium Level 8.7mg/dL (8.5-10.1) Review of Systems Review of Systems Resting comfortably in chair Denies N/V Assessment and Plan Assessmemt and Plan Assessment 1. 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 Acute diastolic CHF 3. Acute on chronic respiratory failure 4. Cognitive Impairment 5. Bilateral pitting edema 6. Mod PCM 7. Obesity, BMI 35 8. Hypothyroidism 9. Weakness and debility Plan 1. Continue PO diuretics, 2. Await [facility] to approve outpt HD 3. Continue supplemental oxygen, per nasal cannula 4. Appreciate subspecialty input 5. Supportive care 6. Discussed with RN 7. Pt refused PT/OT 8. Pt refused duoneb, pulmicort breathing tx 8. s/p HD catheter placement. 9. Wound care 10. Recheck labs and vitals Problems: Comment Review of Relevant I have reviewed the following items randee (where applicable) has been applied. Labs Laboratory Tests Test 05/03/16 12:48 05/04/16 05:40 05/05/16 05:37 Glucose (Fingerstick) 139mg/dL (70-99) White Blood Count 6.8x10^3/uL (4.0-11.0) 6.9x10^3/uL (4.0-11.0) Red Blood Count 4.27x10^6/uL (4.30-5.70) 4.24x10^6/uL (4.30-5.70) Hemoglobin 11.3g/dL (13.0-17.5) 11.3g/dL (13.0-17.5) Hematocrit 34.8% (39.0-53.0) 34.1% (39.0-53.0) Mean Corpuscular Volume 82fL (79-100) 80fL (79-100) Mean Corpuscular Hemoglobin 26pg (25-35) 27pg (25-35) Mean Corpuscular Hemoglobin Concent 32g/dL (31-37) 33g/dL (31-37) Red Cell Distribution Width 15.3% (11.5-14.5) 15.6% (11.5-14.5) Platelet Count 237x10^3/uL (140-400) 248x10^3/uL (140-400) Neutrophils (%) (Auto) 53% (31-73) 51% (31-73) Lymphocytes (%) (Auto) 23% (24-48) 26% (24-48) Monocytes (%) (Auto) 18% (0-9) 17% (0-9) Eosinophils (%) (Auto) 5% (0-3) 5% (0-3) Basophils (%) (Auto) 1% (0-3) 1% (0-3) Neutrophils # (Auto) 3.6x10^3uL (1.8-7.7) 3.5x10^3uL (1.8-7.7) Lymphocytes # (Auto) 1.6x10^3/uL (1.0-4.8) 1.8x10^3/uL (1.0-4.8) Monocytes # (Auto) 1.2x10^3/uL (0.0-1.1) 1.1x10^3/uL (0.0-1.1) Eosinophils # (Auto) 0.3x10^3/uL (0.0-0.7) 0.4x10^3/uL (0.0-0.7) Basophils # (Auto) 0.1x10^3/uL (0.0-0.2) 0.1x10^3/uL (0.0-0.2) Sodium Level 138mmol/L (136-145) 134mmol/L (136-145) Potassium Level 4.1mmol/L (3.5-5.1) 3.8mmol/L (3.5-5.1) Chloride Level 98mmol/L (98-107) 97mmol/L (98-107) Carbon Dioxide Level 28mmol/L (21-32) 28mmol/L (21-32) Anion Gap 12 (6-14) 9 (6-14) Blood Urea Nitrogen 33mg/dL (8-26) 50mg/dL (8-26) Creatinine 4.1mg/dL (0.7-1.3) 5.0mg/dL (0.7-1.3) Estimated GFR (Cockcroft-Gault) 14.1 11.2 Glucose Level 113mg/dL (70-99) 104mg/dL (70-99) Calcium Level 9.0mg/dL (8.5-10.1) 8.7mg/dL (8.5-10.1) Laboratory Tests Test 05/05/16 05:37 White Blood Count 6.9x10^3/uL (4.0-11.0) Red Blood Count 4.24x10^6/uL (4.30-5.70) Hemoglobin 11.3g/dL (13.0-17.5) Hematocrit 34.1% (39.0-53.0) Mean Corpuscular Volume 80fL (79-100) Mean Corpuscular Hemoglobin 27pg (25-35) Mean Corpuscular Hemoglobin Concent 33g/dL (31-37) Red Cell Distribution Width 15.6% (11.5-14.5) Platelet Count 248x10^3/uL (140-400) Neutrophils (%) (Auto) 51% (31-73) Lymphocytes (%) (Auto) 26% (24-48) Monocytes (%) (Auto) 17% (0-9) Eosinophils (%) (Auto) 5% (0-3) Basophils (%) (Auto) 1% (0-3) Neutrophils # (Auto) 3.5x10^3uL (1.8-7.7) Lymphocytes # (Auto) 1.8x10^3/uL (1.0-4.8) Monocytes # (Auto) 1.1x10^3/uL (0.0-1.1) Eosinophils # (Auto) 0.4x10^3/uL (0.0-0.7) Basophils # (Auto) 0.1x10^3/uL (0.0-0.2) Sodium Level 134mmol/L (136-145) Potassium Level 3.8mmol/L (3.5-5.1) Chloride Level 97mmol/L (98-107) Carbon Dioxide Level 28mmol/L (21-32) Anion Gap 9 (6-14) Blood Urea Nitrogen 50mg/dL (8-26) Creatinine 5.0mg/dL (0.7-1.3) Estimated GFR (Cockcroft-Gault) 11.2 Glucose Level 104mg/dL (70-99) Calcium Level 8.7mg/dL (8.5-10.1) Medications Current Medications Aspirin (Ecotrin) 81 mg DAILY PO Last administered on 05/05/16at 09:35; Start 04/24/16 at 14:00 Isosorbide Mononitrate (Imdur) 30 mg DAILY PO Last administered on 05/04/16at 10:44; Start 04/24/16 at 14:00 Furosemide 60 mg 60 mg 1X ONCE IVP Last administered on 04/24/16at 14:28; Start 04/24/16 at 14:00; Stop 04/24/16 at 14:01; Status DC Furosemide/Sodium Chloride (Lasix Drip/Iv Sodium Chloride 0.9% 100ml) 100 ml @ 0 mls/hr CONT PRN IV SEE I/O RECORD Last administered on 04/25/16at 05:36; Start 04/24/16 at 16:30; Stop 04/27/16 at 12:01; Status DC Acetaminophen (Tylenol) 650 mg PRN Q6HRS PRN PO MILD PAIN / TEMP; Start at 17:45 Ondansetron HCl (Zofran) 4 mg PRN Q6HRS PRN IV NAUSEA/VOMITING, 1st choice; Start 04/24/16 at 17:45 Diphenhydramine HCl (Benadryl) 25 mg PRN QHS PRN PO INSOMNIA Last administered on 05/02/16at 15:25; Start 04/24/16 at 17:45 Prochlorperazine Edisylate (Compazine) 10 mg PRN Q6HRS PRN IV NAUSEA/VOMITING, 2nd choice; Start 04/24/16 at 17:45 Famotidine (Pepcid) 20 mg QHS PO Last administered on 05/02/16at 21:14; Start 04/24/16 at 21:00; Stop 05/03/16 at 13:59; Status DC Cetirizine HCl (Zyrtec) 10 mg DAILY PO Last administered on 05/05/16 09:35; Start 04/25/16 at 09:00 Vitamin D (Vitamin D3) 1,000 unit DAILY PO Last administered on 05/05/16 09: 34; Start 04/25/16 at 09:00 Cyanocobalamin (Vitamin B-12) 1,000 mcg DAILY PO Last administered on 09:34; Start 04/25/16 at 09:00 Docusate Sodium (Colace) 100 mg DAILY PO Last administered on 05/05/16 09:34 ; Start 04/25/16 at 09:00 Levothyroxine Sodium (Synthroid) 25 mcg DAILY06 PO Last administered on 05:40; Start 04/25/16 at 06:00 Tamsulosin HCl (Flomax) 0.4 mg HS PO Last administered on 05/04/16at 21:10; Start 04/24/16 at 21:00 Venlafaxine HCl (Effexor) 50 mg TID PO Last administered on 05/05/16 09:34; Start 04/25/16 at 09:00 Budesonide (Pulmicort) 0.5 mg RTBID NEB Last administered on 05/03/16at 07:59; Start 04/25/16 at 10:30 Albuterol/ Ipratropium (Duoneb) 3 ml RTQID NEB Last administered on 05/03/16at 16:29; Start 04/25/16 at 12:00 Furosemide (Lasix) 40 mg 1X ONCE IVP Last administered on 04/25/16at 21:27; Start 04/25/16 at 20:00; Stop 04/25/16 at 20:01; Status DC Furosemide (Lasix) 80 mg BID IVP Last administered on 04/28/16at 08:57; Start 04/26/16 at 21:00; Stop 04/28/16 at 11:17; Status DC Albuterol Sulfate (Ventolin Neb Soln) 2.5 mg PRN Q6HRS PRN NEB SHORTNESS OF BREATH Last administered on 04/26/16at 04:21; Start 04/26/16 at 04:15 Heparin Sodium (Porcine) 5,000 unit Q8HRS SQ Last administered on 05/05/16at 05 :43; Start 04/26/16 at 22:00 Hydralazine HCl (Apresoline) 25 mg BID PO Last administered on 05/04/16at 10:43 ; Start 04/27/16 at 12:30; Stop 05/04/16 at 13:55; Status DC Furosemide (Lasix) 80 mg Q8HRS IVP Last administered on 05/01/16at 14:27; Start 04/28/16 at 14:00; Stop 05/01/16 at 15:19; Status DC Heparin Sodium (Porcine) 10,000 unit STK-MED ONCE .ROUTE ; Start 04/29/16 at 12 :35; Stop 04/29/16 at 12:36; Status DC Lidocaine/ Epinephrine 20 ml 20 ml STK-MED ONCE .ROUTE ; Start 04/29/16 at 12: 35; Stop 04/29/16 at 12:36; Status DC Heparin Sodium/ Sodium Chloride 500 ml @ As Directed STK-MED ONCE .ROUTE ; Start 04/29/16 at 12:36; Stop 04/29/16 at 12:37; Status DC Midazolam HCl (Versed) 5 mg STK-MED ONCE .ROUTE ; Start 04/29/16 at 13:40; Stop 04/29/16 at 13:41; Status DC Fentanyl Citrate 250 mcg 250 mcg STK-MED ONCE .ROUTE ; Start 04/29/16 at 13:40 ; Stop 04/29/16 at 13:41; Status DC Cefazolin Sodium (Ancef 1gm Ivpb For Omni) 50 ml @ As Directed STK-MED ONCE IV ; Start 04/29/16 at 13:40; Stop 04/29/16 at 13:41; Status DC Heparin Sodium/ Sodium Chloride 1,000 unit 1X ONCE IART Last administered on 04/29/16at 14:00; Start 04/29/16 at 14:00; Stop 04/29/16 at 14:10; Status DC Midazolam HCl (Versed) 5 mg 1X ONCE IV Last administered on 04/29/16at 14:00; Start 04/29/16 at 14:00; Stop 04/29/16 at 14:10; Status DC Fentanyl Citrate (Fentanyl 5ml Vial) 250 mcg 1X ONCE IV Last administered on 04/29/16at 14:00; Start 04/29/16 at 14:00; Stop 04/29/16 at 14:10; Status DC Lidocaine/ Epinephrine (Xylocaine 1%-Epi 1:100,000) 20 ml 1X ONCE IJ Last administered on 04/29/16at 14:00; Start 04/29/16 at 14:00; Stop 04/29/16 at 14 :10; Status DC Heparin Sodium (Porcine) 2600 unit 2,600 unit 1X ONCE INT CAT Last administered on 04/29/16at 14:00; Start 04/29/16 at 14:00; Stop 04/29/16 at 14 :10; Status DC Cefazolin Sodium 50 ml @ 0 mls/hr 1X ONCE IV Last administered on 04/29/16at 14:19; Start 04/29/16 at 14:30; Stop 04/29/16 at 14:31; Status DC Sodium Chloride (Iv Sodium Chloride 0.9% 1000ml Bag) 1,000 ml @ 1,000 mls/hr Q1H PRN IV hypotension; Start 04/30/16 at 15:00; Stop 04/30/16 at 20:59; Status DC Diphenhydramine HCl (Benadryl) 25 mg 1X PRN PRN IV ITCHING Last administered on 05/01/16at 12:29; Start 04/30/16 at 15:00; Stop 05/01/16 at 14:59; Status DC Diphenhydramine HCl (Benadryl) 25 mg 1X PRN PRN IV ITCHING; Start 04/30/16 at 15:00; Stop 05/01/16 at 14:59; Status DC Sodium Chloride (Normal Saline Flush) 10 ml 1X PRN PRN IV AP catheter pack; Start 04/30/16 at 15:00; Stop 05/01/16 at 14:59; Status DC Sodium Chloride (Normal Saline Flush) 10 ml 1X PRN PRN IV [employer] catheter pack; Start 04/30/16 at 15:00; Stop 05/01/16 at 14:59; Status DC Labetalol HCl 10 mg 10 mg PRN Q1HR PRN IVP SBP > 180; Start 04/30/16 at 15:00 ; Stop 05/01/16 at 14:59; Status DC Sodium Chloride (Iv Sodium Chloride 0.9% 1000ml Bag) 1,000 ml @ 400 mls/hr Q2H30M PRN IV PATENCY; Start 04/30/16 at 15:00; Stop 05/01/16 at 02:59; Status DC Info (PHARMACY MONITORING -- do not chart) 1 each PRN DAILY PRN MC SEE COMMENTS ; Start 04/30/16 at 15:00 Info (PHARMACY MONITORING -- do not chart) 1 each PRN DAILY PRN MC SEE COMMENTS ; Start 05/01/16 at 08:00; Status UNV Info (PHARMACY MONITORING -- do not chart) 1 each PRN DAILY PRN MC SEE COMMENTS ; Start 05/01/16 at 08:00; Status UNV Furosemide (Lasix) 80 mg BID PO Last administered on 05/05/16at 09:35; Start 05/01/16 at 21:00 Diphenhydramine HCl (Benadryl) 25 mg PRN TID PRN PO ITCHING; Start 05/02/16 at 10:30; Stop 05/04/16 at 15:00; Status DC Sodium Chloride (Normal Saline Flush) 10 ml 1X PRN PRN IV AP catheter pack; Start 05/03/16 at 12:30; Stop 05/04/16 at 12:29; Status DC Sodium Chloride (Normal Saline Flush) 10 ml 1X PRN PRN IV [employer] catheter pack; Start 05/03/16 at 12:30; Stop 05/04/16 at 12:29; Status DC Info (PHARMACY MONITORING -- do not chart) 1 each PRN DAILY PRN MC SEE COMMENTS ; Start 05/03/16 at 12:30; Status UNV Info (PHARMACY MONITORING -- do not chart) 1 each PRN DAILY PRN MC SEE COMMENTS ; Start 05/03/16 at 12:30; Status UNV Famotidine (Pepcid) 20 mg Q48H PO ; Start 05/05/16 at 21:00 Metoprolol Succinate (Toprol Xl) 25 mg DAILY PO Last administered on at 16:03; Start 05/04/16 at 14:00 Active Scripts Active Lasix (Furosemide) 80 Mg Tablet 80 Mg PO BID Reported Effexor Xr (Venlafaxine Hcl) 150 Mg Cap.er.24h 1 Cap PO DAILY Flomax (Tamsulosin Hcl) 0.4 Mg Cap.er.24h 1 Cap PO HS Synthroid (Levothyroxine Sodium) 25 Mcg Tablet 1 Tab PO DAILY Isosorbide Mononitrate Er (Isosorbide Mononitrate) 30 Mg Tab.er.24h 1 Tab PO DAILY Pepcid (Famotidine) 20 Mg Tablet 20 Mg PO HS Colace (Docusate Sodium) 100 Mg Capsule 1 Cap PO DAILY Vitamin B-12 (Cyanocobalamin (Vitamin B-12)) 1,000 Mcg Tablet 1 Tab PO DAILY Vitamin D3 (Cholecalciferol (Vitamin D3)) 1,000 Unit Tablet 2 Tab PO DAILY Zyrtec (Cetirizine Hcl) 10 Mg Tablet 1 Tab PO DAILY Aspir 81 (Aspirin) 81 Mg Tablet. 1 Tab PO DAILY Vitals/I & O Vital Sign - Last 24 Hours 05/04/16 05/04/16 05/04/16 05/04/16 14:54 16:03 19:00 20:00 Temp 97.1 97.8 97.1 97.8 Pulse 74 70 Resp 18 18 B/P 110/58 110/58 110/60 Pulse Ox 92 94 O2 Delivery Nasal Cannula Nasal Cannula Nasal Cannula O2 Flow Rate 2.0 2.0 2.0 05/04/16 05/05/16 05/05/16 05/05/16 23:07 03:07 07:00 08:36 Temp 99.0 98.1 97.5 99.0 98.1 97.5 Pulse 62 60 70 Resp 20 20 16 B/P 109/59 105/61 100/61 Pulse Ox 92 93 93 92 O2 Delivery Nasal Cannula Room Air Nasal Cannula Room Air O2 Flow Rate 2.0 2.0 05/05/16 05/05/16 09:00 09:00 Pulse 70 70 B/P 100/61 100/61 Intake and Output 05/04/16 05/04/16 05/05/16 14:59 22:59 06:59 Intake Total 1150 ml 550 ml Output Total 900 ml 500 ml Balance 250 ml 50 ml REZA WALTON III DO May 05, 2016 11:16
[2016-05-05] MEDS ORDERED: DIALYSIS PATIENT. MC PRN ×2 (13:15)
[2016-05-05 19:00] VITALS: BP 116/69
[2016-05-05] MEDS: FAMOTIDINE 20 MG TABLET. PO SCH (21:22)
[2016-05-05] MEDS: TAMSULOSIN 0.4 MG CAP.ER.24H. PO SCH (21:22)
--- NOTE | 2016-05-05 22:45 | PDOC4 ---
PROCEDURE Procedure PROCEDURE Procedure RENAL DIALYSIS/ FELICIA [place] done F 180/HCO3 / 3K Qb 450 ml/min Qb 600 ml/min UF goal upto 4 kg. Doing OK No new issues. CPM. ISACC DUARTE MD May 05, 2016 22:45
[2016-05-05 23:00] VITALS: BP 110/71
[2016-05-06 05:07] LABS: BASO # 0.1 x10^3/uL (0.0-0.2); BASO % 2 % (0-3); EOS % 5 % (0-3); HEMATOCRIT 36.6 % (39.0-53.0); HEMOGLOBIN 12.1 g/dL (13.0-17.5); LYMPH # 1.7 x10^3/uL (1.0-4.8); LYMPH % 25 % (24-48); MEAN CORPUSCULAR HEMOGLOBIN 27 pg (25-35); MEAN CORPUSCULAR HGB CONC 33 g/dL (31-37); MEAN CORPUSCULAR VOLUME 81 fL (79-100); MONO % 16 % (0-9); NEUT % 53 % (31-73); PLATELET COUNT 276 x10^3/uL (140-400); RED BLOOD COUNT 4.53 x10^6/uL (4.30-5.70); RED CELL DISTRIBUTION WIDTH 15.6 % (11.5-14.5); WHITE BLOOD COUNT 6.7 x10^3/uL (4.0-11.0)
[2016-05-06 05:08] LABS: CALCIUM 9.3 mg/dL (8.5-10.1); CREATININE 3.7 mg/dL (0.7-1.3); GFR 15.9; POTASSIUM 3.8 mmol/L (3.5-5.1)
[2016-05-06] MEDS: LEVOTHYROXINE 25 MCG TABLET. PO SCH (05:22)
[2016-05-06] MEDS: HEPARIN PF for SUB-Q USE 5,000 UNIT/0.5 ML VIAL. SQ SCH ×3 (05:27→22:34)
[2016-05-06] MEDS: IPRATRPIUM/ALBUTEROL 0.5/2.5MG 3 ML NEBU. NEB SCH ×4 (07:33→20:00)
[2016-05-06] MEDS: BUDESONIDE 0.5 MG/2 ML NEBU NEB SCH ×2 (07:34→20:00)
[2016-05-06 07:50] VITALS: BP 113/63
[2016-05-06] MEDS: VENLAFAXINE 50 MG TABLET. PO SCH ×3 (08:02→22:29)
[2016-05-06] MEDS: CETIRIZINE HCL 10 MG TABLET PO SCH (08:03)
[2016-05-06] MEDS: CYANOCOBALAMIN (VITAMIN B-12) 1,000 MCG TABLET. PO SCH (08:03)
[2016-05-06] MEDS: ASPIRIN ENTERIC COATED 81 MG TABLET.DR. PO SCH (08:03)
[2016-05-06] MEDS: METOPROLOL SUCC 24HR ER 25 MG TAB.ER.24H. PO SCH (08:04)
[2016-05-06] MEDS: CHOLECALCIFEROL (VITAMIN D3) 1,000 UNIT TABLET PO SCH (08:05)
[2016-05-06] MEDS: FUROSEMIDE 80 MG TABLET PO SCH ×2 (08:05→22:29)
[2016-05-06] MEDS: DOCUSATE SODIUM 100 MG CAPSULE PO SCH (08:05)
[2016-05-06] MEDS: ISOSORBIDE MONONITRATE ER 30 MG TAB.ER.24H PO SCH (08:05)
--- NOTE | 2016-05-06 08:37 | PDOC ---
PROGRESS NOTES Chief Complaint Chief Complaint 1. 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 Acute diastolic CHF 3. Acute on chronic respiratory failure 4. Cognitive Impairment 5. Bilateral pitting edema 6. Mod PCM 7. Obesity, BMI 35 8. Hypothyroidism 9. Weakness and debility 10. Anxiety History of Present Illness History of Present Illness 80 y/o M seen in the hospital. Pt was admitted to ED with respiratory failure, renal failure, and COPD. He is on 2 L oxygen nasal cannula and refused breath tx. Pt appears mildly distressed, will start ativan 1 mg IV prn q6h. CXR showed unchanged pleural/parenchymal opacities, R greater than L, suggesting mild CHF. Pt had hemodialysis yesterday. Currently awaiting approval from [facility] to approve out pt HD. Vitals Vitals Vital Signs Date Time Temp Pulse Resp B/P Pulse Ox O2 Delivery O2 Flow Rate FiO2 05/06/16 08:19 Room Air 05/06/16 08:05 82 113/63 05/06/16 07:50 97.7 19 93 97.7 05/05/16 20:00 2.0 Physical Exam General: Alert, Oriented X3, Cooperative, mild distress Heart: Regular rate, Normal S1, Normal S2, Other (IRR, telemetry: atrial fibrillation) Lungs: Wheezing, Other (dec BS b/l) Abdomen: Normal bowel sounds, Soft, No masses, Other (dialysis catheter is intact) Extremities: No clubbing, No cyanosis, Normal pulses, Other Skin: No breakdown, No significant lesion, Other (bilateral LE erythema) Labs LABS Laboratory Tests Test 05/06/16 04:02 White Blood Count 6.7x10^3/uL (4.0-11.0) Red Blood Count 4.53x10^6/uL (4.30-5.70) Hemoglobin 12.1g/dL (13.0-17.5) Hematocrit 36.6% (39.0-53.0) Mean Corpuscular Volume 81fL (79-100) Mean Corpuscular Hemoglobin 27pg (25-35) Mean Corpuscular Hemoglobin Concent 33g/dL (31-37) Red Cell Distribution Width 15.6% (11.5-14.5) Platelet Count 276x10^3/uL (140-400) Neutrophils (%) (Auto) 53% (31-73) Lymphocytes (%) (Auto) 25% (24-48) Monocytes (%) (Auto) 16% (0-9) Eosinophils (%) (Auto) 5% (0-3) Basophils (%) (Auto) 2% (0-3) Neutrophils # (Auto) 3.5x10^3uL (1.8-7.7) Lymphocytes # (Auto) 1.7x10^3/uL (1.0-4.8) Monocytes # (Auto) 1.1x10^3/uL (0.0-1.1) Eosinophils # (Auto) 0.3x10^3/uL (0.0-0.7) Basophils # (Auto) 0.1x10^3/uL (0.0-0.2) Sodium Level 133mmol/L (136-145) Potassium Level 3.8mmol/L (3.5-5.1) Chloride Level 96mmol/L (98-107) Carbon Dioxide Level 29mmol/L (21-32) Anion Gap 8 (6-14) Blood Urea Nitrogen 32mg/dL (8-26) Creatinine 3.7mg/dL (0.7-1.3) Estimated GFR (Cockcroft-Gault) 15.9 Glucose Level 114mg/dL (70-99) Calcium Level 9.3mg/dL (8.5-10.1) Review of Systems Review of Systems Pt denies N/V Pt appears distressed and anxious Assessment and Plan Assessmemt and Plan Assessment 1. 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 Acute diastolic CHF 3. Acute on chronic respiratory failure 4. Cognitive Impairment 5. Bilateral pitting edema 6. Mod PCM 7. Obesity, BMI 35 8. Hypothyroidism 9. Weakness and debility 10. Anxiety Plan 1. Continue PO diuretics, 2. Await [facility] to approve outpt HD 3. Continue supplemental oxygen, per nasal cannula 4. Appreciate subspecialty input 5. Supportive care 6. Discussed with RN 7. Pt refused PT/OT 8. Pt refused duoneb, pulmicort breathing tx 8. s/p HD catheter placement. 9. Wound care 10. Recheck labs and vitals 11. Ativan 1 mg IV prn q6h Problems: Comment Review of Relevant I have reviewed the following items randee (where applicable) has been applied. Labs Laboratory Tests Test 05/05/16 05:37 12/29/16 04:02 White Blood Count 6.9x10^3/uL (4.0-11.0) 6.7x10^3/uL (4.0-11.0) Red Blood Count 4.24x10^6/uL (4.30-5.70) 4.53x10^6/uL (4.30-5.70) Hemoglobin 11.3g/dL (13.0-17.5) 12.1g/dL (13.0-17.5) Hematocrit 34.1% (39.0-53.0) 36.6% (39.0-53.0) Mean Corpuscular Volume 80fL (79-100) 81fL (79-100) Mean Corpuscular Hemoglobin 27pg (25-35) 27pg (25-35) Mean Corpuscular Hemoglobin Concent 33g/dL (31-37) 33g/dL (31-37) Red Cell Distribution Width 15.6% (11.5-14.5) 15.6% (11.5-14.5) Platelet Count 248x10^3/uL (140-400) 276x10^3/uL (140-400) Neutrophils (%) (Auto) 51% (31-73) 53% (31-73) Lymphocytes (%) (Auto) 26% (24-48) 25% (24-48) Monocytes (%) (Auto) 17% (0-9) 16% (0-9) Eosinophils (%) (Auto) 5% (0-3) 5% (0-3) Basophils (%) (Auto) 1% (0-3) 2% (0-3) Neutrophils # (Auto) 3.5x10^3uL (1.8-7.7) 3.5x10^3uL (1.8-7.7) Lymphocytes # (Auto) 1.8x10^3/uL (1.0-4.8) 1.7x10^3/uL (1.0-4.8) Monocytes # (Auto) 1.1x10^3/uL (0.0-1.1) 1.1x10^3/uL (0.0-1.1) Eosinophils # (Auto) 0.4x10^3/uL (0.0-0.7) 0.3x10^3/uL (0.0-0.7) Basophils # (Auto) 0.1x10^3/uL (0.0-0.2) 0.1x10^3/uL (0.0-0.2) Sodium Level 134mmol/L (136-145) 133mmol/L (136-145) Potassium Level 3.8mmol/L (3.5-5.1) 3.8mmol/L (3.5-5.1) Chloride Level 97mmol/L (98-107) 96mmol/L (98-107) Carbon Dioxide Level 28mmol/L (21-32) 29mmol/L (21-32) Anion Gap 9 (6-14) 8 (6-14) Blood Urea Nitrogen 50mg/dL (8-26) 32mg/dL (8-26) Creatinine 5.0mg/dL (0.7-1.3) 3.7mg/dL (0.7-1.3) Estimated GFR (Cockcroft-Gault) 11.2 15.9 Glucose Level 104mg/dL (70-99) 114mg/dL (70-99) Calcium Level 8.7mg/dL (8.5-10.1) 9.3mg/dL (8.5-10.1) Laboratory Tests Test 05/06/16 04:02 White Blood Count 6.7x10^3/uL (4.0-11.0) Red Blood Count 4.53x10^6/uL (4.30-5.70) Hemoglobin 12.1g/dL (13.0-17.5) Hematocrit 36.6% (39.0-53.0) Mean Corpuscular Volume 81fL (79-100) Mean Corpuscular Hemoglobin 27pg (25-35) Mean Corpuscular Hemoglobin Concent 33g/dL (31-37) Red Cell Distribution Width 15.6% (11.5-14.5) Platelet Count 276x10^3/uL (140-400) Neutrophils (%) (Auto) 53% (31-73) Lymphocytes (%) (Auto) 25% (24-48) Monocytes (%) (Auto) 16% (0-9) Eosinophils (%) (Auto) 5% (0-3) Basophils (%) (Auto) 2% (0-3) Neutrophils # (Auto) 3.5x10^3uL (1.8-7.7) Lymphocytes # (Auto) 1.7x10^3/uL (1.0-4.8) Monocytes # (Auto) 1.1x10^3/uL (0.0-1.1) Eosinophils # (Auto) 0.3x10^3/uL (0.0-0.7) Basophils # (Auto) 0.1x10^3/uL (0.0-0.2) Sodium Level 133mmol/L (136-145) Potassium Level 3.8mmol/L (3.5-5.1) Chloride Level 96mmol/L (98-107) Carbon Dioxide Level 29mmol/L (21-32) Anion Gap 8 (6-14) Blood Urea Nitrogen 32mg/dL (8-26) Creatinine 3.7mg/dL (0.7-1.3) Estimated GFR (Cockcroft-Gault) 15.9 Glucose Level 114mg/dL (70-99) Calcium Level 9.3mg/dL (8.5-10.1) Medications Current Medications Aspirin (Ecotrin) 81 mg DAILY PO Last administered on 05/06/16at 08:03; Start 04/24/16 at 14:00 Isosorbide Mononitrate (Imdur) 30 mg DAILY PO Last administered on 05/06/16at 08:05; Start 04/24/16 at 14:00 Furosemide 60 mg 60 mg 1X ONCE IVP Last administered on 04/24/16at 14:28; Start 04/24/16 at 14:00; Stop 04/24/16 at 14:01; Status DC Furosemide/Sodium Chloride (Lasix Drip/Iv Sodium Chloride 0.9% 100ml) 100 ml @ 0 mls/hr CONT PRN IV SEE I/O RECORD Last administered on 04/25/16at 05:36; Start 04/24/16 at 16:30; Stop 04/27/16 at 12:01; Status DC Acetaminophen (Tylenol) 650 mg PRN Q6HRS PRN PO MILD PAIN / TEMP; Start 12/17/ 16 at 17:45 Ondansetron HCl (Zofran) 4 mg PRN Q6HRS PRN IV NAUSEA/VOMITING, 1st choice; Start 04/24/16 at 17:45 Diphenhydramine HCl (Benadryl) 25 mg PRN QHS PRN PO INSOMNIA Last administered on 05/02/16 15:25; Start 04/24/16 at 17:45 Prochlorperazine Edisylate (Compazine) 10 mg PRN Q6HRS PRN IV NAUSEA/VOMITING, 2nd choice; Start 04/24/16 at 17:45 Famotidine (Pepcid) 20 mg QHS PO Last administered on 05/02/16 21:14; Start 04/24/16 at 21:00; Stop 05/03/16 at 13:59; Status DC Cetirizine HCl (Zyrtec) 10 mg DAILY PO Last administered on 05/06/16 08:03; Start 04/25/16 at 09:00 Vitamin D (Vitamin D3) 1,000 unit DAILY PO Last administered on 05/06/16 08: 05; Start 04/25/16 at 09:00 Cyanocobalamin (Vitamin B-12) 1,000 mcg DAILY PO Last administered on 08:03; Start 04/25/16 at 09:00 Docusate Sodium (Colace) 100 mg DAILY PO Last administered on 05/06/16 08:05 ; Start 04/25/16 at 09:00 Levothyroxine Sodium (Synthroid) 25 mcg DAILY06 PO Last administered on 05:22; Start 04/25/16 at 06:00 Tamsulosin HCl (Flomax) 0.4 mg HS PO Last administered on 05/05/16 21:22; Start 04/24/16 at 21:00 Venlafaxine HCl (Effexor) 50 mg TID PO Last administered on 05/06/16 08:02; Start 04/25/16 at 09:00 Budesonide (Pulmicort) 0.5 mg RTBID NEB Last administered on 05/03/16at 07:59; Start 04/25/16 at 10:30 Albuterol/ Ipratropium (Duoneb) 3 ml RTQID NEB Last administered on 05/03/16at 16:29; Start 04/25/16 at 12:00 Furosemide (Lasix) 40 mg 1X ONCE IVP Last administered on 04/25/16at 21:27; Start 04/25/16 at 20:00; Stop 04/25/16 at 20:01; Status DC Furosemide (Lasix) 80 mg BID IVP Last administered on 04/28/16at 08:57; Start 04/26/16 at 21:00; Stop 04/28/16 at 11:17; Status DC Albuterol Sulfate (Ventolin Neb Soln) 2.5 mg PRN Q6HRS PRN NEB SHORTNESS OF BREATH Last administered on 04/26/16at 04:21; Start 04/26/16 at 04:15 Heparin Sodium (Porcine) 5,000 unit Q8HRS SQ Last administered on 05/06/16at 05 :27; Start 04/26/16 at 22:00 Hydralazine HCl (Apresoline) 25 mg BID PO Last administered on 05/04/16at 10:43 ; Start 04/27/16 at 12:30; Stop 05/04/16 at 13:55; Status DC Furosemide (Lasix) 80 mg Q8HRS IVP Last administered on 05/01/16at 14:27; Start 04/28/16 at 14:00; Stop 05/01/16 at 15:19; Status DC Heparin Sodium (Porcine) 10,000 unit STK-MED ONCE .ROUTE ; Start 04/29/16 at 12 :35; Stop 04/29/16 at 12:36; Status DC Lidocaine/ Epinephrine 20 ml 20 ml STK-MED ONCE .ROUTE ; Start 04/29/16 at 12: 35; Stop 04/29/16 at 12:36; Status DC Heparin Sodium/ Sodium Chloride 500 ml @ As Directed STK-MED ONCE .ROUTE ; Start 04/29/16 at 12:36; Stop 04/29/16 at 12:37; Status DC Midazolam HCl (Versed) 5 mg STK-MED ONCE .ROUTE ; Start 04/29/16 at 13:40; Stop 04/29/16 at 13:41; Status DC Fentanyl Citrate 250 mcg 250 mcg STK-MED ONCE .ROUTE ; Start 04/29/16 at 13:40 ; Stop 04/29/16 at 13:41; Status DC Cefazolin Sodium (Ancef 1gm Ivpb For Omni) 50 ml @ As Directed STK-MED ONCE IV ; Start 04/29/16 at 13:40; Stop 04/29/16 at 13:41; Status DC Heparin Sodium/ Sodium Chloride 1,000 unit 1X ONCE IART Last administered on 04/29/16at 14:00; Start 04/29/16 at 14:00; Stop 04/29/16 at 14:10; Status DC Midazolam HCl (Versed) 5 mg 1X ONCE IV Last administered on 04/29/16at 14:00; Start 04/29/16 at 14:00; Stop 04/29/16 at 14:10; Status DC Fentanyl Citrate (Fentanyl 5ml Vial) 250 mcg 1X ONCE IV Last administered on 04/29/16at 14:00; Start 04/29/16 at 14:00; Stop 04/29/16 at 14:10; Status DC Lidocaine/ Epinephrine (Xylocaine 1%-Epi 1:100,000) 20 ml 1X ONCE IJ Last administered on 04/29/16at 14:00; Start 04/29/16 at 14:00; Stop 04/29/16 at 14 :10; Status DC Heparin Sodium (Porcine) 2600 unit 2,600 unit 1X ONCE INT CAT Last administered on 04/29/16at 14:00; Start 04/29/16 at 14:00; Stop 04/29/16 at 14 :10; Status DC Cefazolin Sodium 50 ml @ 0 mls/hr 1X ONCE IV Last administered on 04/29/16at 14:19; Start 04/29/16 at 14:30; Stop 04/29/16 at 14:31; Status DC Sodium Chloride (Iv Sodium Chloride 0.9% 1000ml Bag) 1,000 ml @ 1,000 mls/hr Q1H PRN IV hypotension; Start 04/30/16 at 15:00; Stop 04/30/16 at 20:59; Status DC Diphenhydramine HCl (Benadryl) 25 mg 1X PRN PRN IV ITCHING Last administered on 05/01/16at 12:29; Start 04/30/16 at 15:00; Stop 05/01/16 at 14:59; Status DC Diphenhydramine HCl (Benadryl) 25 mg 1X PRN PRN IV ITCHING; Start 04/30/16 at 15:00; Stop 05/01/16 at 14:59; Status DC Sodium Chloride (Normal Saline Flush) 10 ml 1X PRN PRN IV AP catheter pack; Start 04/30/16 at 15:00; Stop 05/01/16 at 14:59; Status DC Sodium Chloride (Normal Saline Flush) 10 ml 1X PRN PRN IV CONTROL SUPERVISOR catheter pack; Start 04/30/16 at 15:00; Stop 05/01/16 at 14:59; Status DC Labetalol HCl 10 mg 10 mg PRN Q1HR PRN IVP SBP > 180; Start 04/30/16 at 15:00 ; Stop 05/01/16 at 14:59; Status DC Sodium Chloride (Iv Sodium Chloride 0.9% 1000ml Bag) 1,000 ml @ 400 mls/hr Q2H30M PRN IV PATENCY; Start 04/30/16 at 15:00; Stop 05/01/16 at 02:59; Status DC Info (PHARMACY MONITORING -- do not chart) 1 each PRN DAILY PRN MC SEE COMMENTS ; Start 04/30/16 at 15:00 Info (PHARMACY MONITORING -- do not chart) 1 each PRN DAILY PRN MC SEE COMMENTS ; Start 05/01/16 at 08:00; Status UNV Info (PHARMACY MONITORING -- do not chart) 1 each PRN DAILY PRN MC SEE COMMENTS ; Start 05/01/16 at 08:00; Status UNV Furosemide (Lasix) 80 mg BID PO Last administered on 05/06/16at 08:05; Start 05/01/16 at 21:00 Diphenhydramine HCl (Benadryl) 25 mg PRN TID PRN PO ITCHING; Start 05/02/16 at 10:30; Stop 05/04/16 at 15:00; Status DC Sodium Chloride (Normal Saline Flush) 10 ml 1X PRN PRN IV AP catheter pack; Start 05/03/16 at 12:30; Stop 05/04/16 at 12:29; Status DC Sodium Chloride (Normal Saline Flush) 10 ml 1X PRN PRN IV CONTROL SUPERVISOR catheter pack; Start 05/03/16 at 12:30; Stop 05/04/16 at 12:29; Status DC Info (PHARMACY MONITORING -- do not chart) 1 each PRN DAILY PRN MC SEE COMMENTS ; Start 05/03/16 at 12:30; Status UNV Info (PHARMACY MONITORING -- do not chart) 1 each PRN DAILY PRN MC SEE COMMENTS ; Start 05/03/16 at 12:30; Status UNV Famotidine (Pepcid) 20 mg Q48H PO Last administered on 05/05/16at 21:22; Start 05/05/16 at 21:00 Metoprolol Succinate (Toprol Xl) 25 mg DAILY PO Last administered on at 08:04; Start 05/04/16 at 14:00 Info (PHARMACY MONITORING -- do not chart) 1 each PRN DAILY PRN MC SEE COMMENTS ; Start 05/05/16 at 13:15; Status UNV Info (PHARMACY MONITORING -- do not chart) 1 each PRN DAILY PRN MC SEE COMMENTS ; Start 05/05/16 at 13:15; Status UNV Active Scripts Active Lasix (Furosemide) 80 Mg Tablet 80 Mg PO BID Reported Effexor Xr (Venlafaxine Hcl) 150 Mg Cap.er.24h 1 Cap PO DAILY Flomax (Tamsulosin Hcl) 0.4 Mg Cap.er.24h 1 Cap PO HS Synthroid (Levothyroxine Sodium) 25 Mcg Tablet 1 Tab PO DAILY Isosorbide Mononitrate Er (Isosorbide Mononitrate) 30 Mg Tab.er.24h 1 Tab PO DAILY Pepcid (Famotidine) 20 Mg Tablet 20 Mg PO HS Colace (Docusate Sodium) 100 Mg Capsule 1 Cap PO DAILY Vitamin B-12 (Cyanocobalamin (Vitamin B-12)) 1,000 Mcg Tablet 1 Tab PO DAILY Vitamin D3 (Cholecalciferol (Vitamin D3)) 1,000 Unit Tablet 2 Tab PO DAILY Zyrtec (Cetirizine Hcl) 10 Mg Tablet 1 Tab PO DAILY Aspir 81 (Aspirin) 81 Mg Tablet. 1 Tab PO DAILY Vitals/I & O Vital Sign - Last 24 Hours 05/05/16 05/05/16 05/05/16 05/05/16 08:36 09:00 09:00 11:00 Temp 97.3 97.3 Pulse 70 70 67 Resp 12 B/P 100/61 100/61 125/77 Pulse Ox 92 92 O2 Delivery Room Air Room Air 05/05/16 05/05/16 05/05/1616 19:00 20:00 23:00 07:34 Temp 98.9 98.7 98.9 98.7 Pulse 68 68 Resp 19 19 B/P 116/69 110/71 Pulse Ox 92 93 96 O2 Delivery Room Air Nasal Cannula Room Air Room Air O2 Flow Rate 2.0 05/06/16 05/06/16 05/06/16 05/06/16 07:50 08:04 08:05 08:19 Temp 97.7 97.7 Pulse 82 82 82 Resp 19 B/P 113/63 113/63 113/63 Pulse Ox 93 O2 Delivery Room Air Room Air Intake and Output 05/05/16 05/05/16 05/06/16 14:59 22:59 06:59 Intake Total 180 ml 500 ml Balance 180 ml 500 ml REZA WALTON III DO May 06, 2016 08:37
--- NOTE | 2016-05-06 09:49 | PDOC ---
PULMONARY PROGRESS NOTES Subjective pt feels better Vitals Vital Signs Date Time Temp Pulse Resp B/P Pulse Ox O2 Delivery O2 Flow Rate FiO2 05/06/16 08:19 Room Air 05/06/16 08:05 82 113/63 05/06/16 07:50 97.7 19 93 97.7 05/05/16 20:00 2.0 General: Alert, No acute distress Lungs: Wheezing, Other (dec BS b/l) Cardiovascular: S1, S2 Abdomen: Soft, Non-tender Neuro Exam: Alert, Oriented Extremities: Other (2+edema) Skin: Warm, Dry Labs Laboratory Tests Test 05/05/16 05:37 05/06/16 04:02 White Blood Count 6.9x10^3/uL (4.0-11.0) 6.7x10^3/uL (4.0-11.0) Red Blood Count 4.24x10^6/uL (4.30-5.70) 4.53x10^6/uL (4.30-5.70) Hemoglobin 11.3g/dL (13.0-17.5) 12.1g/dL (13.0-17.5) Hematocrit 34.1% (39.0-53.0) 36.6% (39.0-53.0) Mean Corpuscular Volume 80fL (79-100) 81fL (79-100) Mean Corpuscular Hemoglobin 27pg (25-35) 27pg (25-35) Mean Corpuscular Hemoglobin Concent 33g/dL (31-37) 33g/dL (31-37) Red Cell Distribution Width 15.6% (11.5-14.5) 15.6% (11.5-14.5) Platelet Count 248x10^3/uL (140-400) 276x10^3/uL (140-400) Neutrophils (%) (Auto) 51% (31-73) 53% (31-73) Lymphocytes (%) (Auto) 26% (24-48) 25% (24-48) Monocytes (%) (Auto) 17% (0-9) 16% (0-9) Eosinophils (%) (Auto) 5% (0-3) 5% (0-3) Basophils (%) (Auto) 1% (0-3) 2% (0-3) Neutrophils # (Auto) 3.5x10^3uL (1.8-7.7) 3.5x10^3uL (1.8-7.7) Lymphocytes # (Auto) 1.8x10^3/uL (1.0-4.8) 1.7x10^3/uL (1.0-4.8) Monocytes # (Auto) 1.1x10^3/uL (0.0-1.1) 1.1x10^3/uL (0.0-1.1) Eosinophils # (Auto) 0.4x10^3/uL (0.0-0.7) 0.3x10^3/uL (0.0-0.7) Basophils # (Auto) 0.1x10^3/uL (0.0-0.2) 0.1x10^3/uL (0.0-0.2) Sodium Level 134mmol/L (136-145) 133mmol/L (136-145) Potassium Level 3.8mmol/L (3.5-5.1) 3.8mmol/L (3.5-5.1) Chloride Level 97mmol/L (98-107) 96mmol/L (98-107) Carbon Dioxide Level 28mmol/L (21-32) 29mmol/L (21-32) Anion Gap 9 (6-14) 8 (6-14) Blood Urea Nitrogen 50mg/dL (8-26) 32mg/dL (8-26) Creatinine 5.0mg/dL (0.7-1.3) 3.7mg/dL (0.7-1.3) Estimated GFR (Cockcroft-Gault) 11.2 15.9 Glucose Level 104mg/dL (70-99) 114mg/dL (70-99) Calcium Level 8.7mg/dL (8.5-10.1) 9.3mg/dL (8.5-10.1) Laboratory Tests Test 05/06/16 04:02 White Blood Count 6.7x10^3/uL (4.0-11.0) Red Blood Count 4.53x10^6/uL (4.30-5.70) Hemoglobin 12.1g/dL (13.0-17.5) Hematocrit 36.6% (39.0-53.0) Mean Corpuscular Volume 81fL (79-100) Mean Corpuscular Hemoglobin 27pg (25-35) Mean Corpuscular Hemoglobin Concent 33g/dL (31-37) Red Cell Distribution Width 15.6% (11.5-14.5) Platelet Count 276x10^3/uL (140-400) Neutrophils (%) (Auto) 53% (31-73) Lymphocytes (%) (Auto) 25% (24-48) Monocytes (%) (Auto) 16% (0-9) Eosinophils (%) (Auto) 5% (0-3) Basophils (%) (Auto) 2% (0-3) Neutrophils # (Auto) 3.5x10^3uL (1.8-7.7) Lymphocytes # (Auto) 1.7x10^3/uL (1.0-4.8) Monocytes # (Auto) 1.1x10^3/uL (0.0-1.1) Eosinophils # (Auto) 0.3x10^3/uL (0.0-0.7) Basophils # (Auto) 0.1x10^3/uL (0.0-0.2) Sodium Level 133mmol/L (136-145) Potassium Level 3.8mmol/L (3.5-5.1) Chloride Level 96mmol/L (98-107) Carbon Dioxide Level 29mmol/L (21-32) Anion Gap 8 (6-14) Blood Urea Nitrogen 32mg/dL (8-26) Creatinine 3.7mg/dL (0.7-1.3) Estimated GFR (Cockcroft-Gault) 15.9 Glucose Level 114mg/dL (70-99) Calcium Level 9.3mg/dL (8.5-10.1) Medications Active Scripts Medications Dose Route/Sig Days Date Category Effexor Xr (Venlafaxine Hcl) 150 Mg Cap.er.24h 1 Cap PO DAILY 04/24/16 Reported Flomax (Tamsulosin Hcl) 0.4 Mg Cap.er.24h 1 Cap PO HS 04/24/16 Reported Synthroid (Levothyroxine Sodium) 25 Mcg Tablet 1 Tab PO DAILY 04/24/16 Reported Isosorbide Mononitrate Er (Isosorbide Mononitrate) 30 Mg Tab.er.24h 1 Tab PO DAILY 04/24/16 Reported Pepcid (Famotidine) 20 Mg Tablet 20 Mg PO HS 04/24/16 Reported Colace (Docusate Sodium) 100 Mg Capsule 1 Cap PO DAILY 04/24/16 Reported Vitamin B-12 (Cyanocobalamin (Vitamin B-12)) 1,000 Mcg Tablet 1 Tab PO DAILY 04/24/16 Reported Vitamin D3 (Cholecalciferol (Vitamin D3)) 1,000 Unit Tablet 2 Tab PO DAILY 04/24/16 Reported Zyrtec (Cetirizine Hcl) 10 Mg Tablet 1 Tab PO DAILY 04/24/16 Reported Aspir 81 (Aspirin) 81 Mg Tablet.dr 1 Tab PO DAILY 04/24/16 Reported Impression . 1. Acute on Chronic Diastolic Heart Failure/ Less likely pneumonia 2. CAYDEN on CKD 3. Acute on chronic hypoxemic/hypercapnic respiratory failure 4. COPD - severity not quantified 5. Obesity with hypoventilation 7. Lymphedema/ Venous Stasis 8. HTN 9. Hypothyroidism 10. Dementia 11. Echo with moderate diastolic dysfunction/ EF 55% Plan . clinically improved, set up for outpt HD in progress will sign off Call if needed LAI KIM MD May 06, 2016 09:49
[2016-05-06] MEDS ORDERED: LORAZEPAM 2 MG/ML VIAL IV PRN (10:45)
[2016-05-06 11:01] VITALS: BP 100/69
[2016-05-06] MEDS: LORAZEPAM 1 MG TABLET. PO PRN (14:25)
[2016-05-06 14:41] VITALS: BP 105/52
[2016-05-06 19:00] VITALS: BP 110/70
[2016-05-06] MEDS: TAMSULOSIN 0.4 MG CAP.ER.24H. PO SCH (22:29)
[2016-05-06 23:07] VITALS: BP 105/57
--- NOTE | 2016-05-06 23:14 | PDOC ---
Provider Note Provider Note RENAL F/U : FELICIA S : No new c/o reported. O : VSS Afebrile. Awake Fairly lethargic,. Weak and emaciated. Neck : Supple Lungs : Decreased bases. Non labored. CVS : RRR Abd : Benign in appearance. Ext : No CCE ISACC DUARTE MD May 06, 2016 23:14
[2016-05-07 02:53] VITALS: BP 124/75
[2016-05-07 04:58] LABS: BASO # 0.1 x10^3/uL (0.0-0.2); BASO % 2 % (0-3); EOS % 5 % (0-3); HEMATOCRIT 35.2 % (39.0-53.0); HEMOGLOBIN 11.4 g/dL (13.0-17.5); LYMPH # 1.8 x10^3/uL (1.0-4.8); LYMPH % 30 % (24-48); MEAN CORPUSCULAR HEMOGLOBIN 27 pg (25-35); MEAN CORPUSCULAR HGB CONC 32 g/dL (31-37); MEAN CORPUSCULAR VOLUME 83 fL (79-100); MONO % 19 % (0-9); NEUT % 45 % (31-73); PLATELET COUNT 242 x10^3/uL (140-400); RED BLOOD COUNT 4.26 x10^6/uL (4.30-5.70); RED CELL DISTRIBUTION WIDTH 15.6 % (11.5-14.5)
[2016-05-07 05:09] LABS: CALCIUM 8.7 mg/dL (8.5-10.1); GFR 11.2
[2016-05-07] MEDS: LEVOTHYROXINE 25 MCG TABLET. PO SCH (06:17)
[2016-05-07] MEDS: HEPARIN PF for SUB-Q USE 5,000 UNIT/0.5 ML VIAL. SQ SCH ×3 (06:21→20:21)
[2016-05-07 06:58] VITALS: BP 130/63
[2016-05-07] MEDS ORDERED: IV NORMAL SALINE 1000ML BAG 1,000 ML IV PRN ×2 (07:00)
[2016-05-07] MEDS ORDERED: DIPHENHYDRAMINE 50 MG/ML VIAL IV PRN ×2 (07:00)
[2016-05-07] MEDS: BUDESONIDE 0.5 MG/2 ML NEBU NEB SCH ×2 (07:03→20:00)
[2016-05-07] MEDS: IPRATRPIUM/ALBUTEROL 0.5/2.5MG 3 ML NEBU. NEB SCH ×4 (07:03→20:00)
[2016-05-07] MEDS ORDERED: DIALYSIS PATIENT. MC PRN (08:15)
[2016-05-07] MEDS: LORAZEPAM 1 MG TABLET. PO PRN ×2 (08:45→20:11)
--- NOTE | 2016-05-07 11:06 | PDOC ---
PULMONARY PROGRESS NOTES Subjective pt feels better Vitals Vital Signs Date Time Temp Pulse Resp B/P Pulse Ox O2 Delivery O2 Flow Rate FiO2 05/07/16 06:58 97.4 73 18 130/63 93 Room Air 97.4 05/06/16 20:00 2.0 General: Alert, No acute distress Lungs: Wheezing, Other (dec BS b/l) Cardiovascular: S1, S2 Abdomen: Soft, Non-tender Neuro Exam: Alert, Oriented Extremities: Other (2+edema) Skin: Warm, Dry Labs Laboratory Tests Test 05/06/16 04:02 05/07/16 04:10 White Blood Count 6.7x10^3/uL (4.0-11.0) 6.0x10^3/uL (4.0-11.0) Red Blood Count 4.53x10^6/uL (4.30-5.70) 4.26x10^6/uL (4.30-5.70) Hemoglobin 12.1g/dL (13.0-17.5) 11.4g/dL (13.0-17.5) Hematocrit 36.6% (39.0-53.0) 35.2% (39.0-53.0) Mean Corpuscular Volume 81fL (79-100) 83fL (79-100) Mean Corpuscular Hemoglobin 27pg (25-35) 27pg (25-35) Mean Corpuscular Hemoglobin Concent 33g/dL (31-37) 32g/dL (31-37) Red Cell Distribution Width 15.6% (11.5-14.5) 15.6% (11.5-14.5) Platelet Count 276x10^3/uL (140-400) 242x10^3/uL (140-400) Neutrophils (%) (Auto) 53% (31-73) 45% (31-73) Lymphocytes (%) (Auto) 25% (24-48) 30% (24-48) Monocytes (%) (Auto) 16% (0-9) 19% (0-9) Eosinophils (%) (Auto) 5% (0-3) 5% (0-3) Basophils (%) (Auto) 2% (0-3) 2% (0-3) Neutrophils # (Auto) 3.5x10^3uL (1.8-7.7) 2.7x10^3uL (1.8-7.7) Lymphocytes # (Auto) 1.7x10^3/uL (1.0-4.8) 1.8x10^3/uL (1.0-4.8) Monocytes # (Auto) 1.1x10^3/uL (0.0-1.1) 1.1x10^3/uL (0.0-1.1) Eosinophils # (Auto) 0.3x10^3/uL (0.0-0.7) 0.3x10^3/uL (0.0-0.7) Basophils # (Auto) 0.1x10^3/uL (0.0-0.2) 0.1x10^3/uL (0.0-0.2) Sodium Level 133mmol/L (136-145) 135mmol/L (136-145) Potassium Level 3.8mmol/L (3.5-5.1) 4.0mmol/L (3.5-5.1) Chloride Level 96mmol/L (98-107) 96mmol/L (98-107) Carbon Dioxide Level 29mmol/L (21-32) 28mmol/L (21-32) Anion Gap 8 (6-14) 11 (6-14) Blood Urea Nitrogen 32mg/dL (8-26) 53mg/dL (8-26) Creatinine 3.7mg/dL (0.7-1.3) 5.0mg/dL (0.7-1.3) Estimated GFR (Cockcroft-Gault) 15.9 11.2 Glucose Level 114mg/dL (70-99) 112mg/dL (70-99) Calcium Level 9.3mg/dL (8.5-10.1) 8.7mg/dL (8.5-10.1) Laboratory Tests Test 05/07/16 04:10 White Blood Count 6.0x10^3/uL (4.0-11.0) Red Blood Count 4.26x10^6/uL (4.30-5.70) Hemoglobin 11.4g/dL (13.0-17.5) Hematocrit 35.2% (39.0-53.0) Mean Corpuscular Volume 83fL (79-100) Mean Corpuscular Hemoglobin 27pg (25-35) Mean Corpuscular Hemoglobin Concent 32g/dL (31-37) Red Cell Distribution Width 15.6% (11.5-14.5) Platelet Count 242x10^3/uL (140-400) Neutrophils (%) (Auto) 45% (31-73) Lymphocytes (%) (Auto) 30% (24-48) Monocytes (%) (Auto) 19% (0-9) Eosinophils (%) (Auto) 5% (0-3) Basophils (%) (Auto) 2% (0-3) Neutrophils # (Auto) 2.7x10^3uL (1.8-7.7) Lymphocytes # (Auto) 1.8x10^3/uL (1.0-4.8) Monocytes # (Auto) 1.1x10^3/uL (0.0-1.1) Eosinophils # (Auto) 0.3x10^3/uL (0.0-0.7) Basophils # (Auto) 0.1x10^3/uL (0.0-0.2) Sodium Level 135mmol/L (136-145) Potassium Level 4.0mmol/L (3.5-5.1) Chloride Level 96mmol/L (98-107) Carbon Dioxide Level 28mmol/L (21-32) Anion Gap 11 (6-14) Blood Urea Nitrogen 53mg/dL (8-26) Creatinine 5.0mg/dL (0.7-1.3) Estimated GFR (Cockcroft-Gault) 11.2 Glucose Level 112mg/dL (70-99) Calcium Level 8.7mg/dL (8.5-10.1) Medications Active Scripts Medications Dose Route/Sig Days Date Category Effexor Xr (Venlafaxine Hcl) 150 Mg Cap.er.24h 1 Cap PO DAILY 04/24/16 Reported Flomax (Tamsulosin Hcl) 0.4 Mg Cap.er.24h 1 Cap PO HS 04/24/16 Reported Synthroid (Levothyroxine Sodium) 25 Mcg Tablet 1 Tab PO DAILY 04/24/16 Reported Isosorbide Mononitrate Er (Isosorbide Mononitrate) 30 Mg Tab.er.24h 1 Tab PO DAILY 04/24/16 Reported Pepcid (Famotidine) 20 Mg Tablet 20 Mg PO HS 04/24/16 Reported Colace (Docusate Sodium) 100 Mg Capsule 1 Cap PO DAILY 04/24/16 Reported Vitamin B-12 (Cyanocobalamin (Vitamin B-12)) 1,000 Mcg Tablet 1 Tab PO DAILY 04/24/16 Reported Vitamin D3 (Cholecalciferol (Vitamin D3)) 1,000 Unit Tablet 2 Tab PO DAILY 04/24/16 Reported Zyrtec (Cetirizine Hcl) 10 Mg Tablet 1 Tab PO DAILY 04/24/16 Reported Aspir 81 (Aspirin) 81 Mg Tablet.dr 1 Tab PO DAILY 04/24/16 Reported Impression . 1. Acute on Chronic Diastolic Heart Failure/ Less likely pneumonia 2. CAYDEN on CKD 3. Acute on chronic hypoxemic/hypercapnic respiratory failure 4. COPD - severity not quantified 5. Obesity with hypoventilation 7. Lymphedema/ Venous Stasis 8. HTN 9. Hypothyroidism 10. Dementia 11. Echo with moderate diastolic dysfunction/ EF 55% Plan . clinically improved, set up for outpt HD in progress will sign off Call if needed LAI KIM MD May 07, 2016 11:06
[2016-05-07] MEDS: VENLAFAXINE 50 MG TABLET. PO SCH ×3 (11:07→20:11)
[2016-05-07] MEDS: DOCUSATE SODIUM 100 MG CAPSULE PO SCH (11:07)
[2016-05-07] MEDS: FUROSEMIDE 80 MG TABLET PO SCH ×2 (11:07→20:11)
[2016-05-07] MEDS: CHOLECALCIFEROL (VITAMIN D3) 1,000 UNIT TABLET PO SCH (11:07)
[2016-05-07] MEDS: CETIRIZINE HCL 10 MG TABLET PO SCH (11:08)
[2016-05-07] MEDS: CYANOCOBALAMIN (VITAMIN B-12) 1,000 MCG TABLET. PO SCH (11:08)
[2016-05-07] MEDS: ASPIRIN ENTERIC COATED 81 MG TABLET.DR. PO SCH (11:08)
[2016-05-07] MEDS: ISOSORBIDE MONONITRATE ER 30 MG TAB.ER.24H PO SCH (11:08)
[2016-05-07] MEDS: METOPROLOL SUCC 24HR ER 25 MG TAB.ER.24H. PO SCH (11:08)
--- NOTE | 2016-05-07 12:54 | PDOC ---
PROGRESS NOTES Chief Complaint Chief Complaint 1. 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 Acute diastolic CHF 3. Acute on chronic respiratory failure on clotilde o2 2l SOMetimes 4. Cognitive Impairment 5. Bilateral pitting edema 6. Mod PCM 7. Obesity, BMI 35 8. Hypothyroidism 9. Weakness and debility 10. Anxiety plan: 1 fu with renal 2. cont HD with upper right chest HD cath 3 waiting to dc pt as outpt HD settting up History of Present Illness History of Present Illness 80 y/o M seen in the hospital. Pt was admitted to ED with respiratory failure, renal failure, and COPD. He is on 2 L oxygen nasal cannula and refused breath tx. Pt appears mildly distressed, will start ativan 1 mg IV prn q6h. CXR showed unchanged pleural/parenchymal opacities, R greater than L, suggesting mild CHF. Pt had hemodialysis yesterday. Currently awaiting approval from [facility] to approve out pt HD. Vitals Vitals Vital Signs Date Time Temp Pulse Resp B/P Pulse Ox O2 Delivery O2 Flow Rate FiO2 05/07/16 11:08 73 130/63 05/07/16 08:00 Room Air 2.0 05/07/16 06:58 97.4 18 93 97.4 Physical Exam General: Alert, Oriented X3, Cooperative, mild distress Heart: Regular rate, Normal S1, Normal S2, Other (IRR, telemetry: atrial fibrillation) Lungs: Wheezing, Other (dec BS b/l) Abdomen: Normal bowel sounds, Soft, No masses, Other (dialysis catheter is intact) Extremities: No clubbing, No cyanosis, Normal pulses, Other Skin: No breakdown, No significant lesion, Other (bilateral LE erythema) Labs LABS Laboratory Tests Test 05/07/16 04:10 White Blood Count 6.0x10^3/uL (4.0-11.0) Red Blood Count 4.26x10^6/uL (4.30-5.70) Hemoglobin 11.4g/dL (13.0-17.5) Hematocrit 35.2% (39.0-53.0) Mean Corpuscular Volume 83fL (79-100) Mean Corpuscular Hemoglobin 27pg (25-35) Mean Corpuscular Hemoglobin Concent 32g/dL (31-37) Red Cell Distribution Width 15.6% (11.5-14.5) Platelet Count 242x10^3/uL (140-400) Neutrophils (%) (Auto) 45% (31-73) Lymphocytes (%) (Auto) 30% (24-48) Monocytes (%) (Auto) 19% (0-9) Eosinophils (%) (Auto) 5% (0-3) Basophils (%) (Auto) 2% (0-3) Neutrophils # (Auto) 2.7x10^3uL (1.8-7.7) Lymphocytes # (Auto) 1.8x10^3/uL (1.0-4.8) Monocytes # (Auto) 1.1x10^3/uL (0.0-1.1) Eosinophils # (Auto) 0.3x10^3/uL (0.0-0.7) Basophils # (Auto) 0.1x10^3/uL (0.0-0.2) Sodium Level 135mmol/L (136-145) Potassium Level 4.0mmol/L (3.5-5.1) Chloride Level 96mmol/L (98-107) Carbon Dioxide Level 28mmol/L (21-32) Anion Gap 11 (6-14) Blood Urea Nitrogen 53mg/dL (8-26) Creatinine 5.0mg/dL (0.7-1.3) Estimated GFR (Cockcroft-Gault) 11.2 Glucose Level 112mg/dL (70-99) Calcium Level 8.7mg/dL (8.5-10.1) Review of Systems Review of Systems no fever, chills, sob or chest pain Assessment and Plan Assessmemt and Plan Problems Medical Problems: (1) CAYDEN (acute kidney injury) Status: Acute Problems: Comment Review of Relevant I have reviewed the following items randee (where applicable) has been applied. Labs Laboratory Tests Test 05/06/16 04:02 05/07/16 04:10 White Blood Count 6.7x10^3/uL (4.0-11.0) 6.0x10^3/uL (4.0-11.0) Red Blood Count 4.53x10^6/uL (4.30-5.70) 4.26x10^6/uL (4.30-5.70) Hemoglobin 12.1g/dL (13.0-17.5) 11.4g/dL (13.0-17.5) Hematocrit 36.6% (39.0-53.0) 35.2% (39.0-53.0) Mean Corpuscular Volume 81fL (79-100) 83fL (79-100) Mean Corpuscular Hemoglobin 27pg (25-35) 27pg (25-35) Mean Corpuscular Hemoglobin Concent 33g/dL (31-37) 32g/dL (31-37) Red Cell Distribution Width 15.6% (11.5-14.5) 15.6% (11.5-14.5) Platelet Count 276x10^3/uL (140-400) 242x10^3/uL (140-400) Neutrophils (%) (Auto) 53% (31-73) 45% (31-73) Lymphocytes (%) (Auto) 25% (24-48) 30% (24-48) Monocytes (%) (Auto) 16% (0-9) 19% (0-9) Eosinophils (%) (Auto) 5% (0-3) 5% (0-3) Basophils (%) (Auto) 2% (0-3) 2% (0-3) Neutrophils # (Auto) 3.5x10^3uL (1.8-7.7) 2.7x10^3uL (1.8-7.7) Lymphocytes # (Auto) 1.7x10^3/uL (1.0-4.8) 1.8x10^3/uL (1.0-4.8) Monocytes # (Auto) 1.1x10^3/uL (0.0-1.1) 1.1x10^3/uL (0.0-1.1) Eosinophils # (Auto) 0.3x10^3/uL (0.0-0.7) 0.3x10^3/uL (0.0-0.7) Basophils # (Auto) 0.1x10^3/uL (0.0-0.2) 0.1x10^3/uL (0.0-0.2) Sodium Level 133mmol/L (136-145) 135mmol/L (136-145) Potassium Level 3.8mmol/L (3.5-5.1) 4.0mmol/L (3.5-5.1) Chloride Level 96mmol/L (98-107) 96mmol/L (98-107) Carbon Dioxide Level 29mmol/L (21-32) 28mmol/L (21-32) Anion Gap 8 (6-14) 11 (6-14) Blood Urea Nitrogen 32mg/dL (8-26) 53mg/dL (8-26) Creatinine 3.7mg/dL (0.7-1.3) 5.0mg/dL (0.7-1.3) Estimated GFR (Cockcroft-Gault) 15.9 11.2 Glucose Level 114mg/dL (70-99) 112mg/dL (70-99) Calcium Level 9.3mg/dL (8.5-10.1) 8.7mg/dL (8.5-10.1) Laboratory Tests Test 05/07/16 04:10 White Blood Count 6.0x10^3/uL (4.0-11.0) Red Blood Count 4.26x10^6/uL (4.30-5.70) Hemoglobin 11.4g/dL (13.0-17.5) Hematocrit 35.2% (39.0-53.0) Mean Corpuscular Volume 83fL (79-100) Mean Corpuscular Hemoglobin 27pg (25-35) Mean Corpuscular Hemoglobin Concent 32g/dL (31-37) Red Cell Distribution Width 15.6% (11.5-14.5) Platelet Count 242x10^3/uL (140-400) Neutrophils (%) (Auto) 45% (31-73) Lymphocytes (%) (Auto) 30% (24-48) Monocytes (%) (Auto) 19% (0-9) Eosinophils (%) (Auto) 5% (0-3) Basophils (%) (Auto) 2% (0-3) Neutrophils # (Auto) 2.7x10^3uL (1.8-7.7) Lymphocytes # (Auto) 1.8x10^3/uL (1.0-4.8) Monocytes # (Auto) 1.1x10^3/uL (0.0-1.1) Eosinophils # (Auto) 0.3x10^3/uL (0.0-0.7) Basophils # (Auto) 0.1x10^3/uL (0.0-0.2) Sodium Level 135mmol/L (136-145) Potassium Level 4.0mmol/L (3.5-5.1) Chloride Level 96mmol/L (98-107) Carbon Dioxide Level 28mmol/L (21-32) Anion Gap 11 (6-14) Blood Urea Nitrogen 53mg/dL (8-26) Creatinine 5.0mg/dL (0.7-1.3) Estimated GFR (Cockcroft-Gault) 11.2 Glucose Level 112mg/dL (70-99) Calcium Level 8.7mg/dL (8.5-10.1) Medications Current Medications Aspirin (Ecotrin) 81 mg DAILY PO Last administered on 05/07/16at 11:08; Start 04/24/16 at 14:00 Isosorbide Mononitrate (Imdur) 30 mg DAILY PO Last administered on 05/07/16at 11:08; Start 04/24/16 at 14:00 Furosemide 60 mg 60 mg 1X ONCE IVP Last administered on 04/24/16at 14:28; Start 04/24/16 at 14:00; Stop 04/24/16 at 14:01; Status DC Furosemide/Sodium Chloride (Lasix Drip/Iv Sodium Chloride 0.9% 100ml) 100 ml @ 0 mls/hr CONT PRN IV SEE I/O RECORD Last administered on 04/25/16at 05:36; Start 04/24/16 at 16:30; Stop 04/27/16 at 12:01; Status DC Acetaminophen (Tylenol) 650 mg PRN Q6HRS PRN PO MILD PAIN / TEMP; Start at 17:45 Ondansetron HCl (Zofran) 4 mg PRN Q6HRS PRN IV NAUSEA/VOMITING, 1st choice; Start 04/24/16 at 17:45 Diphenhydramine HCl (Benadryl) 25 mg PRN QHS PRN PO INSOMNIA Last administered on 05/02/16at 15:25; Start 04/24/16 at 17:45 Prochlorperazine Edisylate (Compazine) 10 mg PRN Q6HRS PRN IV NAUSEA/VOMITING, 2nd choice; Start 04/24/16 at 17:45 Famotidine (Pepcid) 20 mg QHS PO Last administered on 05/02/16 21:14; Start 04/24/16 at 21:00; Stop 05/03/16 at 13:59; Status DC Cetirizine HCl (Zyrtec) 10 mg DAILY PO Last administered on 05/07/16 11:08; Start 04/25/16 at 09:00 Vitamin D (Vitamin D3) 1,000 unit DAILY PO Last administered on 05/07/16 11: 07; Start 04/25/16 at 09:00 Cyanocobalamin (Vitamin B-12) 1,000 mcg DAILY PO Last administered on 11:08; Start 04/25/16 at 09:00 Docusate Sodium (Colace) 100 mg DAILY PO Last administered on 05/07/16 11:07 ; Start 04/25/16 at 09:00 Levothyroxine Sodium (Synthroid) 25 mcg DAILY06 PO Last administered on 06:17; Start 04/25/16 at 06:00 Tamsulosin HCl (Flomax) 0.4 mg HS PO Last administered on 05/06/16 22:29; Start 04/24/16 at 21:00 Venlafaxine HCl (Effexor) 50 mg TID PO Last administered on 05/07/16 11:07; Start 04/25/16 at 09:00 Budesonide (Pulmicort) 0.5 mg RTBID NEB Last administered on 05/03/16at 07:59; Start 04/25/16 at 10:30 Albuterol/ Ipratropium (Duoneb) 3 ml RTQID NEB Last administered on 05/03/16at 16:29; Start 04/25/16 at 12:00 Furosemide (Lasix) 40 mg 1X ONCE IVP Last administered on 04/25/16at 21:27; Start 04/25/16 at 20:00; Stop 04/25/16 at 20:01; Status DC Furosemide (Lasix) 80 mg BID IVP Last administered on 04/28/16at 08:57; Start 04/26/16 at 21:00; Stop 04/28/16 at 11:17; Status DC Albuterol Sulfate (Ventolin Neb Soln) 2.5 mg PRN Q6HRS PRN NEB SHORTNESS OF BREATH Last administered on 04/26/16at 04:21; Start 04/26/16 at 04:15 Heparin Sodium (Porcine) 5,000 unit Q8HRS SQ Last administered on 05/07/16at 06 :21; Start 04/26/16 at 22:00 Hydralazine HCl (Apresoline) 25 mg BID PO Last administered on 05/04/16at 10:43 ; Start 04/27/16 at 12:30; Stop 05/04/16 at 13:55; Status DC Furosemide (Lasix) 80 mg Q8HRS IVP Last administered on 05/01/16at 14:27; Start 04/28/16 at 14:00; Stop 05/01/16 at 15:19; Status DC Heparin Sodium (Porcine) 10,000 unit STK-MED ONCE .ROUTE ; Start 04/29/16 at 12 :35; Stop 04/29/16 at 12:36; Status DC Lidocaine/ Epinephrine 20 ml 20 ml STK-MED ONCE .ROUTE ; Start 04/29/16 at 12: 35; Stop 04/29/16 at 12:36; Status DC Heparin Sodium/ Sodium Chloride 500 ml @ As Directed STK-MED ONCE .ROUTE ; Start 04/29/16 at 12:36; Stop 04/29/16 at 12:37; Status DC Midazolam HCl (Versed) 5 mg STK-MED ONCE .ROUTE ; Start 04/29/16 at 13:40; Stop 04/29/16 at 13:41; Status DC Fentanyl Citrate 250 mcg 250 mcg STK-MED ONCE .ROUTE ; Start 04/29/16 at 13:40 ; Stop 04/29/16 at 13:41; Status DC Cefazolin Sodium (Ancef 1gm Ivpb For Omni) 50 ml @ As Directed STK-MED ONCE IV ; Start 04/29/16 at 13:40; Stop 04/29/16 at 13:41; Status DC Heparin Sodium/ Sodium Chloride 1,000 unit 1X ONCE IART Last administered on 04/29/16at 14:00; Start 04/29/16 at 14:00; Stop 04/29/16 at 14:10; Status DC Midazolam HCl (Versed) 5 mg 1X ONCE IV Last administered on 04/29/16at 14:00; Start 04/29/16 at 14:00; Stop 04/29/16 at 14:10; Status DC Fentanyl Citrate (Fentanyl 5ml Vial) 250 mcg 1X ONCE IV Last administered on 04/29/16at 14:00; Start 04/29/16 at 14:00; Stop 04/29/16 at 14:10; Status DC Lidocaine/ Epinephrine (Xylocaine 1%-Epi 1:100,000) 20 ml 1X ONCE IJ Last administered on 04/29/16at 14:00; Start 04/29/16 at 14:00; Stop 04/29/16 at 14 :10; Status DC Heparin Sodium (Porcine) 2600 unit 2,600 unit 1X ONCE INT CAT Last administered on 04/29/16at 14:00; Start 04/29/16 at 14:00; Stop 04/29/16 at 14 :10; Status DC Cefazolin Sodium 50 ml @ 0 mls/hr 1X ONCE IV Last administered on 04/29/16at 14:19; Start 04/29/16 at 14:30; Stop 04/29/16 at 14:31; Status DC Sodium Chloride (Iv Sodium Chloride 0.9% 1000ml Bag) 1,000 ml @ 1,000 mls/hr Q1H PRN IV hypotension; Start 04/30/16 at 15:00; Stop 04/30/16 at 20:59; Status DC Diphenhydramine HCl (Benadryl) 25 mg 1X PRN PRN IV ITCHING Last administered on 05/01/16at 12:29; Start 04/30/16 at 15:00; Stop 05/01/16 at 14:59; Status DC Diphenhydramine HCl (Benadryl) 25 mg 1X PRN PRN IV ITCHING; Start 04/30/16 at 15:00; Stop 05/01/16 at 14:59; Status DC Sodium Chloride (Normal Saline Flush) 10 ml 1X PRN PRN IV AP catheter pack; Start 04/30/16 at 15:00; Stop 05/01/16 at 14:59; Status DC Sodium Chloride (Normal Saline Flush) 10 ml 1X PRN PRN IV MANAGER REQUIREMENTS catheter pack; Start 04/30/16 at 15:00; Stop 05/01/16 at 14:59; Status DC Labetalol HCl 10 mg 10 mg PRN Q1HR PRN IVP SBP > 180; Start 04/30/16 at 15:00 ; Stop 05/01/16 at 14:59; Status DC Sodium Chloride (Iv Sodium Chloride 0.9% 1000ml Bag) 1,000 ml @ 400 mls/hr Q2H30M PRN IV PATENCY; Start 04/30/16 at 15:00; Stop 05/01/16 at 02:59; Status DC Info (PHARMACY MONITORING -- do not chart) 1 each PRN DAILY PRN MC SEE COMMENTS ; Start 04/30/16 at 15:00 Info (PHARMACY MONITORING -- do not chart) 1 each PRN DAILY PRN MC SEE COMMENTS ; Start 05/01/16 at 08:00; Status UNV Info (PHARMACY MONITORING -- do not chart) 1 each PRN DAILY PRN MC SEE COMMENTS ; Start 05/01/16 at 08:00; Status UNV Furosemide (Lasix) 80 mg BID PO Last administered on 05/07/16at 11:07; Start 05/01/16 at 21:00 Diphenhydramine HCl (Benadryl) 25 mg PRN TID PRN PO ITCHING; Start 05/02/16 at 10:30; Stop 05/04/16 at 15:00; Status DC Sodium Chloride (Normal Saline Flush) 10 ml 1X PRN PRN IV AP catheter pack; Start 05/03/16 at 12:30; Stop 05/04/16 at 12:29; Status DC Sodium Chloride (Normal Saline Flush) 10 ml 1X PRN PRN IV MANAGER REQUIREMENTS catheter pack; Start 05/03/16 at 12:30; Stop 05/04/16 at 12:29; Status DC Info (PHARMACY MONITORING -- do not chart) 1 each PRN DAILY PRN MC SEE COMMENTS ; Start 05/03/16 at 12:30; Status UNV Info (PHARMACY MONITORING -- do not chart) 1 each PRN DAILY PRN MC SEE COMMENTS ; Start 05/03/16 at 12:30; Status UNV Famotidine (Pepcid) 20 mg Q48H PO Last administered on 05/05/16at 21:22; Start 05/05/16 at 21:00 Metoprolol Succinate (Toprol Xl) 25 mg DAILY PO Last administered on at 11:08; Start 05/04/16 at 14:00 Info (PHARMACY MONITORING -- do not chart) 1 each PRN DAILY PRN MC SEE COMMENTS ; Start 05/05/16 at 13:15; Status UNV Info (PHARMACY MONITORING -- do not chart) 1 each PRN DAILY PRN MC SEE COMMENTS ; Start 05/05/16 at 13:15; Status UNV Lorazepam (Ativan) 1 mg PRN Q6HRS PRN IV ANXIETY / AGITATION; Start 05/06/16 at 10:45 Lorazepam 1 mg 1 mg PRN Q6HRS PRN PO ANXIETY / AGITATION Last administered on 05/07/16at 08:45; Start 05/06/16 at 14:15 Sodium Chloride (Iv Sodium Chloride 0.9% 1000ml Bag) 1,000 ml @ 1,000 mls/hr Q1H PRN IV hypotension; Start 05/07/16 at 07:00; Stop 05/07/16 at 12:59 Diphenhydramine HCl (Benadryl) 25 mg 1X PRN PRN IV ITCHING Last administered on 05/07/16at 08:37; Start 05/07/16 at 07:00; Stop 05/08/16 at 06:59 Diphenhydramine HCl 25 mg 25 mg 1X PRN PRN IV ITCHING Last administered on at 08:47; Start 05/07/16 at 07:00; Stop 05/08/16 at 06:59 Sodium Chloride (Iv Sodium Chloride 0.9% 1000ml Bag) 1,000 ml @ 400 mls/hr Q2H30M PRN IV PATENCY; Start 05/07/16 at 07:00; Stop 05/07/16 at 18:59 Info (PHARMACY MONITORING -- do not chart) 1 each PRN DAILY PRN MC SEE COMMENTS ; Start 05/07/16 at 08:15; Status UNV Active Scripts Active Lasix (Furosemide) 80 Mg Tablet 80 Mg PO BID Reported Effexor Xr (Venlafaxine Hcl) 150 Mg Cap.er.24h 1 Cap PO DAILY Flomax (Tamsulosin Hcl) 0.4 Mg Cap.er.24h 1 Cap PO HS Synthroid (Levothyroxine Sodium) 25 Mcg Tablet 1 Tab PO DAILY Isosorbide Mononitrate Er (Isosorbide Mononitrate) 30 Mg Tab.er.24h 1 Tab PO DAILY Pepcid (Famotidine) 20 Mg Tablet 20 Mg PO HS Colace (Docusate Sodium) 100 Mg Capsule 1 Cap PO DAILY Vitamin B-12 (Cyanocobalamin (Vitamin B-12)) 1,000 Mcg Tablet 1 Tab PO DAILY Vitamin D3 (Cholecalciferol (Vitamin D3)) 1,000 Unit Tablet 2 Tab PO DAILY Zyrtec (Cetirizine Hcl) 10 Mg Tablet 1 Tab PO DAILY Aspir 81 (Aspirin) 81 Mg Tablet.dr 1 Tab PO DAILY Vitals/I & O Vital Sign - Last 24 Hours 05/06/16 05/06/16 05/06/16 05/06/16 14:41 19:00 20:00 23:07 Temp 97.1 98.9 98.1 97.1 98.9 98.1 Pulse 74 81 55 Resp 19 19 19 B/P 105/52 110/70 105/57 Pulse Ox 92 94 92 O2 Delivery Room Air Room Air Nasal Cannula Room Air O2 Flow Rate 2.0 05/07/16 05/07/16 05/07/16 05/07/16 02:53 06:58 08:00 11:08 Temp 98.0 97.4 98.0 97.4 Pulse 75 73 73 Resp 20 18 B/P 124/75 130/63 130/63 Pulse Ox 94 93 O2 Delivery Room Air Room Air Room Air O2 Flow Rate 2.0 05/07/16 11:08 Pulse 73 B/P 130/63 Intake and Output 05/06/16 05/06/16 05/07/16 14:59 22:59 06:59 Intake Total 360 ml 360 ml Output Total 400 ml 500 ml Balance -40 ml -140 ml KAELYN ABERNATHY MD May 07, 2016 12:54
[2016-05-07 13:50] LABS: % BASOS 1 % (0-3); % EOS 6 % (0-5)
[2016-05-07 13:57] LABS: PLT ESTIMATE ADEQUATE (ADEQUATE)
[2016-05-07 13:58] LABS: ANISOCYTOSIS SLIGHT; POIKILOCYTOSIS SLIGHT
[2016-05-07 14:55] VITALS: BP 104/64
[2016-05-07 19:41] VITALS: BP 104/56
[2016-05-07] MEDS: FAMOTIDINE 20 MG TABLET. PO SCH (20:11)
[2016-05-07] MEDS: TAMSULOSIN 0.4 MG CAP.ER.24H. PO SCH (20:11)
[2016-05-07 23:56] VITALS: BP 100/57
[2016-05-08 02:50] VITALS: BP 110/70
[2016-05-08] MEDS: LEVOTHYROXINE 25 MCG TABLET. PO SCH (06:23)
[2016-05-08] MEDS: HEPARIN PF for SUB-Q USE 5,000 UNIT/0.5 ML VIAL. SQ SCH ×3 (06:26→21:07)
[2016-05-08 06:36] LABS: BASO # 0.1 x10^3/uL (0.0-0.2); BASO % 2 % (0-3); CALCIUM 8.8 mg/dL (8.5-10.1); CREATININE 4.4 mg/dL (0.7-1.3); EOS % 4 % (0-3); HEMATOCRIT 36.8 % (39.0-53.0); HEMOGLOBIN 11.8 g/dL (13.0-17.5); LYMPH # 1.8 x10^3/uL (1.0-4.8); LYMPH % 28 % (24-48); MEAN CORPUSCULAR HEMOGLOBIN 27 pg (25-35); MEAN CORPUSCULAR HGB CONC 32 g/dL (31-37); MEAN CORPUSCULAR VOLUME 83 fL (79-100); MONO % 15 % (0-9); NEUT % 52 % (31-73); PLATELET COUNT 255 x10^3/uL (140-400); POTASSIUM 3.9 mmol/L (3.5-5.1); RED BLOOD COUNT 4.45 x10^6/uL (4.30-5.70); RED CELL DISTRIBUTION WIDTH 15.9 % (11.5-14.5); WHITE BLOOD COUNT 6.6 x10^3/uL (4.0-11.0)
[2016-05-08] MEDS: IPRATRPIUM/ALBUTEROL 0.5/2.5MG 3 ML NEBU. NEB SCH ×4 (06:58→20:00)
[2016-05-08] MEDS: BUDESONIDE 0.5 MG/2 ML NEBU NEB SCH ×2 (06:59→20:00)
[2016-05-08 07:00] VITALS: BP 90/51
[2016-05-08] MEDS: ASPIRIN ENTERIC COATED 81 MG TABLET.DR. PO SCH (08:21)
[2016-05-08] MEDS: CYANOCOBALAMIN (VITAMIN B-12) 1,000 MCG TABLET. PO SCH (08:21)
[2016-05-08] MEDS: VENLAFAXINE 50 MG TABLET. PO SCH ×3 (08:21→20:59)
[2016-05-08] MEDS: CHOLECALCIFEROL (VITAMIN D3) 1,000 UNIT TABLET PO SCH (08:21)
[2016-05-08] MEDS: DOCUSATE SODIUM 100 MG CAPSULE PO SCH (08:21)
[2016-05-08] MEDS: CETIRIZINE HCL 10 MG TABLET PO SCH (08:21)
[2016-05-08] MEDS: FUROSEMIDE 80 MG TABLET PO SCH ×2 (08:22→20:59)
[2016-05-08] MEDS: ISOSORBIDE MONONITRATE ER 30 MG TAB.ER.24H PO SCH (08:23)
[2016-05-08] MEDS: METOPROLOL SUCC 24HR ER 25 MG TAB.ER.24H. PO SCH (08:23)
[2016-05-08 10:38] VITALS: BP 95/46
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
[2016-05-08 15:33] VITALS: BP 98/55
--- NOTE | 2016-05-08 15:33 | PDOC4 ---
PROCEDURE Procedure PROCEDURE DOS: 05/07/16 Procedure RENAL DIALYSIS/ FELICIA HD done F 180/HCO3 / 3K Qb 450 ml/min Qb 600 ml/min UF goal upto 4 kg. Doing OK No new issues. CPM. ISACC DUARTE MD May 08, 2016 15:33
--- NOTE | 2016-05-08 15:34 | PDOC ---
Provider Note Provider Note Provider Note DOS: 05/08/16. Provider Note RENAL F/U : FELICIA S : No new c/o reported. O : VSS Afebrile. Awake Fairly lethargic,. Weak and emaciated. Neck : Supple Lungs : Decreased bases. Non labored. CVS : RRR Abd : Benign in appearance. Ext : No CCE ISACC DUARTE MD May 08, 2016 15:34
[2016-05-08 19:00] VITALS: BP 110/62
--- NOTE | 2016-05-08 19:53 | RAD ---
PROCEDURE CT scan of the head without contrast 05/08/2016 HISTORY Fall. The patient is on anticoagulant therapy. TECHNIQUE Unenhanced contiguous, 5 millimeter axial sections were obtained through the head. One or more of the following individualized dose reduction techniques were utilized for this study: 1. Automated exposure control. 2. Adjustment of the mA and/or kV according to patient size. 3. Use of iterative reconstruction technique. FINDINGS Comparison study is dated 03/04/2010. There is generalized parenchymal atrophy. Areas of decreased attenuation are seen within the white matter both cerebral hemispheres consistent with areas of small vessel ischemic disease. No acute parenchymal abnormality is seen. No extra-axial fluid collection is noted. No skull fracture is seen. Soft tissue swelling is seen involving the posterior parietal scalp, superiorly. IMPRESSION No acute intracranial abnormality is seen. Electronically signed by: Dell Yoder MD (May 08, 2016 19:51:36)
[2016-05-08] MEDS: TAMSULOSIN 0.4 MG CAP.ER.24H. PO SCH (20:59)
[2016-05-08] MEDS: LORAZEPAM 1 MG TABLET. PO PRN (21:46)
[2016-05-08 22:57] VITALS: BP 118/60
[2016-05-09] MEDS: LEVOTHYROXINE 25 MCG TABLET. PO SCH (05:39)
[2016-05-09] MEDS: HEPARIN PF for SUB-Q USE 5,000 UNIT/0.5 ML VIAL. SQ SCH ×3 (05:43→21:06)
[2016-05-09 06:40] LABS: BASO # 0.1 x10^3/uL (0.0-0.2); BASO % 1 % (0-3); EOS % 5 % (0-3); HEMATOCRIT 34.2 % (39.0-53.0); HEMOGLOBIN 11.2 g/dL (13.0-17.5); LYMPH # 1.9 x10^3/uL (1.0-4.8); LYMPH % 26 % (24-48); MEAN CORPUSCULAR HEMOGLOBIN 27 pg (25-35); MEAN CORPUSCULAR HGB CONC 33 g/dL (31-37); MEAN CORPUSCULAR VOLUME 82 fL (79-100); MONO % 16 % (0-9); NEUT % 52 % (31-73); PLATELET COUNT 263 x10^3/uL (140-400); RED BLOOD COUNT 4.17 x10^6/uL (4.30-5.70); RED CELL DISTRIBUTION WIDTH 15.6 % (11.5-14.5); WHITE BLOOD COUNT 7.3 x10^3/uL (4.0-11.0)
[2016-05-09 07:06] LABS: CALCIUM 8.7 mg/dL (8.5-10.1); CREATININE 5.6 mg/dL (0.7-1.3); GFR 9.8; POTASSIUM 3.8 mmol/L (3.5-5.1)
[2016-05-09 07:44] VITALS: BP 131/65
[2016-05-09] MEDS: IPRATRPIUM/ALBUTEROL 0.5/2.5MG 3 ML NEBU. NEB SCH ×4 (08:00→20:00)
[2016-05-09] MEDS: BUDESONIDE 0.5 MG/2 ML NEBU NEB SCH ×2 (08:00→20:00)
[2016-05-09] MEDS: CETIRIZINE HCL 10 MG TABLET PO SCH (09:11)
[2016-05-09] MEDS: CHOLECALCIFEROL (VITAMIN D3) 1,000 UNIT TABLET PO SCH (09:11)
[2016-05-09] MEDS: CYANOCOBALAMIN (VITAMIN B-12) 1,000 MCG TABLET. PO SCH (09:12)
[2016-05-09] MEDS: LORAZEPAM 1 MG TABLET. PO PRN ×2 (09:12→21:05)
[2016-05-09] MEDS: ASPIRIN ENTERIC COATED 81 MG TABLET.DR. PO SCH (09:12)
[2016-05-09] MEDS: FUROSEMIDE 80 MG TABLET PO SCH ×2 (09:12→21:05)
[2016-05-09] MEDS: ISOSORBIDE MONONITRATE ER 30 MG TAB.ER.24H PO SCH (09:12)
[2016-05-09] MEDS: VENLAFAXINE 50 MG TABLET. PO SCH ×3 (09:12→21:05)
[2016-05-09] MEDS: METOPROLOL SUCC 24HR ER 25 MG TAB.ER.24H. PO SCH (09:13)
[2016-05-09] MEDS: DOCUSATE SODIUM 100 MG CAPSULE PO SCH (09:13)
[2016-05-09 10:38] VITALS: BP 103/57
--- NOTE | 2016-05-09 13:40 | PDOC ---
PROGRESS NOTES Chief Complaint Chief Complaint 1. 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 Acute diastolic CHF 3. Acute on chronic respiratory failure on clotilde o2 2l SOMetimes 4. Cognitive Impairment 5. Bilateral pitting edema 6. Mod PCM 7. Obesity, BMI 35 8. Hypothyroidism 9. Weakness and debility 10. Anxiety plan: 1 fu with renal 2. cont HD with upper right chest HD cath 3 waiting to dc pt as outpt HD settting up hope tmr History of Present Illness History of Present Illness 80 y/o M seen in the hospital. Pt was admitted to ED with respiratory failure, renal failure, and COPD. He is on 2 L oxygen nasal cannula and refused breath tx. Pt appears mildly distressed, will start ativan 1 mg IV prn q6h. CXR showed unchanged pleural/parenchymal opacities, R greater than L, suggesting mild CHF. Pt had hemodialysis yesterday. Currently awaiting approval from [facility] to approve out pt HD. Vitals Vitals Vital Signs Date Time Temp Pulse Resp B/P Pulse Ox O2 Delivery O2 Flow Rate FiO2 05/09/16 10:38 97.1 79 18 103/57 92 Room Air 97.1 05/09/16 08:00 2.0 Physical Exam General: Alert, Oriented X3, Cooperative, mild distress Heart: Regular rate, Normal S1, Normal S2, Other (IRR, telemetry: atrial fibrillation) Lungs: Wheezing, Other (dec BS b/l) Abdomen: Normal bowel sounds, Soft, No masses, Other (dialysis catheter is intact) Extremities: No clubbing, No cyanosis, Normal pulses, Other Skin: No breakdown, No significant lesion, Other (bilateral LE erythema) Labs LABS Laboratory Tests Test 05/09/16 06:00 White Blood Count 7.3x10^3/uL (4.0-11.0) Red Blood Count 4.17x10^6/uL (4.30-5.70) Hemoglobin 11.2g/dL (13.0-17.5) Hematocrit 34.2% (39.0-53.0) Mean Corpuscular Volume 82fL (79-100) Mean Corpuscular Hemoglobin 27pg (25-35) Mean Corpuscular Hemoglobin Concent 33g/dL (31-37) Red Cell Distribution Width 15.6% (11.5-14.5) Platelet Count 263x10^3/uL (140-400) Neutrophils (%) (Auto) 52% (31-73) Lymphocytes (%) (Auto) 26% (24-48) Monocytes (%) (Auto) 16% (0-9) Eosinophils (%) (Auto) 5% (0-3) Basophils (%) (Auto) 1% (0-3) Neutrophils # (Auto) 3.8x10^3uL (1.8-7.7) Lymphocytes # (Auto) 1.9x10^3/uL (1.0-4.8) Monocytes # (Auto) 1.2x10^3/uL (0.0-1.1) Eosinophils # (Auto) 0.4x10^3/uL (0.0-0.7) Basophils # (Auto) 0.1x10^3/uL (0.0-0.2) Sodium Level 133mmol/L (136-145) Potassium Level 3.8mmol/L (3.5-5.1) Chloride Level 92mmol/L (98-107) Carbon Dioxide Level 32mmol/L (21-32) Anion Gap 9 (6-14) Blood Urea Nitrogen 60mg/dL (8-26) Creatinine 5.6mg/dL (0.7-1.3) Estimated GFR (Cockcroft-Gault) 9.8 Glucose Level 116mg/dL (70-99) Calcium Level 8.7mg/dL (8.5-10.1) Review of Systems Review of Systems No fever, chills, sob or chest pain Assessment and Plan Assessmemt and Plan Problems Medical Problems: (1) CAYDEN (acute kidney injury) Status: Acute Problems: Comment Review of Relevant I have reviewed the following items randee (where applicable) has been applied. Labs Laboratory Tests Test 05/08/16 06:00 05/09/16 06:00 White Blood Count 6.6x10^3/uL (4.0-11.0) 7.3x10^3/uL (4.0-11.0) Red Blood Count 4.45x10^6/uL (4.30-5.70) 4.17x10^6/uL (4.30-5.70) Hemoglobin 11.8g/dL (13.0-17.5) 11.2g/dL (13.0-17.5) Hematocrit 36.8% (39.0-53.0) 34.2% (39.0-53.0) Mean Corpuscular Volume 83fL (79-100) 82fL (79-100) Mean Corpuscular Hemoglobin 27pg (25-35) 27pg (25-35) Mean Corpuscular Hemoglobin Concent 32g/dL (31-37) 33g/dL (31-37) Red Cell Distribution Width 15.9% (11.5-14.5) 15.6% (11.5-14.5) Platelet Count 255x10^3/uL (140-400) 263x10^3/uL (140-400) Neutrophils (%) (Auto) 52% (31-73) 52% (31-73) Lymphocytes (%) (Auto) 28% (24-48) 26% (24-48) Monocytes (%) (Auto) 15% (0-9) 16% (0-9) Eosinophils (%) (Auto) 4% (0-3) 5% (0-3) Basophils (%) (Auto) 2% (0-3) 1% (0-3) Neutrophils # (Auto) 3.5x10^3uL (1.8-7.7) 3.8x10^3uL (1.8-7.7) Lymphocytes # (Auto) 1.8x10^3/uL (1.0-4.8) 1.9x10^3/uL (1.0-4.8) Monocytes # (Auto) 1.0x10^3/uL (0.0-1.1) 1.2x10^3/uL (0.0-1.1) Eosinophils # (Auto) 0.2x10^3/uL (0.0-0.7) 0.4x10^3/uL (0.0-0.7) Basophils # (Auto) 0.1x10^3/uL (0.0-0.2) 0.1x10^3/uL (0.0-0.2) Sodium Level 137mmol/L (136-145) 133mmol/L (136-145) Potassium Level 3.9mmol/L (3.5-5.1) 3.8mmol/L (3.5-5.1) Chloride Level 96mmol/L (98-107) 92mmol/L (98-107) Carbon Dioxide Level 29mmol/L (21-32) 32mmol/L (21-32) Anion Gap 12 (6-14) 9 (6-14) Blood Urea Nitrogen 40mg/dL (8-26) 60mg/dL (8-26) Creatinine 4.4mg/dL (0.7-1.3) 5.6mg/dL (0.7-1.3) Estimated GFR (Cockcroft-Gault) 13.0 9.8 Glucose Level 115mg/dL (70-99) 116mg/dL (70-99) Calcium Level 8.8mg/dL (8.5-10.1) 8.7mg/dL (8.5-10.1) Laboratory Tests Test 05/09/16 06:00 White Blood Count 7.3x10^3/uL (4.0-11.0) Red Blood Count 4.17x10^6/uL (4.30-5.70) Hemoglobin 11.2g/dL (13.0-17.5) Hematocrit 34.2% (39.0-53.0) Mean Corpuscular Volume 82fL (79-100) Mean Corpuscular Hemoglobin 27pg (25-35) Mean Corpuscular Hemoglobin Concent 33g/dL (31-37) Red Cell Distribution Width 15.6% (11.5-14.5) Platelet Count 263x10^3/uL (140-400) Neutrophils (%) (Auto) 52% (31-73) Lymphocytes (%) (Auto) 26% (24-48) Monocytes (%) (Auto) 16% (0-9) Eosinophils (%) (Auto) 5% (0-3) Basophils (%) (Auto) 1% (0-3) Neutrophils # (Auto) 3.8x10^3uL (1.8-7.7) Lymphocytes # (Auto) 1.9x10^3/uL (1.0-4.8) Monocytes # (Auto) 1.2x10^3/uL (0.0-1.1) Eosinophils # (Auto) 0.4x10^3/uL (0.0-0.7) Basophils # (Auto) 0.1x10^3/uL (0.0-0.2) Sodium Level 133mmol/L (136-145) Potassium Level 3.8mmol/L (3.5-5.1) Chloride Level 92mmol/L (98-107) Carbon Dioxide Level 32mmol/L (21-32) Anion Gap 9 (6-14) Blood Urea Nitrogen 60mg/dL (8-26) Creatinine 5.6mg/dL (0.7-1.3) Estimated GFR (Cockcroft-Gault) 9.8 Glucose Level 116mg/dL (70-99) Calcium Level 8.7mg/dL (8.5-10.1) Medications Current Medications Aspirin (Ecotrin) 81 mg DAILY PO Last administered on 05/09/16 09:12; Start at 14:00 Isosorbide Mononitrate (Imdur) 30 mg DAILY PO Last administered on 05/09/16 09: 12; Start 04/24/16 at 14:00 Furosemide 60 mg 60 mg 1X ONCE IVP Last administered on 04/24/16at 14:28; Start 04/24/16 at 14:00; Stop 04/24/16 at 14:01; Status DC Furosemide/Sodium Chloride (Lasix Drip/Iv Sodium Chloride 0.9% 100ml) 100 ml @ 0 mls/hr CONT PRN IV SEE I/O RECORD Last administered on 04/25/16at 05:36; Start 04/24/16 at 16:30; Stop 04/27/16 at 12:01; Status DC Acetaminophen (Tylenol) 650 mg PRN Q6HRS PRN PO MILD PAIN / TEMP; Start at 17:45 Ondansetron HCl (Zofran) 4 mg PRN Q6HRS PRN IV NAUSEA/VOMITING, 1st choice; Start 04/24/16 at 17:45 Diphenhydramine HCl (Benadryl) 25 mg PRN QHS PRN PO INSOMNIA Last administered on 05/02/16at 15:25; Start 04/24/16 at 17:45 Prochlorperazine Edisylate (Compazine) 10 mg PRN Q6HRS PRN IV NAUSEA/VOMITING, 2nd choice; Start 04/24/16 at 17:45 Famotidine (Pepcid) 20 mg QHS PO Last administered on 05/02/16 21:14; Start 04/24/16 at 21:00; Stop 05/03/16 at 13:59; Status DC Cetirizine HCl (Zyrtec) 10 mg DAILY PO Last administered on 05/09/16 09:11; Start 04/25/16 at 09:00 Vitamin D (Vitamin D3) 1,000 unit DAILY PO Last administered on 05/09/16 09:11 ; Start 04/25/16 at 09:00 Cyanocobalamin (Vitamin B-12) 1,000 mcg DAILY PO Last administered on 05/09/16 09:12; Start 04/25/16 at 09:00 Docusate Sodium (Colace) 100 mg DAILY PO Last administered on 05/09/16 09:13; Start 04/25/16 at 09:00 Levothyroxine Sodium (Synthroid) 25 mcg DAILY06 PO Last administered on 05:39; Start 04/25/16 at 06:00 Tamsulosin HCl (Flomax) 0.4 mg HS PO Last administered on 05/08/16at 20:59; Start 04/24/16 at 21:00 Venlafaxine HCl (Effexor) 50 mg TID PO Last administered on 05/09/16 09:12; Start 04/25/16 at 09:00 Budesonide (Pulmicort) 0.5 mg RTBID NEB Last administered on 05/03/16at 07:59; Start 04/25/16 at 10:30 Albuterol/ Ipratropium (Duoneb) 3 ml RTQID NEB Last administered on 05/03/16at 16:29; Start 04/25/16 at 12:00 Furosemide (Lasix) 40 mg 1X ONCE IVP Last administered on 04/25/16at 21:27; Start 04/25/16 at 20:00; Stop 04/25/16 at 20:01; Status DC Furosemide (Lasix) 80 mg BID IVP Last administered on 04/28/16at 08:57; Start 04/26/16 at 21:00; Stop 04/28/16 at 11:17; Status DC Albuterol Sulfate (Ventolin Neb Soln) 2.5 mg PRN Q6HRS PRN NEB SHORTNESS OF BREATH Last administered on 04/26/16at 04:21; Start 04/26/16 at 04:15 Heparin Sodium (Porcine) 5,000 unit Q8HRS SQ Last administered on 05/09/16t 05: 43; Start 04/26/16 at 22:00 Hydralazine HCl (Apresoline) 25 mg BID PO Last administered on 05/04/16at 10:43 ; Start 04/27/16 at 12:30; Stop 05/04/16 at 13:55; Status DC Furosemide (Lasix) 80 mg Q8HRS IVP Last administered on 05/01/16at 14:27; Start 04/28/16 at 14:00; Stop 05/01/16 at 15:19; Status DC Heparin Sodium (Porcine) 10,000 unit STK-MED ONCE .ROUTE ; Start 04/29/16 at 12 :35; Stop 04/29/16 at 12:36; Status DC Lidocaine/ Epinephrine 20 ml 20 ml STK-MED ONCE .ROUTE ; Start 04/29/16 at 12: 35; Stop 04/29/16 at 12:36; Status DC Heparin Sodium/ Sodium Chloride 500 ml @ As Directed STK-MED ONCE .ROUTE ; Start 04/29/16 at 12:36; Stop 04/29/16 at 12:37; Status DC Midazolam HCl (Versed) 5 mg STK-MED ONCE .ROUTE ; Start 04/29/16 at 13:40; Stop 04/29/16 at 13:41; Status DC Fentanyl Citrate 250 mcg 250 mcg STK-MED ONCE .ROUTE ; Start 04/29/16 at 13:40 ; Stop 04/29/16 at 13:41; Status DC Cefazolin Sodium (Ancef 1gm Ivpb For Omni) 50 ml @ As Directed STK-MED ONCE IV ; Start 04/29/16 at 13:40; Stop 04/29/16 at 13:41; Status DC Heparin Sodium/ Sodium Chloride 1,000 unit 1X ONCE IART Last administered on 04/29/16at 14:00; Start 04/29/16 at 14:00; Stop 04/29/16 at 14:10; Status DC Midazolam HCl (Versed) 5 mg 1X ONCE IV Last administered on 04/29/16at 14:00; Start 04/29/16 at 14:00; Stop 04/29/16 at 14:10; Status DC Fentanyl Citrate (Fentanyl 5ml Vial) 250 mcg 1X ONCE IV Last administered on 04/29/16at 14:00; Start 04/29/16 at 14:00; Stop 04/29/16 at 14:10; Status DC Lidocaine/ Epinephrine (Xylocaine 1%-Epi 1:100,000) 20 ml 1X ONCE IJ Last administered on 04/29/16at 14:00; Start 04/29/16 at 14:00; Stop 04/29/16 at 14 :10; Status DC Heparin Sodium (Porcine) 2600 unit 2,600 unit 1X ONCE INT CAT Last administered on 04/29/16at 14:00; Start 04/29/16 at 14:00; Stop 04/29/16 at 14 :10; Status DC Cefazolin Sodium 50 ml @ 0 mls/hr 1X ONCE IV Last administered on 04/29/16at 14:19; Start 04/29/16 at 14:30; Stop 04/29/16 at 14:31; Status DC Sodium Chloride (Iv Sodium Chloride 0.9% 1000ml Bag) 1,000 ml @ 1,000 mls/hr Q1H PRN IV hypotension; Start 04/30/16 at 15:00; Stop 04/30/16 at 20:59; Status DC Diphenhydramine HCl (Benadryl) 25 mg 1X PRN PRN IV ITCHING Last administered on 05/01/16at 12:29; Start 04/30/16 at 15:00; Stop 05/01/16 at 14:59; Status DC Diphenhydramine HCl (Benadryl) 25 mg 1X PRN PRN IV ITCHING; Start 04/30/16 at 15:00; Stop 05/01/16 at 14:59; Status DC Sodium Chloride (Normal Saline Flush) 10 ml 1X PRN PRN IV AP catheter pack; Start 04/30/16 at 15:00; Stop 05/01/16 at 14:59; Status DC Sodium Chloride (Normal Saline Flush) 10 ml 1X PRN PRN IV [employer] catheter pack; Start 04/30/16 at 15:00; Stop 05/01/16 at 14:59; Status DC Labetalol HCl 10 mg 10 mg PRN Q1HR PRN IVP SBP > 180; Start 04/30/16 at 15:00 ; Stop 05/01/16 at 14:59; Status DC Sodium Chloride (Iv Sodium Chloride 0.9% 1000ml Bag) 1,000 ml @ 400 mls/hr Q2H30M PRN IV PATENCY; Start 04/30/16 at 15:00; Stop 05/01/16 at 02:59; Status DC Info (PHARMACY MONITORING -- do not chart) 1 each PRN DAILY PRN MC SEE COMMENTS ; Start 04/30/16 at 15:00 Info (PHARMACY MONITORING -- do not chart) 1 each PRN DAILY PRN MC SEE COMMENTS ; Start 05/01/16 at 08:00; Status UNV Info (PHARMACY MONITORING -- do not chart) 1 each PRN DAILY PRN MC SEE COMMENTS ; Start 05/01/16 at 08:00; Status UNV Furosemide (Lasix) 80 mg BID PO Last administered on 05/09/16 09:12; Start at 21:00 Diphenhydramine HCl (Benadryl) 25 mg PRN TID PRN PO ITCHING; Start 05/02/16 at 10:30; Stop 05/04/16 at 15:00; Status DC Sodium Chloride (Normal Saline Flush) 10 ml 1X PRN PRN IV AP catheter pack; Start 05/03/16 at 12:30; Stop 05/04/16 at 12:29; Status DC Sodium Chloride (Normal Saline Flush) 10 ml 1X PRN PRN IV [employer] catheter pack; Start 05/03/16 at 12:30; Stop 05/04/16 at 12:29; Status DC Info (PHARMACY MONITORING -- do not chart) 1 each PRN DAILY PRN MC SEE COMMENTS ; Start 05/03/16 at 12:30; Status UNV Info (PHARMACY MONITORING -- do not chart) 1 each PRN DAILY PRN MC SEE COMMENTS ; Start 05/03/16 at 12:30; Status UNV Famotidine (Pepcid) 20 mg Q48H PO Last administered on 05/07/16at 20:11; Start 05/05/16 at 21:00 Metoprolol Succinate (Toprol Xl) 25 mg DAILY PO Last administered on 05/09/16 09:13; Start 05/04/16 at 14:00 Info (PHARMACY MONITORING -- do not chart) 1 each PRN DAILY PRN MC SEE COMMENTS ; Start 05/05/16 at 13:15; Status UNV Info (PHARMACY MONITORING -- do not chart) 1 each PRN DAILY PRN MC SEE COMMENTS ; Start 05/05/16 at 13:15; Status UNV Lorazepam (Ativan) 1 mg PRN Q6HRS PRN IV ANXIETY / AGITATION; Start 05/06/16 at 10:45 Lorazepam 1 mg 1 mg PRN Q6HRS PRN PO ANXIETY / AGITATION Last administered on 09:12; Start 05/06/16 at 14:15 Sodium Chloride (Iv Sodium Chloride 0.9% 1000ml Bag) 1,000 ml @ 1,000 mls/hr Q1H PRN IV hypotension; Start 05/07/16 at 07:00; Stop 05/07/16 at 12:59; Status DC Diphenhydramine HCl (Benadryl) 25 mg 1X PRN PRN IV ITCHING Last administered on 05/07/16at 08:37; Start 05/07/16 at 07:00; Stop 05/08/16 at 06:59; Status DC Diphenhydramine HCl 25 mg 25 mg 1X PRN PRN IV ITCHING Last administered on at 08:47; Start 05/07/16 at 07:00; Stop 05/08/16 at 06:59; Status DC Sodium Chloride (Iv Sodium Chloride 0.9% 1000ml Bag) 1,000 ml @ 400 mls/hr Q2H30M PRN IV PATENCY; Start 05/07/16 at 07:00; Stop 05/07/16 at 18:59; Status DC Info (PHARMACY MONITORING -- do not chart) 1 each PRN DAILY PRN MC SEE COMMENTS ; Start 05/07/16 at 08:15; Status UNV Active Scripts Active Lasix (Furosemide) 80 Mg Tablet 80 Mg PO BID Reported Effexor Xr (Venlafaxine Hcl) 150 Mg Cap.er.24h 1 Cap PO DAILY Flomax (Tamsulosin Hcl) 0.4 Mg Cap.er.24h 1 Cap PO HS Synthroid (Levothyroxine Sodium) 25 Mcg Tablet 1 Tab PO DAILY Isosorbide Mononitrate Er (Isosorbide Mononitrate) 30 Mg Tab.er.24h 1 Tab PO DAILY Pepcid (Famotidine) 20 Mg Tablet 20 Mg PO HS Colace (Docusate Sodium) 100 Mg Capsule 1 Cap PO DAILY Vitamin B-12 (Cyanocobalamin (Vitamin B-12)) 1,000 Mcg Tablet 1 Tab PO DAILY Vitamin D3 (Cholecalciferol (Vitamin D3)) 1,000 Unit Tablet 2 Tab PO DAILY Zyrtec (Cetirizine Hcl) 10 Mg Tablet 1 Tab PO DAILY Aspir 81 (Aspirin) 81 Mg Tablet. 1 Tab PO DAILY Vitals/I & O Vital Sign - Last 24 Hours 05/08/16 05/08/16 05/08/16 05/08/16 15:33 19:00 20:00 22:57 Temp 96.4 98.8 97.7 96.4 98.8 97.7 Pulse 64 82 71 Resp 18 18 18 B/P 98/55 110/62 118/60 Pulse Ox 94 96 89 O2 Delivery Room Air Nasal Cannula Room Air Room Air O2 Flow Rate 2.0 2.0 05/09/16 05/09/16 05/09/16 05/09/16 07:44 08:00 09:12 09:13 Temp 97.1 97.1 Pulse 72 72 72 Resp 18 B/P 131/65 131/65 131/65 Pulse Ox 93 O2 Delivery Room Air Room Air O2 Flow Rate 2.0 05/09/16 10:38 Temp 97.1 97.1 Pulse 79 Resp 18 B/P 103/57 Pulse Ox 92 O2 Delivery Room Air Intake and Output 05/08/16 05/08/16 05/09/16 15:00 23:00 07:00 Intake Total 300 ml 840 ml Output Total 420 ml Balance 300 ml 420 ml KAELYN ABERNATHY MD May 09, 2016 13:40
[2016-05-09 15:31] VITALS: BP 105/52
--- NOTE | 2016-05-09 15:54 | PDOC ---
Provider Note Provider Note Provider Note RENAL F/U : FELICIA S : No new c/o reported. O : VSS Afebrile. Awake Fairly lethargic,. Weak and emaciated. Neck : Supple Lungs : Decreased bases. Non labored. CVS : RRR Abd : Benign in appearance. Ext : No CCE ISACC DUARTE MD May 09, 2016 15:53
[2016-05-09 19:00] VITALS: BP 114/65
[2016-05-09] MEDS: FAMOTIDINE 20 MG TABLET. PO SCH (21:05)
[2016-05-09] MEDS: TAMSULOSIN 0.4 MG CAP.ER.24H. PO SCH (21:05)
[2016-05-09 23:09] VITALS: BP 110/61
[2016-05-10 03:14] VITALS: BP 156/70
[2016-05-10 07:00] VITALS: BP 121/82
[2016-05-10] MEDS: LEVOTHYROXINE 25 MCG TABLET. PO SCH (07:03)
[2016-05-10] MEDS: HEPARIN PF for SUB-Q USE 5,000 UNIT/0.5 ML VIAL. SQ SCH ×3 (07:05→20:51)
[2016-05-10] MEDS: IPRATRPIUM/ALBUTEROL 0.5/2.5MG 3 ML NEBU. NEB SCH ×4 (07:18→20:00)
[2016-05-10] MEDS: BUDESONIDE 0.5 MG/2 ML NEBU NEB SCH ×2 (07:19→20:00)
[2016-05-10 08:04] LABS: CALCIUM 8.9 mg/dL (8.5-10.1); GFR 11.2; POTASSIUM 3.8 mmol/L (3.5-5.1)
[2016-05-10 08:05] LABS: BASO # 0.1 x10^3/uL (0.0-0.2); BASO % 1 % (0-3); EOS % 5 % (0-3); HEMATOCRIT 35.2 % (39.0-53.0); HEMOGLOBIN 11.5 g/dL (13.0-17.5); LYMPH # 1.7 x10^3/uL (1.0-4.8); LYMPH % 27 % (24-48); MEAN CORPUSCULAR HEMOGLOBIN 27 pg (25-35); MEAN CORPUSCULAR HGB CONC 33 g/dL (31-37); MEAN CORPUSCULAR VOLUME 83 fL (79-100); MONO % 14 % (0-9); NEUT % 53 % (31-73); PLATELET COUNT 264 x10^3/uL (140-400); RED BLOOD COUNT 4.27 x10^6/uL (4.30-5.70); RED CELL DISTRIBUTION WIDTH 16.1 % (11.5-14.5); WHITE BLOOD COUNT 6.3 x10^3/uL (4.0-11.0)
[2016-05-10] MEDS ORDERED: IV NORMAL SALINE 1000ML BAG 1,000 ML IV PRN (11:37)
[2016-05-10] MEDS ORDERED: DIALYSIS PATIENT. MC PRN ×2 (11:45)
[2016-05-10] MEDS ORDERED: 0.9 % SODIUM CHLORIDE 10 ML DISP.SYRIN. IV PRN ×2 (11:45)
--- NOTE | 2016-05-10 11:50 | PDOC ---
PROGRESS NOTES Chief Complaint Chief Complaint 1. 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 Acute diastolic CHF 3. Acute on chronic respiratory failure on clotilde o2 2l SOMetimes 4. Cognitive Impairment 5. Bilateral pitting edema 6. Mod PCM 7. Obesity, BMI 35 8. Hypothyroidism 9. Weakness and debility 10. Anxiety plan: 1 fu with renal 2. cont HD with upper right chest HD cath 3 waiting to dc pt as outpt HD settting up hope tmr History of Present Illness History of Present Illness 80 y/o M seen in the hospital. Pt was admitted to ED with respiratory failure, renal failure, and COPD. He is on 2 L oxygen nasal cannula and refused breath tx. Pt appears mildly distressed, will start ativan 1 mg IV prn q6h. CXR showed unchanged pleural/parenchymal opacities, R greater than L, suggesting mild CHF. Pt had hemodialysis yesterday. Currently awaiting approval from [facility] to approve out pt HD. pt is upset cannot leave Vitals Vitals Vital Signs Date Time Temp Pulse Resp B/P Pulse Ox O2 Delivery O2 Flow Rate FiO2 05/10/16 08:12 Room Air 05/10/16 07:00 97.5 71 18 121/82 93 97.5 05/09/16 08:00 2.0 Physical Exam General: Alert, Oriented X3, Cooperative, mild distress Heart: Regular rate, Normal S1, Normal S2, Other (IRR, telemetry: atrial fibrillation) Lungs: Wheezing, Other (dec BS b/l) Abdomen: Normal bowel sounds, Soft, No masses, Other (dialysis catheter is intact) Extremities: No clubbing, No cyanosis, Normal pulses, Other Skin: No breakdown, No significant lesion, Other (bilateral LE erythema) Labs LABS Laboratory Tests Test 05/10/16 07:20 05/10/16 07:25 Sodium Level 132mmol/L (136-145) Potassium Level 3.8mmol/L (3.5-5.1) Chloride Level 93mmol/L (98-107) Carbon Dioxide Level 29mmol/L (21-32) Anion Gap 10 (6-14) Blood Urea Nitrogen 69mg/dL (8-26) Creatinine 5.0mg/dL (0.7-1.3) Estimated GFR (Cockcroft-Gault) 11.2 Glucose Level 117mg/dL (70-99) Calcium Level 8.9mg/dL (8.5-10.1) White Blood Count 6.3x10^3/uL (4.0-11.0) Red Blood Count 4.27x10^6/uL (4.30-5.70) Hemoglobin 11.5g/dL (13.0-17.5) Hematocrit 35.2% (39.0-53.0) Mean Corpuscular Volume 83fL (79-100) Mean Corpuscular Hemoglobin 27pg (25-35) Mean Corpuscular Hemoglobin Concent 33g/dL (31-37) Red Cell Distribution Width 16.1% (11.5-14.5) Platelet Count 264x10^3/uL (140-400) Neutrophils (%) (Auto) 53% (31-73) Lymphocytes (%) (Auto) 27% (24-48) Monocytes (%) (Auto) 14% (0-9) Eosinophils (%) (Auto) 5% (0-3) Basophils (%) (Auto) 1% (0-3) Neutrophils # (Auto) 3.4x10^3uL (1.8-7.7) Lymphocytes # (Auto) 1.7x10^3/uL (1.0-4.8) Monocytes # (Auto) 0.9x10^3/uL (0.0-1.1) Eosinophils # (Auto) 0.3x10^3/uL (0.0-0.7) Basophils # (Auto) 0.1x10^3/uL (0.0-0.2) Review of Systems Review of Systems No fever, chills, sob or chest pain Assessment and Plan Assessmemt and Plan Problems Medical Problems: (1) CAYDEN (acute kidney injury) Status: Acute Problems: Comment Review of Relevant I have reviewed the following items randee (where applicable) has been applied. Labs Laboratory Tests Test 05/09/16 06:00 05/10/16 07:20 05/10/16 07:25 White Blood Count 7.3x10^3/uL (4.0-11.0) 6.3x10^3/uL (4.0-11.0) Red Blood Count 4.17x10^6/uL (4.30-5.70) 4.27x10^6/uL (4.30-5.70) Hemoglobin 11.2g/dL (13.0-17.5) 11.5g/dL (13.0-17.5) Hematocrit 34.2% (39.0-53.0) 35.2% (39.0-53.0) Mean Corpuscular Volume 82fL (79-100) 83fL (79-100) Mean Corpuscular Hemoglobin 27pg (25-35) 27pg (25-35) Mean Corpuscular Hemoglobin Concent 33g/dL (31-37) 33g/dL (31-37) Red Cell Distribution Width 15.6% (11.5-14.5) 16.1% (11.5-14.5) Platelet Count 263x10^3/uL (140-400) 264x10^3/uL (140-400) Neutrophils (%) (Auto) 52% (31-73) 53% (31-73) Lymphocytes (%) (Auto) 26% (24-48) 27% (24-48) Monocytes (%) (Auto) 16% (0-9) 14% (0-9) Eosinophils (%) (Auto) 5% (0-3) 5% (0-3) Basophils (%) (Auto) 1% (0-3) 1% (0-3) Neutrophils # (Auto) 3.8x10^3uL (1.8-7.7) 3.4x10^3uL (1.8-7.7) Lymphocytes # (Auto) 1.9x10^3/uL (1.0-4.8) 1.7x10^3/uL (1.0-4.8) Monocytes # (Auto) 1.2x10^3/uL (0.0-1.1) 0.9x10^3/uL (0.0-1.1) Eosinophils # (Auto) 0.4x10^3/uL (0.0-0.7) 0.3x10^3/uL (0.0-0.7) Basophils # (Auto) 0.1x10^3/uL (0.0-0.2) 0.1x10^3/uL (0.0-0.2) Sodium Level 133mmol/L (136-145) 132mmol/L (136-145) Potassium Level 3.8mmol/L (3.5-5.1) 3.8mmol/L (3.5-5.1) Chloride Level 92mmol/L (98-107) 93mmol/L (98-107) Carbon Dioxide Level 32mmol/L (21-32) 29mmol/L (21-32) Anion Gap 9 (6-14) 10 (6-14) Blood Urea Nitrogen 60mg/dL (8-26) 69mg/dL (8-26) Creatinine 5.6mg/dL (0.7-1.3) 5.0mg/dL (0.7-1.3) Estimated GFR (Cockcroft-Gault) 9.8 11.2 Glucose Level 116mg/dL (70-99) 117mg/dL (70-99) Calcium Level 8.7mg/dL (8.5-10.1) 8.9mg/dL (8.5-10.1) Laboratory Tests Test 05/10/16 07:20 05/10/16 07:25 Sodium Level 132mmol/L (136-145) Potassium Level 3.8mmol/L (3.5-5.1) Chloride Level 93mmol/L (98-107) Carbon Dioxide Level 29mmol/L (21-32) Anion Gap 10 (6-14) Blood Urea Nitrogen 69mg/dL (8-26) Creatinine 5.0mg/dL (0.7-1.3) Estimated GFR (Cockcroft-Gault) 11.2 Glucose Level 117mg/dL (70-99) Calcium Level 8.9mg/dL (8.5-10.1) White Blood Count 6.3x10^3/uL (4.0-11.0) Red Blood Count 4.27x10^6/uL (4.30-5.70) Hemoglobin 11.5g/dL (13.0-17.5) Hematocrit 35.2% (39.0-53.0) Mean Corpuscular Volume 83fL (79-100) Mean Corpuscular Hemoglobin 27pg (25-35) Mean Corpuscular Hemoglobin Concent 33g/dL (31-37) Red Cell Distribution Width 16.1% (11.5-14.5) Platelet Count 264x10^3/uL (140-400) Neutrophils (%) (Auto) 53% (31-73) Lymphocytes (%) (Auto) 27% (24-48) Monocytes (%) (Auto) 14% (0-9) Eosinophils (%) (Auto) 5% (0-3) Basophils (%) (Auto) 1% (0-3) Neutrophils # (Auto) 3.4x10^3uL (1.8-7.7) Lymphocytes # (Auto) 1.7x10^3/uL (1.0-4.8) Monocytes # (Auto) 0.9x10^3/uL (0.0-1.1) Eosinophils # (Auto) 0.3x10^3/uL (0.0-0.7) Basophils # (Auto) 0.1x10^3/uL (0.0-0.2) Medications Current Medications Aspirin (Ecotrin) 81 mg DAILY PO Last administered on 05/09/16 09:12; Start at 14:00 Isosorbide Mononitrate (Imdur) 30 mg DAILY PO Last administered on 05/09/16 09: 12; Start 04/24/16 at 14:00 Furosemide 60 mg 60 mg 1X ONCE IVP Last administered on 04/24/16at 14:28; Start 04/24/16 at 14:00; Stop 04/24/16 at 14:01; Status DC Furosemide/Sodium Chloride (Lasix Drip/Iv Sodium Chloride 0.9% 100ml) 100 ml @ 0 mls/hr CONT PRN IV SEE I/O RECORD Last administered on 04/25/16at 05:36; Start 04/24/16 at 16:30; Stop 04/27/16 at 12:01; Status DC Acetaminophen (Tylenol) 650 mg PRN Q6HRS PRN PO MILD PAIN / TEMP; Start at 17:45 Ondansetron HCl (Zofran) 4 mg PRN Q6HRS PRN IV NAUSEA/VOMITING, 1st choice; Start 04/24/16 at 17:45 Diphenhydramine HCl (Benadryl) 25 mg PRN QHS PRN PO INSOMNIA Last administered on 05/02/16at 15:25; Start 04/24/16 at 17:45 Prochlorperazine Edisylate (Compazine) 10 mg PRN Q6HRS PRN IV NAUSEA/VOMITING, 2nd choice; Start 04/24/16 at 17:45 Famotidine (Pepcid) 20 mg QHS PO Last administered on 05/02/16at 21:14; Start 04/24/16 at 21:00; Stop 05/03/16 at 13:59; Status DC Cetirizine HCl (Zyrtec) 10 mg DAILY PO Last administered on 05/09/16 09:11; Start 04/25/16 at 09:00 Vitamin D (Vitamin D3) 1,000 unit DAILY PO Last administered on 05/09/16 09:11 ; Start 04/25/16 at 09:00 Cyanocobalamin (Vitamin B-12) 1,000 mcg DAILY PO Last administered on 05/09/16 09:12; Start 04/25/16 at 09:00 Docusate Sodium (Colace) 100 mg DAILY PO Last administered on 05/09/16 09:13; Start 04/25/16 at 09:00 Levothyroxine Sodium (Synthroid) 25 mcg DAILY06 PO Last administered on 07:03; Start 04/25/16 at 06:00 Tamsulosin HCl (Flomax) 0.4 mg HS PO Last administered on 05/09/16 21:05; Start 04/24/16 at 21:00 Venlafaxine HCl (Effexor) 50 mg TID PO Last administered on 05/09/16 21:05; Start 04/25/16 at 09:00 Budesonide (Pulmicort) 0.5 mg RTBID NEB Last administered on 05/03/16at 07:59; Start 04/25/16 at 10:30 Albuterol/ Ipratropium (Duoneb) 3 ml RTQID NEB Last administered on 05/03/16at 16:29; Start 04/25/16 at 12:00 Furosemide (Lasix) 40 mg 1X ONCE IVP Last administered on 04/25/16at 21:27; Start 04/25/16 at 20:00; Stop 04/25/16 at 20:01; Status DC Furosemide (Lasix) 80 mg BID IVP Last administered on 04/28/16at 08:57; Start 04/26/16 at 21:00; Stop 04/28/16 at 11:17; Status DC Albuterol Sulfate (Ventolin Neb Soln) 2.5 mg PRN Q6HRS PRN NEB SHORTNESS OF BREATH Last administered on 04/26/16at 04:21; Start 04/26/16 at 04:15 Heparin Sodium (Porcine) 5,000 unit Q8HRS SQ Last administered on 05/10/16t 07: 05; Start 04/26/16 at 22:00 Hydralazine HCl (Apresoline) 25 mg BID PO Last administered on 05/04/16at 10:43 ; Start 04/27/16 at 12:30; Stop 05/04/16 at 13:55; Status DC Furosemide (Lasix) 80 mg Q8HRS IVP Last administered on 05/01/16at 14:27; Start 04/28/16 at 14:00; Stop 05/01/16 at 15:19; Status DC Heparin Sodium (Porcine) 10,000 unit STK-MED ONCE .ROUTE ; Start 04/29/16 at 12 :35; Stop 04/29/16 at 12:36; Status DC Lidocaine/ Epinephrine 20 ml 20 ml STK-MED ONCE .ROUTE ; Start 04/29/16 at 12: 35; Stop 04/29/16 at 12:36; Status DC Heparin Sodium/ Sodium Chloride 500 ml @ As Directed STK-MED ONCE .ROUTE ; Start 04/29/16 at 12:36; Stop 04/29/16 at 12:37; Status DC Midazolam HCl (Versed) 5 mg STK-MED ONCE .ROUTE ; Start 04/29/16 at 13:40; Stop 04/29/16 at 13:41; Status DC Fentanyl Citrate 250 mcg 250 mcg STK-MED ONCE .ROUTE ; Start 04/29/16 at 13:40 ; Stop 04/29/16 at 13:41; Status DC Cefazolin Sodium (Ancef 1gm Ivpb For Omni) 50 ml @ As Directed STK-MED ONCE IV ; Start 04/29/16 at 13:40; Stop 04/29/16 at 13:41; Status DC Heparin Sodium/ Sodium Chloride 1,000 unit 1X ONCE IART Last administered on 04/29/16at 14:00; Start 04/29/16 at 14:00; Stop 04/29/16 at 14:10; Status DC Midazolam HCl (Versed) 5 mg 1X ONCE IV Last administered on 04/29/16at 14:00; Start 04/29/16 at 14:00; Stop 04/29/16 at 14:10; Status DC Fentanyl Citrate (Fentanyl 5ml Vial) 250 mcg 1X ONCE IV Last administered on 04/29/16at 14:00; Start 04/29/16 at 14:00; Stop 04/29/16 at 14:10; Status DC Lidocaine/ Epinephrine (Xylocaine 1%-Epi 1:100,000) 20 ml 1X ONCE IJ Last administered on 04/29/16at 14:00; Start 04/29/16 at 14:00; Stop 04/29/16 at 14 :10; Status DC Heparin Sodium (Porcine) 2600 unit 2,600 unit 1X ONCE INT CAT Last administered on 04/29/16at 14:00; Start 04/29/16 at 14:00; Stop 04/29/16 at 14 :10; Status DC Cefazolin Sodium 50 ml @ 0 mls/hr 1X ONCE IV Last administered on 04/29/16at 14:19; Start 04/29/16 at 14:30; Stop 04/29/16 at 14:31; Status DC Sodium Chloride (Iv Sodium Chloride 0.9% 1000ml Bag) 1,000 ml @ 1,000 mls/hr Q1H PRN IV hypotension; Start 04/30/16 at 15:00; Stop 04/30/16 at 20:59; Status DC Diphenhydramine HCl (Benadryl) 25 mg 1X PRN PRN IV ITCHING Last administered on 05/01/16at 12:29; Start 04/30/16 at 15:00; Stop 05/01/16 at 14:59; Status DC Diphenhydramine HCl (Benadryl) 25 mg 1X PRN PRN IV ITCHING; Start 04/30/16 at 15:00; Stop 05/01/16 at 14:59; Status DC Sodium Chloride (Normal Saline Flush) 10 ml 1X PRN PRN IV AP catheter pack; Start 04/30/16 at 15:00; Stop 05/01/16 at 14:59; Status DC Sodium Chloride (Normal Saline Flush) 10 ml 1X PRN PRN IV EMULSIFICATION OPERATOR catheter pack; Start 04/30/16 at 15:00; Stop 05/01/16 at 14:59; Status DC Labetalol HCl 10 mg 10 mg PRN Q1HR PRN IVP SBP > 180; Start 04/30/16 at 15:00 ; Stop 05/01/16 at 14:59; Status DC Sodium Chloride (Iv Sodium Chloride 0.9% 1000ml Bag) 1,000 ml @ 400 mls/hr Q2H30M PRN IV PATENCY; Start 04/30/16 at 15:00; Stop 05/01/16 at 02:59; Status DC Info (PHARMACY MONITORING -- do not chart) 1 each PRN DAILY PRN MC SEE COMMENTS ; Start 04/30/16 at 15:00 Info (PHARMACY MONITORING -- do not chart) 1 each PRN DAILY PRN MC SEE COMMENTS ; Start 05/01/16 at 08:00; Status UNV Info (PHARMACY MONITORING -- do not chart) 1 each PRN DAILY PRN MC SEE COMMENTS ; Start 05/01/16 at 08:00; Status UNV Furosemide (Lasix) 80 mg BID PO Last administered on 05/09/16t 21:05; Start at 21:00 Diphenhydramine HCl (Benadryl) 25 mg PRN TID PRN PO ITCHING; Start 05/02/16 at 10:30; Stop 05/04/16 at 15:00; Status DC Sodium Chloride (Normal Saline Flush) 10 ml 1X PRN PRN IV AP catheter pack; Start 05/03/16 at 12:30; Stop 05/04/16 at 12:29; Status DC Sodium Chloride (Normal Saline Flush) 10 ml 1X PRN PRN IV EMULSIFICATION OPERATOR catheter pack; Start 05/03/16 at 12:30; Stop 05/04/16 at 12:29; Status DC Info (PHARMACY MONITORING -- do not chart) 1 each PRN DAILY PRN MC SEE COMMENTS ; Start 05/03/16 at 12:30; Status UNV Info (PHARMACY MONITORING -- do not chart) 1 each PRN DAILY PRN MC SEE COMMENTS ; Start 05/03/16 at 12:30; Status UNV Famotidine (Pepcid) 20 mg Q48H PO Last administered on 05/09/16 21:05; Start 05/05/16 at 21:00 Metoprolol Succinate (Toprol Xl) 25 mg DAILY PO Last administered on 05/09/16 09:13; Start 05/04/16 at 14:00 Info (PHARMACY MONITORING -- do not chart) 1 each PRN DAILY PRN MC SEE COMMENTS ; Start 05/05/16 at 13:15; Status UNV Info (PHARMACY MONITORING -- do not chart) 1 each PRN DAILY PRN MC SEE COMMENTS ; Start 05/05/16 at 13:15; Status UNV Lorazepam (Ativan) 1 mg PRN Q6HRS PRN IV ANXIETY / AGITATION; Start 05/06/16 at 10:45 Lorazepam 1 mg 1 mg PRN Q6HRS PRN PO ANXIETY / AGITATION Last administered on 21:05; Start 05/06/16 at 14:15 Sodium Chloride (Iv Sodium Chloride 0.9% 1000ml Bag) 1,000 ml @ 1,000 mls/hr Q1H PRN IV hypotension; Start 05/07/16 at 07:00; Stop 05/07/16 at 12:59; Status DC Diphenhydramine HCl (Benadryl) 25 mg 1X PRN PRN IV ITCHING Last administered on 05/07/16at 08:37; Start 05/07/16 at 07:00; Stop 05/08/16 at 06:59; Status DC Diphenhydramine HCl 25 mg 25 mg 1X PRN PRN IV ITCHING Last administered on at 08:47; Start 05/07/16 at 07:00; Stop 05/08/16 at 06:59; Status DC Sodium Chloride (Iv Sodium Chloride 0.9% 1000ml Bag) 1,000 ml @ 400 mls/hr Q2H30M PRN IV PATENCY; Start 05/07/16 at 07:00; Stop 05/07/16 at 18:59; Status DC Info 1 each 1 each PRN DAILY PRN MC SEE COMMENTS; Start 05/07/16 at 08:15; Status UNV Sodium Chloride (Iv Sodium Chloride 0.9% 1000ml Bag) 1,000 ml @ 1,000 mls/hr Q1H PRN IV hypotension; Start 05/10/16 at 11:37; Stop 05/10/16 at 17:36 Sodium Chloride (Normal Saline Flush) 10 ml 1X PRN PRN IV AP catheter pack; Start 05/10/16 at 11:45; Stop 05/11/16 at 11:44 Sodium Chloride (Normal Saline Flush) 10 ml 1X PRN PRN IV EMULSIFICATION OPERATOR catheter pack; Start 05/10/16 at 11:45; Stop 05/11/16 at 11:44 Info (PHARMACY MONITORING -- do not chart) 1 each PRN DAILY PRN MC SEE COMMENTS ; Start 05/10/16 at 11:45 Info (PHARMACY MONITORING -- do not chart) 1 each PRN DAILY PRN MC SEE COMMENTS ; Start 05/10/16 at 11:45; Status UNV Active Scripts Active Lasix (Furosemide) 80 Mg Tablet 80 Mg PO BID Reported Effexor Xr (Venlafaxine Hcl) 150 Mg Cap.er.24h 1 Cap PO DAILY Flomax (Tamsulosin Hcl) 0.4 Mg Cap.er.24h 1 Cap PO HS Synthroid (Levothyroxine Sodium) 25 Mcg Tablet 1 Tab PO DAILY Isosorbide Mononitrate Er (Isosorbide Mononitrate) 30 Mg Tab.er.24h 1 Tab PO DAILY Pepcid (Famotidine) 20 Mg Tablet 20 Mg PO HS Colace (Docusate Sodium) 100 Mg Capsule 1 Cap PO DAILY Vitamin B-12 (Cyanocobalamin (Vitamin B-12)) 1,000 Mcg Tablet 1 Tab PO DAILY Vitamin D3 (Cholecalciferol (Vitamin D3)) 1,000 Unit Tablet 2 Tab PO DAILY Zyrtec (Cetirizine Hcl) 10 Mg Tablet 1 Tab PO DAILY Aspir 81 (Aspirin) 81 Mg Tablet. 1 Tab PO DAILY Vitals/I & O Vital Sign - Last 24 Hours 05/09/16 05/09/16 05/09/16 05/09/16 15:31 19:00 20:00 23:09 Temp 97.9 98.6 98.7 97.9 98.6 98.7 Pulse 78 93 90 Resp 18 19 18 B/P 105/52 114/65 110/61 Pulse Ox 94 92 92 O2 Delivery Room Air Room Air Room Air Room Air 05/10/16 05/10/16 05/10/16 03:14 07:00 08:12 Temp 97.5 97.5 97.5 97.5 Pulse 59 71 Resp 18 18 B/P 156/70 121/82 Pulse Ox 98 93 O2 Delivery Room Air Room Air Room Air Intake and Output 05/09/16 05/09/16 05/10/16 15:00 23:00 07:00 Intake Total 750 ml 1090 ml Output Total 400 ml Balance 350 ml 1090 ml KAELYN ABERNATHY MD May 10, 2016 11:50
[2016-05-10] MEDS: METOPROLOL SUCC 24HR ER 25 MG TAB.ER.24H. PO SCH (13:42)
[2016-05-10] MEDS: DOCUSATE SODIUM 100 MG CAPSULE PO SCH (13:42)
[2016-05-10] MEDS: ASPIRIN ENTERIC COATED 81 MG TABLET.DR. PO SCH (13:42)
[2016-05-10] MEDS: ISOSORBIDE MONONITRATE ER 30 MG TAB.ER.24H PO SCH (13:42)
[2016-05-10] MEDS: CETIRIZINE HCL 10 MG TABLET PO SCH (13:43)
[2016-05-10] MEDS: CHOLECALCIFEROL (VITAMIN D3) 1,000 UNIT TABLET PO SCH (13:43)
[2016-05-10] MEDS: VENLAFAXINE 50 MG TABLET. PO SCH ×3 (13:43→20:47)
[2016-05-10] MEDS: CYANOCOBALAMIN (VITAMIN B-12) 1,000 MCG TABLET. PO SCH (13:44)
[2016-05-10] MEDS: FUROSEMIDE 80 MG TABLET PO SCH ×2 (13:44→20:47)
[2016-05-10] MEDS: LORAZEPAM 1 MG TABLET. PO PRN ×2 (13:45→20:47)
[2016-05-10 15:00] VITALS: BP 101/53
[2016-05-10] MEDS: TAMSULOSIN 0.4 MG CAP.ER.24H. PO SCH (20:47)
[2016-05-10 23:00] VITALS: BP 119/74
[2016-05-11 03:00] VITALS: BP 115/70
[2016-05-11] MEDS: LEVOTHYROXINE 25 MCG TABLET. PO SCH (05:59)
[2016-05-11] MEDS: HEPARIN PF for SUB-Q USE 5,000 UNIT/0.5 ML VIAL. SQ SCH ×3 (05:59→20:16)
[2016-05-11] MEDS: IPRATRPIUM/ALBUTEROL 0.5/2.5MG 3 ML NEBU. NEB SCH ×4 (07:27→19:29)
[2016-05-11] MEDS: BUDESONIDE 0.5 MG/2 ML NEBU NEB SCH ×2 (07:28→19:29)
[2016-05-11 07:38] VITALS: BP 138/86
[2016-05-11] MEDS: ISOSORBIDE MONONITRATE ER 30 MG TAB.ER.24H PO SCH (08:15)
[2016-05-11] MEDS: METOPROLOL SUCC 24HR ER 25 MG TAB.ER.24H. PO SCH (08:15)
[2016-05-11] MEDS: ASPIRIN ENTERIC COATED 81 MG TABLET.DR. PO SCH (08:15)
[2016-05-11] MEDS: FUROSEMIDE 80 MG TABLET PO SCH ×2 (08:16→20:10)
[2016-05-11] MEDS: CYANOCOBALAMIN (VITAMIN B-12) 1,000 MCG TABLET. PO SCH (08:16)
[2016-05-11] MEDS: VENLAFAXINE 50 MG TABLET. PO SCH ×3 (08:16→20:11)
[2016-05-11] MEDS: CHOLECALCIFEROL (VITAMIN D3) 1,000 UNIT TABLET PO SCH (08:16)
[2016-05-11] MEDS: CETIRIZINE HCL 10 MG TABLET PO SCH (08:16)
[2016-05-11] MEDS: DOCUSATE SODIUM 100 MG CAPSULE PO SCH (08:17)
--- NOTE | 2016-05-11 08:43 | PDOC ---
PULMONARY PROGRESS NOTES Subjective pt feels better Vitals Vital Signs Date Time Temp Pulse Resp B/P Pulse Ox O2 Delivery O2 Flow Rate FiO2 05/11/16 08:15 101 138/86 05/11/16 07:38 97.9 20 93 Room Air 97.9 05/10/16 23:00 3.0 General: Alert, No acute distress Lungs: Wheezing, Other (dec BS b/l) Cardiovascular: S1, S2 Abdomen: Soft, Non-tender Neuro Exam: Alert, Oriented Extremities: Other (2+edema) Skin: Warm, Dry Labs Laboratory Tests Test 05/10/16 07:20 05/10/16 07:25 Sodium Level 132mmol/L (136-145) Potassium Level 3.8mmol/L (3.5-5.1) Chloride Level 93mmol/L (98-107) Carbon Dioxide Level 29mmol/L (21-32) Anion Gap 10 (6-14) Blood Urea Nitrogen 69mg/dL (8-26) Creatinine 5.0mg/dL (0.7-1.3) Estimated GFR (Cockcroft-Gault) 11.2 Glucose Level 117mg/dL (70-99) Calcium Level 8.9mg/dL (8.5-10.1) White Blood Count 6.3x10^3/uL (4.0-11.0) Red Blood Count 4.27x10^6/uL (4.30-5.70) Hemoglobin 11.5g/dL (13.0-17.5) Hematocrit 35.2% (39.0-53.0) Mean Corpuscular Volume 83fL (79-100) Mean Corpuscular Hemoglobin 27pg (25-35) Mean Corpuscular Hemoglobin Concent 33g/dL (31-37) Red Cell Distribution Width 16.1% (11.5-14.5) Platelet Count 264x10^3/uL (140-400) Neutrophils (%) (Auto) 53% (31-73) Lymphocytes (%) (Auto) 27% (24-48) Monocytes (%) (Auto) 14% (0-9) Eosinophils (%) (Auto) 5% (0-3) Basophils (%) (Auto) 1% (0-3) Neutrophils # (Auto) 3.4x10^3uL (1.8-7.7) Lymphocytes # (Auto) 1.7x10^3/uL (1.0-4.8) Monocytes # (Auto) 0.9x10^3/uL (0.0-1.1) Eosinophils # (Auto) 0.3x10^3/uL (0.0-0.7) Basophils # (Auto) 0.1x10^3/uL (0.0-0.2) Medications Active Scripts Medications Dose Route/Sig Days Date Category Effexor Xr (Venlafaxine Hcl) 150 Mg Cap.er.24h 1 Cap PO DAILY 04/24/16 Reported Flomax (Tamsulosin Hcl) 0.4 Mg Cap.er.24h 1 Cap PO HS 04/24/16 Reported Synthroid (Levothyroxine Sodium) 25 Mcg Tablet 1 Tab PO DAILY 04/24/16 Reported Isosorbide Mononitrate Er (Isosorbide Mononitrate) 30 Mg Tab.er.24h 1 Tab PO DAILY 04/24/16 Reported Pepcid (Famotidine) 20 Mg Tablet 20 Mg PO HS 04/24/16 Reported Colace (Docusate Sodium) 100 Mg Capsule 1 Cap PO DAILY 04/24/16 Reported Vitamin B-12 (Cyanocobalamin (Vitamin B-12)) 1,000 Mcg Tablet 1 Tab PO DAILY 04/24/16 Reported Vitamin D3 (Cholecalciferol (Vitamin D3)) 1,000 Unit Tablet 2 Tab PO DAILY 04/24/16 Reported Zyrtec (Cetirizine Hcl) 10 Mg Tablet 1 Tab PO DAILY 04/24/16 Reported Aspir 81 (Aspirin) 81 Mg Tablet.dr 1 Tab PO DAILY 04/24/16 Reported Impression . 1. Acute on Chronic Diastolic Heart Failure/ Less likely pneumonia 2. CAYDEN on CKD 3. Acute on chronic hypoxemic/hypercapnic respiratory failure 4. COPD - severity not quantified 5. Obesity with hypoventilation 7. Lymphedema/ Venous Stasis 8. HTN 9. Hypothyroidism 10. Dementia 11. Echo with moderate diastolic dysfunction/ EF 55% Plan . clinically improved, set up for outpt HD in progress will sign off Call if needed LAI KIM MD May 11, 2016 08:43
[2016-05-11 11:26] VITALS: BP 102/55
[2016-05-11 14:57] VITALS: BP 131/77
--- NOTE | 2016-05-11 16:50 | PDOC ---
Renal-Progress Notes Subjective Notes Notes NONE History of Present Illness Hx of present illness STABLE Vitals Vitals Vital Signs Date Time Temp Pulse Resp B/P Pulse Ox O2 Delivery O2 Flow Rate FiO2 05/11/16 14:57 97.5 74 20 131/77 97 Room Air 97.5 05/10/16 23:00 3.0 Weight Weight [ ] I.O. Intake and Output Intake and Output 05/11/16 07:00 Intake Total 1500 ml Output Total 200 ml Balance 1300 ml Intake Oral 1500 ml Output Urine Total 200 ml # Voids 2 Physical Exam General Appearance: no apparent distress Skin: warm Respiratory: decreased breath sounds Heart: S1S2, RRR Abdomen: soft Neurology: alert, oriented, follow commands Musculoskeletal: Osteoarthritis Assessment Assessment IMP NEW ESRD ANEMIA - STABLE RESP FAILURE AECOPD SEVERE LE EDEMA-BETTER BUT PERSISTENT MALNUTRITION PLAN HD TODAY UF TO DW PLACEMENT ISSUES LY ROGERS MD May 11, 2016 16:50
--- NOTE | 2016-05-11 16:57 | PDOC ---
PROGRESS NOTES Chief Complaint Chief Complaint 1. 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 Acute diastolic CHF 3. Acute on chronic respiratory failure on clotilde o2 2l SOMetimes 4. Cognitive Impairment 5. Bilateral pitting edema 6. Mod PCM 7. Obesity, BMI 35 8. Hypothyroidism 9. Weakness and debility 10. Anxiety plan: 1 fu with renal 2. cont HD with upper right chest HD cath 3 waiting to dc pt as outpt HD settting up hope tmr History of Present Illness History of Present Illness 80 y/o M seen in the hospital. Pt was admitted to ED with respiratory failure, renal failure, and COPD. He is on 2 L oxygen nasal cannula and refused breath tx. Pt appears mildly distressed, will start ativan 1 mg IV prn q6h. CXR showed unchanged pleural/parenchymal opacities, R greater than L, suggesting mild CHF. Pt had hemodialysis yesterday. Currently awaiting approval from [facility] to approve out pt HD. pt is upset cannot leave Vitals Vitals Vital Signs Date Time Temp Pulse Resp B/P Pulse Ox O2 Delivery O2 Flow Rate FiO2 05/11/16 14:57 97.5 74 20 131/77 97 Room Air 97.5 05/10/16 23:00 3.0 Physical Exam General: Alert, Oriented X3, Cooperative, mild distress Heart: Regular rate, Normal S1, Normal S2, Other (IRR, telemetry: atrial fibrillation) Lungs: Wheezing, Other (dec BS b/l) Abdomen: Normal bowel sounds, Soft, No masses, Other (dialysis catheter is intact) Extremities: No clubbing, No cyanosis, Normal pulses, Other Skin: No breakdown, No significant lesion, Other (bilateral LE erythema) Review of Systems Review of Systems no fever, chills, sob or chest pain Assessment and Plan Assessmemt and Plan Problems Medical Problems: (1) CAYDEN (acute kidney injury) Status: Acute Problems: Comment Review of Relevant I have reviewed the following items randee (where applicable) has been applied. Labs Laboratory Tests Test 05/10/16 07:20 05/10/16 07:25 Sodium Level 132mmol/L (136-145) Potassium Level 3.8mmol/L (3.5-5.1) Chloride Level 93mmol/L (98-107) Carbon Dioxide Level 29mmol/L (21-32) Anion Gap 10 (6-14) Blood Urea Nitrogen 69mg/dL (8-26) Creatinine 5.0mg/dL (0.7-1.3) Estimated GFR (Cockcroft-Gault) 11.2 Glucose Level 117mg/dL (70-99) Calcium Level 8.9mg/dL (8.5-10.1) White Blood Count 6.3x10^3/uL (4.0-11.0) Red Blood Count 4.27x10^6/uL (4.30-5.70) Hemoglobin 11.5g/dL (13.0-17.5) Hematocrit 35.2% (39.0-53.0) Mean Corpuscular Volume 83fL (79-100) Mean Corpuscular Hemoglobin 27pg (25-35) Mean Corpuscular Hemoglobin Concent 33g/dL (31-37) Red Cell Distribution Width 16.1% (11.5-14.5) Platelet Count 264x10^3/uL (140-400) Neutrophils (%) (Auto) 53% (31-73) Lymphocytes (%) (Auto) 27% (24-48) Monocytes (%) (Auto) 14% (0-9) Eosinophils (%) (Auto) 5% (0-3) Basophils (%) (Auto) 1% (0-3) Neutrophils # (Auto) 3.4x10^3uL (1.8-7.7) Lymphocytes # (Auto) 1.7x10^3/uL (1.0-4.8) Monocytes # (Auto) 0.9x10^3/uL (0.0-1.1) Eosinophils # (Auto) 0.3x10^3/uL (0.0-0.7) Basophils # (Auto) 0.1x10^3/uL (0.0-0.2) Medications Current Medications Aspirin (Ecotrin) 81 mg DAILY PO Last administered on 05/11/16 08:15; Start at 14:00 Isosorbide Mononitrate (Imdur) 30 mg DAILY PO Last administered on 05/11/16 08: 15; Start 04/24/16 at 14:00 Furosemide 60 mg 60 mg 1X ONCE IVP Last administered on 04/24/16at 14:28; Start 04/24/16 at 14:00; Stop 12/17/16 at 14:01; Status DC Furosemide/Sodium Chloride (Lasix Drip/Iv Sodium Chloride 0.9% 100ml) 100 ml @ 0 mls/hr CONT PRN IV SEE I/O RECORD Last administered on 04/25/16at 05:36; Start 04/24/16 at 16:30; Stop 04/27/16 at 12:01; Status DC Acetaminophen (Tylenol) 650 mg PRN Q6HRS PRN PO MILD PAIN / TEMP; Start at 17:45 Ondansetron HCl (Zofran) 4 mg PRN Q6HRS PRN IV NAUSEA/VOMITING, 1st choice; Start 04/24/16 at 17:45 Diphenhydramine HCl (Benadryl) 25 mg PRN QHS PRN PO INSOMNIA Last administered on 05/02/16at 15:25; Start 04/24/16 at 17:45 Prochlorperazine Edisylate (Compazine) 10 mg PRN Q6HRS PRN IV NAUSEA/VOMITING, 2nd choice; Start 04/24/16 at 17:45 Famotidine (Pepcid) 20 mg QHS PO Last administered on 05/02/16at 21:14; Start 04/24/16 at 21:00; Stop 05/03/16 at 13:59; Status DC Cetirizine HCl (Zyrtec) 10 mg DAILY PO Last administered on 05/11/16 08:16; Start 04/25/16 at 09:00 Vitamin D (Vitamin D3) 1,000 unit DAILY PO Last administered on 05/11/16 08:16 ; Start 04/25/16 at 09:00 Cyanocobalamin (Vitamin B-12) 1,000 mcg DAILY PO Last administered on 05/11/16 08:16; Start 04/25/16 at 09:00 Docusate Sodium (Colace) 100 mg DAILY PO Last administered on 05/11/16 08:17; Start 04/25/16 at 09:00 Levothyroxine Sodium (Synthroid) 25 mcg DAILY06 PO Last administered on 05:59; Start 04/25/16 at 06:00 Tamsulosin HCl (Flomax) 0.4 mg HS PO Last administered on 05/10/16 20:47; Start 04/24/16 at 21:00 Venlafaxine HCl (Effexor) 50 mg TID PO Last administered on 05/11/16 15:24; Start 04/25/16 at 09:00 Budesonide (Pulmicort) 0.5 mg RTBID NEB Last administered on 05/03/16at 07:59; Start 04/25/16 at 10:30 Albuterol/ Ipratropium (Duoneb) 3 ml RTQID NEB Last administered on 05/03/16at 16:29; Start 04/25/16 at 12:00 Furosemide (Lasix) 40 mg 1X ONCE IVP Last administered on 04/25/16at 21:27; Start 04/25/16 at 20:00; Stop 04/25/16 at 20:01; Status DC Furosemide (Lasix) 80 mg BID IVP Last administered on 04/28/16at 08:57; Start 04/26/16 at 21:00; Stop 04/28/16 at 11:17; Status DC Albuterol Sulfate (Ventolin Neb Soln) 2.5 mg PRN Q6HRS PRN NEB SHORTNESS OF BREATH Last administered on 04/26/16at 04:21; Start 04/26/16 at 04:15 Heparin Sodium (Porcine) 5,000 unit Q8HRS SQ Last administered on 05/11/16 15: 29; Start 04/26/16 at 22:00 Hydralazine HCl (Apresoline) 25 mg BID PO Last administered on 05/04/16at 10:43 ; Start 04/27/16 at 12:30; Stop 05/04/16 at 13:55; Status DC Furosemide (Lasix) 80 mg Q8HRS IVP Last administered on 05/01/16at 14:27; Start 04/28/16 at 14:00; Stop 05/01/16 at 15:19; Status DC Heparin Sodium (Porcine) 10,000 unit STK-MED ONCE .ROUTE ; Start 04/29/16 at 12 :35; Stop 04/29/16 at 12:36; Status DC Lidocaine/ Epinephrine 20 ml 20 ml STK-MED ONCE .ROUTE ; Start 04/29/16 at 12: 35; Stop 04/29/16 at 12:36; Status DC Heparin Sodium/ Sodium Chloride 500 ml @ As Directed STK-MED ONCE .ROUTE ; Start 04/29/16 at 12:36; Stop 04/29/16 at 12:37; Status DC Midazolam HCl (Versed) 5 mg STK-MED ONCE .ROUTE ; Start 04/29/16 at 13:40; Stop 04/29/16 at 13:41; Status DC Fentanyl Citrate 250 mcg 250 mcg STK-MED ONCE .ROUTE ; Start 04/29/16 at 13:40 ; Stop 04/29/16 at 13:41; Status DC Cefazolin Sodium (Ancef 1gm Ivpb For Omni) 50 ml @ As Directed STK-MED ONCE IV ; Start 04/29/16 at 13:40; Stop 04/29/16 at 13:41; Status DC Heparin Sodium/ Sodium Chloride 1,000 unit 1X ONCE IART Last administered on 04/29/16at 14:00; Start 04/29/16 at 14:00; Stop 04/29/16 at 14:10; Status DC Midazolam HCl (Versed) 5 mg 1X ONCE IV Last administered on 04/29/16at 14:00; Start 04/29/16 at 14:00; Stop 04/29/16 at 14:10; Status DC Fentanyl Citrate (Fentanyl 5ml Vial) 250 mcg 1X ONCE IV Last administered on 04/29/16at 14:00; Start 04/29/16 at 14:00; Stop 04/29/16 at 14:10; Status DC Lidocaine/ Epinephrine (Xylocaine 1%-Epi 1:100,000) 20 ml 1X ONCE IJ Last administered on 04/29/16at 14:00; Start 04/29/16 at 14:00; Stop 04/29/16 at 14 :10; Status DC Heparin Sodium (Porcine) 2600 unit 2,600 unit 1X ONCE INT CAT Last administered on 04/29/16at 14:00; Start 04/29/16 at 14:00; Stop 04/29/16 at 14 :10; Status DC Cefazolin Sodium 50 ml @ 0 mls/hr 1X ONCE IV Last administered on 04/29/16at 14:19; Start 04/29/16 at 14:30; Stop 04/29/16 at 14:31; Status DC Sodium Chloride (Iv Sodium Chloride 0.9% 1000ml Bag) 1,000 ml @ 1,000 mls/hr Q1H PRN IV hypotension; Start 04/30/16 at 15:00; Stop 04/30/16 at 20:59; Status DC Diphenhydramine HCl (Benadryl) 25 mg 1X PRN PRN IV ITCHING Last administered on 05/01/16at 12:29; Start 04/30/16 at 15:00; Stop 05/01/16 at 14:59; Status DC Diphenhydramine HCl (Benadryl) 25 mg 1X PRN PRN IV ITCHING; Start 04/30/16 at 15:00; Stop 05/01/16 at 14:59; Status DC Sodium Chloride (Normal Saline Flush) 10 ml 1X PRN PRN IV AP catheter pack; Start 04/30/16 at 15:00; Stop 05/01/16 at 14:59; Status DC Sodium Chloride (Normal Saline Flush) 10 ml 1X PRN PRN IV SURFACE PLATE INSPECTOR catheter pack; Start 04/30/16 at 15:00; Stop 05/01/16 at 14:59; Status DC Labetalol HCl 10 mg 10 mg PRN Q1HR PRN IVP SBP > 180; Start 04/30/16 at 15:00 ; Stop 05/01/16 at 14:59; Status DC Sodium Chloride (Iv Sodium Chloride 0.9% 1000ml Bag) 1,000 ml @ 400 mls/hr Q2H30M PRN IV PATENCY; Start 04/30/16 at 15:00; Stop 05/01/16 at 02:59; Status DC Info (PHARMACY MONITORING -- do not chart) 1 each PRN DAILY PRN MC SEE COMMENTS ; Start 04/30/16 at 15:00; Status Cancel Info (PHARMACY MONITORING -- do not chart) 1 each PRN DAILY PRN MC SEE COMMENTS ; Start 05/01/16 at 08:00; Status UNV Info (PHARMACY MONITORING -- do not chart) 1 each PRN DAILY PRN MC SEE COMMENTS ; Start 05/01/16 at 08:00; Status UNV Furosemide (Lasix) 80 mg BID PO Last administered on 05/11/16t 08:16; Start at 21:00 Diphenhydramine HCl (Benadryl) 25 mg PRN TID PRN PO ITCHING; Start 05/02/16 at 10:30; Stop 05/04/16 at 15:00; Status DC Sodium Chloride (Normal Saline Flush) 10 ml 1X PRN PRN IV AP catheter pack; Start 05/03/16 at 12:30; Stop 05/04/16 at 12:29; Status DC Sodium Chloride (Normal Saline Flush) 10 ml 1X PRN PRN IV SURFACE PLATE INSPECTOR catheter pack; Start 05/03/16 at 12:30; Stop 05/04/16 at 12:29; Status DC Info (PHARMACY MONITORING -- do not chart) 1 each PRN DAILY PRN MC SEE COMMENTS ; Start 05/03/16 at 12:30; Status UNV Info (PHARMACY MONITORING -- do not chart) 1 each PRN DAILY PRN MC SEE COMMENTS ; Start 05/03/16 at 12:30; Status UNV Famotidine (Pepcid) 20 mg Q48H PO Last administered on 05/09/16 21:05; Start 05/05/16 at 21:00 Metoprolol Succinate (Toprol Xl) 25 mg DAILY PO Last administered on 05/11/16 08:15; Start 05/04/16 at 14:00 Info (PHARMACY MONITORING -- do not chart) 1 each PRN DAILY PRN MC SEE COMMENTS ; Start 05/05/16 at 13:15; Status UNV Info (PHARMACY MONITORING -- do not chart) 1 each PRN DAILY PRN MC SEE COMMENTS ; Start 05/05/16 at 13:15; Status UNV Lorazepam (Ativan) 1 mg PRN Q6HRS PRN IV ANXIETY / AGITATION; Start 05/06/16 at 10:45 Lorazepam 1 mg 1 mg PRN Q6HRS PRN PO ANXIETY / AGITATION Last administered on 20:47; Start 05/06/16 at 14:15 Sodium Chloride (Iv Sodium Chloride 0.9% 1000ml Bag) 1,000 ml @ 1,000 mls/hr Q1H PRN IV hypotension; Start 05/07/16 at 07:00; Stop 05/07/16 at 12:59; Status DC Diphenhydramine HCl (Benadryl) 25 mg 1X PRN PRN IV ITCHING Last administered on 05/07/16at 08:37; Start 05/07/16 at 07:00; Stop 05/08/16 at 06:59; Status DC Diphenhydramine HCl 25 mg 25 mg 1X PRN PRN IV ITCHING Last administered on at 08:47; Start 05/07/16 at 07:00; Stop 05/08/16 at 06:59; Status DC Sodium Chloride (Iv Sodium Chloride 0.9% 1000ml Bag) 1,000 ml @ 400 mls/hr Q2H30M PRN IV PATENCY; Start 05/07/16 at 07:00; Stop 05/07/16 at 18:59; Status DC Info 1 each 1 each PRN DAILY PRN MC SEE COMMENTS; Start 05/07/16 at 08:15; Status UNV Sodium Chloride (Iv Sodium Chloride 0.9% 1000ml Bag) 1,000 ml @ 1,000 mls/hr Q1H PRN IV hypotension; Start 05/10/16 at 11:37; Stop 05/10/16 at 17:36; Status DC Sodium Chloride (Normal Saline Flush) 10 ml 1X PRN PRN IV AP catheter pack; Start 05/10/16 at 11:45; Stop 05/11/16 at 11:44; Status DC Sodium Chloride (Normal Saline Flush) 10 ml 1X PRN PRN IV SURFACE PLATE INSPECTOR catheter pack; Start 05/10/16 at 11:45; Stop 05/11/16 at 11:44; Status DC Info (PHARMACY MONITORING -- do not chart) 1 each PRN DAILY PRN MC SEE COMMENTS ; Start 05/10/16 at 11:45 Info (PHARMACY MONITORING -- do not chart) 1 each PRN DAILY PRN MC SEE COMMENTS ; Start 05/10/16 at 11:45; Status UNV Active Scripts Active Lasix (Furosemide) 80 Mg Tablet 80 Mg PO BID Reported Effexor Xr (Venlafaxine Hcl) 150 Mg Cap.er.24h 1 Cap PO DAILY Flomax (Tamsulosin Hcl) 0.4 Mg Cap.er.24h 1 Cap PO HS Synthroid (Levothyroxine Sodium) 25 Mcg Tablet 1 Tab PO DAILY Isosorbide Mononitrate Er (Isosorbide Mononitrate) 30 Mg Tab.er.24h 1 Tab PO DAILY Pepcid (Famotidine) 20 Mg Tablet 20 Mg PO HS Colace (Docusate Sodium) 100 Mg Capsule 1 Cap PO DAILY Vitamin B-12 (Cyanocobalamin (Vitamin B-12)) 1,000 Mcg Tablet 1 Tab PO DAILY Vitamin D3 (Cholecalciferol (Vitamin D3)) 1,000 Unit Tablet 2 Tab PO DAILY Zyrtec (Cetirizine Hcl) 10 Mg Tablet 1 Tab PO DAILY Aspir 81 (Aspirin) 81 Mg Tablet. 1 Tab PO DAILY Vitals/I & O Vital Sign - Last 24 Hours 05/10/16 05/10/16 05/11/16 05/11/16 20:00 23:00 03:00 07:28 Temp 97.8 97.9 97.8 97.9 Pulse 98 91 Resp 20 20 B/P 119/74 115/70 Pulse Ox 97 97 93 O2 Delivery Room Air Nasal Cannula Room Air Room Air O2 Flow Rate 3.0 05/11/16 05/11/16 05/11/16 05/11/16 07:38 08:00 08:15 08:15 Temp 97.9 97.9 Pulse 101 101 101 Resp 20 B/P 138/86 138/86 138/86 Pulse Ox 93 O2 Delivery Room Air Room Air 05/11/16 05/11/16 11:26 14:57 Temp 97.1 97.5 97.1 97.5 Pulse 75 74 Resp 20 20 B/P 102/55 131/77 Pulse Ox 93 97 O2 Delivery Room Air Room Air Intake and Output 05/10/16 05/10/16 05/11/16 15:00 23:00 07:00 Intake Total 360 ml 840 ml 300 ml Output Total 200 ml Balance 360 ml 640 ml 300 ml KAELYN ABERNATHY MD May 11, 2016 16:57
[2016-05-11 19:00] VITALS: BP 116/59
[2016-05-11] MEDS: FAMOTIDINE 20 MG TABLET. PO SCH (20:10)
[2016-05-11] MEDS: TAMSULOSIN 0.4 MG CAP.ER.24H. PO SCH (20:11)
[2016-05-11 22:42] VITALS: BP 130/68
[2016-05-12 02:54] VITALS: BP 115/62
[2016-05-12] MEDS: LEVOTHYROXINE 25 MCG TABLET. PO SCH (06:30)
[2016-05-12] MEDS: HEPARIN PF for SUB-Q USE 5,000 UNIT/0.5 ML VIAL. SQ SCH ×3 (06:32→21:01)
[2016-05-12 07:00] VITALS: BP 124/71
[2016-05-12] MEDS: IPRATRPIUM/ALBUTEROL 0.5/2.5MG 3 ML NEBU. NEB SCH ×4 (08:00→19:11)
[2016-05-12] MEDS: BUDESONIDE 0.5 MG/2 ML NEBU NEB SCH ×2 (08:00→19:11)
[2016-05-12] MEDS: CETIRIZINE HCL 10 MG TABLET PO SCH (08:43)
[2016-05-12] MEDS: CHOLECALCIFEROL (VITAMIN D3) 1,000 UNIT TABLET PO SCH (08:43)
[2016-05-12] MEDS: ISOSORBIDE MONONITRATE ER 30 MG TAB.ER.24H PO SCH (08:44)
[2016-05-12] MEDS: METOPROLOL SUCC 24HR ER 25 MG TAB.ER.24H. PO SCH (08:44)
[2016-05-12] MEDS: ASPIRIN ENTERIC COATED 81 MG TABLET.DR. PO SCH (08:44)
[2016-05-12] MEDS: FUROSEMIDE 80 MG TABLET PO SCH ×2 (08:44→20:57)
[2016-05-12] MEDS: CYANOCOBALAMIN (VITAMIN B-12) 1,000 MCG TABLET. PO SCH (08:44)
[2016-05-12] MEDS: VENLAFAXINE 50 MG TABLET. PO SCH ×3 (08:44→20:57)
[2016-05-12] MEDS: DOCUSATE SODIUM 100 MG CAPSULE PO SCH (08:44)
[2016-05-12] MEDS ORDERED: IV NORMAL SALINE 1000ML BAG 1,000 ML IV PRN ×2 (09:30)
[2016-05-12] MEDS ORDERED: DIALYSIS PATIENT. MC PRN (10:00)
--- NOTE | 2016-05-12 11:26 | PDOC ---
Renal-Progress Notes Subjective Notes Notes NONE History of Present Illness Hx of present illness STABLE Vitals Vitals Vital Signs Date Time Temp Pulse Resp B/P Pulse Ox O2 Delivery O2 Flow Rate FiO2 05/12/16 08:44 60 124/71 05/12/16 08:00 Room Air 05/12/16 07:00 97.9 18 94 97.9 Weight Weight [ ] I.O. 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
--- NOTE | 2016-05-12 17:09 | PDOC ---
PROGRESS NOTES Chief Complaint Chief Complaint 1. 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 Acute diastolic CHF 3. Acute on chronic respiratory failure on clotilde o2 2l SOMetimes 4. Cognitive Impairment 5. Bilateral pitting edema 6. Mod PCM 7. Obesity, BMI 35 8. Hypothyroidism 9. Weakness and debility 10. Anxiety plan: 1 fu with renal 2. cont HD with upper right chest HD cath 3 waiting to dc pt as outpt HD settting up hope tmr History of Present Illness History of Present Illness 80 y/o M seen in the hospital. Pt was admitted to ED with respiratory failure, renal failure, and COPD. He is on 2 L oxygen nasal cannula and refused breath tx. Pt appears mildly distressed, will start ativan 1 mg IV prn q6h. CXR showed unchanged pleural/parenchymal opacities, R greater than L, suggesting mild CHF. Pt had hemodialysis yesterday. Currently awaiting approval from [facility] to approve out pt HD. pt is upset cannot leave Vitals Vitals Vital Signs Date Time Temp Pulse Resp B/P Pulse Ox O2 Delivery O2 Flow Rate FiO2 05/12/16 08:44 60 124/71 05/12/16 08:00 Room Air 05/12/16 07:00 97.9 18 94 97.9 Physical Exam General: Alert, Oriented X3, Cooperative, mild distress Heart: Regular rate, Normal S1, Normal S2, Other (IRR, telemetry: atrial fibrillation) Lungs: Wheezing, Other (dec BS b/l) Abdomen: Normal bowel sounds, Soft, No masses, Other (dialysis catheter is intact) Extremities: No clubbing, No cyanosis, Normal pulses, Other Skin: No breakdown, No significant lesion, Other (bilateral LE erythema) Assessment and Plan Assessmemt and Plan Problems Medical Problems: (1) CAYDEN (acute kidney injury) Status: Acute Problems: Comment Review of Relevant I have reviewed the following items randee (where applicable) has been applied. Medications Current Medications Aspirin (Ecotrin) 81 mg DAILY PO Last administered on 05/12/16 08:44; Start at 14:00 Isosorbide Mononitrate (Imdur) 30 mg DAILY PO Last administered on 05/12/16 08: 44; Start 04/24/16 at 14:00 Furosemide 60 mg 60 mg 1X ONCE IVP Last administered on 04/24/16at 14:28; Start 04/24/16 at 14:00; Stop 04/24/16 at 14:01; Status DC Furosemide/Sodium Chloride (Lasix Drip/Iv Sodium Chloride 0.9% 100ml) 100 ml @ 0 mls/hr CONT PRN IV SEE I/O RECORD Last administered on 04/25/16at 05:36; Start 04/24/16 at 16:30; Stop 04/27/16 at 12:01; Status DC Acetaminophen (Tylenol) 650 mg PRN Q6HRS PRN PO MILD PAIN / TEMP; Start at 17:45 Ondansetron HCl (Zofran) 4 mg PRN Q6HRS PRN IV NAUSEA/VOMITING, 1st choice; Start 04/24/16 at 17:45 Diphenhydramine HCl (Benadryl) 25 mg PRN QHS PRN PO INSOMNIA Last administered on 05/02/16at 15:25; Start 04/24/16 at 17:45 Prochlorperazine Edisylate (Compazine) 10 mg PRN Q6HRS PRN IV NAUSEA/VOMITING, 2nd choice; Start 04/24/16 at 17:45 Famotidine (Pepcid) 20 mg QHS PO Last administered on 05/02/16at 21:14; Start 04/24/16 at 21:00; Stop 05/03/16 at 13:59; Status DC Cetirizine HCl (Zyrtec) 10 mg DAILY PO Last administered on 05/12/16 08:43; Start 04/25/16 at 09:00 Vitamin D (Vitamin D3) 1,000 unit DAILY PO Last administered on 05/12/16 08:43 ; Start 04/25/16 at 09:00 Cyanocobalamin (Vitamin B-12) 1,000 mcg DAILY PO Last administered on 05/12/16 08:44; Start 04/25/16 at 09:00 Docusate Sodium (Colace) 100 mg DAILY PO Last administered on 05/12/16 08:44; Start 04/25/16 at 09:00 Levothyroxine Sodium (Synthroid) 25 mcg DAILY06 PO Last administered on 06:30; Start 04/25/16 at 06:00 Tamsulosin HCl (Flomax) 0.4 mg HS PO Last administered on 05/11/16 20:11; Start 04/24/16 at 21:00 Venlafaxine HCl (Effexor) 50 mg TID PO Last administered on 05/12/16 14:07; Start 04/25/16 at 09:00 Budesonide (Pulmicort) 0.5 mg RTBID NEB Last administered on 05/03/16at 07:59; Start 04/25/16 at 10:30 Albuterol/ Ipratropium (Duoneb) 3 ml RTQID NEB Last administered on 05/03/16at 16:29; Start 04/25/16 at 12:00 Furosemide (Lasix) 40 mg 1X ONCE IVP Last administered on 04/25/16at 21:27; Start 04/25/16 at 20:00; Stop 04/25/16 at 20:01; Status DC Furosemide (Lasix) 80 mg BID IVP Last administered on 04/28/16at 08:57; Start 04/26/16 at 21:00; Stop 04/28/16 at 11:17; Status DC Albuterol Sulfate (Ventolin Neb Soln) 2.5 mg PRN Q6HRS PRN NEB SHORTNESS OF BREATH Last administered on 04/26/16at 04:21; Start 04/26/16 at 04:15 Heparin Sodium (Porcine) 5,000 unit Q8HRS SQ Last administered on 05/12/16 14: 10; Start 04/26/16 at 22:00 Hydralazine HCl (Apresoline) 25 mg BID PO Last administered on 05/04/16at 10:43 ; Start 04/27/16 at 12:30; Stop 05/04/16 at 13:55; Status DC Furosemide (Lasix) 80 mg Q8HRS IVP Last administered on 05/01/16at 14:27; Start 04/28/16 at 14:00; Stop 05/01/16 at 15:19; Status DC Heparin Sodium (Porcine) 10,000 unit STK-MED ONCE .ROUTE ; Start 04/29/16 at 12 :35; Stop 04/29/16 at 12:36; Status DC Lidocaine/ Epinephrine 20 ml 20 ml STK-MED ONCE .ROUTE ; Start 04/29/16 at 12: 35; Stop 04/29/16 at 12:36; Status DC Heparin Sodium/ Sodium Chloride 500 ml @ As Directed STK-MED ONCE .ROUTE ; Start 04/29/16 at 12:36; Stop 04/29/16 at 12:37; Status DC Midazolam HCl (Versed) 5 mg STK-MED ONCE .ROUTE ; Start 04/29/16 at 13:40; Stop 04/29/16 at 13:41; Status DC Fentanyl Citrate 250 mcg 250 mcg STK-MED ONCE .ROUTE ; Start 04/29/16 at 13:40 ; Stop 04/29/16 at 13:41; Status DC Cefazolin Sodium (Ancef 1gm Ivpb For Omni) 50 ml @ As Directed STK-MED ONCE IV ; Start 04/29/16 at 13:40; Stop 04/29/16 at 13:41; Status DC Heparin Sodium/ Sodium Chloride 1,000 unit 1X ONCE IART Last administered on 04/29/16at 14:00; Start 04/29/16 at 14:00; Stop 04/29/16 at 14:10; Status DC Midazolam HCl (Versed) 5 mg 1X ONCE IV Last administered on 04/29/16at 14:00; Start 04/29/16 at 14:00; Stop 04/29/16 at 14:10; Status DC Fentanyl Citrate (Fentanyl 5ml Vial) 250 mcg 1X ONCE IV Last administered on 04/29/16at 14:00; Start 04/29/16 at 14:00; Stop 04/29/16 at 14:10; Status DC Lidocaine/ Epinephrine (Xylocaine 1%-Epi 1:100,000) 20 ml 1X ONCE IJ Last administered on 04/29/16at 14:00; Start 04/29/16 at 14:00; Stop 04/29/16 at 14 :10; Status DC Heparin Sodium (Porcine) 2600 unit 2,600 unit 1X ONCE INT CAT Last administered on 04/29/16at 14:00; Start 04/29/16 at 14:00; Stop 04/29/16 at 14 :10; Status DC Cefazolin Sodium 50 ml @ 0 mls/hr 1X ONCE IV Last administered on 04/29/16at 14:19; Start 04/29/16 at 14:30; Stop 04/29/16 at 14:31; Status DC Sodium Chloride (Iv Sodium Chloride 0.9% 1000ml Bag) 1,000 ml @ 1,000 mls/hr Q1H PRN IV hypotension; Start 04/30/16 at 15:00; Stop 04/30/16 at 20:59; Status DC Diphenhydramine HCl (Benadryl) 25 mg 1X PRN PRN IV ITCHING Last administered on 05/01/16at 12:29; Start 04/30/16 at 15:00; Stop 05/01/16 at 14:59; Status DC Diphenhydramine HCl (Benadryl) 25 mg 1X PRN PRN IV ITCHING; Start 04/30/16 at 15:00; Stop 05/01/16 at 14:59; Status DC Sodium Chloride (Normal Saline Flush) 10 ml 1X PRN PRN IV AP catheter pack; Start 04/30/16 at 15:00; Stop 05/01/16 at 14:59; Status DC Sodium Chloride (Normal Saline Flush) 10 ml 1X PRN PRN IV [employer] catheter pack; Start 04/30/16 at 15:00; Stop 05/01/16 at 14:59; Status DC Labetalol HCl 10 mg 10 mg PRN Q1HR PRN IVP SBP > 180; Start 04/30/16 at 15:00 ; Stop 05/01/16 at 14:59; Status DC Sodium Chloride (Iv Sodium Chloride 0.9% 1000ml Bag) 1,000 ml @ 400 mls/hr Q2H30M PRN IV PATENCY; Start 04/30/16 at 15:00; Stop 05/01/16 at 02:59; Status DC Info (PHARMACY MONITORING -- do not chart) 1 each PRN DAILY PRN MC SEE COMMENTS ; Start 04/30/16 at 15:00; Status Cancel Info (PHARMACY MONITORING -- do not chart) 1 each PRN DAILY PRN MC SEE COMMENTS ; Start 05/01/16 at 08:00; Status UNV Info (PHARMACY MONITORING -- do not chart) 1 each PRN DAILY PRN MC SEE COMMENTS ; Start 05/01/16 at 08:00; Status UNV Furosemide (Lasix) 80 mg BID PO Last administered on 05/12/16t 08:44; Start at 21:00 Diphenhydramine HCl (Benadryl) 25 mg PRN TID PRN PO ITCHING; Start 05/02/16 at 10:30; Stop 05/04/16 at 15:00; Status DC Sodium Chloride (Normal Saline Flush) 10 ml 1X PRN PRN IV AP catheter pack; Start 05/03/16 at 12:30; Stop 05/04/16 at 12:29; Status DC Sodium Chloride (Normal Saline Flush) 10 ml 1X PRN PRN IV [employer] catheter pack; Start 05/03/16 at 12:30; Stop 05/04/16 at 12:29; Status DC Info (PHARMACY MONITORING -- do not chart) 1 each PRN DAILY PRN MC SEE COMMENTS ; Start 05/03/16 at 12:30; Status UNV Info (PHARMACY MONITORING -- do not chart) 1 each PRN DAILY PRN MC SEE COMMENTS ; Start 05/03/16 at 12:30; Status UNV Famotidine (Pepcid) 20 mg Q48H PO Last administered on 05/11/16 20:10; Start 05/05/16 at 21:00 Metoprolol Succinate (Toprol Xl) 25 mg DAILY PO Last administered on 05/12/16 08:44; Start 05/04/16 at 14:00 Info (PHARMACY MONITORING -- do not chart) 1 each PRN DAILY PRN MC SEE COMMENTS ; Start 05/05/16 at 13:15; Status UNV Info (PHARMACY MONITORING -- do not chart) 1 each PRN DAILY PRN MC SEE COMMENTS ; Start 05/05/16 at 13:15; Status UNV Lorazepam (Ativan) 1 mg PRN Q6HRS PRN IV ANXIETY / AGITATION; Start 05/06/16 at 10:45 Lorazepam 1 mg 1 mg PRN Q6HRS PRN PO ANXIETY / AGITATION Last administered on 20:47; Start 05/06/16 at 14:15 Sodium Chloride (Iv Sodium Chloride 0.9% 1000ml Bag) 1,000 ml @ 1,000 mls/hr Q1H PRN IV hypotension; Start 05/07/16 at 07:00; Stop 05/07/16 at 12:59; Status DC Diphenhydramine HCl (Benadryl) 25 mg 1X PRN PRN IV ITCHING Last administered on 05/07/16at 08:37; Start 05/07/16 at 07:00; Stop 05/08/16 at 06:59; Status DC Diphenhydramine HCl 25 mg 25 mg 1X PRN PRN IV ITCHING Last administered on at 08:47; Start 05/07/16 at 07:00; Stop 05/08/16 at 06:59; Status DC Sodium Chloride (Iv Sodium Chloride 0.9% 1000ml Bag) 1,000 ml @ 400 mls/hr Q2H30M PRN IV PATENCY; Start 05/07/16 at 07:00; Stop 05/07/16 at 18:59; Status DC Info 1 each 1 each PRN DAILY PRN MC SEE COMMENTS; Start 05/07/16 at 08:15; Status UNV Sodium Chloride (Iv Sodium Chloride 0.9% 1000ml Bag) 1,000 ml @ 1,000 mls/hr Q1H PRN IV hypotension; Start 05/10/16 at 11:37; Stop 05/10/16 at 17:36; Status DC Sodium Chloride (Normal Saline Flush) 10 ml 1X PRN PRN IV AP catheter pack; Start 05/10/16 at 11:45; Stop 05/11/16 at 11:44; Status DC Sodium Chloride (Normal Saline Flush) 10 ml 1X PRN PRN IV [employer] catheter pack; Start 05/10/16 at 11:45; Stop 05/11/16 at 11:44; Status DC Info (PHARMACY MONITORING -- do not chart) 1 each PRN DAILY PRN MC SEE COMMENTS ; Start 05/10/16 at 11:45 Info 1 each 1 each PRN DAILY PRN MC SEE COMMENTS; Start 05/10/16 at 11:45; Status UNV Sodium Chloride 1,000 ml @ 1,000 mls/hr Q1H PRN IV hypotension; Start 05/12/16 at 09:30; Stop 05/12/16 at 15:29; Status DC Sodium Chloride (Iv Sodium Chloride 0.9% 1000ml Bag) 1,000 ml @ 400 mls/hr Q2H30M PRN IV PATENCY; Start 05/12/16 at 09:30; Stop 05/12/16 at 21:29 Info (PHARMACY MONITORING -- do not chart) 1 each PRN DAILY PRN MC SEE COMMENTS ; Start 05/12/16 at 10:00; Stop 05/12/16 at 10:00; Status DC Active Scripts Active Lasix (Furosemide) 80 Mg Tablet 80 Mg PO BID Reported Effexor Xr (Venlafaxine Hcl) 150 Mg Cap.er.24h 1 Cap PO DAILY Flomax (Tamsulosin Hcl) 0.4 Mg Cap.er.24h 1 Cap PO HS Synthroid (Levothyroxine Sodium) 25 Mcg Tablet 1 Tab PO DAILY Isosorbide Mononitrate Er (Isosorbide Mononitrate) 30 Mg Tab.er.24h 1 Tab PO DAILY Pepcid (Famotidine) 20 Mg Tablet 20 Mg PO HS Colace (Docusate Sodium) 100 Mg Capsule 1 Cap PO DAILY Vitamin B-12 (Cyanocobalamin (Vitamin B-12)) 1,000 Mcg Tablet 1 Tab PO DAILY Vitamin D3 (Cholecalciferol (Vitamin D3)) 1,000 Unit Tablet 2 Tab PO DAILY Zyrtec (Cetirizine Hcl) 10 Mg Tablet 1 Tab PO DAILY Aspir 81 (Aspirin) 81 Mg Tablet. 1 Tab PO DAILY Vitals/I & O Vital Sign - Last 24 Hours 05/11/16 05/11/16 05/11/16 05/12/16 19:00 20:00 22:42 02:54 Temp 97.7 98.1 97.7 97.7 98.1 97.7 Pulse 72 74 105 Resp 19 20 20 B/P 116/59 130/68 115/62 Pulse Ox 97 95 92 O2 Delivery Room Air Room Air Room Air Room Air 05/12/16 05/12/16 05/12/16 05/12/16 07:00 08:00 08:44 08:44 Temp 97.9 97.9 Pulse 60 60 60 Resp 18 B/P 124/71 124/71 124/71 Pulse Ox 94 O2 Delivery Room Air Room Air Intake and Output 05/11/16 05/11/16 05/12/16 15:00 23:00 07:00 Intake Total 600 ml 300 ml Balance 600 ml 300 ml KAELYN ABERNATHY MD May 12, 2016 17:09
[2016-05-12 19:00] VITALS: BP 135/55
[2016-05-12] MEDS: LORAZEPAM 1 MG TABLET. PO PRN (20:57)
[2016-05-12] MEDS: TAMSULOSIN 0.4 MG CAP.ER.24H. PO SCH (20:57)
[2016-05-12] MEDS: DIPHENHYDRAMINE HCL 25 MG CAPSULE PO PRN (20:57)
[2016-05-12 23:09] VITALS: BP 118/66
[2016-05-13 04:00] VITALS: BP 117/58
[2016-05-13 05:55] LABS: CALCIUM 8.8 mg/dL (8.5-10.1); CREATININE 3.3 mg/dL (0.7-1.3); GFR 18.1; POTASSIUM 4.4 mmol/L (3.5-5.1)
[2016-05-13 07:00] VITALS: BP 117/63
[2016-05-13] MEDS: BUDESONIDE 0.5 MG/2 ML NEBU NEB SCH (08:00)
[2016-05-13] MEDS: IPRATRPIUM/ALBUTEROL 0.5/2.5MG 3 ML NEBU. NEB SCH ×2 (08:00→12:00)
[2016-05-13] MEDS: CETIRIZINE HCL 10 MG TABLET PO SCH (08:34)
[2016-05-13] MEDS: DOCUSATE SODIUM 100 MG CAPSULE PO SCH (08:34)
[2016-05-13] MEDS: CHOLECALCIFEROL (VITAMIN D3) 1,000 UNIT TABLET PO SCH (08:34)
[2016-05-13] MEDS: CYANOCOBALAMIN (VITAMIN B-12) 1,000 MCG TABLET. PO SCH (08:34)
[2016-05-13] MEDS: FUROSEMIDE 80 MG TABLET PO SCH (08:34)
[2016-05-13] MEDS: VENLAFAXINE 50 MG TABLET. PO SCH (08:34)
[2016-05-13] MEDS: ISOSORBIDE MONONITRATE ER 30 MG TAB.ER.24H PO SCH (08:35)
[2016-05-13] MEDS: ASPIRIN ENTERIC COATED 81 MG TABLET.DR. PO SCH (08:37)
[2016-05-13] MEDS: LEVOTHYROXINE 25 MCG TABLET. PO SCH (08:37)
[2016-05-13] MEDS: METOPROLOL SUCC 24HR ER 25 MG TAB.ER.24H. PO SCH (08:39)
[2016-05-13] MEDS: HEPARIN PF for SUB-Q USE 5,000 UNIT/0.5 ML VIAL. SQ SCH (08:49)
--- NOTE | 2016-05-13 11:24 | PDOC ---
Renal-Progress Notes Subjective Notes Notes NONE History of Present Illness Hx of present illness NO CHANGE Vitals Vitals Vital Signs Date Time Temp Pulse Resp B/P Pulse Ox O2 Delivery O2 Flow Rate FiO2 05/13/16 08:39 67 117/63 05/13/16 07:00 97.9 18 93 Room Air 97.9 05/12/16 20:00 3.0 Weight Weight [ ] I.O. Intake and Output Intake and Output 05/13/16 07:00 Intake Total 400 ml Balance 400 ml Intake Oral 400 ml # Voids 4 # Bowel Movements 1 Labs Labs Laboratory Tests Test 05/13/16 04:35 Sodium Level 134mmol/L (136-145) Potassium Level 4.4mmol/L (3.5-5.1) Chloride Level 96mmol/L (98-107) Carbon Dioxide Level 26mmol/L (21-32) Anion Gap 12 (6-14) Blood Urea Nitrogen 34mg/dL (8-26) Creatinine 3.3mg/dL (0.7-1.3) Estimated GFR (Cockcroft-Gault) 18.1 Glucose Level 145mg/dL (70-99) Calcium Level 8.8mg/dL (8.5-10.1) Physical Exam General Appearance: no apparent distress Skin: warm Respiratory: decreased breath sounds Heart: S1S2, RRR Abdomen: soft Neurology: alert, oriented, follow commands Musculoskeletal: Osteoarthritis Assessment Assessment IMP NEW ESRD ANEMIA - STABLE RESP FAILURE AECOPD SEVERE LE EDEMA-BETTER BUT PERSISTENT MALNUTRITION PLAN PROB D/C TODAY NEXT HD WILL BE OP ON TUESDAY LY ROGERS MD May 13, 2016 11:24
[2016-05-13 11:27] VITALS: BP 97/53
[2016-05-13] MEDS ORDERED: METO25TA9 PO (12:59)
--- NOTE | 2016-05-13 12:59 | PDOC3 ---
Discharge Summary [facility] Date of Admission: Apr 24, 2016 Discharge Date: May 13, 2016 Admitting Diagnosis 1. 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 Acute diastolic CHF 3. Acute on chronic respiratory failure on clotilde o2 2l SOMetimes 4. Cognitive Impairment 5. Bilateral pitting edema 6. Mod PCM 7. Obesity, BMI 35 8. Hypothyroidism 9. Weakness and debility 10. Anxiety Problems: Final Diagnosis 1. 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 Acute diastolic CHF 3. Acute on chronic respiratory failure on clotilde o2 2l SOMetimes 4. Cognitive Impairment 5. Bilateral pitting edema 6. Mod PCM 7. Obesity, BMI 35 8. Hypothyroidism 9. Weakness and debility 10. Anxiety CONSULTS renal gi card Procedures HD MWF Brief Hospital Course Mr. Silva is a 80 old M, [facility], was sent from [facility] for sob, was treated with diuretics for acute on diastolic CHF, ended up need HD, now ON MWF. Pt has been stable, stayed in hosp for a long time since waiting for [place] to approve his HD as outpt. dc home with metoprolol, lasix 80mg bid, HD MWF with [facility] dc time 35min General: Alert, Oriented X3, Cooperative, mild distress Heart: Regular rate, Normal S1, Normal S2, Other (IRR, telemetry: atrial fibrillation) Lungs: Wheezing, Other (apr BS b/l) Abdomen: Normal bowel sounds, Soft, No masses, Other (dialysis catheter is intact) Extremities: No clubbing, No cyanosis, Normal pulses, Other Skin: No breakdown, No significant lesion, Other (bilateral LE erythema) Problems: Disposition home CONDITION AT DISCHARGE: Improved Diet renal Scheduled Aspirin (Aspir 81) 1 TAB PO DAILY (Reported) Cetirizine Hcl (Zyrtec) 1 TAB PO DAILY (Reported) Cholecalciferol (Vitamin D3) (Vitamin D3) 2 TAB PO DAILY (Reported) Cyanocobalamin (Vitamin B-12) (Vitamin B-12) 1 TAB PO DAILY (Reported) Docusate Sodium (Colace) 1 CAP PO DAILY (Reported) Famotidine (Pepcid) 20 MG PO HS (Reported) Furosemide (Lasix) 80 MG PO BID Isosorbide Mononitrate (Isosorbide Mononitrate Er) 1 TAB PO DAILY (Reported) Levothyroxine Sodium (Synthroid) 1 TAB PO DAILY (Reported) Metoprolol Succinate (Metoprolol Succinate ( Xl )) 25 MG PO DAILY Tamsulosin Hcl (Flomax) 1 CAP PO HS (Reported) Venlafaxine Hcl (Effexor Xr) 1 CAP PO DAILY (Reported) Follow Up renal in 2 weeks KAELYN ABERNATHY MD May 13, 2016 12:59
== END 2016-05-13 13:35 | disposition home or self-care (01) | DRG 682 ==
LOC: 1 WEST ICU 10:30 → 6 SOUTH 04-26 10:20
PROVIDERS: ADMIT Internal Medicine; ATTEND Internal Medicine
PROC: 5A1D60Z (ICD-10-PCS; principal; 2016-04-29)
DX: N17.9 Acute kidney failure, unspecified (principal); J96.22 Acute and chronic respiratory failure with hypercapnia; I50.43 Acute on chronic combined systolic (congestive) and diastolic (congestive) heart failure; E66.2 Morbid (severe) obesity with alveolar hypoventilation; J44.1 Chronic obstructive pulmonary disease with (acute) exacerbation; E46 Unspecified protein-calorie malnutrition; N18.4 Chronic kidney disease, stage 4 (severe); I12.9 Hypertensive chronic kidney disease with stage 1 through stage 4 chronic kidney disease, or unspecified chronic kidney disease; N18.6 End stage renal disease; D64.9 Anemia, unspecified; F03.90 Unspecified dementia, unspecified severity, without behavioral disturbance, psychotic disturbance, mood disturbance, and anxiety; I25.10 Atherosclerotic heart disease of native coronary artery without angina pectoris; D63.8 Anemia in other chronic diseases classified elsewhere; E87.5 Hyperkalemia; Z68.35 Body mass index [BMI] 35.0-35.9, adult; E03.9 Hypothyroidism, unspecified; M19.90 Unspecified osteoarthritis, unspecified site; F41.9 Anxiety disorder, unspecified; I89.0 Lymphedema, not elsewhere classified; R53.1 Weakness; Z82.49 Family history of ischemic heart disease and other diseases of the circulatory system; Z87.891 Personal history of nicotine dependence
CPT/HCPCS: 36415; 36558; 70450; 71010; 76937; 77001; 80048; 80053; 82575; 82947; 83735; 84100; 84156; 85007; 85027; 85610; 86704; 86706; 87340; 87341; 87641; 93005; 93306; 94250; 94640; 94760; 97004; A4215; C1750; C1892; J0690; J1200; J1940; J2250; J3010; J3490; J7620; Q0163; 97001; 97003-GO; 97110; 97116; 97530; 97535

== ENCOUNTER 2016-09-26 02:50 | Inpatient (IN) | payer MEDICARE, OTHER ==
[~2016-09-26] VITALS: Ht 180.3 cm; Wt 99.0 kg
[~2016-09-26 02:50] MED LIST: ASPI-482 PO; CETI10TA22 PO; CHOL10003 PO; CYAN10005 PO; DOCU-109 PO; FAMO-63 PO; FURO80TA72 PO; ISOS30TA4 PO; LEVO25TA55 PO; METO25TA9 PO; TAMS0.4C97 PO; VENL150C PO
[2016-09-26] MEDS ORDERED: CONTRAST GIVEN MC PRN (03:45)
[2016-09-26] MEDS ORDERED: IOHEXOL 300 MG/ML 75 ML VIAL IV ONE (03:45)
--- NOTE | 2016-09-26 04:02 | ED.ADGEN ---
Past Medical History Past Medical History: A-Fib, Renal Failure, Unknown Additional Past Medical Histor: MRSA, DIALYSIS PORT, POOR HISTORIAN Past Surgical History: Other Additional Past Surgical Histo: DIALYSIS PORT, POOR HISTORIAN Alcohol Use: None Drug Use: None Adult General Chief Complaint Chief Complaint: LOWER EXTREMITY EDEMA HPI HPI Patient is a 80 year old man, history of atrial fibrillation, hypertension, renal failure on hemodialysis, last received a full dialysis yesterday, who presents to the emergency department as a transfer from [facility] with a complaint of hypoxia, leg swelling and shortness of breath. Patient was accepted as a transfer after discussion with Dr. Anderson at the [facility] in [place], who states that he did have the ability to obtain CTA imaging, V/Q imaging, or ultrasound. Upon arousing the emergency department, patient states that his leg swelling began yesterday although he has had swelling for some time , left leg is significantly larger than the right. He states that he may have had infection of the foot previously but he cannot recall. Patient does not use oxygen at baseline, but oxygen saturation noted to be in the mid 80s upon arrival to [facility], patient is on 4 L nasal cannula, oxygen saturation is in the mid 90s and he denies any chest pain, denies fevers or chills, any nausea or vomiting, abdominal pain, any focal weakness, numbness, tingling, injuries, recent travel or surgery, any history of DVT or PE. He is agreeable to receiving the evaluation and admission here at [facility]. He states he has been compliant with his medications. He cannot recall the name of his primary physician or outreach consultant. He states that he knows about his history of atrial fibrillation, but does not take any anticoagulation. Per report, patient had a pericardial effusion and hematoma after which his anticoagulant was discontinued. Review of Systems Review of Systems Constitutional: Denies fever or chills. [] Eyes: Denies change in visual acuity. [] HENT: Denies nasal congestion or sore throat. [] Respiratory: Denies cough or shortness of breath. [] Cardiovascular: Denies chest pain or edema. [] GI: Denies abdominal pain, nausea, vomiting, bloody stools or diarrhea. [] : Denies dysuria. [] Musculoskeletal: Denies back pain or joint pain. [] Integument: Redness and swelling of the bilateral lower extremities, left-sided greater than right. Neurologic: Denies headache, focal weakness or sensory changes. [] Endocrine: Denies polyuria or polydipsia. [] Lymphatic: Denies swollen glands. [] Psychiatric: Denies depression or anxiety. [] Current Medications Current Medications Current Medications Medications (Trade) Dose Ordered Sig/Lenny Start Time Stop Time Status Last Admin Dose Admin Info (Do NOT chart on this entry -- for MONITORING) 1 each PRN DAILY PRN 09/26/16 03:45 09/28/16 03:44 Iohexol (Omnipaque 300 Mg/ml) 75 ml 1X ONCE 09/26/16 03:45 09/26/16 03:46 DC 09/26/16 04:45 75 ML Allergies Allergies Allergies Coded Allergies Type Severity Reaction Last Updated Verified piroxicam Allergy Intermediate Rash 04/24/16 Yes I S O L A T I O N *CONTACT* Allergy Unknown 04/26/16 Yes Physical Exam Physical Exam Constitutional: Well developed, well nourished, no acute distress, chronically ill in appearance. [] Nasal cannula in place. HENT: Normocephalic, atraumatic, bilateral external ears normal, oropharynx moist, no oral exudates, nose normal. [] Eyes: PERRLA, EOMI, conjunctiva normal, no discharge. [] Neck: Normal range of motion, no tenderness, supple, no stridor. [] Cardiovascular: Irregular rhythm, S1, S2, 3-5 systolic murmur, no rubs or gallops. [] Lungs & Thorax: Diminished breath sounds at bases bilaterally, no wheezing, no rhonchi, rales. No chest or crepitus or tenderness. Patient with a right-sided subclavian catheter in place, site is clean dry and intact and nontender. [] Abdomen: Bowel sounds normal, soft, obese, mild anasarca, no rebound, rigidity, no guarding, no tenderness, no masses, no pulsatile masses. [] Skin: Warm, dry, no erythema, no rash. [] Back: No tenderness, no CVA tenderness. [] Extremities: No tenderness, no cyanosis, no clubbing, ROM intact, patient with 4 + pitting edema noted in the left lower extremity, 3+ on the right, significant swelling and tenderness with cellulitic changes left-sided greater than right. No open wounds or drainage. [] Neurologic: Alert and oriented X 3, normal motor function, normal sensory function, no focal deficits noted. [] Psychologic: Affect normal, judgement normal, mood normal. [] Current Patient Data Vital Signs Vital Signs Date Time Temp Pulse Resp B/P (MAP) Pulse Ox O2 Delivery O2 Flow Rate FiO2 09/26/16 05:30 92 34 139/62 (87) 93 Nasal Cannula 2.0 09/26/16 02:55 98.7 98.7 Lab Values Laboratory Tests Test 09/26/16 03:42 White Blood Count 19.1 x10^3/uL (4.0-11.0) H Red Blood Count 4.07 x10^6/uL (4.30-5.70) L Hemoglobin 12.1 g/dL (13.0-17.5) L Hematocrit 35.4 % (39.0-53.0) L Mean Corpuscular Volume 87 fL (79-100) Mean Corpuscular Hemoglobin 30 pg (25-35) Mean Corpuscular Hemoglobin Concent 34 g/dL (31-37) Red Cell Distribution Width 15.2 % (11.5-14.5) H Platelet Count 206 x10^3/uL (140-400) Neutrophils (%) (Auto) 89 % (31-73) H Lymphocytes (%) (Auto) 5 % (24-48) L Monocytes (%) (Auto) 6 % (0-9) Eosinophils (%) (Auto) 0 % (0-3) Basophils (%) (Auto) 0 % (0-3) Neutrophils # (Auto) 16.9 x10^3uL (1.8-7.7) H Lymphocytes # (Auto) 1.0 x10^3/uL (1.0-4.8) Monocytes # (Auto) 1.0 x10^3/uL (0.0-1.1) Eosinophils # (Auto) 0.0 x10^3/uL (0.0-0.7) Basophils # (Auto) 0.1 x10^3/uL (0.0-0.2) Platelet Estimate Pending Sodium Level 138 mmol/L (136-145) Potassium Level 3.9 mmol/L (3.5-5.1) Chloride Level 98 mmol/L (98-107) Carbon Dioxide Level 32 mmol/L (21-32) Anion Gap 8 (6-14) Blood Urea Nitrogen 40 mg/dL (8-26) H Creatinine 3.4 mg/dL (0.7-1.3) H Estimated GFR (Cockcroft-Gault) 17.5 BUN/Creatinine Ratio 12 (6-20) Glucose Level 125 mg/dL (70-99) H Calcium Level 8.5 mg/dL (8.5-10.1) Total Bilirubin 0.6 mg/dL (0.2-1.0) Aspartate Amino Transferase (AST) 29 U/L (15-37) Alanine Aminotransferase (ALT) 23 U/L (16-63) Alkaline Phosphatase 93 U/L (46-116) Troponin I Quantitative 0.028 ng/mL (0.000-0.055) QY-Sro-E-Type Natriuretic Peptide 6636 pg/mL (0-449) H Total Protein 7.2 g/dL (6.4-8.2) Albumin 2.6 g/dL (3.4-5.0) L Albumin/Globulin Ratio 0.6 (1.0-1.7) L Laboratory Tests 09/26/16 03:42 Laboratory Tests 09/26/16 03:42 EKG EKG EC: Irregular rhythm, atrial fibrillation, heart rate 88 bpm, evaluation significantly limited secondary to baseline artifact although multiple ECGs were attempted. Occasional APCs noted, QTc of 449, NJ of 256, QR 78, abnormal ECG, does not meet STEMI criteria, no ST elevations or depressions noted, as interpreted by me. Interpretation Time: [facility] [address] [place] [address] IMAGING REPORT Signed PATIENT: JENNY KERN ACCOUNT: [id number] : 1935 LOCATION: ER AGE: 80 SEX: M EXAM STATUS: REG ER ORD. PHYSICIAN: MARLENE GUZMÁN DO REASON: SOB/Hypoxia PROCEDURE: CT ANGIOGRAPHY CHEST PROCEDURE CT angiography chest with contrast HISTORY Shortness of breath, hypoxia TECHNIQUE Exposure: One or more of the following individualized dose reduction techniques were utilized for this exam: 1. Automated exposure control. 2. Adjustment of the mA and/or kV according to patient size. 3. Use of iterative reconstruction technique. Helical CT imaging of the chest with multiplanar 3D MIP reconstructions of the pulmonary arteries to assess for emboli with 75 milliliters Omnipaque 300 intravenous contrast. COMPARISON No prior FINDINGS Fusiform aneurysm ascending thoracic aorta diameter 4.2 centimeters. Extensive Coronary calcified plaque. Right jugular dialysis catheter tip proximal right atrium. Pulmonary artery enlarged diameter 3.7 centimeters may indicate pulmonary artery hypertension. The peripheral pulmonary arteries are somewhat under opacified which combine with respiratory motion artifact may decrease sensitivity to detect small peripheral small pulmonary emboli in light of this no pulmonary artery embolus is evident. Borderline enlarged peritracheal mediastinal lymph node short axis diameter 10 millimeters. Calcified pleural plaque right diaphragm and posterior pleural space with some calcification at the anterior pleural space as well. Calcified granulomas at the tennille and mediastinum. Mild apical fibrosis. Bronchial wall thickening with luminal narrowing and mild volume loss of the bilateral lower lobes and right middle lobe likely bronchitis. No pulmonary opacities. No pleural effusions. . IMPRESSION 1. No pulmonary artery embolus. See discussion above. 2. Central bronchial wall thickening with luminal narrowing and mild volume loss of the right middle lobe bilateral lower lobes typical of bronchitis. No pulmonary infiltrate. 3. Right thoracic pleural calcified plaques likely indicative of an old infection, old hemothorax or pleurodesis. 4. Ascending thoracic aorta aneurysm diameter 4.2 centimeters. Electronically signed by: Vinita Pappas MD (September 26, 2016 05:18:57) DICTATED and SIGNED BY: VINITA PAPPAS MD DATE: 09/26/16517 CC: JHONNY DENNEY ERIN M DO ~ Radiology/Procedures Radiology/Procedures [][facility] [address] [place] [address] IMAGING REPORT Signed PATIENT: JENNY KERN ACCOUNT: [id number] : 1935 LOCATION: ER AGE: 80 SEX: M EXAM STATUS: REG ER ORD. PHYSICIAN: MARLENE GUZMÁN DO REASON: pain/swelling PROCEDURE: VENOUS LOWER EXT BILATERAL PROCEDURE Bilateral lower extremity venous duplex Doppler ultrasound HISTORY Leg redness and pain and swelling TECHNIQUE Grayscale and duplex Doppler sonography were utilized COMPARISON No prior FINDINGS No evidence of deep venous thrombosis by grayscale imaging with compressibility, patent color Doppler blood flow and augmentation of blood flow of the common femoral veins, profunda femoral veins, superficial femoral veins and popliteal veins. Patent color Doppler blood flow of the posterior tibial and peroneal veins within the calves documented. IMPRESSION Negative bilateral legs for deep venous thrombosis. Electronically signed by: Vinita Pappas MD (September 26, 2016 04:28:00) DICTATED and SIGNED BY: VINITA PAPPAS MD DATE: 09/26/16 0428 CC: JHONNY DENNEY; MARLENE GUZMÁN DO ~ Course & Med Decision Making Course & Med Decision Making Pertinent Labs and Imaging studies reviewed. (See chart for details) [] Patient agreeable for evaluation in the emergency department, proceeded with ultrasound of the lower extremities, chest x-ray, and then progress on the CT A of the chest due to the Adderall findings on chest x-ray. Patient's oxygen saturation remained stable on 2 L nasal cannula, as stated he does not use oxygen at baseline. CT of the chest reveals evidence of bronchitis, but no pneumonia, and no pulmonary embolus. Patient also noted to have a 4.2 cm ascending aortic aneurysm. Patient does not indicate that he is aware of this issue. He remains chest pain-free, resting comfortably in the emergency department as stated. Patient initiated on IV antibiotics for cellulitis, plan for dialysis to be performed upon admission to the hospital. Consultation placed for Dr. Ortiz of nephrology. Findings as above discussed with Dr. Campbell of internal medicine, patient accepted to her service as a full admission to the medical telemetry floor plan for nephrology consultation, cardiothoracic surgery consultation, and also pulmonary critical care consultation, patient receiving duo nebs antibiotics as stated. Patient resting completely emergency department, transferred to the floor without issue. Dragon Disclaimer Dragon Disclaimer This electronic medical record was generated, in whole or in part, using a voice recognition dictation system. Departure Impression: Primary Impression: Cellulitis Additional Impressions: Bronchitis Hypoxia End-stage renal disease on hemodialysis Disposition: ADMITTED INPATIENT Admitting Physician: Lloyd Campbell Condition: IMPROVED Problem Qualifiers MARLENE GUZMÁN DO September 26, 2016 04:02
[2016-09-26 04:03] LABS: BASO # 0.1 x10^3/uL (0.0-0.2); BASO % 0 % (0-3); EOS % 0 % (0-3); HEMATOCRIT 35.4 % (39.0-53.0); HEMOGLOBIN 12.1 g/dL (13.0-17.5); LYMPH % 5 % (24-48); MEAN CORPUSCULAR HEMOGLOBIN 30 pg (25-35); MEAN CORPUSCULAR HGB CONC 34 g/dL (31-37); MEAN CORPUSCULAR VOLUME 87 fL (79-100); MONO % 6 % (0-9); NEUT % 89 % (31-73); PLATELET COUNT 206 x10^3/uL (140-400); RED BLOOD COUNT 4.07 x10^6/uL (4.30-5.70); RED CELL DISTRIBUTION WIDTH 15.2 % (11.5-14.5); WHITE BLOOD COUNT 19.1 x10^3/uL (4.0-11.0)
--- NOTE | 2016-09-26 04:29 | RAD ---
PROCEDURE Bilateral lower extremity venous duplex Doppler ultrasound HISTORY Leg redness and pain and swelling TECHNIQUE Grayscale and duplex Doppler sonography were utilized COMPARISON No prior FINDINGS No evidence of deep venous thrombosis by grayscale imaging with compressibility, patent color Doppler blood flow and augmentation of blood flow of the common femoral veins, profunda femoral veins, superficial femoral veins and popliteal veins. Patent color Doppler blood flow of the posterior tibial and peroneal veins within the calves documented. IMPRESSION Negative bilateral legs for deep venous thrombosis. Electronically signed by: David Tovar MD (September 26, 2016 04:28:00)
[2016-09-26 04:41] LABS: CALCIUM 8.5 mg/dL (8.5-10.1); POTASSIUM 3.9 mmol/L (3.5-5.1); TOTAL PROTEIN 7.2 g/dL (6.4-8.2)
[2016-09-26 04:51] LABS: ALBUMIN 2.6 g/dL (3.4-5.0); ALBUMIN/GLOBULIN RATIO 0.6 (1.0-1.7); CREATININE 3.4 mg/dL (0.7-1.3); GFR 17.5; TOTAL BILIRUBIN 0.6 mg/dL (0.2-1.0)
--- NOTE | 2016-09-26 05:20 | RAD ---
PROCEDURE CT angiography chest with contrast HISTORY Shortness of breath, hypoxia TECHNIQUE Exposure: One or more of the following individualized dose reduction techniques were utilized for this exam: 1. Automated exposure control. 2. Adjustment of the mA and/or kV according to patient size. 3. Use of iterative reconstruction technique. Helical CT imaging of the chest with multiplanar 3D MIP reconstructions of the pulmonary arteries to assess for emboli with 75 milliliters Omnipaque 300 intravenous contrast. COMPARISON No prior FINDINGS Fusiform aneurysm ascending thoracic aorta diameter 4.2 centimeters. Extensive Coronary calcified plaque. Right jugular dialysis catheter tip proximal right atrium. Pulmonary artery enlarged diameter 3.7 centimeters may indicate pulmonary artery hypertension. The peripheral pulmonary arteries are somewhat under opacified which combine with respiratory motion artifact may decrease sensitivity to detect small peripheral small pulmonary emboli in light of this no pulmonary artery embolus is evident. Borderline enlarged peritracheal mediastinal lymph node short axis diameter 10 millimeters. Calcified pleural plaque right diaphragm and posterior pleural space with some calcification at the anterior pleural space as well. Calcified granulomas at the tennille and mediastinum. Mild apical fibrosis. Bronchial wall thickening with luminal narrowing and mild volume loss of the bilateral lower lobes and right middle lobe likely bronchitis. No pulmonary opacities. No pleural effusions. . IMPRESSION 1. No pulmonary artery embolus. See discussion above. 2. Central bronchial wall thickening with luminal narrowing and mild volume loss of the right middle lobe bilateral lower lobes typical of bronchitis. No pulmonary infiltrate. 3. Right thoracic pleural calcified plaques likely indicative of an old infection, old hemothorax or pleurodesis. 4. Ascending thoracic aorta aneurysm diameter 4.2 centimeters. Electronically signed by: David Tovar MD (September 26, 2016 05:18:57)
[2016-09-26] MEDS ORDERED: IPRATRPIUM/ALBUTEROL 0.5/2.5MG 3 ML NEBU. NEB ONE (05:45)
--- NOTE | 2016-09-26 05:58 | ACF ---
Admission Forms Criteria CELLULITIS Clinical Indications for Admission to Inpatient Care (Place 'X' for any and all applicable criteria): Admission is indicated for ANY ONE of the following(1)(2)(3)(4)(5): [ ]I. Limb-threatening infection [ ]II. High-risk comorbid condition as indicated by ANY ONE of the following: [ ]a) Uncontrolled diabetes (eg, HbA1c greater than 10% (0.1)) [ ]b) Cirrhosis [ ]c) Neutropenia [ ]d) Asplenia [ ]e) Immunosuppression [ ]f) Symptomatic heart failure [X]III. Failure of outpatient therapy as indicated by ALL of the following: [X]a) Progression or no improvement after adequate trial (minimum of 48 hours, with longer period for stable lower extremity infection) [X]b) Adequate antibiotic regimen as indicated by use of ANY ONE of the following: [ ]i) First-generation cephalosporin (e.g., cephalexin) [ ]ii) Antistaphylococcal penicillin (e.g., dicloxacillin) [ ]iii) Penicillin-allergic patient regimen (clindamycin, extended-spectrum fluoroquinolone, or doxycycline) [X]iv) Resistant organism (eg, methicillin-resistant Staphylococcus aureus) regimen (6) [X]c) Outpatient intravenous therapy regimen is not appropriate due to ANY ONE of the following. (7)(8)(9)(10): [ ]i) It was tried and was not successful (eg, progression of infection). [X]ii) It is not available or cannot be arranged in a clinically appropriate time frame (e.g., the next day). [ ]iii) Clinical presentation (eg, acuity of infection, rapidity of progression, confirmed or suspected bacteremia) is judged to require ALL of the following: [ ]1) Immediate initiation of intravenous therapy ( eg, cannot wait for next day) [ ]2) Intensity of patient monitoring and observation (eg, vital sign measurement, checks for infection progression) that cannot be provided at other than inpatient level of care [ ]IV. Mental status changes [ ]V. Bacteremia [ ]. Hemodynamic instability [ ]VII. Suspected necrotizing soft tissue infection (e.g., gas in tissue)(11)( 12) [ ]VIII. Orbital infection (13)(14) [ ]IX. Associated surgical procedure (e.g., abscess drainage, debridement) not amenable to outpatient, emergency department, or observation care [ ]X. Cutaneous gangrene [ ]XI. High fever (temperature greater than 39.5 degrees C (103.1 degrees F) (oral)) not responsive to outpatient, emergency department, or observation care therapy [ ]XIII. Inpatient admission required rather than observation care (Also use Cellulitis: Observation Care as appropriate) because of ANY ONE of the following : [ ]a) Periorbital or perineal infection that is severe or worsening [ ]b) Severe pain requiring acute inpatient management [ ]c) IV fluid to replace significant ongoing (e.g., for over 24 hours) losses (greater than 3L/m2 per day) [ ]d) Compartment syndrome monitoring (17) [ ]e) Strict or protective (eg, laminar flow) isolation [ ]f) Urgent debridement or skin grafting [ ]g) Bone or joint debridement [ ]h) Immediate inpatient surgery [ ]i) Other condition, treatment or monitoring requiring inpatient admission Extended stay beyond goal length of stay may be needed for (1)(18): [ ]a) Necrotizing soft tissue infection or fasciitis [ ]b) Gram-negative infection [ ]c) Methicillin-resistant Staphylococcal aureus (MRSA) infection [ ]d) Peripheral venous insufficiency with cellulitis [ ]e) Extensive edema [ ]f) Sepsis or continued Hemodynamic instability [ ]g) Continued high fever or mental status change [ ]h) Bacteremia [ ]i) Active serious comorbid conditions ( eg, heart failure, renal insufficiency) The original [facility] content created by [facility] has been revised. The portions of the content which have been revised are identified through the use of italic text or in bold, and [facility] has neither reviewed nor approved the modified material. All other unmodified content is copyright [facility] Please see references footnoted in the original [facility] [employer] edition 2016 Admission Criteria Met?: Yes SIENA HERBERT September 26, 2016 05:58
[2016-09-26] MEDS ORDERED: CLINDAMYCIN 600MG PREMIX 50 ML IV ONE (06:00)
[2016-09-26] MEDS ORDERED: fentaNYL PF VIAL 100 MCG/2 ML VIAL IV PRN (06:15)
[2016-09-26] MEDS ORDERED: ACETAMINOPHEN 325 MG TABLET. PO PRN (06:15)
[2016-09-26] MEDS ORDERED: DEXTROSE 50% 25 GM / 50ML DISP.SYRIN. IV PRN (06:15)
[2016-09-26] MEDS ORDERED: VANCOMYCIN 2 GM in IV NORMAL SALINE 500ML BAG 500 ML IV ONE (06:30)
[2016-09-26 06:49] VITALS: BP 113/59
[2016-09-26 07:00] VITALS: BP 101/47
--- NOTE | 2016-09-26 07:54 | RAD ---
Indication: Hypoxia. Technique: Upright portable chest radiograph was obtained and compared to a study from May 03, 2016. Findings: Calcified pleural plaques are noted. No definite airspace disease is apparent. Heart is enlarged. There is no definite heart failure. Dialysis access is noted. Leads overlie the patient. Impression: No acute thoracic findings. Calcified pleural plaques can be secondary to asbestos exposure, previous hemothorax or empyema, or pleurodesis.
[2016-09-26] MEDS: INSULIN ASPART 300 UNITS/3 ML INSULN.PEN SQ SCH ×3 (08:00→17:00)
--- NOTE | 2016-09-26 08:49 | PDOC1 ---
History and Physical Past Medical History Cardiovascular: AFIB, CHF, HTN Pulmonary: COPD CENTRAL NERVOUS SYSTEM: Dementia GI: No pertinent hx Heme/Onc: No pertinent hx Hepatobiliary: No pertinent hx Psych: Depression Renal/: Chronic renal insuff Endocrine: Hypothyroidism Past Surgical History Past Surgical History: Other Family History Family History: Heart Disease, Family History Unknown Social History ALCOHOL: none Drugs: None Current Problem List Problem List Problems Medical Problems: (1) Bronchitis Status: Acute (2) Cellulitis Status: Acute (3) End-stage renal disease on hemodialysis Status: Acute (4) Hypoxia Status: Acute Current Medications Current Medications Current Medications Medications (Trade) Dose Ordered Sig/Lenny Start Time Stop Time Status Last Admin Dose Admin Acetaminophen (Tylenol) 650 mg PRN Q4HRS PRN 09/26/16 06:15 09/27/16 06:14 Albuterol/ Ipratropium (Duoneb) 3 ml RTQID 09/26/16 08:00 09/27/16 07:59 Clindamycin Phosphate 50 ml @ 100 mls/hr Q8HRS 09/26/16 14:00 Dextrose (Dextrose 50%-Water Syringe) 12.5 gm PRN Q15MIN PRN 09/26/16 06:15 Fentanyl Citrate (Fentanyl 2ml Vial) 25 mcg PRN Q1HR PRN 09/26/16 06:15 09/27/16 06:14 Info (Do NOT chart on this entry -- for MONITORING) 1 each PRN DAILY PRN 09/26/16 03:45 09/28/16 03:44 Insulin Aspart (NovoLOG) 0-5 UNITS TIDWMEALS 09/26/16 08:00 Iohexol (Omnipaque 300 Mg/ml) 75 ml 1X ONCE 09/26/16 03:45 09/26/16 03:46 DC 09/26/16 04:45 75 ML Vancomycin HCl 1 each 1X ONCE 09/30/16 07:30 09/30/16 07:31 Cancel Vancomycin HCl (Vanco Per Pharmacy) 1 each PRN DAILY PRN 09/26/16 05:45 Vancomycin HCl 1.5 gm/Sodium Chloride 500 ml @ 250 mls/hr Q48H 09/28/16 08:00 Cancel Vancomycin HCl 2 gm/Sodium Chloride 500 ml @ 250 mls/hr 1X ONCE 09/26/16 06:30 09/26/16 08:29 DC 09/26/16 08:07 250 MLS/HR Allergies Allergies Allergies Coded Allergies Type Severity Reaction Last Updated Verified piroxicam Allergy Intermediate Rash 04/24/16 Yes I S O L A T I O N *CONTACT* Allergy Unknown 04/26/16 Yes ROS Review of System CONSTITUTIONAL: No fever or chills EYES: No recent changes SKIN: LEFT LOWER EXT REDNESS AND SWELLING CARDIOVASCULAR: No chest pain, syncope, palpitations, or edema RESPIRATORY: SOB or cough GASTROINTESTINAL: No nausea, vomiting or abdominal pain NEUROLOGICAL: No headaches or weakness ENDOCRINE: No cold or heat intolerance GENITOURINARY: No urgency or frequency of urination MUSCULOSKELETAL: No back pain or joint pain LYMPHATICS: No enlarged lymph nodes PSYCHIATRIC: No anxiety or depression Physical Exam Physical Exam GEN.: No apparent distress. Alert and oriented. sleepy, HEENT: Head is normocephalic, atraumatic NECK: Supple. no JVD LUNGS: Clear to auscultation. decreased BS HEART: RRR, S1, S2 present. Peripheral pulses intact ABDOMEN: Soft, nontender. Positive bowel sounds. EXTREMITIES: +2 EDEMA NEUROLOGIC: Normal speech, normal tone PSYCHIATRIC: Normal affect, normal mood. SKIN: Redness in LE Vitals Vitals Vital Signs Date Time Temp Pulse Resp B/P (MAP) Pulse Ox O2 Delivery O2 Flow Rate FiO2 09/26/16 07:00 97.9 78 18 101/47 (65) 96 Nasal Cannula 97.9 09/26/16 06:49 2.0 Labs Labs Laboratory Tests Test 09/26/16 03:42 09/26/16 07:42 White Blood Count 19.1 x10^3/uL (4.0-11.0) Red Blood Count 4.07 x10^6/uL (4.30-5.70) Hemoglobin 12.1 g/dL (13.0-17.5) Hematocrit 35.4 % (39.0-53.0) Mean Corpuscular Volume 87 fL (79-100) Mean Corpuscular Hemoglobin 30 pg (25-35) Mean Corpuscular Hemoglobin Concent 34 g/dL (31-37) Red Cell Distribution Width 15.2 % (11.5-14.5) Platelet Count 206 x10^3/uL (140-400) Neutrophils (%) (Auto) 89 % (31-73) Lymphocytes (%) (Auto) 5 % (24-48) Monocytes (%) (Auto) 6 % (0-9) Eosinophils (%) (Auto) 0 % (0-3) Basophils (%) (Auto) 0 % (0-3) Neutrophils # (Auto) 16.9 x10^3uL (1.8-7.7) Lymphocytes # (Auto) 1.0 x10^3/uL (1.0-4.8) Monocytes # (Auto) 1.0 x10^3/uL (0.0-1.1) Eosinophils # (Auto) 0.0 x10^3/uL (0.0-0.7) Basophils # (Auto) 0.1 x10^3/uL (0.0-0.2) Sodium Level 138 mmol/L (136-145) Potassium Level 3.9 mmol/L (3.5-5.1) Chloride Level 98 mmol/L (98-107) Carbon Dioxide Level 32 mmol/L (21-32) Anion Gap 8 (6-14) Blood Urea Nitrogen 40 mg/dL (8-26) Creatinine 3.4 mg/dL (0.7-1.3) Estimated GFR (Cockcroft-Gault) 17.5 BUN/Creatinine Ratio 12 (6-20) Glucose Level 125 mg/dL (70-99) Calcium Level 8.5 mg/dL (8.5-10.1) Total Bilirubin 0.6 mg/dL (0.2-1.0) Aspartate Amino Transf (AST/SGOT) 29 U/L (15-37) Alanine Aminotransferase (ALT/SGPT) 23 U/L (16-63) Alkaline Phosphatase 93 U/L (46-116) Troponin I Quantitative 0.028 ng/mL (0.000-0.055) ZZ-Hpd-D-Type Natriuretic Peptide 6636 pg/mL (0-449) Total Protein 7.2 g/dL (6.4-8.2) Albumin 2.6 g/dL (3.4-5.0) Albumin/Globulin Ratio 0.6 (1.0-1.7) Glucose (Fingerstick) 103 mg/dL (70-99) Laboratory Tests Test 09/26/16 03:42 09/26/16 07:42 White Blood Count 19.1 x10^3/uL (4.0-11.0) Red Blood Count 4.07 x10^6/uL (4.30-5.70) Hemoglobin 12.1 g/dL (13.0-17.5) Hematocrit 35.4 % (39.0-53.0) Mean Corpuscular Volume 87 fL (79-100) Mean Corpuscular Hemoglobin 30 pg (25-35) Mean Corpuscular Hemoglobin Concent 34 g/dL (31-37) Red Cell Distribution Width 15.2 % (11.5-14.5) Platelet Count 206 x10^3/uL (140-400) Neutrophils (%) (Auto) 89 % (31-73) Lymphocytes (%) (Auto) 5 % (24-48) Monocytes (%) (Auto) 6 % (0-9) Eosinophils (%) (Auto) 0 % (0-3) Basophils (%) (Auto) 0 % (0-3) Neutrophils # (Auto) 16.9 x10^3uL (1.8-7.7) Lymphocytes # (Auto) 1.0 x10^3/uL (1.0-4.8) Monocytes # (Auto) 1.0 x10^3/uL (0.0-1.1) Eosinophils # (Auto) 0.0 x10^3/uL (0.0-0.7) Basophils # (Auto) 0.1 x10^3/uL (0.0-0.2) Sodium Level 138 mmol/L (136-145) Potassium Level 3.9 mmol/L (3.5-5.1) Chloride Level 98 mmol/L (98-107) Carbon Dioxide Level 32 mmol/L (21-32) Anion Gap 8 (6-14) Blood Urea Nitrogen 40 mg/dL (8-26) Creatinine 3.4 mg/dL (0.7-1.3) Estimated GFR (Cockcroft-Gault) 17.5 BUN/Creatinine Ratio 12 (6-20) Glucose Level 125 mg/dL (70-99) Calcium Level 8.5 mg/dL (8.5-10.1) Total Bilirubin 0.6 mg/dL (0.2-1.0) Aspartate Amino Transf (AST/SGOT) 29 U/L (15-37) Alanine Aminotransferase (ALT/SGPT) 23 U/L (16-63) Alkaline Phosphatase 93 U/L (46-116) Troponin I Quantitative 0.028 ng/mL (0.000-0.055) MY-Zgm-E-Type Natriuretic Peptide 6636 pg/mL (0-449) Total Protein 7.2 g/dL (6.4-8.2) Albumin 2.6 g/dL (3.4-5.0) Albumin/Globulin Ratio 0.6 (1.0-1.7) Glucose (Fingerstick) 103 mg/dL (70-99) VTE Prophylaxis Ordered VTE Prophylaxis Devices: Yes VTE Pharmacological Prophylaxi: Yes CECELIA GOODE MD September 26, 2016 08:49
[2016-09-26 09:24] LABS: PLT ESTIMATE ADEQUATE (ADEQUATE)
[2016-09-26] MEDS: IPRATRPIUM/ALBUTEROL 0.5/2.5MG 3 ML NEBU. NEB SCH ×4 (09:27→19:59)
--- NOTE | 2016-09-26 10:15 | PDOC ---
Provider Note Provider Note dictated STEPHANIE VELÁZQUEZ MD September 26, 2016 10:14
[2016-09-26] MEDS: VANCOMYCIN PER PHARMACY MC PRN (10:19)
--- NOTE | 2016-09-26 10:54 | PDOC2 ---
CONSULT Date of Consult Date of Consult DATE: 09/26/16 TIME: 10:50 Reason for Consult Reason for Consult: ESRD AND SOB Referring Physician Referring Physician: JOSEMANUEL Identification/Chief Complaint Chief Complaint SOB Source Source: Chart review, Patient History of Present Illness Reason for Visit: THIS IS AN 80 YR OLD ADMITTED WITH SOB AND HYPOXIA. HE HAS ESRD AND IS ON OP HD ON TTS IN [place]. HE PRESENTED WITH SOB AND WAS NOTED TO BE HYPOXIC. HE DIALYSIS VIA A TDC ON HIS RIGHT CHEST WALL. HE IS ALSO NOTED TO HAVE REDNESS, ERYTHEMA AND LE EDEMA BILATERALLY. CTA WAS NEG FOR PE. CXRAY IS NEG FOR ACUTE CHANGES Past Medical History Cardiovascular: AFIB, CHF, HTN Pulmonary: COPD CENTRAL NERVOUS SYSTEM: Dementia GI: No pertinent hx Heme/Onc: No pertinent hx Hepatobiliary: No pertinent hx Psych: Depression Musculoskeletal: Osteoarthritis Renal/: Chronic renal insuff Endocrine: Hypothyroidism, Hyperparathyroidism Past Surgical History Past Surgical History: Other Family History Family History: Heart Disease, Family History Unknown Social History ALCOHOL: none Drugs: None Lives: Roommate Current Problem List Problem List Problems Medical Problems: (1) Bronchitis Status: Acute (2) Cellulitis Status: Acute (3) End-stage renal disease on hemodialysis Status: Acute (4) Hypoxia Status: Acute Current Medications Current Medications Current Medications Iohexol (Omnipaque 300 Mg/ml) 75 ml 1X ONCE IV Last administered on 09/26/16 04:45; Start 09/26/16 at 03:45; Stop 09/26/16 at 03:46; Status DC Info (Do NOT chart on this entry -- for MONITORING) 1 each PRN DAILY PRN MC SEE COMMENTS; Start 09/26/16 at 03:45; Stop 09/28/16 at 03:44 Albuterol/ Ipratropium (Duoneb) 3 ml 1X ONCE NEB Last administered on 05:53; Start 09/26/16 at 05:45; Stop 09/26/16 at 05:46; Status DC Clindamycin Phosphate 50 ml @ 100 mls/hr 1X ONCE IV Last administered on 09/26t 06:17; Start 09/26/16 at 06:00; Stop 09/26/16 at 06:29; Status DC Clindamycin Phosphate 50 ml @ 100 mls/hr Q8HRS IV ; Start 09/26/16 at 14:00 Vancomycin HCl (Vanco Per Pharmacy) 1 each PRN DAILY PRN MC SEE COMMENTS Last administered on 09/26/16 10:19; Start 09/26/16 at 05:45 Vancomycin HCl 2 gm/Sodium Chloride 500 ml @ 250 mls/hr 1X ONCE IV Last administered on 09/26/16 08:07; Start 09/26/16 at 06:30; Stop 09/26/16 at 08:29 ; Status DC Fentanyl Citrate (Fentanyl 2ml Vial) 25 mcg PRN Q1HR PRN IV PAIN; Start at 06:15; Stop 09/27/16 at 06:14 Acetaminophen (Tylenol) 650 mg PRN Q4HRS PRN PO FEVER; Start 09/26/16 at 06:15 ; Stop 09/27/16 at 06:14 Albuterol/ Ipratropium (Duoneb) 3 ml RTQID NEB Last administered on 09/26/16 09:27; Start 09/26/16 at 08:00; Stop 09/27/16 at 07:59 Insulin Aspart (NovoLOG) 0-5 UNITS TIDWMEALS SQ ; Start 09/26/16 at 08:00 Dextrose (Dextrose 50%-Water Syringe) 12.5 gm PRN Q15MIN PRN IV SEE COMMENTS; Start 09/26/16 at 06:15 Vancomycin HCl 1.5 gm/Sodium Chloride 500 ml @ 250 mls/hr Q48H IV ; Start 09/28 at 08:00; Status Cancel Vancomycin HCl 1 each 1X ONCE MC ; Start 09/30/16 at 07:30; Stop 09/30/16 at 07 :31; Status Cancel Vancomycin HCl 1 each 1X ONCE MC ; Start 09/28/16 at 07:00; Stop 09/28/16 at 07 :01 Active Scripts Active Metoprolol Succinate ( Xl ) (Metoprolol Succinate) 25 Mg Tab.er.24h 25 Mg PO DAILY Lasix (Furosemide) 80 Mg Tablet 80 Mg PO BID Reported Effexor Xr (Venlafaxine Hcl) 150 Mg Cap.er.24h 1 Cap PO DAILY Flomax (Tamsulosin Hcl) 0.4 Mg Cap.er.24h 1 Cap PO HS Synthroid (Levothyroxine Sodium) 25 Mcg Tablet 1 Tab PO DAILY Isosorbide Mononitrate Er (Isosorbide Mononitrate) 30 Mg Tab.er.24h 1 Tab PO DAILY Pepcid (Famotidine) 20 Mg Tablet 20 Mg PO HS Colace (Docusate Sodium) 100 Mg Capsule 1 Cap PO DAILY Vitamin B-12 (Cyanocobalamin (Vitamin B-12)) 1,000 Mcg Tablet 1 Tab PO DAILY Vitamin D3 (Cholecalciferol (Vitamin D3)) 1,000 Unit Tablet 2 Tab PO DAILY Zyrtec (Cetirizine Hcl) 10 Mg Tablet 1 Tab PO DAILY Aspir 81 (Aspirin) 81 Mg Tablet.dr 1 Tab PO DAILY Allergies Allergies: Coded Allergies: piroxicam (Verified Allergy, Intermediate, Rash, 04/24/16) Takes asa at home I S O L A T I O N *CONTACT* (Verified Allergy, Unknown, 04/26/16) mrsa ROS General: YES: Fatigue, Malaise, Appetite PSYCHOLOGICAL ROS: YES: Anxiety, Depression Eyes: Yes Decreased vision HEENT: YES: Heacaches Respiratory: YES: Cough, Orthopnea, Shortness of breath Cardiovascular: yes Edema Gastrointestinal: Yes Constipation Genitourinary: YES Other (ANURIA) Musculoskeletal: Yes Muscular Weakness Neurological: Yes Weakness Skin: Yes Skin Lesion Changes, Yes Other (LE CELLULITIS BILATERALLY) Physical Exam General: Alert, Oriented X3, Cooperative, No acute distress HEENT: Atraumatic, PERRLA Lungs: Other (POOR EFFORT) Heart: Regular rate Abdomen: Normal bowel sounds, Soft, No tenderness Extremities: No clubbing, Other (EDEMA BILATERALLY 2-3+ WITH ERYTHEMA) Vitals VITALS Vital Signs Date Time Temp Pulse Resp B/P (MAP) Pulse Ox O2 Delivery O2 Flow Rate FiO2 09/26/16 09:27 98 Nasal Cannula 2.0 09/26/16 07:00 97.9 78 18 101/47 (65) 97.9 Labs Labs Laboratory Tests Test 09/26/16 03:42 09/26/16 07:42 White Blood Count 19.1 x10^3/uL (4.0-11.0) Red Blood Count 4.07 x10^6/uL (4.30-5.70) Hemoglobin 12.1 g/dL (13.0-17.5) Hematocrit 35.4 % (39.0-53.0) Mean Corpuscular Volume 87 fL (79-100) Mean Corpuscular Hemoglobin 30 pg (25-35) Mean Corpuscular Hemoglobin Concent 34 g/dL (31-37) Red Cell Distribution Width 15.2 % (11.5-14.5) Platelet Count 206 x10^3/uL (140-400) Neutrophils (%) (Auto) 89 % (31-73) Lymphocytes (%) (Auto) 5 % (24-48) Monocytes (%) (Auto) 6 % (0-9) Eosinophils (%) (Auto) 0 % (0-3) Basophils (%) (Auto) 0 % (0-3) Neutrophils # (Auto) 16.9 x10^3uL (1.8-7.7) Lymphocytes # (Auto) 1.0 x10^3/uL (1.0-4.8) Monocytes # (Auto) 1.0 x10^3/uL (0.0-1.1) Eosinophils # (Auto) 0.0 x10^3/uL (0.0-0.7) Basophils # (Auto) 0.1 x10^3/uL (0.0-0.2) Segmented Neutrophils % 82 % (35-66) Band Neutrophils % 8 % (0-9) Lymphocytes % 6 % (24-48) Monocytes % 4 % (0-10) Platelet Estimate Adequate (ADEQUATE) Platelet Clumps, EDTA Present Sodium Level 138 mmol/L (136-145) Potassium Level 3.9 mmol/L (3.5-5.1) Chloride Level 98 mmol/L (98-107) Carbon Dioxide Level 32 mmol/L (21-32) Anion Gap 8 (6-14) Blood Urea Nitrogen 40 mg/dL (8-26) Creatinine 3.4 mg/dL (0.7-1.3) Estimated GFR (Cockcroft-Gault) 17.5 BUN/Creatinine Ratio 12 (6-20) Glucose Level 125 mg/dL (70-99) Calcium Level 8.5 mg/dL (8.5-10.1) Total Bilirubin 0.6 mg/dL (0.2-1.0) Aspartate Amino Transf (AST/SGOT) 29 U/L (15-37) Alanine Aminotransferase (ALT/SGPT) 23 U/L (16-63) Alkaline Phosphatase 93 U/L (46-116) Troponin I Quantitative 0.028 ng/mL (0.000-0.055) IV-Fsu-A-Type Natriuretic Peptide 6636 pg/mL (0-449) Total Protein 7.2 g/dL (6.4-8.2) Albumin 2.6 g/dL (3.4-5.0) Albumin/Globulin Ratio 0.6 (1.0-1.7) Glucose (Fingerstick) 103 mg/dL (70-99) Laboratory Tests Test 09/26/16 03:42 09/26/16 07:42 White Blood Count 19.1 x10^3/uL (4.0-11.0) Red Blood Count 4.07 x10^6/uL (4.30-5.70) Hemoglobin 12.1 g/dL (13.0-17.5) Hematocrit 35.4 % (39.0-53.0) Mean Corpuscular Volume 87 fL (79-100) Mean Corpuscular Hemoglobin 30 pg (25-35) Mean Corpuscular Hemoglobin Concent 34 g/dL (31-37) Red Cell Distribution Width 15.2 % (11.5-14.5) Platelet Count 206 x10^3/uL (140-400) Neutrophils (%) (Auto) 89 % (31-73) Lymphocytes (%) (Auto) 5 % (24-48) Monocytes (%) (Auto) 6 % (0-9) Eosinophils (%) (Auto) 0 % (0-3) Basophils (%) (Auto) 0 % (0-3) Neutrophils # (Auto) 16.9 x10^3uL (1.8-7.7) Lymphocytes # (Auto) 1.0 x10^3/uL (1.0-4.8) Monocytes # (Auto) 1.0 x10^3/uL (0.0-1.1) Eosinophils # (Auto) 0.0 x10^3/uL (0.0-0.7) Basophils # (Auto) 0.1 x10^3/uL (0.0-0.2) Segmented Neutrophils % 82 % (35-66) Band Neutrophils % 8 % (0-9) Lymphocytes % 6 % (24-48) Monocytes % 4 % (0-10) Platelet Estimate Adequate (ADEQUATE) Platelet Clumps, EDTA Present Sodium Level 138 mmol/L (136-145) Potassium Level 3.9 mmol/L (3.5-5.1) Chloride Level 98 mmol/L (98-107) Carbon Dioxide Level 32 mmol/L (21-32) Anion Gap 8 (6-14) Blood Urea Nitrogen 40 mg/dL (8-26) Creatinine 3.4 mg/dL (0.7-1.3) Estimated GFR (Cockcroft-Gault) 17.5 BUN/Creatinine Ratio 12 (6-20) Glucose Level 125 mg/dL (70-99) Calcium Level 8.5 mg/dL (8.5-10.1) Total Bilirubin 0.6 mg/dL (0.2-1.0) Aspartate Amino Transf (AST/SGOT) 29 U/L (15-37) Alanine Aminotransferase (ALT/SGPT) 23 U/L (16-63) Alkaline Phosphatase 93 U/L (46-116) Troponin I Quantitative 0.028 ng/mL (0.000-0.055) WD-Dqh-Y-Type Natriuretic Peptide 6636 pg/mL (0-449) Total Protein 7.2 g/dL (6.4-8.2) Albumin 2.6 g/dL (3.4-5.0) Albumin/Globulin Ratio 0.6 (1.0-1.7) Glucose (Fingerstick) 103 mg/dL (70-99) Assessment/Plan Assessment/Plan IMP HYPERVOLEMIA HYPOXIA ANEMIA ESRD LE CELLULITIS PLAN HD EXTRA TX TODAY UF ABOUT 4 LITERS TOLERATED ARANESP ANTIBIOTICS LY ROGERS MD September 26, 2016 10:54
[2016-09-26 11:00] VITALS: BP 109/58
[2016-09-26] MEDS ORDERED: FURO40TA4 PO (12:00)
[2016-09-26] MEDS ORDERED: CARB15DR58 OT (12:00)
[2016-09-26] MEDS ORDERED: ZINC30OI TP (12:00)
[2016-09-26] MEDS ORDERED: CEPH500C PO ×2 (12:00→12:25)
[2016-09-26] MEDS ORDERED: MUPI22OI2 TP (12:00)
--- NOTE | 2016-09-26 12:21 | CONS ---
DATE OF CONSULTATION: 09/26/2016 ATTENDING PHYSICIAN: Dr. Joana Campbell. REASON FOR CONSULTATION: COPD. HISTORY OF PRESENT ILLNESS: The patient is an 80-year-old male who has a long history of tobaccoism and COPD, history of atrial fibrillation, hypertension and renal failure, on dialysis. He was seen at [facility] with complaint of lower extremity swelling and erythema, and some shortness of air. He was transferred to our facility for further evaluation. Initially, his saturations were in the mid 80s on arrival to [facility] was placed on 4 liters of nasal cannula, which improved his oxygen saturation to 90%. He has no chest pain. Denies any fever or chills. He does have some coughing. No history of deep vein thrombosis or pulmonary embolism. His sleep cycle is disrupted. He usually sleeps very late at 5 in the morning and when I interviewed him, he appeared to be sleepy. However, he is able to answer questions. A CT angiography was performed, which was reviewed by me. There was no evidence of pulmonary embolism. There was some volume loss in the right middle lobe and lower lobes. There is evidence of calcified pleural plaques. There was also ascending thoracic aortic aneurysm 4.2 cm in size. He is requiring oxygen at 2 liters with saturation of 98%. PAST MEDICAL HISTORY: Significant of atrial fibrillation, renal failure, history of MRSA, and COPD. PAST SURGICAL HISTORY: Dialysis port. ALLERGIES: PIROXICAM. MEDICATIONS: Reviewed as listed in the MRAD including antibiotic, clindamycin and he also received vancomycin and DuoNebs. REVIEW OF SYSTEMS: Limited, but pertinent positives discussed in history of present illness, otherwise noncontributory. 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 PHYSICAL EXAMINATION: VITAL SIGNS: Blood pressure 101/47 and pulse ox 98% on 2 liters, afebrile. HEENT: Sclerae nonicteric. NECK: Supple. LUNGS: Diminished breath sounds. CARDIOVASCULAR: Regular rate and rhythm. ABDOMEN: Soft and obese. EXTREMITIES: With bilateral edema and erythema, more on the left than on the right. LABORATORY DATA: Reviewed. White count 9.1, hemoglobin 12.1 and platelets are 206. BUN 40 and creatinine 3.4. IMPRESSION: 1. Acute hypoxic respiratory failure requiring 2-4 liters of oxygen on admission. This is most likely secondary to acute bronchitis and underlying suspected severe COPD..No PE 2. 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 Further recommendation regarding aneurysm per PCP and Vascular Surgery. 3. Acute bronchitis. 4. Chronic renal failure, on dialysis. 5. Leukocytosis secondary to cellulitis. 6. Lower extremity cellulitis with no evidence of deep venous thrombosis. RECOMMENDATIONS: 1. Continue with present oxygen. 2. Continue antibiotics. 3. Bronchodilators. 4. Follow Infectious Disease recommendation regarding cellulitis. 5. Follow Vascular Surgery's recommendation regarding aneurysm of the thoracic ascending aorta. Discussed with RN. STEPHANIE VELÁZQUEZ MD DR: ABISAI/jess JOB#: [id number] / [id number] EMILY
[2016-09-26] MEDS ORDERED: SEVE800T9 PO (12:25)
[2016-09-26] MEDS ORDERED: BUME1TAB PO (12:25)
[2016-09-26] MEDS ORDERED: DILT120C80 PO (12:25)
[2016-09-26] MEDS ORDERED: FERR325C PO (12:25)
[2016-09-26] MEDS ORDERED: RANI150C PO (12:25)
[2016-09-26] MEDS ORDERED: POTA10TA12 PO (12:25)
--- NOTE | 2016-09-26 12:42 | PDOC2 ---
CONSULT Date of Consult Date of Consult DATE: 09/26/16 TIME: 12:41 Reason for Consult Reason for Consult: Ascending aortic aneurysm Referring Physician Referring Physician: Dr Dewitt Identification/Chief Complaint Chief Complaint SOB Source Source: Chart review, Patient History of Present Illness Reason for Visit: The patient is an 80-year-old male who has a long history of tobaccoism and COPD , history of atrial fibrillation, hypertension and renal failure on dialysis. He was seen at [facility] with complaint of lower extremity swelling and erythema, and some shortness of air. He was transferred to our facility for further evaluation. He has lower extremity cellulitis. CT PA was performed which incidentally identified a 4.2cm ascending aortic aneurysm. There was no PE. Past Medical History Cardiovascular: AFIB, CHF, HTN Pulmonary: COPD CENTRAL NERVOUS SYSTEM: Dementia GI: No pertinent hx Heme/Onc: No pertinent hx Hepatobiliary: No pertinent hx Psych: Depression Musculoskeletal: Osteoarthritis Renal/: Chronic renal insuff Endocrine: Hypothyroidism, Hyperparathyroidism Past Surgical History Past Surgical History: Other Family History Family History: Heart Disease, Family History Unknown Social History ALCOHOL: none Drugs: None Lives: Roommate Current Problem List Problem List Problems Medical Problems: (1) Bronchitis Status: Acute (2) Cellulitis Status: Acute (3) End-stage renal disease on hemodialysis Status: Acute (4) Hypoxia Status: Acute Current Medications Current Medications Current Medications Iohexol (Omnipaque 300 Mg/ml) 75 ml 1X ONCE IV Last administered on 09/26/16 04:45; Start 09/26/16 at 03:45; Stop 09/26/16 at 03:46; Status DC Info (Do NOT chart on this entry -- for MONITORING) 1 each PRN DAILY PRN MC SEE COMMENTS; Start 09/26/16 at 03:45; Stop 09/28/16 at 03:44 Albuterol/ Ipratropium (Duoneb) 3 ml 1X ONCE NEB Last administered on 05:53; Start 09/26/16 at 05:45; Stop 09/26/16 at 05:46; Status DC Clindamycin Phosphate 50 ml @ 100 mls/hr 1X ONCE IV Last administered on 09/26 06:17; Start 09/26/16 at 06:00; Stop 09/26/16 at 06:29; Status DC Clindamycin Phosphate 50 ml @ 100 mls/hr Q8HRS IV ; Start 09/26/16 at 14:00 Vancomycin HCl (Vanco Per Pharmacy) 1 each PRN DAILY PRN MC SEE COMMENTS Last administered on 09/26/16 10:19; Start 09/26/16 at 05:45 Vancomycin HCl 2 gm/Sodium Chloride 500 ml @ 250 mls/hr 1X ONCE IV Last administered on 09/26/16 08:07; Start 09/26/16 at 06:30; Stop 09/26/16 at 08:29 ; Status DC Fentanyl Citrate (Fentanyl 2ml Vial) 25 mcg PRN Q1HR PRN IV PAIN; Start at 06:15; Stop 09/27/16 at 06:14 Acetaminophen (Tylenol) 650 mg PRN Q4HRS PRN PO FEVER; Start 09/26/16 at 06:15 ; Stop 09/27/16 at 06:14 Albuterol/ Ipratropium (Duoneb) 3 ml RTQID NEB Last administered on 09/26/16 09:27; Start 09/26/16 at 08:00; Stop 09/27/16 at 07:59 Insulin Aspart (NovoLOG) 0-5 UNITS TIDWMEALS SQ ; Start 09/26/16 at 08:00 Dextrose (Dextrose 50%-Water Syringe) 12.5 gm PRN Q15MIN PRN IV SEE COMMENTS; Start 09/26/16 at 06:15 Vancomycin HCl 1.5 gm/Sodium Chloride 500 ml @ 250 mls/hr Q48H IV ; Start 09/28 at 08:00; Status Cancel Vancomycin HCl 1 each 1X ONCE MC ; Start 09/30/16 at 07:30; Stop 09/30/16 at 07 :31; Status Cancel Vancomycin HCl 1 each 1X ONCE MC ; Start 09/28/16 at 07:00; Stop 09/28/16 at 07 :01 Active Scripts Active Metoprolol Succinate ( Xl ) (Metoprolol Succinate) 25 Mg Tab.er.24h 25 Mg PO DAILY Reported Renvela (Sevelamer Carbonate) 800 Mg Tablet 800 Mg PO TIDWMEALS Ranitidine Hcl 150 Mg Capsule 150 Mg PO DAILY Potassium Chloride 10 Meq Tablet.er 10 Meq PO DAILY Iron (Ferrous Sulfate) 325 Mg Capsule.er 325 Mg PO Diltiazem 24HR Cd (Diltiazem Hcl) 120 Mg Cap.er.24h 2 Cap PO DAILY Cephalexin 500 Mg Capsule 1 Cap PO DAILY Bumetanide 1 Mg Tablet 1 Tab PO BID Mupirocin Ointment (Mupirocin) 22 Gm Oint...g. 1 Donna TP BID Furosemide 40 Mg Tablet 40 Mg PO BID Cephalexin 500 Mg Capsule 1 Cap PO TID Carbamide Peroxide 15 Ml Drops 15 Ml OT Zinc Oxide 30 Gm Oint...g. 30 Gm TP Effexor Xr (Venlafaxine Hcl) 150 Mg Cap.er.24h 1 Cap PO DAILY Flomax (Tamsulosin Hcl) 0.4 Mg Cap.er.24h 1 Cap PO HS Synthroid (Levothyroxine Sodium) 25 Mcg Tablet 1 Tab PO DAILY Isosorbide Mononitrate Er (Isosorbide Mononitrate) 30 Mg Tab.er.24h 1 Tab PO DAILY Colace (Docusate Sodium) 100 Mg Capsule 1 Cap PO DAILY Vitamin B-12 (Cyanocobalamin (Vitamin B-12)) 1,000 Mcg Tablet 1 Tab PO DAILY Vitamin D3 (Cholecalciferol (Vitamin D3)) 1,000 Unit Tablet 2 Tab PO DAILY Zyrtec (Cetirizine Hcl) 10 Mg Tablet 1 Tab PO DAILY Aspir 81 (Aspirin) 81 Mg Tablet.dr 1 Tab PO DAILY Allergies Allergies: Coded Allergies: piroxicam (Verified Allergy, Intermediate, Rash, 04/24/16) Takes asa at home I S O L A T I O N *CONTACT* (Verified Allergy, Unknown, 04/26/16) mrsa ROS General: No: Chills, Night Sweats, Fatigue, Malaise, Appetite PSYCHOLOGICAL ROS: No: Anxiety, Behavioral Disorder, Concentration difficultie , Decreased libido, Depression, Disorientation, Hallucinations, Hostility, Irritablity, Memory difficulties, Mood Swings, Obsessive thoughts, Physical abuse, Sexual abuse, Sleep disturbances, Suicidal ideation Eyes: No Blurry vision, No Decreased vision, No Double vision, No Dry eyes, No Excessive tearing, No Eye Pain, No Itchy Eyes, No Loss of vision, No Photophobia , No Scotomata, No Uses contacts, No Uses glasses HEENT: No: Heacaches, Visual Changes, Hearing change, Nasal congestion, Nasal discharge, Oral lesions, Sinus pain, Sore Throat, Epistaxis, Sneezing, Snoring, Tinnitus, Vertigo, Vocal changes ALLERGY AND IMMUNOLOGY: No: Hives, Insect Bite Sensitivity, Itchy/Watery Eyes, Nasal Congestion, Post Nasal Drip, Seasonal Allergies Hematological and Lymphatic: No: Bleeding Problems, Blood Clots, Blood Transfusions, Brusing, Night Sweats, Pallor, Swollen Lymph Nodes ENDOCRINE: No: Breast Changes, Galactorrhea, Hair Pattern Changes, Hot Flashes , Malaise/lethargy, Mood Swings, Palpitations, Polydipsia/polyuria, Skin Changes , Temperature Intolerance, Unexpected Weight Changes Respiratory: No: Cough, Hemoptysis, Orthopnea, Pleuritic Pain, Shortness of breath, SOB with excertion, Sputum Changes, Stridor, Tachypnea, Wheezing Cardiovascular: No Chest Pain, No Palpitations, No Orthopnea, No Paroxysmal Noc. Dyspnea, No Edema, No Lt Headedness Gastrointestinal: No Nausea, No Vomiting, No Abdominal Pain, No Diarrhea, No Constipation, No Melena, No Hematochezia Genitourinary: No Dysuria, No Frequency, No Incontinence, No Hematuria, No Retention, No Discharge, No Urgency, No Pain, No Flank Pain Musculoskeletal: No Gait Disturbance, No Joint Pain, No Joint Stiffness, No Joint Swelling, No Muscle Pain, No Muscular Weakness, No Pain In:, No Swelling In: Neurological: No Behavorial Changes, No Bowel/Bladder ControlChng, No Confusion , No Dizziness, No Gait Disturbance, No Headaches, No Impaired Coord/balance, No Memory Loss, No Numbness/Tingling, No Seizures, No Speech Problems, No Tremors, No Visual Changes, No Weakness Skin: No Dry Skin, No Eczema, No Hair Changes, No Lumps, No Mole Changes, No Mottling, No Nail Changes, No Pruritus, No Rash, No Skin Lesion Changes, No Acne Physical Exam General: Alert, Oriented X3, No acute distress HEENT: Atraumatic Lungs: Other (wheeze) Heart: Normal S1, Normal S2 Abdomen: Soft, No tenderness Extremities: Other (swelling, erythema) Psych/Mental Status: Mental status NL MUSCULOSKELETAL: No deformity Vitals VITALS Vital Signs Date Time Temp Pulse Resp B/P (MAP) Pulse Ox O2 Delivery O2 Flow Rate FiO2 09/26/16 11:00 97.9 78 20 109/58 (75) 98 Nasal Cannula 2.0 97.9 Labs Labs Laboratory Tests Test 09/26/16 03:42 09/26/16 07:42 09/26/16 10:39 White Blood Count 19.1 x10^3/uL (4.0-11.0) Red Blood Count 4.07 x10^6/uL (4.30-5.70) Hemoglobin 12.1 g/dL (13.0-17.5) Hematocrit 35.4 % (39.0-53.0) Mean Corpuscular Volume 87 fL (79-100) Mean Corpuscular Hemoglobin 30 pg (25-35) Mean Corpuscular Hemoglobin Concent 34 g/dL (31-37) Red Cell Distribution Width 15.2 % (11.5-14.5) Platelet Count 206 x10^3/uL (140-400) Neutrophils (%) (Auto) 89 % (31-73) Lymphocytes (%) (Auto) 5 % (24-48) Monocytes (%) (Auto) 6 % (0-9) Eosinophils (%) (Auto) 0 % (0-3) Basophils (%) (Auto) 0 % (0-3) Neutrophils # (Auto) 16.9 x10^3uL (1.8-7.7) Lymphocytes # (Auto) 1.0 x10^3/uL (1.0-4.8) Monocytes # (Auto) 1.0 x10^3/uL (0.0-1.1) Eosinophils # (Auto) 0.0 x10^3/uL (0.0-0.7) Basophils # (Auto) 0.1 x10^3/uL (0.0-0.2) Segmented Neutrophils % 82 % (35-66) Band Neutrophils % 8 % (0-9) Lymphocytes % 6 % (24-48) Monocytes % 4 % (0-10) Platelet Estimate Adequate (ADEQUATE) Platelet Clumps, EDTA Present Sodium Level 138 mmol/L (136-145) Potassium Level 3.9 mmol/L (3.5-5.1) Chloride Level 98 mmol/L (98-107) Carbon Dioxide Level 32 mmol/L (21-32) Anion Gap 8 (6-14) Blood Urea Nitrogen 40 mg/dL (8-26) Creatinine 3.4 mg/dL (0.7-1.3) Estimated GFR (Cockcroft-Gault) 17.5 BUN/Creatinine Ratio 12 (6-20) Glucose Level 125 mg/dL (70-99) Calcium Level 8.5 mg/dL (8.5-10.1) Total Bilirubin 0.6 mg/dL (0.2-1.0) Aspartate Amino Transf (AST/SGOT) 29 U/L (15-37) Alanine Aminotransferase (ALT/SGPT) 23 U/L (16-63) Alkaline Phosphatase 93 U/L (46-116) Troponin I Quantitative 0.028 ng/mL (0.000-0.055) DD-Gxx-A-Type Natriuretic Peptide 6636 pg/mL (0-449) Total Protein 7.2 g/dL (6.4-8.2) Albumin 2.6 g/dL (3.4-5.0) Albumin/Globulin Ratio 0.6 (1.0-1.7) Glucose (Fingerstick) 103 mg/dL (70-99) 112 mg/dL (70-99) Laboratory Tests Test 09/26/16 03:42 09/26/16 07:42 09/26/16 10:39 White Blood Count 19.1 x10^3/uL (4.0-11.0) Red Blood Count 4.07 x10^6/uL (4.30-5.70) Hemoglobin 12.1 g/dL (13.0-17.5) Hematocrit 35.4 % (39.0-53.0) Mean Corpuscular Volume 87 fL (79-100) Mean Corpuscular Hemoglobin 30 pg (25-35) Mean Corpuscular Hemoglobin Concent 34 g/dL (31-37) Red Cell Distribution Width 15.2 % (11.5-14.5) Platelet Count 206 x10^3/uL (140-400) Neutrophils (%) (Auto) 89 % (31-73) Lymphocytes (%) (Auto) 5 % (24-48) Monocytes (%) (Auto) 6 % (0-9) Eosinophils (%) (Auto) 0 % (0-3) Basophils (%) (Auto) 0 % (0-3) Neutrophils # (Auto) 16.9 x10^3uL (1.8-7.7) Lymphocytes # (Auto) 1.0 x10^3/uL (1.0-4.8) Monocytes # (Auto) 1.0 x10^3/uL (0.0-1.1) Eosinophils # (Auto) 0.0 x10^3/uL (0.0-0.7) Basophils # (Auto) 0.1 x10^3/uL (0.0-0.2) Segmented Neutrophils % 82 % (35-66) Band Neutrophils % 8 % (0-9) Lymphocytes % 6 % (24-48) Monocytes % 4 % (0-10) Platelet Estimate Adequate (ADEQUATE) Platelet Clumps, EDTA Present Sodium Level 138 mmol/L (136-145) Potassium Level 3.9 mmol/L (3.5-5.1) Chloride Level 98 mmol/L (98-107) Carbon Dioxide Level 32 mmol/L (21-32) Anion Gap 8 (6-14) Blood Urea Nitrogen 40 mg/dL (8-26) Creatinine 3.4 mg/dL (0.7-1.3) Estimated GFR (Cockcroft-Gault) 17.5 BUN/Creatinine Ratio 12 (6-20) Glucose Level 125 mg/dL (70-99) Calcium Level 8.5 mg/dL (8.5-10.1) Total Bilirubin 0.6 mg/dL (0.2-1.0) Aspartate Amino Transf (AST/SGOT) 29 U/L (15-37) Alanine Aminotransferase (ALT/SGPT) 23 U/L (16-63) Alkaline Phosphatase 93 U/L (46-116) Troponin I Quantitative 0.028 ng/mL (0.000-0.055) ZQ-Aox-N-Type Natriuretic Peptide 6636 pg/mL (0-449) Total Protein 7.2 g/dL (6.4-8.2) Albumin 2.6 g/dL (3.4-5.0) Albumin/Globulin Ratio 0.6 (1.0-1.7) Glucose (Fingerstick) 103 mg/dL (70-99) 112 mg/dL (70-99) Images Images CT chest Fusiform aneurysm ascending thoracic aorta diameter 4.2 centimeters. Extensive Coronary calcified plaque. Right jugular dialysis catheter tip proximal right atrium. Pulmonary artery enlarged diameter 3.7 centimeters may indicate pulmonary artery hypertension. The peripheral pulmonary arteries are somewhat under opacified which combine with respiratory motion artifact may decrease sensitivity to detect small peripheral small pulmonary emboli in light of this no pulmonary artery embolus is evident. Borderline enlarged peritracheal mediastinal lymph node short axis diameter 10 millimeters. Calcified pleural plaque right diaphragm and posterior pleural space with some calcification at the anterior pleural space as well. Calcified granulomas at the tennille and mediastinum. Mild apical fibrosis. Bronchial wall thickening with luminal narrowing and mild volume loss of the bilateral lower lobes and right middle lobe likely bronchitis. No pulmonary opacities. No pleural effusions. Assessment/Plan Assessment/Plan Incidental finding of a 4.2cm maximum diameter ascending aortic aneurysm, asymptomatic. No indication based on size or symptoms for surgical intervention. Unlikely that it will ever reach the 5cm thresehold for replacement. Needs yearly surveillance with ECHO or CT Would obtain routine ECHO, if one has not recently been performed, to assess for AI / stenosis / bicuspid aortic valve. JOCE JAY MD September 26, 2016 12:42
[2016-09-26] MEDS: ALBUMIN HUMAN 25% 100 ML IV ONE ×2 (14:45→15:30)
[2016-09-26] MEDS ORDERED: ALBUMIN HUMAN 25% 100 ML IV ONE (14:45)
--- NOTE | 2016-09-26 14:56 | EKG ---
[address] [place] [address] Test Date: 2016-09-26 Test Time: 03:08:23 Pat Name: JENNY KERN Department: Room: 204 1 Gender: M [employer] Professional: LAUREEN : 1935 Requested By: MARLENE GUZMÁN Order Number: [id number] Reading MD: Estelle Vidal Measurements Intervals [place] Rate: 88 P: -41 W[place]: 256 QRS: 42 QRSD: 78 T: 36 QT: 368 QTc: 449 Interpretive Statements SINUS RHYTHM ATRIAL PREMATURE COMPLEX(ES) PROLONGED [place] INTERVAL Electronically Signed On 09-27-2016 21:28:45 CDT by Estelle Vidal
[2016-09-26] MEDS ORDERED: BUMETANIDE 1 MG TABLET. PO SCH (17:00)
[2016-09-26] MEDS: FUROSEMIDE 40 MG TABLET. PO SCH (17:22)
[2016-09-26] MEDS: SEVELAMER CARBONATE 800 MG TABLET. PO SCH (17:22)
[2016-09-26] MEDS: METOPROLOL SUCC 24HR ER 25 MG TAB.ER.24H. PO SCH (17:22)
[2016-09-26] MEDS: ISOSORBIDE MONONITRATE ER 30 MG TAB.ER.24H PO SCH (17:23)
[2016-09-26] MEDS: CLINDAMYCIN 600MG PREMIX 50 ML IV SCH ×2 (17:24→21:07)
[2016-09-26] MEDS ORDERED: IV NORMAL SALINE 1000ML BAG 1,000 ML IV PRN ×2 (17:41)
[2016-09-26] MEDS ORDERED: DIALYSIS PATIENT. MC PRN (17:45)
[2016-09-26] MEDS ORDERED: 0.9 % SODIUM CHLORIDE 10 ML DISP.SYRIN. IV PRN ×2 (17:45)
[2016-09-26 19:25] VITALS: BP 115/56
--- NOTE | 2016-09-26 21:04 | HP ---
ADMIT DATE: 09/26/2016 CHIEF COMPLAINT: Shortness of breath and leg swelling. HISTORY OF PRESENT ILLNESS: An 80-year-old male patient with prior history of AFib, nicotine use, COPD, hypertension, and end-stage renal disease, brought to the hospital from [facility] for shortness of breath, audible hypoxia, and leg swelling. His lower extremity swelling started 2 days ago and also noted to have increasing redness. Initially, he was having low saturations around mid 80s, and he was placed on 4 liters of nasal cannula. On initial arrival, the patient had a CTA of the chest, which ruled out any PE; however, the patient had a prior history of COPD, and he was noted to have aortic aneurysm; however, it is in the stable side. The patient is sleepy at the time of my examination. He says sleeps early in the morning and his shortness of breath are still present on 3 liters of nasal cannula. PAST MEDICAL HISTORY: AFib, COPD, end-stage renal disease, and history of MRSA. PAST SURGICAL HISTORY: Dialysis port. PERSONAL HISTORY: Smoking positive. No alcohol, no drug abuse. SOCIAL HISTORY: Noncontributory. ALLERGIES: ISOLATION CONTACT, PIROXICAM. REVIEW OF SYSTEMS: Please see my electronic H and P. PHYSICAL EXAMINATION: Please see my electronic H and P. LABORATORY DATA: BMP: BUN is 40, creatinine is 3.4, and ProBNP 6636. Hematology: WBC 19.1, hemoglobin is 12.1, MCV is 87. IMAGING STUDIES: 1. CTA of the chest, no central pulmonary embolus seen. Central bronchial wall thickening with luminal narrowing and mild volume loss with the right middle lobe. 2. Right thoracic pleural calcified plaque. 3. Ascending thoracic aortic aneurysm, 4.2 cm. 4. Lower extremity ultrasound. 5. Negative bilateral leg DVT. ASSESSMENT: 1. Weight gain, shortness of breath likely due to end-stage renal disease. 2. End-stage renal disease, on hemodialysis. 3. Atrial fibrillation, stable. 4. Lower extremity redness, possible cellulitis. 5. Chronic obstructive pulmonary disease. 6. Atrial fibrillation history. PLAN: 1. He has been currently on clindamycin and vancomycin and we will continue antibiotics for now. 2. Leg elevation. 3. Nephrology has been consulted for hemodialysis. 4. He has a stable aortic aneurysm which does not need any surgical plans at this time. He needs periodic checks. He needs an echocardiogram and CT of the chest. Vascular surgery is consulted. 5. Hemodialysis today. 6. Home medication reviewed in the consult. 7. Monitor CBC. The patient has mild leukocytosis. 8. If symptoms improve, we will deescalate antibiotics. CECELIA GOODE MD DR: QUAN/jess JOB#: [id number] / [id number] EMILY
[2016-09-26] MEDS: TAMSULOSIN 0.4 MG CAP.ER.24H. PO SCH (21:07)
[2016-09-26 23:30] VITALS: BP 97/43
[2016-09-27 03:25] VITALS: BP 114/57
[2016-09-27] MEDS: LEVOTHYROXINE 25 MCG TABLET. PO SCH (05:48)
[2016-09-27] MEDS: CLINDAMYCIN 600MG PREMIX 50 ML IV SCH ×3 (05:48→21:02)
[2016-09-27 07:00] VITALS: BP 120/58
[2016-09-27] MEDS: IPRATRPIUM/ALBUTEROL 0.5/2.5MG 3 ML NEBU. NEB SCH (07:31)
[2016-09-27] MEDS: INSULIN ASPART 300 UNITS/3 ML INSULN.PEN SQ SCH ×3 (08:00→17:59)
[2016-09-27] MEDS: FUROSEMIDE 40 MG TABLET. PO SCH ×2 (08:34→15:04)
[2016-09-27] MEDS: POTASSIUM CHLORIDE 10 MEQ TABLET.ER. PO SCH (08:34)
[2016-09-27] MEDS: ASPIRIN ENTERIC COATED 81 MG TABLET.DR. PO SCH (08:34)
[2016-09-27] MEDS: SEVELAMER CARBONATE 800 MG TABLET. PO SCH ×3 (08:34→17:54)
[2016-09-27] MEDS: ISOSORBIDE MONONITRATE ER 30 MG TAB.ER.24H PO SCH (08:35)
[2016-09-27] MEDS: VENLAFAXINE XR 37.5 MG CAP.ER.24H. PO SCH (08:35)
[2016-09-27] MEDS: METOPROLOL SUCC 24HR ER 25 MG TAB.ER.24H. PO SCH (08:36)
--- NOTE | 2016-09-27 09:48 | PDOC ---
PROGRESS NOTES Chief Complaint Chief Complaint cc: sob A/P 1. Weight gain, shortness of breath likely due to end-stage renal disease. Improving, resting comfortable, CTA negative for PE. 2. End-stage renal disease, on hemodialysis per nephrology, 3. Atrial fibrillation, stable. 4. Lower extremity redness, possible cellulitis.: on iv abx, ID consulted. 5. Chronic obstructive pulmonary disease. 6. Atrial fibrillation history. 7. Thoracic ascending aneurysm: need out pt follow up with pcp with Echo or CT . History of Present Illness History of Present Illness doing better no sob Vitals Vitals Vital Signs Date Time Temp Pulse Resp B/P (MAP) Pulse Ox O2 Delivery O2 Flow Rate FiO2 09/27/16 08:36 108 120/58 09/27/16 07:31 98 Nasal Cannula 2.0 09/27/16 07:00 97.4 22 97.4 Physical Exam General: Alert, Oriented X3, No acute distress Heart: Normal S1, Normal S2 Lungs: Wheezing, Other Abdomen: Soft, No tenderness Extremities: Other (swelling, erythema) Labs LABS Laboratory Tests Test 09/26/16 10:39 09/26/16 17:13 09/26/16 20:43 09/27/16 07:59 Glucose (Fingerstick) 112 mg/dL (70-99) 110 mg/dL (70-99) 126 mg/dL (70-99) 117 mg/dL (70-99) Assessment and Plan Assessmemt and Plan Problems Medical Problems: (1) Bronchitis Status: Acute (2) Cellulitis Status: Acute (3) End-stage renal disease on hemodialysis Status: Acute (4) Hypoxia Status: Acute Problems: Comment Review of Relevant I have reviewed the following items randee (where applicable) has been applied. Labs Laboratory Tests Test 09/26/16 03:42 09/26/16 07:42 09/26/16 10:39 09/26/16 17:13 White Blood Count 19.1 x10^3/uL (4.0-11.0) Red Blood Count 4.07 x10^6/uL (4.30-5.70) Hemoglobin 12.1 g/dL (13.0-17.5) Hematocrit 35.4 % (39.0-53.0) Mean Corpuscular Volume 87 fL (79-100) Mean Corpuscular Hemoglobin 30 pg (25-35) Mean Corpuscular Hemoglobin Concent 34 g/dL (31-37) Red Cell Distribution Width 15.2 % (11.5-14.5) Platelet Count 206 x10^3/uL (140-400) Neutrophils (%) (Auto) 89 % (31-73) Lymphocytes (%) (Auto) 5 % (24-48) Monocytes (%) (Auto) 6 % (0-9) Eosinophils (%) (Auto) 0 % (0-3) Basophils (%) (Auto) 0 % (0-3) Neutrophils # (Auto) 16.9 x10^3uL (1.8-7.7) Lymphocytes # (Auto) 1.0 x10^3/uL (1.0-4.8) Monocytes # (Auto) 1.0 x10^3/uL (0.0-1.1) Eosinophils # (Auto) 0.0 x10^3/uL (0.0-0.7) Basophils # (Auto) 0.1 x10^3/uL (0.0-0.2) Segmented Neutrophils % 82 % (35-66) Band Neutrophils % 8 % (0-9) Lymphocytes % 6 % (24-48) Monocytes % 4 % (0-10) Platelet Estimate Adequate (ADEQUATE) Platelet Clumps, EDTA Present Sodium Level 138 mmol/L (136-145) Potassium Level 3.9 mmol/L (3.5-5.1) Chloride Level 98 mmol/L (98-107) Carbon Dioxide Level 32 mmol/L (21-32) Anion Gap 8 (6-14) Blood Urea Nitrogen 40 mg/dL (8-26) Creatinine 3.4 mg/dL (0.7-1.3) Estimated GFR (Cockcroft-Gault) 17.5 BUN/Creatinine Ratio 12 (6-20) Glucose Level 125 mg/dL (70-99) Calcium Level 8.5 mg/dL (8.5-10.1) Total Bilirubin 0.6 mg/dL (0.2-1.0) Aspartate Amino Transf (AST/SGOT) 29 U/L (15-37) Alanine Aminotransferase (ALT/SGPT) 23 U/L (16-63) Alkaline Phosphatase 93 U/L (46-116) Troponin I Quantitative 0.028 ng/mL (0.000-0.055) ED-Dvf-Q-Type Natriuretic Peptide 6636 pg/mL (0-449) Total Protein 7.2 g/dL (6.4-8.2) Albumin 2.6 g/dL (3.4-5.0) Albumin/Globulin Ratio 0.6 (1.0-1.7) Glucose (Fingerstick) 103 mg/dL (70-99) 112 mg/dL (70-99) 110 mg/dL (70-99) Test 09/26/16 20:43 09/27/16 07:59 Glucose (Fingerstick) 126 mg/dL (70-99) 117 mg/dL (70-99) Laboratory Tests Test 09/26/16 10:39 09/26/16 17:13 09/26/16 20:43 09/27/16 07:59 Glucose (Fingerstick) 112 mg/dL (70-99) 110 mg/dL (70-99) 126 mg/dL (70-99) 117 mg/dL (70-99) Medications Current Medications Iohexol (Omnipaque 300 Mg/ml) 75 ml 1X ONCE IV Last administered on 09/26/16 04:45; Start 09/26/16 at 03:45; Stop 09/26/16 at 03:46; Status DC Info (Do NOT chart on this entry -- for MONITORING) 1 each PRN DAILY PRN MC SEE COMMENTS; Start 09/26/16 at 03:45; Stop 09/28/16 at 03:44 Albuterol/ Ipratropium (Duoneb) 3 ml 1X ONCE NEB Last administered on 05:53; Start 09/26/16 at 05:45; Stop 09/26/16 at 05:46; Status DC Clindamycin Phosphate 50 ml @ 100 mls/hr 1X ONCE IV Last administered on 09/26 06:17; Start 09/26/16 at 06:00; Stop 09/26/16 at 06:29; Status DC Clindamycin Phosphate 50 ml @ 100 mls/hr Q8HRS IV Last administered on 05:48; Start 09/26/16 at 14:00 Vancomycin HCl (Vanco Per Pharmacy) 1 each PRN DAILY PRN MC SEE COMMENTS Last administered on 09/26/16 10:19; Start 09/26/16 at 05:45 Vancomycin HCl 2 gm/Sodium Chloride 500 ml @ 250 mls/hr 1X ONCE IV Last administered on 09/26/16 08:07; Start 09/26/16 at 06:30; Stop 09/26/16 at 08:29 ; Status DC Fentanyl Citrate (Fentanyl 2ml Vial) 25 mcg PRN Q1HR PRN IV PAIN; Start at 06:15; Stop 09/27/16 at 06:14; Status DC Acetaminophen (Tylenol) 650 mg PRN Q4HRS PRN PO FEVER; Start 09/26/16 at 06:15 ; Stop 09/27/16 at 06:14; Status DC Albuterol/ Ipratropium (Duoneb) 3 ml RTQID NEB Last administered on 09/27/16 07:31; Start 09/26/16 at 08:00; Stop 09/27/16 at 07:59; Status DC Insulin Aspart (NovoLOG) 0-5 UNITS TIDWMEALS SQ ; Start 09/26/16 at 08:00 Dextrose (Dextrose 50%-Water Syringe) 12.5 gm PRN Q15MIN PRN IV SEE COMMENTS; Start 09/26/16 at 06:15 Vancomycin HCl 1.5 gm/Sodium Chloride 500 ml @ 250 mls/hr Q48H IV ; Start 09/28 at 08:00; Status Cancel Vancomycin HCl 1 each 1X ONCE MC ; Start 09/30/16 at 07:30; Stop 09/30/16 at 07 :31; Status Cancel Vancomycin HCl 1 each 1X ONCE MC ; Start 09/28/16 at 07:00; Stop 09/28/16 at 07 :01 Albumin Human 100 ml @ 100 mls/hr 1X ONCE IV Last administered on 09/26/16 15:20; Start 09/26/16 at 14:45; Stop 09/26/16 at 15:44; Status DC Albumin Human 100 ml @ 100 mls/hr 1X ONCE IV Last administered on 09/26/16 15:30; Start 09/26/16 at 14:45; Stop 09/26/16 at 15:44; Status DC Aspirin (Ecotrin) 81 mg DAILY PO Last administered on 09/27/16 08:34; Start at 09:00 Bumetanide (Bumex) 1 mg BID92 PO ; Start 09/26/16 at 17:00; Status Cancel Diltiazem HCl (Cardizem 24hr Cd) 240 mg DAILY PO Last administered on 08:34; Start 09/26/16 at 16:00 Furosemide (Lasix) 40 mg BID92 PO Last administered on 09/27/16 08:34; Start 09/26/16 at 17:00 Isosorbide Mononitrate (Imdur) 30 mg DAILY PO Last administered on 09/27/16 08 :35; Start 09/26/16 at 16:00 Levothyroxine Sodium (Synthroid) 25 mcg DAILY06 PO Last administered on 05:48; Start 09/27/16 at 06:00 Metoprolol Succinate (Toprol Xl) 25 mg DAILY PO Last administered on 09/27/16 08:36; Start 09/26/16 at 17:00 Potassium Chloride (Klor-Con) 10 meq DAILY PO Last administered on 09/27/16 08 :34; Start 09/27/16 at 09:00 Sevelamer Carbonate (Renvela) 800 mg TIDWMEALS PO Last administered on 08:34; Start 09/26/16 at 17:00 Tamsulosin HCl (Flomax) 0.4 mg HS PO Last administered on 09/26/16 21:07; Start 09/26/16 at 21:00 Venlafaxine HCl (Effexor Xr) 150 mg DAILY PO Last administered on 09/27/16 08: 35; Start 09/27/16 at 09:00 Sodium Chloride 1,000 ml @ 1,000 mls/hr Q1H PRN IV hypotension; Start 09/26/16 at 17:41; Stop 09/26/16 at 23:40; Status DC Sodium Chloride (Normal Saline Flush) 10 ml 1X PRN PRN IV AP catheter pack; Start 09/26/16 at 17:45; Stop 09/27/16 at 17:44 Sodium Chloride (Normal Saline Flush) 10 ml 1X PRN PRN IV [employer] P[employer]MAN catheter pack; Start 09/26/16 at 17:45; Stop 09/27/16 at 17:44 Sodium Chloride 1,000 ml @ 400 mls/hr Q2H30M PRN IV PATENCY; Start 09/26/16 at 17:41; Stop 09/27/16 at 05:40; Status DC Info (PHARMACY MONITORING -- do not chart) 1 each PRN DAILY PRN MC SEE COMMENTS ; Start 09/26/16 at 17:45 Active Scripts Active Metoprolol Succinate ( Xl ) (Metoprolol Succinate) 25 Mg Tab.er.24h 25 Mg PO DAILY Reported Renvela (Sevelamer Carbonate) 800 Mg Tablet 800 Mg PO TIDWMEALS Ranitidine Hcl 150 Mg Capsule 150 Mg PO DAILY Potassium Chloride 10 Meq Tablet.er 10 Meq PO DAILY Iron (Ferrous Sulfate) 325 Mg Capsule.er 325 Mg PO Diltiazem 24HR Cd (Diltiazem Hcl) 120 Mg Cap.er.24h 2 Cap PO DAILY Cephalexin 500 Mg Capsule 1 Cap PO DAILY Bumetanide 1 Mg Tablet 1 Tab PO BID Mupirocin Ointment (Mupirocin) 22 Gm Oint...g. 1 Donna TP BID Furosemide 40 Mg Tablet 40 Mg PO BID Cephalexin 500 Mg Capsule 1 Cap PO TID Carbamide Peroxide 15 Ml Drops 15 Ml OT Zinc Oxide 30 Gm Oint...g. 30 Gm TP Effexor Xr (Venlafaxine Hcl) 150 Mg Cap.er.24h 1 Cap PO DAILY Flomax (Tamsulosin Hcl) 0.4 Mg Cap.er.24h 1 Cap PO HS Synthroid (Levothyroxine Sodium) 25 Mcg Tablet 1 Tab PO DAILY Isosorbide Mononitrate Er (Isosorbide Mononitrate) 30 Mg Tab.er.24h 1 Tab PO DAILY Colace (Docusate Sodium) 100 Mg Capsule 1 Cap PO DAILY Vitamin B-12 (Cyanocobalamin (Vitamin B-12)) 1,000 Mcg Tablet 1 Tab PO DAILY Vitamin D3 (Cholecalciferol (Vitamin D3)) 1,000 Unit Tablet 2 Tab PO DAILY Zyrtec (Cetirizine Hcl) 10 Mg Tablet 1 Tab PO DAILY Aspir 81 (Aspirin) 81 Mg Tablet.dr 1 Tab PO DAILY Vitals/I & O Vital Sign - Last 24 Hours 09/26/16 09/26/16 09/26/16 09/26/16 11:00 12:43 17:08 17:22 Temp 97.9 97.9 Pulse 78 78 Resp 20 B/P (MAP) 109/58 (75) 109/58 Pulse Ox 98 98 98 O2 Delivery Nasal Cannula Nasal Cannula Nasal Cannula O2 Flow Rate 2.0 2.0 2.0 09/26/16 09/26/16 09/26/16 09/26/16 17:22 17:23 19:25 20:00 Temp 98.5 98.5 Pulse 78 78 98 Resp 18 B/P (MAP) 109/58 109/58 115/56 (75) Pulse Ox 97 96 O2 Delivery Nasal Cannula Nasal Cannula O2 Flow Rate 2.0 2.0 09/26/16 09/26/16 09/27/16 09/27/16 20:09 23:30 03:25 07:00 Temp 98.6 99.0 97.4 98.6 99.0 97.4 Pulse 82 81 108 Resp 18 18 22 B/P (MAP) 97/43 (61) 114/57 (76) 120/58 (78) Pulse Ox 91 96 93 O2 Delivery Room Air Nasal Cannula Room Air O2 Flow Rate 2.0 2.0 09/27/16 09/27/16 09/27/16 09/27/16 07:31 08:34 08:35 08:36 Pulse 108 108 108 B/P (MAP) 120/58 120/58 120/58 Pulse Ox 98 O2 Delivery Nasal Cannula O2 Flow Rate 2.0 Intake and Output 09/26/16 09/26/16 09/27/16 15:00 23:00 07:00 Intake Total 1110 ml 640 ml Balance 1110 ml 640 ml CECELIA GOODE MD September 27, 2016 09:48
[2016-09-27] MEDS: VANCOMYCIN PER PHARMACY MC PRN (09:50)
[2016-09-27 10:21] LABS: BASO % 0 % (0-3); EOS % 2 % (0-3); HEMATOCRIT 32.3 % (39.0-53.0); HEMOGLOBIN 11.2 g/dL (13.0-17.5); LYMPH # 0.8 x10^3/uL (1.0-4.8); LYMPH % 7 % (24-48); MEAN CORPUSCULAR HEMOGLOBIN 31 pg (25-35); MEAN CORPUSCULAR HGB CONC 35 g/dL (31-37); MEAN CORPUSCULAR VOLUME 89 fL (79-100); MONO % 8 % (0-9); NEUT % 83 % (31-73); PLATELET COUNT 182 x10^3/uL (140-400); RED BLOOD COUNT 3.66 x10^6/uL (4.30-5.70); RED CELL DISTRIBUTION WIDTH 15.1 % (11.5-14.5); WHITE BLOOD COUNT 10.8 x10^3/uL (4.0-11.0)
[2016-09-27 10:35] LABS: CALCIUM 8.8 mg/dL (8.5-10.1); GFR 14.5; POTASSIUM 3.8 mmol/L (3.5-5.1)
--- NOTE | 2016-09-27 10:47 | PDOC ---
Renal-Progress Notes Subjective Notes Notes A BIT BETTER History of Present Illness Hx of present illness STABLE Vitals Vitals Vital Signs Date Time Temp Pulse Resp B/P (MAP) Pulse Ox O2 Delivery O2 Flow Rate FiO2 09/27/16 08:36 108 120/58 09/27/16 07:31 98 Nasal Cannula 2.0 09/27/16 07:00 97.4 22 97.4 Weight Weight [ ] I.O. Intake and Output Intake and Output 09/27/16 07:00 Intake Total 1750 ml Balance 1750 ml Intake Oral 1700 ml IV Total 50 ml # Voids 1 Labs Labs Laboratory Tests Test 09/26/16 17:13 09/26/16 20:43 09/27/16 07:59 09/27/16 10:05 Glucose (Fingerstick) 110 mg/dL (70-99) 126 mg/dL (70-99) 117 mg/dL (70-99) White Blood Count 10.8 x10^3/uL (4.0-11.0) Red Blood Count 3.66 x10^6/uL (4.30-5.70) Hemoglobin 11.2 g/dL (13.0-17.5) Hematocrit 32.3 % (39.0-53.0) Mean Corpuscular Volume 89 fL (79-100) Mean Corpuscular Hemoglobin 31 pg (25-35) Mean Corpuscular Hemoglobin Concent 35 g/dL (31-37) Red Cell Distribution Width 15.1 % (11.5-14.5) Platelet Count 182 x10^3/uL (140-400) Neutrophils (%) (Auto) 83 % (31-73) Lymphocytes (%) (Auto) 7 % (24-48) Monocytes (%) (Auto) 8 % (0-9) Eosinophils (%) (Auto) 2 % (0-3) Basophils (%) (Auto) 0 % (0-3) Neutrophils # (Auto) 9.0 x10^3uL (1.8-7.7) Lymphocytes # (Auto) 0.8 x10^3/uL (1.0-4.8) Monocytes # (Auto) 0.8 x10^3/uL (0.0-1.1) Eosinophils # (Auto) 0.2 x10^3/uL (0.0-0.7) Basophils # (Auto) 0.0 x10^3/uL (0.0-0.2) Sodium Level 134 mmol/L (136-145) Potassium Level 3.8 mmol/L (3.5-5.1) Chloride Level 95 mmol/L (98-107) Carbon Dioxide Level 31 mmol/L (21-32) Anion Gap 8 (6-14) Blood Urea Nitrogen 45 mg/dL (8-26) Creatinine 4.0 mg/dL (0.7-1.3) Estimated GFR (Cockcroft-Gault) 14.5 Glucose Level 194 mg/dL (70-99) Calcium Level 8.8 mg/dL (8.5-10.1) Review of Systems Constitutional: yes: alert, oriented Ears/Nose/Throat: Yes: no symptom reported Eyes: Yes: no symptom reported Pulmonary: Yes dyspnea Cardiovascular: Yes no symptom reported Gastrointestional: Yes: constipation Genitourinary: Yes: no symptom reported Physical Exam General Appearance: no apparent distress Skin: warm Respiratory: decreased breath sounds Heart: S1S2, RRR Abdomen: soft, bowel sounds present Extremities: pulses present Neurology: alert Musculoskeletal: Osteoarthritis Assessment Assessment IMP HYPERVOLEMIA ESRD ANEMIA LE CELLULITIS COPD PLAN [facility] LY CHAVARRIA MD September 27, 2016 10:47
[2016-09-27 11:22] VITALS: BP 108/57
[2016-09-27 15:00] VITALS: BP 95/50
--- NOTE | 2016-09-27 15:10 | PDOC ---
PULMONARY PROGRESS NOTES Subjective pt with no increase soa Vitals Vital Signs Date Time Temp Pulse Resp B/P (MAP) Pulse Ox O2 Delivery O2 Flow Rate FiO2 09/27/16 11:47 93 Room Air 09/27/16 11:22 97.5 72 20 108/57 (74) 97.5 09/27/16 07:31 2.0 ROS: No Nausea, No Chest Pain, No Abdominal Pain, No Increase Cough General: Alert, No acute distress Lungs: Clear Cardiovascular: S1, S2 Abdomen: Soft, Non-tender Neuro Exam: Alert Extremities: Other (cullitis) Skin: Warm Labs Laboratory Tests Test 09/26/16 03:42 09/26/16 07:42 09/26/16 10:39 09/26/16 17:13 White Blood Count 19.1 x10^3/uL (4.0-11.0) Red Blood Count 4.07 x10^6/uL (4.30-5.70) Hemoglobin 12.1 g/dL (13.0-17.5) Hematocrit 35.4 % (39.0-53.0) Mean Corpuscular Volume 87 fL (79-100) Mean Corpuscular Hemoglobin 30 pg (25-35) Mean Corpuscular Hemoglobin Concent 34 g/dL (31-37) Red Cell Distribution Width 15.2 % (11.5-14.5) Platelet Count 206 x10^3/uL (140-400) Neutrophils (%) (Auto) 89 % (31-73) Lymphocytes (%) (Auto) 5 % (24-48) Monocytes (%) (Auto) 6 % (0-9) Eosinophils (%) (Auto) 0 % (0-3) Basophils (%) (Auto) 0 % (0-3) Neutrophils # (Auto) 16.9 x10^3uL (1.8-7.7) Lymphocytes # (Auto) 1.0 x10^3/uL (1.0-4.8) Monocytes # (Auto) 1.0 x10^3/uL (0.0-1.1) Eosinophils # (Auto) 0.0 x10^3/uL (0.0-0.7) Basophils # (Auto) 0.1 x10^3/uL (0.0-0.2) Segmented Neutrophils % 82 % (35-66) Band Neutrophils % 8 % (0-9) Lymphocytes % 6 % (24-48) Monocytes % 4 % (0-10) Platelet Estimate Adequate (ADEQUATE) Platelet Clumps, EDTA Present Sodium Level 138 mmol/L (136-145) Potassium Level 3.9 mmol/L (3.5-5.1) Chloride Level 98 mmol/L (98-107) Carbon Dioxide Level 32 mmol/L (21-32) Anion Gap 8 (6-14) Blood Urea Nitrogen 40 mg/dL (8-26) Creatinine 3.4 mg/dL (0.7-1.3) Estimated GFR (Cockcroft-Gault) 17.5 BUN/Creatinine Ratio 12 (6-20) Glucose Level 125 mg/dL (70-99) Calcium Level 8.5 mg/dL (8.5-10.1) Total Bilirubin 0.6 mg/dL (0.2-1.0) Aspartate Amino Transf (AST/SGOT) 29 U/L (15-37) Alanine Aminotransferase (ALT/SGPT) 23 U/L (16-63) Alkaline Phosphatase 93 U/L (46-116) Troponin I Quantitative 0.028 ng/mL (0.000-0.055) LH-Orp-J-Type Natriuretic Peptide 6636 pg/mL (0-449) Total Protein 7.2 g/dL (6.4-8.2) Albumin 2.6 g/dL (3.4-5.0) Albumin/Globulin Ratio 0.6 (1.0-1.7) Glucose (Fingerstick) 103 mg/dL (70-99) 112 mg/dL (70-99) 110 mg/dL (70-99) Test 09/26/16 20:43 09/27/16 07:59 09/27/16 10:05 Glucose (Fingerstick) 126 mg/dL (70-99) 117 mg/dL (70-99) White Blood Count 10.8 x10^3/uL (4.0-11.0) Red Blood Count 3.66 x10^6/uL (4.30-5.70) Hemoglobin 11.2 g/dL (13.0-17.5) Hematocrit 32.3 % (39.0-53.0) Mean Corpuscular Volume 89 fL (79-100) Mean Corpuscular Hemoglobin 31 pg (25-35) Mean Corpuscular Hemoglobin Concent 35 g/dL (31-37) Red Cell Distribution Width 15.1 % (11.5-14.5) Platelet Count 182 x10^3/uL (140-400) Neutrophils (%) (Auto) 83 % (31-73) Lymphocytes (%) (Auto) 7 % (24-48) Monocytes (%) (Auto) 8 % (0-9) Eosinophils (%) (Auto) 2 % (0-3) Basophils (%) (Auto) 0 % (0-3) Neutrophils # (Auto) 9.0 x10^3uL (1.8-7.7) Lymphocytes # (Auto) 0.8 x10^3/uL (1.0-4.8) Monocytes # (Auto) 0.8 x10^3/uL (0.0-1.1) Eosinophils # (Auto) 0.2 x10^3/uL (0.0-0.7) Basophils # (Auto) 0.0 x10^3/uL (0.0-0.2) Sodium Level 134 mmol/L (136-145) Potassium Level 3.8 mmol/L (3.5-5.1) Chloride Level 95 mmol/L (98-107) Carbon Dioxide Level 31 mmol/L (21-32) Anion Gap 8 (6-14) Blood Urea Nitrogen 45 mg/dL (8-26) Creatinine 4.0 mg/dL (0.7-1.3) Estimated GFR (Cockcroft-Gault) 14.5 Glucose Level 194 mg/dL (70-99) Calcium Level 8.8 mg/dL (8.5-10.1) Laboratory Tests Test 09/26/16 17:13 09/26/16 20:43 09/27/16 07:59 09/27/16 10:05 Glucose (Fingerstick) 110 mg/dL (70-99) 126 mg/dL (70-99) 117 mg/dL (70-99) White Blood Count 10.8 x10^3/uL (4.0-11.0) Red Blood Count 3.66 x10^6/uL (4.30-5.70) Hemoglobin 11.2 g/dL (13.0-17.5) Hematocrit 32.3 % (39.0-53.0) Mean Corpuscular Volume 89 fL (79-100) Mean Corpuscular Hemoglobin 31 pg (25-35) Mean Corpuscular Hemoglobin Concent 35 g/dL (31-37) Red Cell Distribution Width 15.1 % (11.5-14.5) Platelet Count 182 x10^3/uL (140-400) Neutrophils (%) (Auto) 83 % (31-73) Lymphocytes (%) (Auto) 7 % (24-48) Monocytes (%) (Auto) 8 % (0-9) Eosinophils (%) (Auto) 2 % (0-3) Basophils (%) (Auto) 0 % (0-3) Neutrophils # (Auto) 9.0 x10^3uL (1.8-7.7) Lymphocytes # (Auto) 0.8 x10^3/uL (1.0-4.8) Monocytes # (Auto) 0.8 x10^3/uL (0.0-1.1) Eosinophils # (Auto) 0.2 x10^3/uL (0.0-0.7) Basophils # (Auto) 0.0 x10^3/uL (0.0-0.2) Sodium Level 134 mmol/L (136-145) Potassium Level 3.8 mmol/L (3.5-5.1) Chloride Level 95 mmol/L (98-107) Carbon Dioxide Level 31 mmol/L (21-32) Anion Gap 8 (6-14) Blood Urea Nitrogen 45 mg/dL (8-26) Creatinine 4.0 mg/dL (0.7-1.3) Estimated GFR (Cockcroft-Gault) 14.5 Glucose Level 194 mg/dL (70-99) Calcium Level 8.8 mg/dL (8.5-10.1) Medications Active Scripts Medications Dose Route/Sig Max Daily Dose Days Date Category Renvela (Sevelamer Carbonate) 800 Mg Tablet 800 Mg PO TIDWMEALS 09/26/16 Reported Ranitidine Hcl 150 Mg Capsule 150 Mg PO DAILY 09/26/16 Reported Potassium Chloride 10 Meq Tablet.er 10 Meq PO DAILY 09/26/16 Reported Iron (Ferrous Sulfate) 325 Mg Capsule.er 325 Mg PO 09/26/16 Reported Diltiazem 24HR Cd (Diltiazem Hcl) 120 Mg Cap.er.24h 2 Cap PO DAILY 09/26/16 Reported Cephalexin 500 Mg Capsule 1 Cap PO DAILY 09/26/16 Reported Bumetanide 1 Mg Tablet 1 Tab PO BID 09/26/16 Reported Mupirocin Ointment (Mupirocin) 22 Gm Oint...g. 1 Donna TP BID 09/26/16 Reported Furosemide 40 Mg Tablet 40 Mg PO BID 09/26/16 Reported Cephalexin 500 Mg Capsule 1 Cap PO TID 09/26/16 Reported Carbamide Peroxide 15 Ml Drops 15 Ml OT 09/26/16 Reported Zinc Oxide 30 Gm Oint...g. 30 Gm TP 09/26/16 Reported Metoprolol Succinate ( Xl ) (Metoprolol Succinate) 25 Mg Tab.er.24h 25 Mg PO DAILY 05/13/16 Rx Effexor Xr (Venlafaxine Hcl) 150 Mg Cap.er.24h 1 Cap PO DAILY 04/24/16 Reported Flomax (Tamsulosin Hcl) 0.4 Mg Cap.er.24h 1 Cap PO HS 04/24/16 Reported Synthroid (Levothyroxine Sodium) 25 Mcg Tablet 1 Tab PO DAILY 04/24/16 Reported Isosorbide Mononitrate Er (Isosorbide Mononitrate) 30 Mg Tab.er.24h 1 Tab PO DAILY 04/24/16 Reported Colace (Docusate Sodium) 100 Mg Capsule 1 Cap PO DAILY 04/24/16 Reported Vitamin B-12 (Cyanocobalamin (Vitamin B-12)) 1,000 Mcg Tablet 1 Tab PO DAILY 04/24/16 Reported Vitamin D3 (Cholecalciferol (Vitamin D3)) 1,000 Unit Tablet 2 Tab PO DAILY 04/24/16 Reported Zyrtec (Cetirizine Hcl) 10 Mg Tablet 1 Tab PO DAILY 04/24/16 Reported Aspir 81 (Aspirin) 81 Mg Tablet.dr 1 Tab PO DAILY 04/24/16 Reported Impression . IMPRESSION: 1. Acute hypoxic respiratory failure requiring 2-4 liters of oxygen on admission. This is most likely secondary to acute bronchitis and underlying suspected severe COPD..No PE 2. 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 Acute bronchitis. 4. Chronic renal failure, on dialysis. 5. Leukocytosis secondary to cellulitis. 6. Lower extremity cellulitis with no evidence of deep venous thrombosis. Plan . resp status is compensated will continue the same 1. Continue with present oxygen. 2. Continue antibiotics. 3. Bronchodilators. 4. Follow Infectious Disease recommendation regarding cellulitis. 5. no surgery needed at this time LAI KIM MD September 27, 2016 15:09
[2016-09-27 19:35] VITALS: BP 103/57
[2016-09-27] MEDS: TAMSULOSIN 0.4 MG CAP.ER.24H. PO SCH (21:02)
[2016-09-27 22:45] VITALS: BP 108/63
[2016-09-28 02:50] VITALS: BP 100/54
[2016-09-28] MEDS ORDERED: SIMETHICONE 80 MG TAB.CHEW PO ONE (03:45)
[2016-09-28] MEDS: LEVOTHYROXINE 25 MCG TABLET. PO SCH (06:13)
[2016-09-28] MEDS: CLINDAMYCIN 600MG PREMIX 50 ML IV SCH (06:13)
[2016-09-28 07:00] VITALS: BP 100/49
[2016-09-28] MEDS ORDERED: VANCOMYCIN RANDOM LEVEL. MC ONE (07:00)
[2016-09-28] MEDS: SEVELAMER CARBONATE 800 MG TABLET. PO SCH ×3 (08:00→18:21)
[2016-09-28] MEDS: INSULIN ASPART 300 UNITS/3 ML INSULN.PEN SQ SCH ×3 (08:00→17:00)
[2016-09-28] MEDS ORDERED: VANCOMYCIN 1.5 GM in IV NORMAL SALINE 500ML BAG 500 ML IV SCH (08:00)
[2016-09-28 08:06] LABS: CALCIUM 9.1 mg/dL (8.5-10.1); CREATININE 4.4 mg/dL (0.7-1.3); POTASSIUM 4.2 mmol/L (3.5-5.1)
--- NOTE | 2016-09-28 08:15 | PDOC ---
Infectious Disease Note Vital Sign Vital Signs Vital Signs Date Time Temp Pulse Resp B/P (MAP) Pulse Ox O2 Delivery O2 Flow Rate FiO2 09/28/16 02:50 98.0 55 20 100/54 (69) 92 Room Air 98.0 09/27/16 07:31 2.0 Labs Lab Laboratory Tests Test 09/27/16 10:05 09/27/16 20:43 09/28/16 07:15 White Blood Count 10.8 x10^3/uL (4.0-11.0) Red Blood Count 3.66 x10^6/uL (4.30-5.70) Hemoglobin 11.2 g/dL (13.0-17.5) Hematocrit 32.3 % (39.0-53.0) Mean Corpuscular Volume 89 fL (79-100) Mean Corpuscular Hemoglobin 31 pg (25-35) Mean Corpuscular Hemoglobin Concent 35 g/dL (31-37) Red Cell Distribution Width 15.1 % (11.5-14.5) Platelet Count 182 x10^3/uL (140-400) Neutrophils (%) (Auto) 83 % (31-73) Lymphocytes (%) (Auto) 7 % (24-48) Monocytes (%) (Auto) 8 % (0-9) Eosinophils (%) (Auto) 2 % (0-3) Basophils (%) (Auto) 0 % (0-3) Neutrophils # (Auto) 9.0 x10^3uL (1.8-7.7) Lymphocytes # (Auto) 0.8 x10^3/uL (1.0-4.8) Monocytes # (Auto) 0.8 x10^3/uL (0.0-1.1) Eosinophils # (Auto) 0.2 x10^3/uL (0.0-0.7) Basophils # (Auto) 0.0 x10^3/uL (0.0-0.2) Sodium Level 134 mmol/L (136-145) 131 mmol/L (136-145) Potassium Level 3.8 mmol/L (3.5-5.1) 4.2 mmol/L (3.5-5.1) Chloride Level 95 mmol/L (98-107) 93 mmol/L (98-107) Carbon Dioxide Level 31 mmol/L (21-32) 28 mmol/L (21-32) Anion Gap 8 (6-14) 10 (6-14) Blood Urea Nitrogen 45 mg/dL (8-26) 73 mg/dL (8-26) Creatinine 4.0 mg/dL (0.7-1.3) 4.4 mg/dL (0.7-1.3) Estimated GFR (Cockcroft-Gault) 14.5 13.0 Glucose Level 194 mg/dL (70-99) 143 mg/dL (70-99) Calcium Level 8.8 mg/dL (8.5-10.1) 9.1 mg/dL (8.5-10.1) Glucose (Fingerstick) 171 mg/dL (70-99) Objective Assessment Left foot and leg cellulitis Tinea infection in feet ESRD Leukocytosis Plan Plan of Care vanc and cefepime diflucan d/c clinda leg elevation QUENTIN ROY MD September 28, 2016 08:14
[2016-09-28] MEDS: ISOSORBIDE MONONITRATE ER 30 MG TAB.ER.24H PO SCH (08:39)
[2016-09-28] MEDS: POTASSIUM CHLORIDE 10 MEQ TABLET.ER. PO SCH (09:00)
[2016-09-28] MEDS: METOPROLOL SUCC 24HR ER 25 MG TAB.ER.24H. PO SCH (09:00)
[2016-09-28] MEDS: ASPIRIN ENTERIC COATED 81 MG TABLET.DR. PO SCH (09:00)
[2016-09-28] MEDS: FUROSEMIDE 40 MG TABLET. PO SCH ×2 (09:00→14:00)
[2016-09-28] MEDS: VENLAFAXINE XR 37.5 MG CAP.ER.24H. PO SCH (09:00)
[2016-09-28] MEDS: CEFEPIME HCL 1 GM in IV NORMAL SALINE 50ML 50 ML IV SCH (09:48)
[2016-09-28] MEDS: FLUCONAZOLE 100 MG TABLET. PO SCH (09:49)
[2016-09-28] MEDS: VANCOMYCIN PER PHARMACY MC PRN (10:33)
[2016-09-28 11:01] VITALS: BP 104/47
--- NOTE | 2016-09-28 11:08 | PDOC ---
Renal-Progress Notes Subjective Notes Notes FEELING BETTER History of Present Illness Hx of present illness BETTER Vitals Vitals Vital Signs Date Time Temp Pulse Resp B/P (MAP) Pulse Ox O2 Delivery O2 Flow Rate FiO2 09/28/16 11:01 98.6 59 18 104/47 (66) 92 Room Air 98.6 09/27/16 07:31 2.0 Weight Weight [ ] I.O. Intake and Output Intake and Output 09/28/16 07:00 Intake Total 1600 ml Balance 1600 ml Intake Oral 1600 ml # Voids 3 # Bowel Movements 1 Labs Labs Laboratory Tests Test 09/27/16 20:43 09/28/16 07:15 Glucose (Fingerstick) 171 mg/dL (70-99) Sodium Level 131 mmol/L (136-145) Potassium Level 4.2 mmol/L (3.5-5.1) Chloride Level 93 mmol/L (98-107) Carbon Dioxide Level 28 mmol/L (21-32) Anion Gap 10 (6-14) Blood Urea Nitrogen 73 mg/dL (8-26) Creatinine 4.4 mg/dL (0.7-1.3) Estimated GFR (Cockcroft-Gault) 13.0 Glucose Level 143 mg/dL (70-99) Calcium Level 9.1 mg/dL (8.5-10.1) Random Vancomycin Level 13.9 mcg/mL Review of Systems Constitutional: yes: alert, oriented Ears/Nose/Throat: Yes: no symptom reported Eyes: Yes: no symptom reported Pulmonary: Yes dyspnea Cardiovascular: Yes no symptom reported Gastrointestional: Yes: constipation Genitourinary: Yes: no symptom reported Physical Exam General Appearance: no apparent distress Skin: warm Respiratory: decreased breath sounds Heart: S1S2, RRR Abdomen: soft, bowel sounds present Extremities: pulses present Neurology: alert Musculoskeletal: Osteoarthritis Assessment Assessment IMP HYPERVOLEMIA ESRD ANEMIA LE CELLULITIS COPD PLAN HD TODAY UF TO CARDIOLOGY LY CHAVARRIA MD September 28, 2016 11:08
--- NOTE | 2016-09-28 13:17 | PDOC ---
PROGRESS NOTES Chief Complaint Chief Complaint cc: sob A/P 1. Weight gain, shortness of breath likely due to end-stage renal disease. Improving, resting comfortable, CTA negative for PE. 2. End-stage renal disease, on hemodialysis per nephrology, 3. Atrial fibrillation, stable. 4. Lower extremity redness, possible cellulitis.: on cefepime and Vancomycin, renal dosing vancomycin, id following, monitor CBC 5. Chronic obstructive pulmonary disease. 6. Atrial fibrillation history. 7. Thoracic ascending aneurysm: need out pt follow up with pcp with Echo or CT . History of Present Illness History of Present Illness doing better no sob Vitals Vitals Vital Signs Date Time Temp Pulse Resp B/P (MAP) Pulse Ox O2 Delivery O2 Flow Rate FiO2 09/28/16 11:01 98.6 59 18 104/47 (66) 92 Room Air 98.6 09/27/16 07:31 2.0 Physical Exam General: Alert, Oriented X3, No acute distress Heart: Normal S1, Normal S2 Lungs: Clear Abdomen: Soft, No tenderness Extremities: Other (swelling, erythema) Labs LABS Laboratory Tests Test 09/27/16 20:43 09/28/16 07:15 Glucose (Fingerstick) 171 mg/dL (70-99) Sodium Level 131 mmol/L (136-145) Potassium Level 4.2 mmol/L (3.5-5.1) Chloride Level 93 mmol/L (98-107) Carbon Dioxide Level 28 mmol/L (21-32) Anion Gap 10 (6-14) Blood Urea Nitrogen 73 mg/dL (8-26) Creatinine 4.4 mg/dL (0.7-1.3) Estimated GFR (Cockcroft-Gault) 13.0 Glucose Level 143 mg/dL (70-99) Calcium Level 9.1 mg/dL (8.5-10.1) Random Vancomycin Level 13.9 mcg/mL Assessment and Plan Assessmemt and Plan Problems Medical Problems: (1) Bronchitis Status: Acute (2) Cellulitis Status: Acute (3) End-stage renal disease on hemodialysis Status: Acute (4) Hypoxia Status: Acute Problems: Comment Review of Relevant I have reviewed the following items randee (where applicable) has been applied. Labs Laboratory Tests Test 09/26/16 17:13 09/26/16 20:43 09/27/16 07:59 09/27/16 10:05 Glucose (Fingerstick) 110 mg/dL (70-99) 126 mg/dL (70-99) 117 mg/dL (70-99) White Blood Count 10.8 x10^3/uL (4.0-11.0) Red Blood Count 3.66 x10^6/uL (4.30-5.70) Hemoglobin 11.2 g/dL (13.0-17.5) Hematocrit 32.3 % (39.0-53.0) Mean Corpuscular Volume 89 fL (79-100) Mean Corpuscular Hemoglobin 31 pg (25-35) Mean Corpuscular Hemoglobin Concent 35 g/dL (31-37) Red Cell Distribution Width 15.1 % (11.5-14.5) Platelet Count 182 x10^3/uL (140-400) Neutrophils (%) (Auto) 83 % (31-73) Lymphocytes (%) (Auto) 7 % (24-48) Monocytes (%) (Auto) 8 % (0-9) Eosinophils (%) (Auto) 2 % (0-3) Basophils (%) (Auto) 0 % (0-3) Neutrophils # (Auto) 9.0 x10^3uL (1.8-7.7) Lymphocytes # (Auto) 0.8 x10^3/uL (1.0-4.8) Monocytes # (Auto) 0.8 x10^3/uL (0.0-1.1) Eosinophils # (Auto) 0.2 x10^3/uL (0.0-0.7) Basophils # (Auto) 0.0 x10^3/uL (0.0-0.2) Sodium Level 134 mmol/L (136-145) Potassium Level 3.8 mmol/L (3.5-5.1) Chloride Level 95 mmol/L (98-107) Carbon Dioxide Level 31 mmol/L (21-32) Anion Gap 8 (6-14) Blood Urea Nitrogen 45 mg/dL (8-26) Creatinine 4.0 mg/dL (0.7-1.3) Estimated GFR (Cockcroft-Gault) 14.5 Glucose Level 194 mg/dL (70-99) Calcium Level 8.8 mg/dL (8.5-10.1) Test 09/27/16 20:43 09/28/16 07:15 Glucose (Fingerstick) 171 mg/dL (70-99) Sodium Level 131 mmol/L (136-145) Potassium Level 4.2 mmol/L (3.5-5.1) Chloride Level 93 mmol/L (98-107) Carbon Dioxide Level 28 mmol/L (21-32) Anion Gap 10 (6-14) Blood Urea Nitrogen 73 mg/dL (8-26) Creatinine 4.4 mg/dL (0.7-1.3) Estimated GFR (Cockcroft-Gault) 13.0 Glucose Level 143 mg/dL (70-99) Calcium Level 9.1 mg/dL (8.5-10.1) Random Vancomycin Level 13.9 mcg/mL Laboratory Tests Test 09/27/16 20:43 09/28/16 07:15 Glucose (Fingerstick) 171 mg/dL (70-99) Sodium Level 131 mmol/L (136-145) Potassium Level 4.2 mmol/L (3.5-5.1) Chloride Level 93 mmol/L (98-107) Carbon Dioxide Level 28 mmol/L (21-32) Anion Gap 10 (6-14) Blood Urea Nitrogen 73 mg/dL (8-26) Creatinine 4.4 mg/dL (0.7-1.3) Estimated GFR (Cockcroft-Gault) 13.0 Glucose Level 143 mg/dL (70-99) Calcium Level 9.1 mg/dL (8.5-10.1) Random Vancomycin Level 13.9 mcg/mL Medications Current Medications Iohexol (Omnipaque 300 Mg/ml) 75 ml 1X ONCE IV Last administered on 09/26/16 04:45; Start 09/26/16 at 03:45; Stop 09/26/16 at 03:46; Status DC Info (Do NOT chart on this entry -- for MONITORING) 1 each PRN DAILY PRN MC SEE COMMENTS; Start 09/26/16 at 03:45; Stop 09/28/16 at 03:44; Status DC Albuterol/ Ipratropium (Duoneb) 3 ml 1X ONCE NEB Last administered on 05:53; Start 09/26/16 at 05:45; Stop 09/26/16 at 05:46; Status DC Clindamycin Phosphate 50 ml @ 100 mls/hr 1X ONCE IV Last administered on 09/26 06:17; Start 09/26/16 at 06:00; Stop 09/26/16 at 06:29; Status DC Clindamycin Phosphate 50 ml @ 100 mls/hr Q8HRS IV Last administered on 06:13; Start 09/26/16 at 14:00; Stop 09/28/16 at 08:16; Status DC Vancomycin HCl (Vanco Per Pharmacy) 1 each PRN DAILY PRN MC SEE COMMENTS Last administered on 09/28/16 10:33; Start 09/26/16 at 05:45 Vancomycin HCl 2 gm/Sodium Chloride 500 ml @ 250 mls/hr 1X ONCE IV Last administered on 09/26/16 08:07; Start 09/26/16 at 06:30; Stop 09/26/16 at 08:29 ; Status DC Fentanyl Citrate (Fentanyl 2ml Vial) 25 mcg PRN Q1HR PRN IV PAIN; Start at 06:15; Stop 09/27/16 at 06:14; Status DC Acetaminophen (Tylenol) 650 mg PRN Q4HRS PRN PO FEVER; Start 09/26/16 at 06:15 ; Stop 09/27/16 at 06:14; Status DC Albuterol/ Ipratropium (Duoneb) 3 ml RTQID NEB Last administered on 09/27/16 07:31; Start 09/26/16 at 08:00; Stop 09/27/16 at 07:59; Status DC Insulin Aspart (NovoLOG) 0-5 UNITS TIDWMEALS SQ Last administered on 09/27/16 17:59; Start 09/26/16 at 08:00 Dextrose (Dextrose 50%-Water Syringe) 12.5 gm PRN Q15MIN PRN IV SEE COMMENTS; Start 09/26/16 at 06:15 Vancomycin HCl 1.5 gm/Sodium Chloride 500 ml @ 250 mls/hr Q48H IV ; Start 09/28 at 08:00; Status Cancel Vancomycin HCl 1 each 1X ONCE MC ; Start 09/30/16 at 07:30; Stop 09/30/16 at 07 :31; Status Cancel Vancomycin HCl 1 each 1X ONCE MC Last administered on 09/28/16 07:00; Start 09/28/16 at 07:00; Stop 09/28/16 at 07:01; Status DC Albumin Human 100 ml @ 100 mls/hr 1X ONCE IV Last administered on 09/26/16 15:20; Start 09/26/16 at 14:45; Stop 09/26/16 at 15:44; Status DC Albumin Human 100 ml @ 100 mls/hr 1X ONCE IV Last administered on 09/26/16 15:30; Start 09/26/16 at 14:45; Stop 09/26/16 at 15:44; Status DC Aspirin (Ecotrin) 81 mg DAILY PO Last administered on 09/27/16 08:34; Start at 09:00 Bumetanide (Bumex) 1 mg BID92 PO ; Start 09/26/16 at 17:00; Status Cancel Diltiazem HCl (Cardizem 24hr Cd) 240 mg DAILY PO Last administered on 08:34; Start 09/26/16 at 16:00 Furosemide (Lasix) 40 mg BID92 PO Last administered on 09/27/16 15:04; Start 09/26/16 at 17:00 Isosorbide Mononitrate (Imdur) 30 mg DAILY PO Last administered on 09/27/16 08 :35; Start 09/26/16 at 16:00 Levothyroxine Sodium (Synthroid) 25 mcg DAILY06 PO Last administered on 06:13; Start 09/27/16 at 06:00 Metoprolol Succinate (Toprol Xl) 25 mg DAILY PO Last administered on 09/27/16 08:36; Start 09/26/16 at 17:00 Potassium Chloride (Klor-Con) 10 meq DAILY PO Last administered on 09/27/16 08 :34; Start 09/27/16 at 09:00 Sevelamer Carbonate (Renvela) 800 mg TIDWMEALS PO Last administered on 12:35; Start 09/26/16 at 17:00 Tamsulosin HCl (Flomax) 0.4 mg HS PO Last administered on 09/27/16 21:02; Start 09/26/16 at 21:00 Venlafaxine HCl (Effexor Xr) 150 mg DAILY PO Last administered on 09/27/16 08: 35; Start 09/27/16 at 09:00 Sodium Chloride 1,000 ml @ 1,000 mls/hr Q1H PRN IV hypotension; Start 09/26/16 at 17:41; Stop 09/26/16 at 23:40; Status DC Sodium Chloride (Normal Saline Flush) 10 ml 1X PRN PRN IV AP catheter pack; Start 09/26/16 at 17:45; Stop 09/27/16 at 17:44; Status DC Sodium Chloride (Normal Saline Flush) 10 ml 1X PRN PRN IV H[employer] catheter pack; Start 09/26/16 at 17:45; Stop 09/27/16 at 17:44; Status DC Sodium Chloride 1,000 ml @ 400 mls/hr Q2H30M PRN IV PATENCY; Start 09/26/16 at 17:41; Stop 09/27/16 at 05:40; Status DC Info (PHARMACY MONITORING -- do not chart) 1 each PRN DAILY PRN MC SEE COMMENTS ; Start 09/26/16 at 17:45 Simethicone (Gas-X) 80 mg 1X ONCE PO Last administered on 09/28/16 03:40; Start 09/28/16 at 03:45; Stop 09/28/16 at 03:47; Status DC Cefepime HCl 1 gm/ Sodium Chloride 50 ml @ 100 mls/hr DAILY IV Last administered on 09/28/16 09:48; Start 09/28/16 at 09:00 Fluconazole (Diflucan) 100 mg DAILY PO Last administered on 09/28/16 09:49; Start 09/28/16 at 09:00 Vancomycin HCl 500 mg/Sodium Chloride 100 ml @ 100 mls/hr QTUTHSA IV ; Start at 16:00 Active Scripts Active Metoprolol Succinate ( Xl ) (Metoprolol Succinate) 25 Mg Tab.er.24h 25 Mg PO DAILY Reported Renvela (Sevelamer Carbonate) 800 Mg Tablet 800 Mg PO TIDWMEALS Ranitidine Hcl 150 Mg Capsule 150 Mg PO DAILY Potassium Chloride 10 Meq Tablet.er 10 Meq PO DAILY Iron (Ferrous Sulfate) 325 Mg Capsule.er 325 Mg PO Diltiazem 24HR Cd (Diltiazem Hcl) 120 Mg Cap.er.24h 2 Cap PO DAILY Cephalexin 500 Mg Capsule 1 Cap PO DAILY Bumetanide 1 Mg Tablet 1 Tab PO BID Mupirocin Ointment (Mupirocin) 22 Gm Oint...g. 1 Donna TP BID Furosemide 40 Mg Tablet 40 Mg PO BID Cephalexin 500 Mg Capsule 1 Cap PO TID Carbamide Peroxide 15 Ml Drops 15 Ml OT Zinc Oxide 30 Gm Oint...g. 30 Gm TP Effexor Xr (Venlafaxine Hcl) 150 Mg Cap.er.24h 1 Cap PO DAILY Flomax (Tamsulosin Hcl) 0.4 Mg Cap.er.24h 1 Cap PO HS Synthroid (Levothyroxine Sodium) 25 Mcg Tablet 1 Tab PO DAILY Isosorbide Mononitrate Er (Isosorbide Mononitrate) 30 Mg Tab.er.24h 1 Tab PO DAILY Colace (Docusate Sodium) 100 Mg Capsule 1 Cap PO DAILY Vitamin B-12 (Cyanocobalamin (Vitamin B-12)) 1,000 Mcg Tablet 1 Tab PO DAILY Vitamin D3 (Cholecalciferol (Vitamin D3)) 1,000 Unit Tablet 2 Tab PO DAILY Zyrtec (Cetirizine Hcl) 10 Mg Tablet 1 Tab PO DAILY Aspir 81 (Aspirin) 81 Mg Tablet. 1 Tab PO DAILY Vitals/I & O Vital Sign - Last 24 Hours 09/27/16 09/27/16 09/27/16 09/27/16 15:00 19:35 20:00 22:45 Temp 97.8 99.1 98.4 97.8 99.1 98.4 Pulse 58 63 59 Resp 20 18 18 B/P (MAP) 95/50 (65) 103/57 (72) 108/63 (78) Pulse Ox 91 92 93 O2 Delivery Room Air Room Air Room Air Room Air 09/28/16 09/28/16 09/28/16 09/28/16 02:50 07:00 08:00 08:38 Temp 98.0 98.2 98.0 98.2 Pulse 55 69 53 Resp 20 19 B/P (MAP) 100/54 (69) 100/49 (66) 100/49 Pulse Ox 92 93 O2 Delivery Room Air Room Air Room Air 09/28/16 09/28/16 08:39 11:01 Temp 98.6 98.6 Pulse 53 59 Resp 18 B/P (MAP) 100/49 104/47 (66) Pulse Ox 92 O2 Delivery Room Air Intake and Output 09/27/16 09/27/16 09/28/16 15:00 23:00 07:00 Intake Total 1120 ml 480 ml Balance 1120 ml 480 ml CECELIA GOODE MD September 28, 2016 13:17
[2016-09-28] MEDS ORDERED: IV NORMAL SALINE 1000ML BAG 1,000 ML IV PRN ×2 (13:33)
[2016-09-28] MEDS ORDERED: 0.9 % SODIUM CHLORIDE 10 ML DISP.SYRIN. IV PRN ×2 (13:45)
[2016-09-28] MEDS ORDERED: ALBUMIN HUMAN 25% 200 ML IV PRN (13:45)
[2016-09-28] MEDS ORDERED: DIALYSIS PATIENT. MC PRN (13:45)
--- NOTE | 2016-09-28 14:37 | PDOC ---
PULMONARY PROGRESS NOTES Subjective pt with no increase soa Vitals Vital Signs Date Time Temp Pulse Resp B/P (MAP) Pulse Ox O2 Delivery O2 Flow Rate FiO2 09/28/16 11:01 98.6 59 18 104/47 (66) 92 Room Air 98.6 09/27/16 07:31 2.0 ROS: No Nausea, No Chest Pain, No Abdominal Pain, No Increase Cough General: Alert, No acute distress Lungs: Clear Cardiovascular: S1, S2 Abdomen: Soft, Non-tender Neuro Exam: Alert Extremities: Other (cullitis) Skin: Warm Labs Laboratory Tests Test 09/26/16 17:13 09/26/16 20:43 09/27/16 07:59 09/27/16 10:05 Glucose (Fingerstick) 110 mg/dL (70-99) 126 mg/dL (70-99) 117 mg/dL (70-99) White Blood Count 10.8 x10^3/uL (4.0-11.0) Red Blood Count 3.66 x10^6/uL (4.30-5.70) Hemoglobin 11.2 g/dL (13.0-17.5) Hematocrit 32.3 % (39.0-53.0) Mean Corpuscular Volume 89 fL (79-100) Mean Corpuscular Hemoglobin 31 pg (25-35) Mean Corpuscular Hemoglobin Concent 35 g/dL (31-37) Red Cell Distribution Width 15.1 % (11.5-14.5) Platelet Count 182 x10^3/uL (140-400) Neutrophils (%) (Auto) 83 % (31-73) Lymphocytes (%) (Auto) 7 % (24-48) Monocytes (%) (Auto) 8 % (0-9) Eosinophils (%) (Auto) 2 % (0-3) Basophils (%) (Auto) 0 % (0-3) Neutrophils # (Auto) 9.0 x10^3uL (1.8-7.7) Lymphocytes # (Auto) 0.8 x10^3/uL (1.0-4.8) Monocytes # (Auto) 0.8 x10^3/uL (0.0-1.1) Eosinophils # (Auto) 0.2 x10^3/uL (0.0-0.7) Basophils # (Auto) 0.0 x10^3/uL (0.0-0.2) Sodium Level 134 mmol/L (136-145) Potassium Level 3.8 mmol/L (3.5-5.1) Chloride Level 95 mmol/L (98-107) Carbon Dioxide Level 31 mmol/L (21-32) Anion Gap 8 (6-14) Blood Urea Nitrogen 45 mg/dL (8-26) Creatinine 4.0 mg/dL (0.7-1.3) Estimated GFR (Cockcroft-Gault) 14.5 Glucose Level 194 mg/dL (70-99) Calcium Level 8.8 mg/dL (8.5-10.1) Test 09/27/16 20:43 09/28/16 07:15 Glucose (Fingerstick) 171 mg/dL (70-99) Sodium Level 131 mmol/L (136-145) Potassium Level 4.2 mmol/L (3.5-5.1) Chloride Level 93 mmol/L (98-107) Carbon Dioxide Level 28 mmol/L (21-32) Anion Gap 10 (6-14) Blood Urea Nitrogen 73 mg/dL (8-26) Creatinine 4.4 mg/dL (0.7-1.3) Estimated GFR (Cockcroft-Gault) 13.0 Glucose Level 143 mg/dL (70-99) Calcium Level 9.1 mg/dL (8.5-10.1) Random Vancomycin Level 13.9 mcg/mL Laboratory Tests Test 09/27/16 20:43 09/28/16 07:15 Glucose (Fingerstick) 171 mg/dL (70-99) Sodium Level 131 mmol/L (136-145) Potassium Level 4.2 mmol/L (3.5-5.1) Chloride Level 93 mmol/L (98-107) Carbon Dioxide Level 28 mmol/L (21-32) Anion Gap 10 (6-14) Blood Urea Nitrogen 73 mg/dL (8-26) Creatinine 4.4 mg/dL (0.7-1.3) Estimated GFR (Cockcroft-Gault) 13.0 Glucose Level 143 mg/dL (70-99) Calcium Level 9.1 mg/dL (8.5-10.1) Random Vancomycin Level 13.9 mcg/mL Medications Active Scripts Medications Dose Route/Sig Max Daily Dose Days Date Category Renvela (Sevelamer Carbonate) 800 Mg Tablet 800 Mg PO TIDWMEALS 09/26/16 Reported Ranitidine Hcl 150 Mg Capsule 150 Mg PO DAILY 09/26/16 Reported Potassium Chloride 10 Meq Tablet.er 10 Meq PO DAILY 09/26/16 Reported Iron (Ferrous Sulfate) 325 Mg Capsule.er 325 Mg PO 09/26/16 Reported Diltiazem 24HR Cd (Diltiazem Hcl) 120 Mg Cap.er.24h 2 Cap PO DAILY 09/26/16 Reported Cephalexin 500 Mg Capsule 1 Cap PO DAILY 09/26/16 Reported Bumetanide 1 Mg Tablet 1 Tab PO BID 09/26/16 Reported Mupirocin Ointment (Mupirocin) 22 Gm Oint...g. 1 Donna TP BID 09/26/16 Reported Furosemide 40 Mg Tablet 40 Mg PO BID 09/26/16 Reported Cephalexin 500 Mg Capsule 1 Cap PO TID 09/26/16 Reported Carbamide Peroxide 15 Ml Drops 15 Ml OT 09/26/16 Reported Zinc Oxide 30 Gm Oint...g. 30 Gm TP 09/26/16 Reported Metoprolol Succinate ( Xl ) (Metoprolol Succinate) 25 Mg Tab.er.24h 25 Mg PO DAILY 05/13/16 Rx Effexor Xr (Venlafaxine Hcl) 150 Mg Cap.er.24h 1 Cap PO DAILY 04/24/16 Reported Flomax (Tamsulosin Hcl) 0.4 Mg Cap.er.24h 1 Cap PO HS 04/24/16 Reported Synthroid (Levothyroxine Sodium) 25 Mcg Tablet 1 Tab PO DAILY 04/24/16 Reported Isosorbide Mononitrate Er (Isosorbide Mononitrate) 30 Mg Tab.er.24h 1 Tab PO DAILY 04/24/16 Reported Colace (Docusate Sodium) 100 Mg Capsule 1 Cap PO DAILY 04/24/16 Reported Vitamin B-12 (Cyanocobalamin (Vitamin B-12)) 1,000 Mcg Tablet 1 Tab PO DAILY 04/24/16 Reported Vitamin D3 (Cholecalciferol (Vitamin D3)) 1,000 Unit Tablet 2 Tab PO DAILY 04/24/16 Reported Zyrtec (Cetirizine Hcl) 10 Mg Tablet 1 Tab PO DAILY 04/24/16 Reported Aspir 81 (Aspirin) 81 Mg Tablet.dr 1 Tab PO DAILY 04/24/16 Reported Impression . IMPRESSION: 1. Acute hypoxic respiratory failure requiring 2-4 liters of oxygen on admission. This is most likely secondary to acute bronchitis and underlying suspected severe COPD..No PE 2. 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 Acute bronchitis. 4. Chronic renal failure, on dialysis. 5. Leukocytosis secondary to cellulitis. 6. Lower extremity cellulitis with no evidence of deep venous thrombosis. Plan . resp status is compensated will continue the same 1. Continue with present oxygen. 2. Continue antibiotics. 3. Bronchodilators. 4. Follow Infectious Disease recommendation regarding cellulitis. 5. no surgery needed at this time LAI KIM MD September 28, 2016 14:37
[2016-09-28] MEDS: VANCOMYCIN 500 MG in IV NORMAL SALINE 100ML 100 ML IV SCH (18:21)
[2016-09-28 19:40] VITALS: BP 120/58
[2016-09-28] MEDS: TAMSULOSIN 0.4 MG CAP.ER.24H. PO SCH (20:12)
[2016-09-28] MEDS ORDERED: VENLAFAXINE XR 37.5 MG CAP.ER.24H. PO ONE (22:45)
[2016-09-28 23:00] VITALS: BP 113/66
--- NOTE | 2016-09-29 01:48 | CONS ---
DATE OF CONSULTATION: 09/27/2016 REQUESTING PHYSICIAN: Dr. Dewitt. REASON FOR CONSULTATION: Cellulitis. HISTORY OF PRESENT ILLNESS: This is an 80-year-old gentleman with a history of end-stage renal disease, on hemodialysis, who was admitted may have been transferred from [facility] with lower extremity edema, redness and pain in the left leg. The patient was diagnosed with cellulitis of the leg. The patient also has COPD. The patient has aortic aneurysm, leukocytosis. The patient was started on vancomycin and clindamycin and consult has been requested. The patient denies any fever, chills, nausea, vomiting, diarrhea, chest pain, shortness of breath, has not been unchanged. Denies any abdominal pain, urinary symptoms or bowel symptoms. PAST MEDICAL HISTORY: Positive for COPD, end-stage renal disease; on hemodialysis, history of MRSA, atrial fibrillation, aortic aneurysm. SOCIAL HISTORY: Negative for smoking, alcohol, illicit drug use. ALLERGIES: ALLERGIC TO PIROXICAM. REVIEW OF SYSTEMS: As per HPI, all other systems reviewed are negative. CURRENT MEDICATIONS: Reviewed. The patient is on clindamycin and vancomycin. PHYSICAL EXAMINATION: GENERAL: Alert, oriented gentleman, not in distress. VITAL SIGNS: Stable, afebrile. HEENT: NAD. NECK: Supple, no JVP, no lymphadenopathy. LUNGS: Clear. HEART: S1, S2 regular. ABDOMEN: Benign. EXTREMITIES: The right lower extremity has mild pitting edema, left lower extremity has significant pitting edema as well as extensive erythema of the foot, progressing into the leg and into the medial thigh. The patient also has some skin breakdown between the toes with yeast infection may have been a blister on the heel and this is all red, hot and painful. Peripheral pulses not palpable because of the swelling. NEUROLOGIC: The patient is neurologically intact. LABORATORY DATA: White count is 10,000 down from 19,000. BUN 45, creatinine 4.0. Ultrasound, chest x-ray and CT of the chest reviewed. IMPRESSION: 1. Left lower extremity cellulitis involving the foot and the leg. 2. Tinea infection between the toes. 3. Leukocytosis. 4. End-stage renal disease, on hemodialysis. 5. Chronic obstructive pulmonary disease. PLAN: Recommend would continue vancomycin, discontinue clindamycin. Start cefepime and also add oral Diflucan, strict leg elevation. The patient can walk, but no sitting, supportive care and we will continue to follow. Thank you very much, Dr. Dewitt, for giving me the opportunity to participate in this patient's care. QUENTIN ROY MD DR: FADIA/jess JOB#: [id number] / [id number]
[2016-09-29 02:40] VITALS: BP 115/72
[2016-09-29 03:04] LABS: BASO # 0.1 x10^3/uL (0.0-0.2); BASO % 1 % (0-3); EOS % 4 % (0-3); HEMATOCRIT 36.1 % (39.0-53.0); HEMOGLOBIN 11.9 g/dL (13.0-17.5); LYMPH # 0.9 x10^3/uL (1.0-4.8); LYMPH % 11 % (24-48); MEAN CORPUSCULAR HEMOGLOBIN 29 pg (25-35); MEAN CORPUSCULAR HGB CONC 33 g/dL (31-37); MEAN CORPUSCULAR VOLUME 89 fL (79-100); MONO % 11 % (0-9); NEUT % 73 % (31-73); PLATELET COUNT 206 x10^3/uL (140-400); RED BLOOD COUNT 4.05 x10^6/uL (4.30-5.70); RED CELL DISTRIBUTION WIDTH 14.9 % (11.5-14.5); WHITE BLOOD COUNT 8.3 x10^3/uL (4.0-11.0)
[2016-09-29] MEDS: LEVOTHYROXINE 25 MCG TABLET. PO SCH (06:09)
[2016-09-29 07:00] VITALS: BP 120/63
[2016-09-29] MEDS: INSULIN ASPART 300 UNITS/3 ML INSULN.PEN SQ SCH ×3 (08:00→17:37)
[2016-09-29] MEDS: VANCOMYCIN PER PHARMACY MC PRN (08:05)
--- NOTE | 2016-09-29 08:09 | PDOC ---
Infectious Disease Note Subjective Subjective pt wants to go home says, not elevating leg ROS ROS GEN: Denies fevers, chills, sweats HEENT: Denies blurred vision, sore throat CV: Denies chest pain RESP: Denies shortness of air, cough GI: Denies n/v/d NEURO: Denies confusion, dizziness Vital Sign Vital Signs Vital Signs Date Time Temp Pulse Resp B/P (MAP) Pulse Ox O2 Delivery O2 Flow Rate FiO2 09/29/16 07:00 98.1 82 20 120/63 (82) 93 Room Air 98.1 Physical Exam PHYSICAL EXAM GENERAL: NAD, Alert HEENT: PERRL, OC/OP NECK: Supple, no JVD, no LN LUNGS: Clear HEART: S1S2, no gallop, no murmur ABD: Soft, NT, no organomegaly, no rebound EXT: ++ edema, no cyanosis,, left leg erythema ++ [place] NET: Alert, oriented x 3, no focal neurologic deficit SKIN: No rash IV: ok Labs Lab Laboratory Tests Test 09/29/16 02:35 09/29/16 07:37 White Blood Count 8.3 x10^3/uL (4.0-11.0) Red Blood Count 4.05 x10^6/uL (4.30-5.70) Hemoglobin 11.9 g/dL (13.0-17.5) Hematocrit 36.1 % (39.0-53.0) Mean Corpuscular Volume 89 fL (79-100) Mean Corpuscular Hemoglobin 29 pg (25-35) Mean Corpuscular Hemoglobin Concent 33 g/dL (31-37) Red Cell Distribution Width 14.9 % (11.5-14.5) Platelet Count 206 x10^3/uL (140-400) Neutrophils (%) (Auto) 73 % (31-73) Lymphocytes (%) (Auto) 11 % (24-48) Monocytes (%) (Auto) 11 % (0-9) Eosinophils (%) (Auto) 4 % (0-3) Basophils (%) (Auto) 1 % (0-3) Neutrophils # (Auto) 6.1 x10^3uL (1.8-7.7) Lymphocytes # (Auto) 0.9 x10^3/uL (1.0-4.8) Monocytes # (Auto) 0.9 x10^3/uL (0.0-1.1) Eosinophils # (Auto) 0.4 x10^3/uL (0.0-0.7) Basophils # (Auto) 0.1 x10^3/uL (0.0-0.2) Glucose (Fingerstick) 130 mg/dL (70-99) Objective Assessment Left foot and leg cellulitis Tinea infection in feet ESRD Leukocytosis Plan Plan of Care vanc and cefepime diflucan leg elevation all the time except to walk and eat QUENTIN ROY MD September 29, 2016 08:09
[2016-09-29] MEDS: VENLAFAXINE XR 37.5 MG CAP.ER.24H. PO SCH (08:28)
[2016-09-29] MEDS: METOPROLOL SUCC 24HR ER 25 MG TAB.ER.24H. PO SCH (08:29)
[2016-09-29] MEDS: FLUCONAZOLE 100 MG TABLET. PO SCH (08:29)
[2016-09-29] MEDS: ISOSORBIDE MONONITRATE ER 30 MG TAB.ER.24H PO SCH (08:29)
[2016-09-29] MEDS: ASPIRIN ENTERIC COATED 81 MG TABLET.DR. PO SCH (08:29)
[2016-09-29] MEDS: SEVELAMER CARBONATE 800 MG TABLET. PO SCH ×3 (08:29→17:34)
[2016-09-29] MEDS: FUROSEMIDE 40 MG TABLET. PO SCH ×2 (08:30→14:00)
[2016-09-29] MEDS: POTASSIUM CHLORIDE 10 MEQ TABLET.ER. PO SCH (08:30)
[2016-09-29] MEDS: CEFEPIME HCL 1 GM in IV NORMAL SALINE 50ML 50 ML IV SCH (08:32)
[2016-09-29] MEDS ORDERED: ALPR0.5T6 PO (09:18)
--- NOTE | 2016-09-29 10:01 | PDOC ---
Renal-Progress Notes Subjective Notes Notes NO NEW COMPLAINTS History of Present Illness Hx of present illness STABLE Vitals Vitals Vital Signs Date Time Temp Pulse Resp B/P (MAP) Pulse Ox O2 Delivery O2 Flow Rate FiO2 09/29/16 08:30 82 120/63 09/29/16 08:00 Room Air 09/29/16 07:00 98.1 20 93 98.1 Weight Weight [ ] I.O. Intake and Output Intake and Output 09/29/16 07:00 Intake Total 980 ml Balance 980 ml Intake Oral 980 ml Labs Labs Laboratory Tests Test 09/29/16 02:35 09/29/16 07:37 White Blood Count 8.3 x10^3/uL (4.0-11.0) Red Blood Count 4.05 x10^6/uL (4.30-5.70) Hemoglobin 11.9 g/dL (13.0-17.5) Hematocrit 36.1 % (39.0-53.0) Mean Corpuscular Volume 89 fL (79-100) Mean Corpuscular Hemoglobin 29 pg (25-35) Mean Corpuscular Hemoglobin Concent 33 g/dL (31-37) Red Cell Distribution Width 14.9 % (11.5-14.5) Platelet Count 206 x10^3/uL (140-400) Neutrophils (%) (Auto) 73 % (31-73) Lymphocytes (%) (Auto) 11 % (24-48) Monocytes (%) (Auto) 11 % (0-9) Eosinophils (%) (Auto) 4 % (0-3) Basophils (%) (Auto) 1 % (0-3) Neutrophils # (Auto) 6.1 x10^3uL (1.8-7.7) Lymphocytes # (Auto) 0.9 x10^3/uL (1.0-4.8) Monocytes # (Auto) 0.9 x10^3/uL (0.0-1.1) Eosinophils # (Auto) 0.4 x10^3/uL (0.0-0.7) Basophils # (Auto) 0.1 x10^3/uL (0.0-0.2) Glucose (Fingerstick) 130 mg/dL (70-99) Review of Systems Constitutional: yes: alert, oriented Ears/Nose/Throat: Yes: no symptom reported Eyes: Yes: no symptom reported Pulmonary: Yes dyspnea Cardiovascular: Yes no symptom reported Gastrointestional: Yes: constipation Genitourinary: Yes: no symptom reported Physical Exam General Appearance: no apparent distress Skin: warm Respiratory: decreased breath sounds Heart: S1S2, RRR Abdomen: soft, bowel sounds present Extremities: pulses present Neurology: alert Musculoskeletal: Osteoarthritis Assessment Assessment IMP HYPERVOLEMIA ESRD ANEMIA LE CELLULITIS COPD PLAN HD TOMORROW ANTIBIOTICS LY ROGERS MD September 29, 2016 10:01
[2016-09-29] MEDS: ALPRAZolam 0.25 MG TABLET PO PRN (12:33)
--- NOTE | 2016-09-29 12:44 | PDOC ---
PROGRESS NOTES Chief Complaint Chief Complaint cc: sob A/P 1. Weight gain, shortness of breath likely due to end-stage renal disease. Improving, resting comfortable, CTA negative for PE. 2. End-stage renal disease, on hemodialysis per nephrology, 3. Atrial fibrillation, stable. 4. Lower extremity cellulitis.: on cefepime and Vancomycin, renal dosing vancomycin, id following, monitor CBC, 5. Chronic obstructive pulmonary disease. 6. Atrial fibrillation history. 7. Thoracic ascending aneurysm: need out pt follow up with pcp with Echo or CT . 8. Disposition: not ready for DC home , need IV Abx, leg elevation. History of Present Illness History of Present Illness doing better no sob Vitals Vitals Vital Signs Date Time Temp Pulse Resp B/P (MAP) Pulse Ox O2 Delivery O2 Flow Rate FiO2 09/29/16 08:30 82 120/63 09/29/16 08:00 Room Air 09/29/16 07:00 98.1 20 93 98.1 Physical Exam General: Alert, Oriented X3, No acute distress Heart: Normal S1, Normal S2 Lungs: Clear Abdomen: Soft, No tenderness Extremities: Other (swelling, erythema) Labs LABS Laboratory Tests Test 09/29/16 02:35 09/29/16 07:37 09/29/16 11:58 White Blood Count 8.3 x10^3/uL (4.0-11.0) Red Blood Count 4.05 x10^6/uL (4.30-5.70) Hemoglobin 11.9 g/dL (13.0-17.5) Hematocrit 36.1 % (39.0-53.0) Mean Corpuscular Volume 89 fL (79-100) Mean Corpuscular Hemoglobin 29 pg (25-35) Mean Corpuscular Hemoglobin Concent 33 g/dL (31-37) Red Cell Distribution Width 14.9 % (11.5-14.5) Platelet Count 206 x10^3/uL (140-400) Neutrophils (%) (Auto) 73 % (31-73) Lymphocytes (%) (Auto) 11 % (24-48) Monocytes (%) (Auto) 11 % (0-9) Eosinophils (%) (Auto) 4 % (0-3) Basophils (%) (Auto) 1 % (0-3) Neutrophils # (Auto) 6.1 x10^3uL (1.8-7.7) Lymphocytes # (Auto) 0.9 x10^3/uL (1.0-4.8) Monocytes # (Auto) 0.9 x10^3/uL (0.0-1.1) Eosinophils # (Auto) 0.4 x10^3/uL (0.0-0.7) Basophils # (Auto) 0.1 x10^3/uL (0.0-0.2) Glucose (Fingerstick) 130 mg/dL (70-99) 108 mg/dL (70-99) Assessment and Plan Assessmemt and Plan Problems Medical Problems: (1) Bronchitis Status: Acute (2) Cellulitis Status: Acute (3) End-stage renal disease on hemodialysis Status: Acute (4) Hypoxia Status: Acute Problems: Comment Review of Relevant I have reviewed the following items randee (where applicable) has been applied. Labs Laboratory Tests Test 09/27/16 20:43 09/28/16 06:10 09/28/16 07:15 09/29/16 02:35 Glucose (Fingerstick) 171 mg/dL (70-99) Nasal Screen MRSA (PCR) Negative (Negative) Sodium Level 131 mmol/L (136-145) Potassium Level 4.2 mmol/L (3.5-5.1) Chloride Level 93 mmol/L (98-107) Carbon Dioxide Level 28 mmol/L (21-32) Anion Gap 10 (6-14) Blood Urea Nitrogen 73 mg/dL (8-26) Creatinine 4.4 mg/dL (0.7-1.3) Estimated GFR (Cockcroft-Gault) 13.0 Glucose Level 143 mg/dL (70-99) Calcium Level 9.1 mg/dL (8.5-10.1) Random Vancomycin Level 13.9 mcg/mL White Blood Count 8.3 x10^3/uL (4.0-11.0) Red Blood Count 4.05 x10^6/uL (4.30-5.70) Hemoglobin 11.9 g/dL (13.0-17.5) Hematocrit 36.1 % (39.0-53.0) Mean Corpuscular Volume 89 fL (79-100) Mean Corpuscular Hemoglobin 29 pg (25-35) Mean Corpuscular Hemoglobin Concent 33 g/dL (31-37) Red Cell Distribution Width 14.9 % (11.5-14.5) Platelet Count 206 x10^3/uL (140-400) Neutrophils (%) (Auto) 73 % (31-73) Lymphocytes (%) (Auto) 11 % (24-48) Monocytes (%) (Auto) 11 % (0-9) Eosinophils (%) (Auto) 4 % (0-3) Basophils (%) (Auto) 1 % (0-3) Neutrophils # (Auto) 6.1 x10^3uL (1.8-7.7) Lymphocytes # (Auto) 0.9 x10^3/uL (1.0-4.8) Monocytes # (Auto) 0.9 x10^3/uL (0.0-1.1) Eosinophils # (Auto) 0.4 x10^3/uL (0.0-0.7) Basophils # (Auto) 0.1 x10^3/uL (0.0-0.2) Test 09/29/16 07:37 09/29/16 11:58 Glucose (Fingerstick) 130 mg/dL (70-99) 108 mg/dL (70-99) Laboratory Tests Test 09/29/16 02:35 09/29/16 07:37 09/29/16 11:58 White Blood Count 8.3 x10^3/uL (4.0-11.0) Red Blood Count 4.05 x10^6/uL (4.30-5.70) Hemoglobin 11.9 g/dL (13.0-17.5) Hematocrit 36.1 % (39.0-53.0) Mean Corpuscular Volume 89 fL (79-100) Mean Corpuscular Hemoglobin 29 pg (25-35) Mean Corpuscular Hemoglobin Concent 33 g/dL (31-37) Red Cell Distribution Width 14.9 % (11.5-14.5) Platelet Count 206 x10^3/uL (140-400) Neutrophils (%) (Auto) 73 % (31-73) Lymphocytes (%) (Auto) 11 % (24-48) Monocytes (%) (Auto) 11 % (0-9) Eosinophils (%) (Auto) 4 % (0-3) Basophils (%) (Auto) 1 % (0-3) Neutrophils # (Auto) 6.1 x10^3uL (1.8-7.7) Lymphocytes # (Auto) 0.9 x10^3/uL (1.0-4.8) Monocytes # (Auto) 0.9 x10^3/uL (0.0-1.1) Eosinophils # (Auto) 0.4 x10^3/uL (0.0-0.7) Basophils # (Auto) 0.1 x10^3/uL (0.0-0.2) Glucose (Fingerstick) 130 mg/dL (70-99) 108 mg/dL (70-99) Medications Current Medications Iohexol (Omnipaque 300 Mg/ml) 75 ml 1X ONCE IV Last administered on 09/26/16 04:45; Start 09/26/16 at 03:45; Stop 09/26/16 at 03:46; Status DC Info (Do NOT chart on this entry -- for MONITORING) 1 each PRN DAILY PRN MC SEE COMMENTS; Start 09/26/16 at 03:45; Stop 09/28/16 at 03:44; Status DC Albuterol/ Ipratropium (Duoneb) 3 ml 1X ONCE NEB Last administered on 05:53; Start 09/26/16 at 05:45; Stop 09/26/16 at 05:46; Status DC Clindamycin Phosphate 50 ml @ 100 mls/hr 1X ONCE IV Last administered on 09/26 06:17; Start 09/26/16 at 06:00; Stop 09/26/16 at 06:29; Status DC Clindamycin Phosphate 50 ml @ 100 mls/hr Q8HRS IV Last administered on 06:13; Start 09/26/16 at 14:00; Stop 09/28/16 at 08:16; Status DC Vancomycin HCl (Vanco Per Pharmacy) 1 each PRN DAILY PRN MC SEE COMMENTS Last administered on 09/29/16 08:05; Start 09/26/16 at 05:45 Vancomycin HCl 2 gm/Sodium Chloride 500 ml @ 250 mls/hr 1X ONCE IV Last administered on 09/26/16 08:07; Start 09/26/16 at 06:30; Stop 09/26/16 at 08:29 ; Status DC Fentanyl Citrate (Fentanyl 2ml Vial) 25 mcg PRN Q1HR PRN IV PAIN; Start at 06:15; Stop 09/27/16 at 06:14; Status DC Acetaminophen (Tylenol) 650 mg PRN Q4HRS PRN PO FEVER; Start 09/26/16 at 06:15 ; Stop 09/27/16 at 06:14; Status DC Albuterol/ Ipratropium (Duoneb) 3 ml RTQID NEB Last administered on 09/27/16 07:31; Start 09/26/16 at 08:00; Stop 09/27/16 at 07:59; Status DC Insulin Aspart (NovoLOG) 0-5 UNITS TIDWMEALS SQ Last administered on 09/27/16 17:59; Start 09/26/16 at 08:00 Dextrose (Dextrose 50%-Water Syringe) 12.5 gm PRN Q15MIN PRN IV SEE COMMENTS; Start 09/26/16 at 06:15 Vancomycin HCl 1.5 gm/Sodium Chloride 500 ml @ 250 mls/hr Q48H IV ; Start 09/28 at 08:00; Status Cancel Vancomycin HCl 1 each 1X ONCE MC ; Start 09/30/16 at 07:30; Stop 09/30/16 at 07 :31; Status Cancel Vancomycin HCl 1 each 1X ONCE MC Last administered on 09/28/16 07:00; Start 09/28/16 at 07:00; Stop 09/28/16 at 07:01; Status DC Albumin Human 100 ml @ 100 mls/hr 1X ONCE IV Last administered on 09/26/16 15:20; Start 09/26/16 at 14:45; Stop 09/26/16 at 15:44; Status DC Albumin Human 100 ml @ 100 mls/hr 1X ONCE IV Last administered on 09/26/16 15:30; Start 09/26/16 at 14:45; Stop 09/26/16 at 15:44; Status DC Aspirin (Ecotrin) 81 mg DAILY PO Last administered on 09/29/16 08:29; Start at 09:00 Bumetanide (Bumex) 1 mg BID92 PO ; Start 09/26/16 at 17:00; Status Cancel Diltiazem HCl (Cardizem 24hr Cd) 240 mg DAILY PO Last administered on 08:30; Start 09/26/16 at 16:00 Furosemide (Lasix) 40 mg BID92 PO Last administered on 09/29/16 08:30; Start 09/26/16 at 17:00 Isosorbide Mononitrate (Imdur) 30 mg DAILY PO Last administered on 09/29/16 08 :29; Start 09/26/16 at 16:00 Levothyroxine Sodium (Synthroid) 25 mcg DAILY06 PO Last administered on 06:09; Start 09/27/16 at 06:00 Metoprolol Succinate (Toprol Xl) 25 mg DAILY PO Last administered on 09/29/16 08:29; Start 09/26/16 at 17:00 Potassium Chloride (Klor-Con) 10 meq DAILY PO Last administered on 09/29/16 08 :30; Start 09/27/16 at 09:00 Sevelamer Carbonate (Renvela) 800 mg TIDWMEALS PO Last administered on 12:34; Start 09/26/16 at 17:00 Tamsulosin HCl (Flomax) 0.4 mg HS PO Last administered on 09/28/16 20:12; Start 09/26/16 at 21:00 Venlafaxine HCl (Effexor Xr) 150 mg DAILY PO Last administered on 09/29/16 08: 28; Start 09/27/16 at 09:00 Sodium Chloride 1,000 ml @ 1,000 mls/hr Q1H PRN IV hypotension; Start 09/26/16 at 17:41; Stop 09/26/16 at 23:40; Status DC Sodium Chloride (Normal Saline Flush) 10 ml 1X PRN PRN IV AP catheter pack; Start 09/26/16 at 17:45; Stop 09/27/16 at 17:44; Status DC Sodium Chloride (Normal Saline Flush) 10 ml 1X PRN PRN IV HEAD OF ACQUISITIONS catheter pack; Start 09/26/16 at 17:45; Stop 09/27/16 at 17:44; Status DC Sodium Chloride 1,000 ml @ 400 mls/hr Q2H30M PRN IV PATENCY; Start 09/26/16 at 17:41; Stop 09/27/16 at 05:40; Status DC Info (PHARMACY MONITORING -- do not chart) 1 each PRN DAILY PRN MC SEE COMMENTS ; Start 09/26/16 at 17:45 Simethicone (Gas-X) 80 mg 1X ONCE PO Last administered on 09/28/16 03:40; Start 09/28/16 at 03:45; Stop 09/28/16 at 03:47; Status DC Cefepime HCl 1 gm/ Sodium Chloride 50 ml @ 100 mls/hr DAILY IV Last administered on 09/29/16 08:32; Start 09/28/16 at 09:00 Fluconazole (Diflucan) 100 mg DAILY PO Last administered on 09/29/16 08:29; Start 09/28/16 at 09:00 Vancomycin HCl 500 mg/Sodium Chloride 100 ml @ 100 mls/hr QTUTHSA IV Last administered on 09/28/16 18:21; Start 09/28/16 at 16:00 Sodium Chloride 1,000 ml @ 1,000 mls/hr Q1H PRN IV hypotension; Start 09/28/16 at 13:33; Stop 09/28/16 at 19:32; Status DC Albumin Human 200 ml @ 200 mls/hr 1X PRN PRN IV Hypotension; Start 09/28/16 at 13:45; Stop 09/28/16 at 19:44; Status DC Sodium Chloride (Normal Saline Flush) 10 ml 1X PRN PRN IV AP catheter pack; Start 09/28/16 at 13:45; Stop 09/29/16 at 13:44 Sodium Chloride (Normal Saline Flush) 10 ml 1X PRN PRN IV HEAD OF ACQUISITIONS catheter pack; Start 09/28/16 at 13:45; Stop 09/29/16 at 13:44 Sodium Chloride 1,000 ml @ 400 mls/hr Q2H30M PRN IV PATENCY; Start 09/28/16 at 13:33; Stop 09/29/16 at 01:32; Status DC Info (PHARMACY MONITORING -- do not chart) 1 each PRN DAILY PRN MC SEE COMMENTS ; Start 09/28/16 at 13:45; Status UNV Venlafaxine HCl (Effexor Xr) 150 mg ONCE ONCE PO Last administered on 22:52; Start 09/28/16 at 22:45; Stop 09/28/16 at 22:46; Status DC Alprazolam (Xanax) 0.25 mg PRN BID PRN PO ANXIETY / AGITATION Last administered on 09/29/16t 12:33; Start 09/29/16 at 12:15 Active Scripts Active Metoprolol Succinate ( Xl ) (Metoprolol Succinate) 25 Mg Tab.er.24h 25 Mg PO DAILY Reported Alprazolam 0.5 Mg Tablet 1 Tab PO BID PRN Renvela (Sevelamer Carbonate) 800 Mg Tablet 800 Mg PO TIDWMEALS Ranitidine Hcl 150 Mg Capsule 150 Mg PO DAILY Potassium Chloride 10 Meq Tablet.er 10 Meq PO DAILY Iron (Ferrous Sulfate) 325 Mg Capsule.er 325 Mg PO Diltiazem 24HR Cd (Diltiazem Hcl) 120 Mg Cap.er.24h 2 Cap PO DAILY Cephalexin 500 Mg Capsule 1 Cap PO DAILY Bumetanide 1 Mg Tablet 1 Tab PO BID Mupirocin Ointment (Mupirocin) 22 Gm Oint...g. 1 Donna TP BID Furosemide 40 Mg Tablet 40 Mg PO BID Cephalexin 500 Mg Capsule 1 Cap PO TID Carbamide Peroxide 15 Ml Drops 15 Ml OT Zinc Oxide 30 Gm Oint...g. 30 Gm TP Effexor Xr (Venlafaxine Hcl) 150 Mg Cap.er.24h 1 Cap PO DAILY Flomax (Tamsulosin Hcl) 0.4 Mg Cap.er.24h 1 Cap PO HS Synthroid (Levothyroxine Sodium) 25 Mcg Tablet 1 Tab PO DAILY Isosorbide Mononitrate Er (Isosorbide Mononitrate) 30 Mg Tab.er.24h 1 Tab PO DAILY Colace (Docusate Sodium) 100 Mg Capsule 1 Cap PO DAILY Vitamin B-12 (Cyanocobalamin (Vitamin B-12)) 1,000 Mcg Tablet 1 Tab PO DAILY Vitamin D3 (Cholecalciferol (Vitamin D3)) 1,000 Unit Tablet 2 Tab PO DAILY Zyrtec (Cetirizine Hcl) 10 Mg Tablet 1 Tab PO DAILY Aspir 81 (Aspirin) 81 Mg Tablet.dr 1 Tab PO DAILY Vitals/I & O Vital Sign - Last 24 Hours 09/28/16 09/28/16 09/28/16 09/29/16 19:40 20:00 23:00 02:40 Temp 97.7 98.0 97.9 97.7 98.0 97.9 Pulse 83 88 85 Resp 18 22 22 B/P (MAP) 120/58 (78) 113/66 (82) 115/72 (86) Pulse Ox 93 93 92 O2 Delivery Room Air Room Air Room Air Room Air 09/29/16 09/29/16 09/29/16 09/29/16 07:00 08:00 08:29 08:29 Temp 98.1 98.1 Pulse 82 82 82 Resp 20 B/P (MAP) 120/63 (82) 120/63 120/63 Pulse Ox 93 O2 Delivery Room Air Room Air 09/29/16 08:30 Pulse 82 B/P (MAP) 120/63 Intake and Output 09/28/16 09/28/16 09/29/16 15:00 23:00 07:00 Intake Total 500 ml 480 ml Balance 500 ml 480 ml CECELIA GOODE MD September 29, 2016 12:44
[2016-09-29 15:00] VITALS: BP 97/55
--- NOTE | 2016-09-29 16:27 | PDOC ---
PULMONARY PROGRESS NOTES Subjective pt with no increase soa Vitals Vital Signs Date Time Temp Pulse Resp B/P (MAP) Pulse Ox O2 Delivery O2 Flow Rate FiO2 09/29/16 15:00 98.1 70 20 97/55 (69) 92 Room Air 98.1 ROS: No Nausea, No Chest Pain, No Abdominal Pain, No Increase Cough General: Alert, No acute distress Lungs: Clear Cardiovascular: S1, S2 Abdomen: Soft, Non-tender Neuro Exam: Alert Extremities: Other (cullitis) Skin: Warm Labs Laboratory Tests Test 09/27/16 20:43 09/28/16 06:10 09/28/16 07:15 09/29/16 02:35 Glucose (Fingerstick) 171 mg/dL (70-99) Nasal Screen MRSA (PCR) Negative (Negative) Sodium Level 131 mmol/L (136-145) Potassium Level 4.2 mmol/L (3.5-5.1) Chloride Level 93 mmol/L (98-107) Carbon Dioxide Level 28 mmol/L (21-32) Anion Gap 10 (6-14) Blood Urea Nitrogen 73 mg/dL (8-26) Creatinine 4.4 mg/dL (0.7-1.3) Estimated GFR (Cockcroft-Gault) 13.0 Glucose Level 143 mg/dL (70-99) Calcium Level 9.1 mg/dL (8.5-10.1) Random Vancomycin Level 13.9 mcg/mL White Blood Count 8.3 x10^3/uL (4.0-11.0) Red Blood Count 4.05 x10^6/uL (4.30-5.70) Hemoglobin 11.9 g/dL (13.0-17.5) Hematocrit 36.1 % (39.0-53.0) Mean Corpuscular Volume 89 fL (79-100) Mean Corpuscular Hemoglobin 29 pg (25-35) Mean Corpuscular Hemoglobin Concent 33 g/dL (31-37) Red Cell Distribution Width 14.9 % (11.5-14.5) Platelet Count 206 x10^3/uL (140-400) Neutrophils (%) (Auto) 73 % (31-73) Lymphocytes (%) (Auto) 11 % (24-48) Monocytes (%) (Auto) 11 % (0-9) Eosinophils (%) (Auto) 4 % (0-3) Basophils (%) (Auto) 1 % (0-3) Neutrophils # (Auto) 6.1 x10^3uL (1.8-7.7) Lymphocytes # (Auto) 0.9 x10^3/uL (1.0-4.8) Monocytes # (Auto) 0.9 x10^3/uL (0.0-1.1) Eosinophils # (Auto) 0.4 x10^3/uL (0.0-0.7) Basophils # (Auto) 0.1 x10^3/uL (0.0-0.2) Test 09/29/16 07:37 09/29/16 11:58 Glucose (Fingerstick) 130 mg/dL (70-99) 108 mg/dL (70-99) Laboratory Tests Test 09/29/16 02:35 09/29/16 07:37 09/29/16 11:58 White Blood Count 8.3 x10^3/uL (4.0-11.0) Red Blood Count 4.05 x10^6/uL (4.30-5.70) Hemoglobin 11.9 g/dL (13.0-17.5) Hematocrit 36.1 % (39.0-53.0) Mean Corpuscular Volume 89 fL (79-100) Mean Corpuscular Hemoglobin 29 pg (25-35) Mean Corpuscular Hemoglobin Concent 33 g/dL (31-37) Red Cell Distribution Width 14.9 % (11.5-14.5) Platelet Count 206 x10^3/uL (140-400) Neutrophils (%) (Auto) 73 % (31-73) Lymphocytes (%) (Auto) 11 % (24-48) Monocytes (%) (Auto) 11 % (0-9) Eosinophils (%) (Auto) 4 % (0-3) Basophils (%) (Auto) 1 % (0-3) Neutrophils # (Auto) 6.1 x10^3uL (1.8-7.7) Lymphocytes # (Auto) 0.9 x10^3/uL (1.0-4.8) Monocytes # (Auto) 0.9 x10^3/uL (0.0-1.1) Eosinophils # (Auto) 0.4 x10^3/uL (0.0-0.7) Basophils # (Auto) 0.1 x10^3/uL (0.0-0.2) Glucose (Fingerstick) 130 mg/dL (70-99) 108 mg/dL (70-99) Medications Active Scripts Medications Dose Route/Sig Max Daily Dose Days Date Category Renvela (Sevelamer Carbonate) 800 Mg Tablet 800 Mg PO TIDWMEALS 09/26/16 Reported Ranitidine Hcl 150 Mg Capsule 150 Mg PO DAILY 09/26/16 Reported Potassium Chloride 10 Meq Tablet.er 10 Meq PO DAILY 09/26/16 Reported Iron (Ferrous Sulfate) 325 Mg Capsule.er 325 Mg PO 09/26/16 Reported Diltiazem 24HR Cd (Diltiazem Hcl) 120 Mg Cap.er.24h 2 Cap PO DAILY 09/26/16 Reported Cephalexin 500 Mg Capsule 1 Cap PO DAILY 09/26/16 Reported Bumetanide 1 Mg Tablet 1 Tab PO BID 09/26/16 Reported Mupirocin Ointment (Mupirocin) 22 Gm Oint...g. 1 Donna TP BID 09/26/16 Reported Furosemide 40 Mg Tablet 40 Mg PO BID 09/26/16 Reported Cephalexin 500 Mg Capsule 1 Cap PO TID 09/26/16 Reported Carbamide Peroxide 15 Ml Drops 15 Ml OT 09/26/16 Reported Zinc Oxide 30 Gm Oint...g. 30 Gm TP 09/26/16 Reported Metoprolol Succinate ( Xl ) (Metoprolol Succinate) 25 Mg Tab.er.24h 25 Mg PO DAILY 05/13/16 Rx Effexor Xr (Venlafaxine Hcl) 150 Mg Cap.er.24h 1 Cap PO DAILY 04/24/16 Reported Flomax (Tamsulosin Hcl) 0.4 Mg Cap.er.24h 1 Cap PO HS 04/24/16 Reported Synthroid (Levothyroxine Sodium) 25 Mcg Tablet 1 Tab PO DAILY 04/24/16 Reported Isosorbide Mononitrate Er (Isosorbide Mononitrate) 30 Mg Tab.er.24h 1 Tab PO DAILY 04/24/16 Reported Colace (Docusate Sodium) 100 Mg Capsule 1 Cap PO DAILY 04/24/16 Reported Vitamin B-12 (Cyanocobalamin (Vitamin B-12)) 1,000 Mcg Tablet 1 Tab PO DAILY 04/24/16 Reported Vitamin D3 (Cholecalciferol (Vitamin D3)) 1,000 Unit Tablet 2 Tab PO DAILY 04/24/16 Reported Zyrtec (Cetirizine Hcl) 10 Mg Tablet 1 Tab PO DAILY 04/24/16 Reported Aspir 81 (Aspirin) 81 Mg Tablet.dr 1 Tab PO DAILY 04/24/16 Reported Impression . IMPRESSION: 1. Acute hypoxic respiratory failure requiring 2-4 liters of oxygen on admission. This is most likely secondary to acute bronchitis and underlying suspected severe COPD..No PE 2. 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 Acute bronchitis. 4. Chronic renal failure, on dialysis. 5. Leukocytosis secondary to cellulitis. 6. Lower extremity cellulitis with no evidence of deep venous thrombosis. Plan . resp status is compensated, will check 6 min walk prior to d/c will continue the same 1. PRN BD 2. Continue antibiotics. 3. Bronchodilators. 4. Follow Infectious Disease recommendation regarding cellulitis. 5. no surgery needed at this time LAI KIM MD September 29, 2016 16:27
[2016-09-29 19:46] VITALS: BP 118/58
[2016-09-29] MEDS: TAMSULOSIN 0.4 MG CAP.ER.24H. PO SCH (20:48)
[2016-09-29 23:00] VITALS: BP 114/56
[2016-09-30 02:53] VITALS: BP 119/56
[2016-09-30 04:34] LABS: BASO # 0.1 x10^3/uL (0.0-0.2); BASO % 1 % (0-3); EOS % 5 % (0-3); HEMOGLOBIN 11.7 g/dL (13.0-17.5); LYMPH % 12 % (24-48); MEAN CORPUSCULAR HEMOGLOBIN 30 pg (25-35); MEAN CORPUSCULAR HGB CONC 34 g/dL (31-37); MEAN CORPUSCULAR VOLUME 88 fL (79-100); MONO % 11 % (0-9); NEUT % 71 % (31-73); PLATELET COUNT 232 x10^3/uL (140-400); RED BLOOD COUNT 3.88 x10^6/uL (4.30-5.70); RED CELL DISTRIBUTION WIDTH 14.7 % (11.5-14.5); WHITE BLOOD COUNT 8.1 x10^3/uL (4.0-11.0)
[2016-09-30 04:42] LABS: CALCIUM 9.2 mg/dL (8.5-10.1); CREATININE 3.7 mg/dL (0.7-1.3); GFR 15.9; POTASSIUM 4.5 mmol/L (3.5-5.1)
[2016-09-30] MEDS: LEVOTHYROXINE 25 MCG TABLET. PO SCH (05:48)
[2016-09-30 07:15] VITALS: BP 124/63
[2016-09-30] MEDS: SEVELAMER CARBONATE 800 MG TABLET. PO SCH ×3 (08:00→16:32)
[2016-09-30] MEDS: INSULIN ASPART 300 UNITS/3 ML INSULN.PEN SQ SCH ×3 (08:00→16:33)
--- NOTE | 2016-09-30 08:58 | PDOC ---
Infectious Disease Note Subjective Subjective pt wants to go home says, not elevating leg ROS ROS GEN: Denies fevers, chills, sweats HEENT: Denies blurred vision, sore throat CV: Denies chest pain RESP: Denies shortness of air, cough GI: Denies n/v/d NEURO: Denies confusion, dizziness Vital Sign Vital Signs Vital Signs Date Time Temp Pulse Resp B/P (MAP) Pulse Ox O2 Delivery O2 Flow Rate FiO2 09/30/16 08:08 Room Air 09/30/16 07:15 97.3 63 20 124/63 (83) 100 97.3 Physical Exam PHYSICAL EXAM GENERAL: NAD, Alert HEENT: PERRL, OC/OP NECK: Supple, no JVD, no LN LUNGS: Clear HEART: S1S2, no gallop, no murmur ABD: Soft, NT, no organomegaly, no rebound EXT: ++ edema, no cyanosis,, left leg with redness still + (not elevating leg ) 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, oriented x 3, no focal neurologic deficit SKIN: No rash IV: ok Labs Lab Laboratory Tests Test 09/29/16 11:58 09/29/16 17:25 09/29/16 20:49 09/30/16 03:50 Glucose (Fingerstick) 108 mg/dL (70-99) 168 mg/dL (70-99) 126 mg/dL (70-99) White Blood Count 8.1 x10^3/uL (4.0-11.0) Red Blood Count 3.88 x10^6/uL (4.30-5.70) Hemoglobin 11.7 g/dL (13.0-17.5) Hematocrit 34.0 % (39.0-53.0) Mean Corpuscular Volume 88 fL (79-100) Mean Corpuscular Hemoglobin 30 pg (25-35) Mean Corpuscular Hemoglobin Concent 34 g/dL (31-37) Red Cell Distribution Width 14.7 % (11.5-14.5) Platelet Count 232 x10^3/uL (140-400) Neutrophils (%) (Auto) 71 % (31-73) Lymphocytes (%) (Auto) 12 % (24-48) Monocytes (%) (Auto) 11 % (0-9) Eosinophils (%) (Auto) 5 % (0-3) Basophils (%) (Auto) 1 % (0-3) Neutrophils # (Auto) 5.7 x10^3uL (1.8-7.7) Lymphocytes # (Auto) 1.0 x10^3/uL (1.0-4.8) Monocytes # (Auto) 0.9 x10^3/uL (0.0-1.1) Eosinophils # (Auto) 0.4 x10^3/uL (0.0-0.7) Basophils # (Auto) 0.1 x10^3/uL (0.0-0.2) Sodium Level 136 mmol/L (136-145) Potassium Level 4.5 mmol/L (3.5-5.1) Chloride Level 98 mmol/L (98-107) Carbon Dioxide Level 29 mmol/L (21-32) Anion Gap 9 (6-14) Blood Urea Nitrogen 70 mg/dL (8-26) Creatinine 3.7 mg/dL (0.7-1.3) Estimated GFR (Cockcroft-Gault) 15.9 Glucose Level 124 mg/dL (70-99) Calcium Level 9.2 mg/dL (8.5-10.1) Test 09/30/16 07:36 Glucose (Fingerstick) 107 mg/dL (70-99) Objective Assessment Left foot and leg cellulitis Tinea infection in feet ESRD Leukocytosis Plan Plan of Care vanc and cefepime diflucan leg elevation all the time except to walk and eat QUENTIN ROY MD September 30, 2016 08:58
[2016-09-30] MEDS: FUROSEMIDE 40 MG TABLET. PO SCH ×2 (09:00→13:09)
[2016-09-30] MEDS ORDERED: IV NORMAL SALINE 1000ML BAG 1,000 ML IV PRN (10:02)
[2016-09-30] MEDS ORDERED: DIALYSIS PATIENT. MC PRN ×2 (10:15)
[2016-09-30] MEDS ORDERED: 0.9 % SODIUM CHLORIDE 10 ML DISP.SYRIN. IV PRN ×2 (10:15)
[2016-09-30] MEDS: VANCOMYCIN PER PHARMACY MC PRN (10:50)
--- NOTE | 2016-09-30 11:48 | PDOC ---
Renal-Progress Notes Subjective Notes Notes NO NEW COMPLAINTS History of Present Illness Hx of present illness STABLE Vitals Vitals Vital Signs Date Time Temp Pulse Resp B/P (MAP) Pulse Ox O2 Delivery O2 Flow Rate FiO2 09/30/16 08:08 Room Air 09/30/16 07:15 97.3 63 20 124/63 (83) 100 97.3 Weight Weight [ ] I.O. Intake and Output Intake and Output 09/30/16 07:00 Intake Total 400 ml Output Total 1 ml Balance 399 ml Intake Oral 400 ml Output Urine Total 1 ml # Bowel Movements 1 Labs Labs Laboratory Tests Test 09/29/16 11:58 09/29/16 17:25 09/29/16 20:49 09/30/16 03:50 Glucose (Fingerstick) 108 mg/dL (70-99) 168 mg/dL (70-99) 126 mg/dL (70-99) White Blood Count 8.1 x10^3/uL (4.0-11.0) Red Blood Count 3.88 x10^6/uL (4.30-5.70) Hemoglobin 11.7 g/dL (13.0-17.5) Hematocrit 34.0 % (39.0-53.0) Mean Corpuscular Volume 88 fL (79-100) Mean Corpuscular Hemoglobin 30 pg (25-35) Mean Corpuscular Hemoglobin Concent 34 g/dL (31-37) Red Cell Distribution Width 14.7 % (11.5-14.5) Platelet Count 232 x10^3/uL (140-400) Neutrophils (%) (Auto) 71 % (31-73) Lymphocytes (%) (Auto) 12 % (24-48) Monocytes (%) (Auto) 11 % (0-9) Eosinophils (%) (Auto) 5 % (0-3) Basophils (%) (Auto) 1 % (0-3) Neutrophils # (Auto) 5.7 x10^3uL (1.8-7.7) Lymphocytes # (Auto) 1.0 x10^3/uL (1.0-4.8) Monocytes # (Auto) 0.9 x10^3/uL (0.0-1.1) Eosinophils # (Auto) 0.4 x10^3/uL (0.0-0.7) Basophils # (Auto) 0.1 x10^3/uL (0.0-0.2) Sodium Level 136 mmol/L (136-145) Potassium Level 4.5 mmol/L (3.5-5.1) Chloride Level 98 mmol/L (98-107) Carbon Dioxide Level 29 mmol/L (21-32) Anion Gap 9 (6-14) Blood Urea Nitrogen 70 mg/dL (8-26) Creatinine 3.7 mg/dL (0.7-1.3) Estimated GFR (Cockcroft-Gault) 15.9 Glucose Level 124 mg/dL (70-99) Calcium Level 9.2 mg/dL (8.5-10.1) Test 09/30/16 07:36 Glucose (Fingerstick) 107 mg/dL (70-99) Review of Systems Constitutional: yes: alert, oriented Ears/Nose/Throat: Yes: no symptom reported Eyes: Yes: no symptom reported Pulmonary: Yes dyspnea Cardiovascular: Yes no symptom reported Gastrointestional: Yes: constipation Genitourinary: Yes: no symptom reported Physical Exam General Appearance: no apparent distress Skin: warm Respiratory: decreased breath sounds Heart: S1S2, RRR Abdomen: soft, bowel sounds present Extremities: pulses present Neurology: alert Musculoskeletal: Osteoarthritis Assessment Assessment IMP HYPERVOLEMIA ESRD ANEMIA LE CELLULITIS COPD PLAN HD TODAY UF TO DW AND CHALLENGE 0.5 KG ANTIBIOTICS LY ROGERS MD September 30, 2016 11:47
[2016-09-30] MEDS: VENLAFAXINE XR 37.5 MG CAP.ER.24H. PO SCH (13:01)
[2016-09-30] MEDS: CEFEPIME HCL 1 GM in IV NORMAL SALINE 50ML 50 ML IV SCH (13:01)
[2016-09-30] MEDS: FLUCONAZOLE 100 MG TABLET. PO SCH (13:02)
[2016-09-30] MEDS: ASPIRIN ENTERIC COATED 81 MG TABLET.DR. PO SCH (13:02)
[2016-09-30] MEDS: POTASSIUM CHLORIDE 10 MEQ TABLET.ER. PO SCH (13:02)
[2016-09-30] MEDS: METOPROLOL SUCC 24HR ER 25 MG TAB.ER.24H. PO SCH (13:07)
[2016-09-30] MEDS: ISOSORBIDE MONONITRATE ER 30 MG TAB.ER.24H PO SCH (13:07)
--- NOTE | 2016-09-30 13:26 | PDOC ---
PROGRESS NOTES Chief Complaint Chief Complaint Shortness of breath Bronchitis End-stage renal disease, on hemodialysis Cellulitis, lower extremity Chronic obstructive pulmonary disease Atrial fibrillation history Thoracic ascending aneurysm History of Present Illness History of Present Illness Patient was lying in bed - being transported back from dialysis when seen this am No acute complaints Discussed care with nurse about SNU eval Vitals Vitals Vital Signs Date Time Temp Pulse Resp B/P (MAP) Pulse Ox O2 Delivery O2 Flow Rate FiO2 09/30/16 13:08 92 115/60 09/30/16 08:08 Room Air 09/30/16 07:15 97.3 20 100 97.3 Physical Exam General: Alert, Oriented X3, No acute distress Heart: Regular rate, Normal S1, Normal S2 Lungs: Clear, Other (no wheezing) Abdomen: Normal bowel sounds, Soft, No tenderness Extremities: No clubbing, Other (swelling, erythema) Skin: No rashes, No breakdown Labs LABS Laboratory Tests Test 09/29/16 17:25 09/29/16 20:49 09/30/16 03:50 09/30/16 07:36 Glucose (Fingerstick) 168 mg/dL (70-99) 126 mg/dL (70-99) 107 mg/dL (70-99) White Blood Count 8.1 x10^3/uL (4.0-11.0) Red Blood Count 3.88 x10^6/uL (4.30-5.70) Hemoglobin 11.7 g/dL (13.0-17.5) Hematocrit 34.0 % (39.0-53.0) Mean Corpuscular Volume 88 fL (79-100) Mean Corpuscular Hemoglobin 30 pg (25-35) Mean Corpuscular Hemoglobin Concent 34 g/dL (31-37) Red Cell Distribution Width 14.7 % (11.5-14.5) Platelet Count 232 x10^3/uL (140-400) Neutrophils (%) (Auto) 71 % (31-73) Lymphocytes (%) (Auto) 12 % (24-48) Monocytes (%) (Auto) 11 % (0-9) Eosinophils (%) (Auto) 5 % (0-3) Basophils (%) (Auto) 1 % (0-3) Neutrophils # (Auto) 5.7 x10^3uL (1.8-7.7) Lymphocytes # (Auto) 1.0 x10^3/uL (1.0-4.8) Monocytes # (Auto) 0.9 x10^3/uL (0.0-1.1) Eosinophils # (Auto) 0.4 x10^3/uL (0.0-0.7) Basophils # (Auto) 0.1 x10^3/uL (0.0-0.2) Sodium Level 136 mmol/L (136-145) Potassium Level 4.5 mmol/L (3.5-5.1) Chloride Level 98 mmol/L (98-107) Carbon Dioxide Level 29 mmol/L (21-32) Anion Gap 9 (6-14) Blood Urea Nitrogen 70 mg/dL (8-26) Creatinine 3.7 mg/dL (0.7-1.3) Estimated GFR (Cockcroft-Gault) 15.9 Glucose Level 124 mg/dL (70-99) Calcium Level 9.2 mg/dL (8.5-10.1) Review of Systems Review of Systems General: denies weakness GI: denies N/V/D/C Assessment and Plan Assessmemt and Plan Problems Medical Problems: (1) Bronchitis Status: Acute (2) Cellulitis Status: Acute (3) End-stage renal disease on hemodialysis Status: Acute (4) Hypoxia Status: Acute Shortness of breath Bronchitis End-stage renal disease, on hemodialysis Cellulitis, lower extremity Chronic obstructive pulmonary disease Atrial fibrillation history Thoracic ascending aneurysm Plan: -ID following- Continue antibiotics and leg elevation -Renal following - Continue HD -Pulm following- 6 min walk prior to discharge -SNU eval pending -Continue current management -Recheck am labs -PT/OT as appropriate -Subspecialist input appreciated -Discharge disposition pending Problems: Comment Review of Relevant I have reviewed the following items randee (where applicable) has been applied. Labs Laboratory Tests Test 09/28/16 20:52 09/29/16 02:35 09/29/16 07:37 09/29/16 11:58 Glucose (Fingerstick) 169 mg/dL (70-99) 130 mg/dL (70-99) 108 mg/dL (70-99) White Blood Count 8.3 x10^3/uL (4.0-11.0) Red Blood Count 4.05 x10^6/uL (4.30-5.70) Hemoglobin 11.9 g/dL (13.0-17.5) Hematocrit 36.1 % (39.0-53.0) Mean Corpuscular Volume 89 fL (79-100) Mean Corpuscular Hemoglobin 29 pg (25-35) Mean Corpuscular Hemoglobin Concent 33 g/dL (31-37) Red Cell Distribution Width 14.9 % (11.5-14.5) Platelet Count 206 x10^3/uL (140-400) Neutrophils (%) (Auto) 73 % (31-73) Lymphocytes (%) (Auto) 11 % (24-48) Monocytes (%) (Auto) 11 % (0-9) Eosinophils (%) (Auto) 4 % (0-3) Basophils (%) (Auto) 1 % (0-3) Neutrophils # (Auto) 6.1 x10^3uL (1.8-7.7) Lymphocytes # (Auto) 0.9 x10^3/uL (1.0-4.8) Monocytes # (Auto) 0.9 x10^3/uL (0.0-1.1) Eosinophils # (Auto) 0.4 x10^3/uL (0.0-0.7) Basophils # (Auto) 0.1 x10^3/uL (0.0-0.2) Test 09/29/16 17:25 09/29/16 20:49 09/30/16 03:50 09/30/16 07:36 Glucose (Fingerstick) 168 mg/dL (70-99) 126 mg/dL (70-99) 107 mg/dL (70-99) White Blood Count 8.1 x10^3/uL (4.0-11.0) Red Blood Count 3.88 x10^6/uL (4.30-5.70) Hemoglobin 11.7 g/dL (13.0-17.5) Hematocrit 34.0 % (39.0-53.0) Mean Corpuscular Volume 88 fL (79-100) Mean Corpuscular Hemoglobin 30 pg (25-35) Mean Corpuscular Hemoglobin Concent 34 g/dL (31-37) Red Cell Distribution Width 14.7 % (11.5-14.5) Platelet Count 232 x10^3/uL (140-400) Neutrophils (%) (Auto) 71 % (31-73) Lymphocytes (%) (Auto) 12 % (24-48) Monocytes (%) (Auto) 11 % (0-9) Eosinophils (%) (Auto) 5 % (0-3) Basophils (%) (Auto) 1 % (0-3) Neutrophils # (Auto) 5.7 x10^3uL (1.8-7.7) Lymphocytes # (Auto) 1.0 x10^3/uL (1.0-4.8) Monocytes # (Auto) 0.9 x10^3/uL (0.0-1.1) Eosinophils # (Auto) 0.4 x10^3/uL (0.0-0.7) Basophils # (Auto) 0.1 x10^3/uL (0.0-0.2) Sodium Level 136 mmol/L (136-145) Potassium Level 4.5 mmol/L (3.5-5.1) Chloride Level 98 mmol/L (98-107) Carbon Dioxide Level 29 mmol/L (21-32) Anion Gap 9 (6-14) Blood Urea Nitrogen 70 mg/dL (8-26) Creatinine 3.7 mg/dL (0.7-1.3) Estimated GFR (Cockcroft-Gault) 15.9 Glucose Level 124 mg/dL (70-99) Calcium Level 9.2 mg/dL (8.5-10.1) Laboratory Tests Test 09/29/16 17:25 09/29/16 20:49 09/30/16 03:50 09/30/16 07:36 Glucose (Fingerstick) 168 mg/dL (70-99) 126 mg/dL (70-99) 107 mg/dL (70-99) White Blood Count 8.1 x10^3/uL (4.0-11.0) Red Blood Count 3.88 x10^6/uL (4.30-5.70) Hemoglobin 11.7 g/dL (13.0-17.5) Hematocrit 34.0 % (39.0-53.0) Mean Corpuscular Volume 88 fL (79-100) Mean Corpuscular Hemoglobin 30 pg (25-35) Mean Corpuscular Hemoglobin Concent 34 g/dL (31-37) Red Cell Distribution Width 14.7 % (11.5-14.5) Platelet Count 232 x10^3/uL (140-400) Neutrophils (%) (Auto) 71 % (31-73) Lymphocytes (%) (Auto) 12 % (24-48) Monocytes (%) (Auto) 11 % (0-9) Eosinophils (%) (Auto) 5 % (0-3) Basophils (%) (Auto) 1 % (0-3) Neutrophils # (Auto) 5.7 x10^3uL (1.8-7.7) Lymphocytes # (Auto) 1.0 x10^3/uL (1.0-4.8) Monocytes # (Auto) 0.9 x10^3/uL (0.0-1.1) Eosinophils # (Auto) 0.4 x10^3/uL (0.0-0.7) Basophils # (Auto) 0.1 x10^3/uL (0.0-0.2) Sodium Level 136 mmol/L (136-145) Potassium Level 4.5 mmol/L (3.5-5.1) Chloride Level 98 mmol/L (98-107) Carbon Dioxide Level 29 mmol/L (21-32) Anion Gap 9 (6-14) Blood Urea Nitrogen 70 mg/dL (8-26) Creatinine 3.7 mg/dL (0.7-1.3) Estimated GFR (Cockcroft-Gault) 15.9 Glucose Level 124 mg/dL (70-99) Calcium Level 9.2 mg/dL (8.5-10.1) Medications Current Medications Iohexol (Omnipaque 300 Mg/ml) 75 ml 1X ONCE IV Last administered on 09/26/16 04:45; Start 09/26/16 at 03:45; Stop 09/26/16 at 03:46; Status DC Info (Do NOT chart on this entry -- for MONITORING) 1 each PRN DAILY PRN MC SEE COMMENTS; Start 09/26/16 at 03:45; Stop 09/28/16 at 03:44; Status DC Albuterol/ Ipratropium (Duoneb) 3 ml 1X ONCE NEB Last administered on 05:53; Start 09/26/16 at 05:45; Stop 09/26/16 at 05:46; Status DC Clindamycin Phosphate 50 ml @ 100 mls/hr 1X ONCE IV Last administered on 09/26 06:17; Start 09/26/16 at 06:00; Stop 09/26/16 at 06:29; Status DC Clindamycin Phosphate 50 ml @ 100 mls/hr Q8HRS IV Last administered on 06:13; Start 09/26/16 at 14:00; Stop 09/28/16 at 08:16; Status DC Vancomycin HCl (Vanco Per Pharmacy) 1 each PRN DAILY PRN MC SEE COMMENTS Last administered on 09/30/16 10:50; Start 09/26/16 at 05:45 Vancomycin HCl 2 gm/Sodium Chloride 500 ml @ 250 mls/hr 1X ONCE IV Last administered on 09/26/16 08:07; Start 09/26/16 at 06:30; Stop 09/26/16 at 08:29 ; Status DC Fentanyl Citrate (Fentanyl 2ml Vial) 25 mcg PRN Q1HR PRN IV PAIN; Start at 06:15; Stop 09/27/16 at 06:14; Status DC Acetaminophen (Tylenol) 650 mg PRN Q4HRS PRN PO FEVER; Start 09/26/16 at 06:15 ; Stop 09/27/16 at 06:14; Status DC Albuterol/ Ipratropium (Duoneb) 3 ml RTQID NEB Last administered on 09/27/16 07:31; Start 09/26/16 at 08:00; Stop 09/27/16 at 07:59; Status DC Insulin Aspart (NovoLOG) 0-5 UNITS TIDWMEALS SQ Last administered on 09/29/16 17:37; Start 09/26/16 at 08:00 Dextrose (Dextrose 50%-Water Syringe) 12.5 gm PRN Q15MIN PRN IV SEE COMMENTS; Start 09/26/16 at 06:15 Vancomycin HCl 1.5 gm/Sodium Chloride 500 ml @ 250 mls/hr Q48H IV ; Start 09/28 at 08:00; Status Cancel Vancomycin HCl 1 each 1X ONCE MC ; Start 09/30/16 at 07:30; Stop 09/30/16 at 07 :31; Status Cancel Vancomycin HCl 1 each 1X ONCE MC Last administered on 09/28/16 07:00; Start 09/28/16 at 07:00; Stop 09/28/16 at 07:01; Status DC Albumin Human 100 ml @ 100 mls/hr 1X ONCE IV Last administered on 09/26/16 15:20; Start 09/26/16 at 14:45; Stop 09/26/16 at 15:44; Status DC Albumin Human 100 ml @ 100 mls/hr 1X ONCE IV Last administered on 09/26/16 15:30; Start 09/26/16 at 14:45; Stop 09/26/16 at 15:44; Status DC Aspirin (Ecotrin) 81 mg DAILY PO Last administered on 09/30/16 13:02; Start at 09:00 Bumetanide (Bumex) 1 mg BID92 PO ; Start 09/26/16 at 17:00; Status Cancel Diltiazem HCl (Cardizem 24hr Cd) 240 mg DAILY PO Last administered on 13:08; Start 09/26/16 at 16:00 Furosemide (Lasix) 40 mg BID92 PO Last administered on 09/30/16 13:09; Start 09/26/16 at 17:00 Isosorbide Mononitrate (Imdur) 30 mg DAILY PO Last administered on 09/30/16 13 :07; Start 09/26/16 at 16:00 Levothyroxine Sodium (Synthroid) 25 mcg DAILY06 PO Last administered on 05:48; Start 09/27/16 at 06:00 Metoprolol Succinate (Toprol Xl) 25 mg DAILY PO Last administered on 09/30/16 13:07; Start 09/26/16 at 17:00 Potassium Chloride (Klor-Con) 10 meq DAILY PO Last administered on 09/30/16 13 :02; Start 09/27/16 at 09:00 Sevelamer Carbonate (Renvela) 800 mg TIDWMEALS PO Last administered on 13:01; Start 09/26/16 at 17:00 Tamsulosin HCl (Flomax) 0.4 mg HS PO Last administered on 09/29/16 20:48; Start 09/26/16 at 21:00 Venlafaxine HCl (Effexor Xr) 150 mg DAILY PO Last administered on 09/30/16 13: 01; Start 09/27/16 at 09:00 Sodium Chloride 1,000 ml @ 1,000 mls/hr Q1H PRN IV hypotension; Start 09/26/16 at 17:41; Stop 09/26/16 at 23:40; Status DC Sodium Chloride (Normal Saline Flush) 10 ml 1X PRN PRN IV AP catheter pack; Start 09/26/16 at 17:45; Stop 09/27/16 at 17:44; Status DC Sodium Chloride (Normal Saline Flush) 10 ml 1X PRN PRN IV INDIGO MIXER catheter pack; Start 09/26/16 at 17:45; Stop 09/27/16 at 17:44; Status DC Sodium Chloride 1,000 ml @ 400 mls/hr Q2H30M PRN IV PATENCY; Start 09/26/16 at 17:41; Stop 09/27/16 at 05:40; Status DC Info (PHARMACY MONITORING -- do not chart) 1 each PRN DAILY PRN MC SEE COMMENTS ; Start 09/26/16 at 17:45 Simethicone (Gas-X) 80 mg 1X ONCE PO Last administered on 09/28/16 03:40; Start 09/28/16 at 03:45; Stop 09/28/16 at 03:47; Status DC Cefepime HCl 1 gm/ Sodium Chloride 50 ml @ 100 mls/hr DAILY IV Last administered on 09/30/16 13:01; Start 09/28/16 at 09:00 Fluconazole (Diflucan) 100 mg DAILY PO Last administered on 09/30/16 13:02; Start 09/28/16 at 09:00 Vancomycin HCl 500 mg/Sodium Chloride 100 ml @ 100 mls/hr QTUTHSA IV Last administered on 09/28/16 18:21; Start 09/28/16 at 16:00 Sodium Chloride 1,000 ml @ 1,000 mls/hr Q1H PRN IV hypotension; Start 09/28/16 at 13:33; Stop 09/28/16 at 19:32; Status DC Albumin Human 200 ml @ 200 mls/hr 1X PRN PRN IV Hypotension; Start 09/28/16 at 13:45; Stop 09/28/16 at 19:44; Status DC Sodium Chloride (Normal Saline Flush) 10 ml 1X PRN PRN IV AP catheter pack; Start 09/28/16 at 13:45; Stop 09/29/16 at 13:44; Status DC Sodium Chloride (Normal Saline Flush) 10 ml 1X PRN PRN IV INDIGO MIXER catheter pack; Start 09/28/16 at 13:45; Stop 09/29/16 at 13:44; Status DC Sodium Chloride 1,000 ml @ 400 mls/hr Q2H30M PRN IV PATENCY; Start 09/28/16 at 13:33; Stop 09/29/16 at 01:32; Status DC Info (PHARMACY MONITORING -- do not chart) 1 each PRN DAILY PRN MC SEE COMMENTS ; Start 09/28/16 at 13:45; Status UNV Venlafaxine HCl (Effexor Xr) 150 mg ONCE ONCE PO Last administered on 22:52; Start 09/28/16 at 22:45; Stop 09/28/16 at 22:46; Status DC Alprazolam (Xanax) 0.25 mg PRN BID PRN PO ANXIETY / AGITATION Last administered on 09/29/16t 12:33; Start 09/29/16 at 12:15 Sodium Chloride 1,000 ml @ 1,000 mls/hr Q1H PRN IV hypotension; Start 09/30/16 at 10:02; Stop 09/30/16 at 16:01 Sodium Chloride (Normal Saline Flush) 10 ml 1X PRN PRN IV AP catheter pack; Start 09/30/16 at 10:15; Stop 10/01/16 at 10:14 Sodium Chloride (Normal Saline Flush) 10 ml 1X PRN PRN IV INDIGO MIXER catheter pack; Start 09/30/16 at 10:15; Stop 10/01/16 at 10:14 Info (PHARMACY MONITORING -- do not chart) 1 each PRN DAILY PRN MC SEE COMMENTS ; Start 09/30/16 at 10:15; Status UNV Info (PHARMACY MONITORING -- do not chart) 1 each PRN DAILY PRN MC SEE COMMENTS ; Start 09/30/16 at 10:15; Status UNV Active Scripts Active Metoprolol Succinate ( Xl ) (Metoprolol Succinate) 25 Mg Tab.er.24h 25 Mg PO DAILY Reported Alprazolam 0.5 Mg Tablet 1 Tab PO BID PRN Renvela (Sevelamer Carbonate) 800 Mg Tablet 800 Mg PO TIDWMEALS Ranitidine Hcl 150 Mg Capsule 150 Mg PO DAILY Potassium Chloride 10 Meq Tablet.er 10 Meq PO DAILY Iron (Ferrous Sulfate) 325 Mg Capsule.er 325 Mg PO Diltiazem 24HR Cd (Diltiazem Hcl) 120 Mg Cap.er.24h 2 Cap PO DAILY Cephalexin 500 Mg Capsule 1 Cap PO DAILY Bumetanide 1 Mg Tablet 1 Tab PO BID Mupirocin Ointment (Mupirocin) 22 Gm Oint...g. 1 Donna TP BID Furosemide 40 Mg Tablet 40 Mg PO BID Cephalexin 500 Mg Capsule 1 Cap PO TID Carbamide Peroxide 15 Ml Drops 15 Ml OT Zinc Oxide 30 Gm Oint...g. 30 Gm TP Effexor Xr (Venlafaxine Hcl) 150 Mg Cap.er.24h 1 Cap PO DAILY Flomax (Tamsulosin Hcl) 0.4 Mg Cap.er.24h 1 Cap PO HS Synthroid (Levothyroxine Sodium) 25 Mcg Tablet 1 Tab PO DAILY Isosorbide Mononitrate Er (Isosorbide Mononitrate) 30 Mg Tab.er.24h 1 Tab PO DAILY Colace (Docusate Sodium) 100 Mg Capsule 1 Cap PO DAILY Vitamin B-12 (Cyanocobalamin (Vitamin B-12)) 1,000 Mcg Tablet 1 Tab PO DAILY Vitamin D3 (Cholecalciferol (Vitamin D3)) 1,000 Unit Tablet 2 Tab PO DAILY Zyrtec (Cetirizine Hcl) 10 Mg Tablet 1 Tab PO DAILY Aspir 81 (Aspirin) 81 Mg Tablet. 1 Tab PO DAILY Vitals/I & O Vital Sign - Last 24 Hours 09/29/16 09/29/16 09/29/16 09/29/16 15:00 19:25 19:46 23:00 Temp 98.1 98.7 98.1 98.1 98.7 98.1 Pulse 70 72 68 Resp 20 20 20 B/P (MAP) 97/55 (69) 118/58 (78) 114/56 (75) Pulse Ox 92 94 92 O2 Delivery Room Air Room Air Room Air Room Air 09/30/16 09/30/16 09/30/16 09/30/16 02:53 07:15 08:08 13:07 Temp 98.4 97.3 98.4 97.3 Pulse 66 63 102 Resp 20 20 B/P (MAP) 119/56 (77) 124/63 (83) 115/60 Pulse Ox 94 100 O2 Delivery Room Air Room Air Room Air 09/30/16 09/30/16 13:07 13:08 Pulse 92 92 B/P (MAP) 115/60 115/60 Intake and Output 09/29/16 09/29/16 09/30/16 15:00 23:00 07:00 Intake Total 0 ml 400 ml Output Total 1 ml Balance 0 ml 399 ml REZA WALTON III DO September 30, 2016 13:26
[2016-09-30 14:51] VITALS: BP 119/57
[2016-09-30] MEDS: ALPRAZolam 0.25 MG TABLET PO PRN (15:22)
[2016-09-30] MEDS ORDERED: ALBUTEROL SULFATE 2.5 MG/3 ML NEBU. NEB PRN (15:30)
[2016-09-30] MEDS: VANCOMYCIN 500 MG in IV NORMAL SALINE 100ML 100 ML IV SCH (16:28)
[2016-09-30 19:20] VITALS: BP 90/53
[2016-09-30] MEDS: TAMSULOSIN 0.4 MG CAP.ER.24H. PO SCH (20:09)
[2016-09-30] MEDS: IPRATRPIUM/ALBUTEROL 0.5/2.5MG 3 ML NEBU. NEB SCH (20:28)
[2016-09-30 23:30] VITALS: BP 102/53
[2016-10-01 05:03] LABS: BASO # 0.1 x10^3/uL (0.0-0.2); BASO % 1 % (0-3); EOS % 5 % (0-3); HEMATOCRIT 35.8 % (39.0-53.0); HEMOGLOBIN 12.1 g/dL (13.0-17.5); LYMPH # 1.2 x10^3/uL (1.0-4.8); LYMPH % 14 % (24-48); MEAN CORPUSCULAR HEMOGLOBIN 30 pg (25-35); MEAN CORPUSCULAR HGB CONC 34 g/dL (31-37); MEAN CORPUSCULAR VOLUME 88 fL (79-100); MONO % 12 % (0-9); NEUT % 68 % (31-73); PLATELET COUNT 230 x10^3/uL (140-400); RED BLOOD COUNT 4.05 x10^6/uL (4.30-5.70); RED CELL DISTRIBUTION WIDTH 14.5 % (11.5-14.5); WHITE BLOOD COUNT 8.3 x10^3/uL (4.0-11.0)
[2016-10-01 05:45] LABS: CALCIUM 9.4 mg/dL (8.5-10.1); CREATININE 3.4 mg/dL (0.7-1.3); GFR 17.5; POTASSIUM 4.2 mmol/L (3.5-5.1)
[2016-10-01] MEDS: LEVOTHYROXINE 25 MCG TABLET. PO SCH (06:10)
[2016-10-01 07:00] VITALS: BP 108/64
[2016-10-01] MEDS: IPRATRPIUM/ALBUTEROL 0.5/2.5MG 3 ML NEBU. NEB SCH ×2 (07:50→11:32)
[2016-10-01] MEDS: INSULIN ASPART 300 UNITS/3 ML INSULN.PEN SQ SCH ×2 (08:00→12:00)
[2016-10-01] MEDS: SEVELAMER CARBONATE 800 MG TABLET. PO SCH ×2 (08:51→12:00)
[2016-10-01] MEDS: ALPRAZolam 0.25 MG TABLET PO PRN (08:51)
[2016-10-01] MEDS: POTASSIUM CHLORIDE 10 MEQ TABLET.ER. PO SCH (08:51)
[2016-10-01] MEDS: VENLAFAXINE XR 37.5 MG CAP.ER.24H. PO SCH (08:51)
[2016-10-01] MEDS: ASPIRIN ENTERIC COATED 81 MG TABLET.DR. PO SCH (08:52)
[2016-10-01] MEDS: ISOSORBIDE MONONITRATE ER 30 MG TAB.ER.24H PO SCH (08:52)
[2016-10-01] MEDS: FUROSEMIDE 40 MG TABLET. PO SCH (08:52)
[2016-10-01] MEDS: FLUCONAZOLE 100 MG TABLET. PO SCH (08:52)
[2016-10-01] MEDS: METOPROLOL SUCC 24HR ER 25 MG TAB.ER.24H. PO SCH (08:53)
[2016-10-01] MEDS: CEFEPIME HCL 1 GM in IV NORMAL SALINE 50ML 50 ML IV SCH (09:00)
--- NOTE | 2016-10-01 09:31 | PDOC ---
Infectious Disease Note Subjective Subjective pt wants to go home says, not elevating leg ROS ROS GEN: Denies fevers, chills, sweats HEENT: Denies blurred vision, sore throat CV: Denies chest pain RESP: Denies shortness of air, cough GI: Denies n/v/d NEURO: Denies confusion, dizziness Vital Sign Vital Signs Vital Signs Date Time Temp Pulse Resp B/P (MAP) Pulse Ox O2 Delivery O2 Flow Rate FiO2 10/01/16 08:53 72 108/64 10/01/16 08:00 Room Air 10/01/16 07:50 94 10/01/16 07:00 98.1 20 98.1 Physical Exam PHYSICAL EXAM GENERAL: NAD, Alert HEENT: PERRL, OC/OP NECK: Supple, no JVD, no LN LUNGS: Clear HEART: S1S2, no gallop, no murmur ABD: Soft, NT, no organomegaly, no rebound EXT: ++ edema, no cyanosis,, left leg redness less 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 AIDE: Alert, oriented x 3, no focal neurologic deficit SKIN: No rash IV: ok Labs Lab Laboratory Tests Test 10/01/16 04:30 White Blood Count 8.3 x10^3/uL (4.0-11.0) Red Blood Count 4.05 x10^6/uL (4.30-5.70) Hemoglobin 12.1 g/dL (13.0-17.5) Hematocrit 35.8 % (39.0-53.0) Mean Corpuscular Volume 88 fL (79-100) Mean Corpuscular Hemoglobin 30 pg (25-35) Mean Corpuscular Hemoglobin Concent 34 g/dL (31-37) Red Cell Distribution Width 14.5 % (11.5-14.5) Platelet Count 230 x10^3/uL (140-400) Neutrophils (%) (Auto) 68 % (31-73) Lymphocytes (%) (Auto) 14 % (24-48) Monocytes (%) (Auto) 12 % (0-9) Eosinophils (%) (Auto) 5 % (0-3) Basophils (%) (Auto) 1 % (0-3) Neutrophils # (Auto) 5.7 x10^3uL (1.8-7.7) Lymphocytes # (Auto) 1.2 x10^3/uL (1.0-4.8) Monocytes # (Auto) 1.0 x10^3/uL (0.0-1.1) Eosinophils # (Auto) 0.4 x10^3/uL (0.0-0.7) Basophils # (Auto) 0.1 x10^3/uL (0.0-0.2) Sodium Level 133 mmol/L (136-145) Potassium Level 4.2 mmol/L (3.5-5.1) Chloride Level 94 mmol/L (98-107) Carbon Dioxide Level 29 mmol/L (21-32) Anion Gap 10 (6-14) Blood Urea Nitrogen 54 mg/dL (8-26) Creatinine 3.4 mg/dL (0.7-1.3) Estimated GFR (Cockcroft-Gault) 17.5 Glucose Level 151 mg/dL (70-99) Calcium Level 9.4 mg/dL (8.5-10.1) Objective Assessment Left foot and leg cellulitis Tinea infection in feet ESRD Leukocytosis Plan Plan of Care ok to d/c on po augmentin leg elevation all the time except to walk and eat f/u with me in 1 -2 wks QUENTIN ROY MD October 01, 2016 09:31
[2016-10-01] MEDS ORDERED: AMOXICILLIN/K CLAV 500/125MG TABLET. PO SCH ×2 (09:45→21:00)
[2016-10-01 10:10] VITALS: BP 112/67
--- NOTE | 2016-10-01 11:15 | PDOC ---
Renal-Progress Notes Subjective Notes Notes NOTHING NEW History of Present Illness Hx of present illness STABLE Vitals Vitals Vital Signs Date Time Temp Pulse Resp B/P (MAP) Pulse Ox O2 Delivery O2 Flow Rate FiO2 10/01/16 10:10 74 112/67 10/01/16 08:00 Room Air 10/01/16 07:50 94 10/01/16 07:00 98.1 20 98.1 Weight Weight [ ] I.O. Intake and Output Intake and Output 10/01/16 06:59 Intake Total 760 ml Output Total 101 ml Balance 659 ml Intake Oral 760 ml Output Urine Total 101 ml Labs Labs Laboratory Tests Test 10/01/16 04:30 White Blood Count 8.3 x10^3/uL (4.0-11.0) Red Blood Count 4.05 x10^6/uL (4.30-5.70) Hemoglobin 12.1 g/dL (13.0-17.5) Hematocrit 35.8 % (39.0-53.0) Mean Corpuscular Volume 88 fL (79-100) Mean Corpuscular Hemoglobin 30 pg (25-35) Mean Corpuscular Hemoglobin Concent 34 g/dL (31-37) Red Cell Distribution Width 14.5 % (11.5-14.5) Platelet Count 230 x10^3/uL (140-400) Neutrophils (%) (Auto) 68 % (31-73) Lymphocytes (%) (Auto) 14 % (24-48) Monocytes (%) (Auto) 12 % (0-9) Eosinophils (%) (Auto) 5 % (0-3) Basophils (%) (Auto) 1 % (0-3) Neutrophils # (Auto) 5.7 x10^3uL (1.8-7.7) Lymphocytes # (Auto) 1.2 x10^3/uL (1.0-4.8) Monocytes # (Auto) 1.0 x10^3/uL (0.0-1.1) Eosinophils # (Auto) 0.4 x10^3/uL (0.0-0.7) Basophils # (Auto) 0.1 x10^3/uL (0.0-0.2) Sodium Level 133 mmol/L (136-145) Potassium Level 4.2 mmol/L (3.5-5.1) Chloride Level 94 mmol/L (98-107) Carbon Dioxide Level 29 mmol/L (21-32) Anion Gap 10 (6-14) Blood Urea Nitrogen 54 mg/dL (8-26) Creatinine 3.4 mg/dL (0.7-1.3) Estimated GFR (Cockcroft-Gault) 17.5 Glucose Level 151 mg/dL (70-99) Calcium Level 9.4 mg/dL (8.5-10.1) Review of Systems Constitutional: yes: alert, oriented Ears/Nose/Throat: Yes: no symptom reported Eyes: Yes: no symptom reported Pulmonary: Yes dyspnea Cardiovascular: Yes no symptom reported Gastrointestional: Yes: constipation Genitourinary: Yes: no symptom reported Physical Exam General Appearance: no apparent distress Skin: warm Respiratory: decreased breath sounds Heart: S1S2, RRR Abdomen: soft, bowel sounds present Extremities: pulses present Neurology: alert Musculoskeletal: Osteoarthritis Assessment Assessment IMP HYPERVOLEMIA ESRD ANEMIA LE CELLULITIS COPD PLAN HD TOMORROW ANTIBIOTICS LY ROGERS MD October 01, 2016 11:15
[2016-10-01] MEDS ORDERED: AMOXICILLIN/K CLAV 875/125MG TABLET. PO SCH (21:00)
--- NOTE | 2016-10-02 00:12 | DS ---
DATE OF DISCHARGE: 10/01/2016 ADMISSION DIAGNOSIS: Lower extremity cellulitis. DISCHARGE DIAGNOSIS: Resolving lower extremity cellulitis. HOSPITAL COURSE: The patient is a pleasant 80-year-old male presented with lower extremity cellulitis. He was admitted. We gave him IV antibiotics. We did some physical therapy and occupational therapy. His symptoms improved. We changed him to p.o. Keflex today. DISPOSITION: Home. ACTIVITY: As tolerated. DIET: Low sodium. MEDICATIONS: Please see the MRAD. TOTAL TIME: 32 minutes. REZA WALTON DO DR: KISHORE/jess JOB#: [id number] / [id number]
== END 2016-10-01 13:28 | disposition home or self-care (01) | DRG 602 ==
LOC: ER 02:50 → 2 NORTH 05:36
PROVIDERS: ADMIT Internal Medicine; ATTEND Internal Medicine
PROC: 5A1D60Z (ICD-10-PCS; principal; 2016-09-28)
DX: L03.116 Cellulitis of left lower limb (principal); N18.6 End stage renal disease; J96.01 Acute respiratory failure with hypoxia; J44.0 Chronic obstructive pulmonary disease with (acute) lower respiratory infection; I13.2 Hypertensive heart and chronic kidney disease with heart failure and with stage 5 chronic kidney disease, or end stage renal disease; I31.3 Pericardial effusion (noninflammatory); J94.2 Hemothorax; B35.9 Dermatophytosis, unspecified; F03.90 Unspecified dementia, unspecified severity, without behavioral disturbance, psychotic disturbance, mood disturbance, and anxiety; Z77.090 Contact with and (suspected) exposure to asbestos; I50.9 Heart failure, unspecified; D64.9 Anemia, unspecified; E21.3 Hyperparathyroidism, unspecified; F32.9 Major depressive disorder, single episode, unspecified; M19.90 Unspecified osteoarthritis, unspecified site; J20.9 Acute bronchitis, unspecified; E03.9 Hypothyroidism, unspecified; I48.91 Unspecified atrial fibrillation; I71.2 Thoracic aortic aneurysm, without rupture; Z86.14 Personal history of Methicillin resistant Staphylococcus aureus infection; Z87.891 Personal history of nicotine dependence; Z99.2 Dependence on renal dialysis; Z88.8 Allergy status to other drugs, medicaments and biological substances; Z79.4 Long term (current) use of insulin; Z79.82 Long term (current) use of aspirin; Z79.2 Long term (current) use of antibiotics
CPT/HCPCS: 36415; 71010; 71275; 80048; 80053; 80202; 82962; 83880; 84484; 85007; 85027; 87641; 93005; 93970; 94250; 94640; 94760; J0692; J1815; J3370; J3490; J7040; J7620; P9046; Q9967; 99285-25

== ENCOUNTER 2017-08-17 11:08 | Day surgery (SDC) | payer OTHER ==
[~2017-08-17 11:08] MED LIST changes: -ASPI-482 PO; -CETI10TA22 PO; -CHOL10003 PO; -CYAN10005 PO; -DOCU-109 PO; -FAMO-63 PO; -FURO80TA72 PO; -ISOS30TA4 PO; +IV RINGERS,LACTATED 1000ML 1,000 ML IV; -LEVO25TA55 PO; +LIDOCAINE 1% PF 2 ML VIAL. ID; -METO25TA9 PO; +MORPHINE SULFATE 4 MG/ML DISP.SYRIN. IV; +ONDANSETRON PF 4 MG/2 ML VIAL. IV; +PROCHLORPERAZINE 10 MG/2 ML VIAL. IV; -TAMS0.4C97 PO; -VENL150C PO; +fentaNYL PF VIAL 100 MCG/2 ML VIAL IV
[2017-08-17] MEDS ORDERED: GELATIN SPONGE SIZE 12-7MM SPONGE. (11:30)
[2017-08-17] MEDS ORDERED: ceFAZolin 2GM PREMIX 2 GM/50 ML BAG IV (12:00)
[2017-08-17] MEDS: IV NORMAL SALINE 1000ML BAG 1,000 ML IV (12:32)
[2017-08-17] MEDS ORDERED: DEXAMETHASONE SOD PHOS 20 MG/5 ML VIAL. (12:33)
[2017-08-17] MEDS ORDERED: ROCURONIUM 50 MG/5 ML VIAL. ×2 (12:33→14:10)
[2017-08-17] MEDS ORDERED: PROPOFOL 20 ML IV (12:33)
[2017-08-17] MEDS ORDERED: fentaNYL PF VIAL 100 MCG/2 ML VIAL (12:33)
[2017-08-17] MEDS ORDERED: ONDANSETRON PF 4 MG/2 ML VIAL. (12:33)
[2017-08-17] MEDS: ALBUTEROL SULFATE 2.5 MG/3 ML NEBU. NEB (12:49)
[2017-08-17] MEDS ORDERED: PHENYLEPHRINE in 0.9% NACL PF 1 MG/10 ML SYRINGE. IV ×2 (13:20→13:48)
[2017-08-17] MEDS: BUPIVACAINE-EPI 0.25%-1:200000 50 ML VIAL. (13:27)
[2017-08-17] MEDS: CHLORHEXIDINE 0.12% 15 ML MOUTHWASH. SWSP (13:27)
[2017-08-17] MEDS ORDERED: ePHEDrine PF IN SALINE 50 MG/5 ML DISP.SYRIN IV (13:51)
[2017-08-17] MEDS: GELATIN SPONGE SIZE 100. (13:54)
[2017-08-17] MEDS ORDERED: GLYCOPYRROLATE 1 MG/5 ML VIAL. (14:05)
[2017-08-17] MEDS ORDERED: NEOSTIGMINE METHYLSULFATE 5 MG/5 ML SYRINGE. (14:05)
[2017-08-17] MEDS ORDERED: PHENYLEPHRINE 10 MG/ML VIAL. (14:26)
[2017-08-17] MEDS ORDERED: SEVOFLURANE > 120 MINUTES. IH (14:28)
[2017-08-17 15:10] LABS: POC GLUCOSE 87 mg/dL (70-99)
[2017-08-17 23:13] LABS: MRSA BY PCR Negative (Negative)
[2017-08-19 08:04] LABS: POC GLUCOSE 80 mg/dL (70-99)
== END 2017-08-17 16:25 | disposition home or self-care (01) ==
LOC: SURG 11:08
DX: K02.9 Dental caries, unspecified (principal); G47.33 Obstructive sleep apnea (adult) (pediatric); M27.0 Developmental disorders of jaws; I12.9 Hypertensive chronic kidney disease with stage 1 through stage 4 chronic kidney disease, or unspecified chronic kidney disease; E11.22 Type 2 diabetes mellitus with diabetic chronic kidney disease; N18.9 Chronic kidney disease, unspecified; E03.9 Hypothyroidism, unspecified; J44.9 Chronic obstructive pulmonary disease, unspecified
CPT/HCPCS: 21031; 36415; 82962; 87641; 94640; J0690; J1100; J2370; J2405; J2704; J2710; J3010; J3490; J7613